=== PATIENT | female | born 1940 | race Caucasian/White ===

== ENCOUNTER 2020-02-26 08:54 | Outpatient (REF) | payer MEDICARE, SELFPAY ==
[2020-02-26 09:33] LABS: MANUAL DIFF FLAG NO
[2020-02-26 09:34] LABS: Basophils Absolute Auto 0.1 X10*3/uL (0.0-0.2); Eosinophils Absolute Auto 0.3 X10*3/uL (0.0-0.4); Eosinophils Percent Auto 4.5 % (0-4); Hematocrit 24.7 % (37-47); Hemoglobin 7.7 g/dl (12.0-16.0); Imm Gran Abs Auto 0.02 X10*3/uL (0.00-0.03); Imm Gran Pct Auto 0.3 % (0.0-0.4); Lymphocytes Absolute Auto 1.2 X10*3/uL (1.2-4.9); Lymphocytes Percent Auto 17.2 % (20-40); Mean Corpuscular HGB Conc 31.2 g/dl (31.0-35.0); Mean Corpuscular Hemoglobin 27.2 pg (27.0-33.0); Mean Corpuscular Volume 87.3 fL (80-98); Monocytes Absolute Auto 0.6 X10*3/uL (0.1-1.2); Monocytes Percent Auto 8.4 % (2-11); Neutrophils Absolute Auto 4.8 X10*3/uL (2.0-8.3); Neutrophils Percent Auto 68.6 % (45-73); Platelet Count 256 X10*3/uL (160-400); Red Blood Count 2.83 X10*6/uL (4.20-5.50); Red Cell Distribution Width 13.3 % (11.0-16.0); White Blood Count 6.9 X10*3/uL (4.8-10.8)
[2020-02-26 10:12] LABS: Alanine Aminotransferase 10 U/L (0-31); Aspartate Amino Transferase 9 U/L (5-31); Cholesterol 96 mg/dL; HDL Cholesterol 25 mg/dL; LDL Cholesterol Calculated 37 mg/dl; Triglycerides 173 mg/dL
[2020-02-26 10:21] LABS: Free T4 (Free Thyroxine) 1.13 ng/dL (0.71-1.85); Thyroid Stimulating Hormone 2.96 mIU/mL (0.32-4.0); Vitamin D 25-OH Total 52.5 ng/mL (>30)
== END 2020-02-26 08:55 | disposition home or self-care (01) ==
LOC: HO.LAB 08:54
PROVIDERS: PCP Internal Medicine; Visit Provider Internal Medicine
DX: E11.21 Type 2 diabetes mellitus with diabetic nephropathy (principal); E11.22 Type 2 diabetes mellitus with diabetic chronic kidney disease; I12.9 Hypertensive chronic kidney disease with stage 1 through stage 4 chronic kidney disease, or unspecified chronic kidney disease; N18.9 Chronic kidney disease, unspecified; D63.1 Anemia in chronic kidney disease; Z78.0 Asymptomatic menopausal state; E03.9 Hypothyroidism, unspecified; I25.10 Atherosclerotic heart disease of native coronary artery without angina pectoris; N25.81 Secondary hyperparathyroidism of renal origin; R42 Dizziness and giddiness
CPT/HCPCS: 36415; 80061; 82306; 84439; 84443; 84450; 84460; 85025

== ENCOUNTER 2020-03-04 09:38 | Outpatient (REF) | payer MEDICARE, SELFPAY ==
[2020-03-04 11:10] LABS: Alanine Aminotransferase 10 U/L (0-31); Albumin Level 3.8 g/dL (3.5-5.0); Alkaline Phosphatase 80 U/L (39-117); Aspartate Amino Transferase 7 U/L (5-31); Bilirubin Direct < 0.2 mg/dL (0.0-0.5); Bilirubin Total 0.2 mg/dL (0.0-1.0); Phosphorus 4.5 mg/dL (2.7-4.5)
== END 2020-03-04 09:39 | disposition home or self-care (01) ==
LOC: HO.LAB 09:38
PROVIDERS: PCP Internal Medicine; Visit Provider Internal Medicine Nephrology
DX: N18.4 Chronic kidney disease, stage 4 (severe) (principal)
CPT/HCPCS: 80076; 84100

== ENCOUNTER 2020-05-01 12:01 | Outpatient (REF) | payer MEDICARE, SELFPAY ==
[2020-05-01 14:04] LABS: Anion Gap 22 (12-20); Blood Urea Nitrogen 89 mg/dL (9-16); Carbon Dioxide 19 mmol/L (22-29); Chloride 102 mmol/L (96-108); Estimated Glomerular Filt Rate 10; Sodium 138 mmol/L (135-145)
== END 2020-05-01 12:02 | disposition home or self-care (01) ==
LOC: HO.LAB 12:01
PROVIDERS: PCP Internal Medicine; Visit Provider Internal Medicine Nephrology
DX: N18.4 Chronic kidney disease, stage 4 (severe) (principal)
CPT/HCPCS: 36415; 80051; 82310; 82565; 84100; 84520

== ENCOUNTER 2020-05-05 14:01 | Outpatient (REF) | payer MEDICARE, SELFPAY ==
[2020-05-05 14:45] LABS: MANUAL DIFF FLAG NO
[2020-05-05 14:52] LABS: Basophils Absolute Auto 0.1 X10*3/uL (0.0-0.2); Basophils Percent Auto 1.1 % (0-2); Eosinophils Absolute Auto 0.4 X10*3/uL (0.0-0.4); Eosinophils Percent Auto 5.6 % (0-4); Hemoglobin 10.9 g/dl (12.0-16.0); Imm Gran Abs Auto 0.01 X10*3/uL (0.00-0.03); Imm Gran Pct Auto 0.2 % (0.0-0.4); Lymphocytes Absolute Auto 1.1 X10*3/uL (1.2-4.9); Lymphocytes Percent Auto 16.8 % (20-40); Mean Corpuscular HGB Conc 30.3 g/dl (31.0-35.0); Mean Corpuscular Hemoglobin 25.8 pg (27.0-33.0); Mean Corpuscular Volume 85.3 fL (80-98); Mean Platelet Volume 10.4 fL (9.4-12.3); Monocytes Absolute Auto 0.5 X10*3/uL (0.1-1.2); Monocytes Percent Auto 8.3 % (2-11); Neutrophils Absolute Auto 4.3 X10*3/uL (2.0-8.3); Platelet Count 200 X10*3/uL (160-400); Red Blood Count 4.22 X10*6/uL (4.20-5.50); Red Cell Distribution Width 16.5 % (11.0-16.0); White Blood Count 6.3 X10*3/uL (4.8-10.8)
[2020-05-05 15:04] LABS: Anion Gap 17 (12-20); Blood Urea Nitrogen 99 mg/dL (9-16); Calcium 9.2 mg/dL (8.4-10.2); Carbon Dioxide 22 mmol/L (22-29); Chloride 100 mmol/L (96-108); Estimated Glomerular Filt Rate 10; Glucose Random 168 mg/dL (60-115); Potassium 5.2 mmol/l (3.3-5.1); Sodium 134 mmol/L (135-145)
[2020-05-05 15:13] LABS: Alanine Aminotransferase 11 U/L (0-31); Albumin Level 4.1 g/dL (3.5-5.0); Alkaline Phosphatase 73 U/L (39-117); Anion Gap 17 (12-20); Aspartate Amino Transferase 8 U/L (5-31); Bilirubin Total 0.3 mg/dL (0.0-1.0); Blood Urea Nitrogen 98 mg/dL (9-16); Calcium 9.1 mg/dL (8.4-10.2); Carbon Dioxide 22 mmol/L (22-29); Chloride 101 mmol/L (96-108); Estimated Glomerular Filt Rate 10; Glucose Random 171 mg/dL (60-115); Potassium 5.2 mmol/l (3.3-5.1); Sodium 135 mmol/L (135-145)
[2020-05-05 15:23] LABS: Vitamin D 25-OH Total 36.9 ng/mL (>30)
[2020-05-08 17:13] LABS: Calcium (PTHI) 9.5 mg/dL (8.6-10.4); PTHI 211 pg/mL (14-64)
== END 2020-05-05 14:02 | disposition home or self-care (01) ==
LOC: HO.LAB 14:01
PROVIDERS: Internal Medicine Medical Oncology; PCP Internal Medicine; Visit Provider Internal Medicine Nephrology
DX: N18.5 Chronic kidney disease, stage 5 (principal)
CPT/HCPCS: 36415; 80048; 80053; 82306; 83970; 85025

== ENCOUNTER 2020-05-12 07:28 | Day surgery (SDC) | payer MEDICARE, SELFPAY ==
[2020-05-08 12:28] VITALS: BMI 29.2
--- NOTE | 2020-05-08 12:56 | P.CONAN_ITS ---
Documented by User: Bita Winslow 05/11/20 10:49 HPI - Anesthesia Eval Consult details Narrative: 79yo F for Spinal Cord Simulation Trial, Lumbar s/p septic prosthetic shoulder explant 11/2019 at [facility] Approaching ESRD Seen by cardiology 05/09/20. Stable for yearly f/u. 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 Diabetic nephropathy Essential hypertension History of myocardial infarction Lumbosacral radiculopathy due to degenerative joint disease of spine Menopause Osteoarthritis involving multiple joints on both sides of body Restless leg syndrome Secondary hyperparathyroidism Septic arthritis of shoulder, right Family History Family History Father Medical history non-contributory Mother Medical history non-contributory Surgical History Surgical History History of carpal tunnel release History of foot surgery History of laminectomy History of total left knee replacement (TKR) Hx of appendectomy Hx of bilateral cataract extraction Hx of cholecystectomy Hx of colonoscopy Hx of dilation and curettage Hx of umbilical hernia repair S/P CABG x 3 S/P trigger finger release Status post right shoulder hemiarthroplasty Social History Social History Are you a primary long term care phlebotomist to a significant other at home: No Do you presently have visiting nurse or other home services: No Alcohol intake: never Smoking Status: Never smoker Use of substances other than those prescribed or required for medical reasons: No Have you been hit, kicked, punched, or otherwise hurt by someone within the past year? If so, by whom?: No Advance Directives: No Advance Directives Information Provided: No Advance Directives on File: No Recently lost weight without trying: No Meds Allergies Allergy/AdvReac Type Severity Reaction Status Date / Time erythromycin base Allergy Mild RASH Verified 05/08/20 11:57 [Erythromycin Base] indomethacin [From Indocin] Allergy Mild RASH Verified 05/08/20 11:57 Sulfa (Sulfonamide Allergy Mild RASH, Verified 05/08/20 11:57 Antibiotics) stomach [Sulfa (Sulfonamides)] upset flaxseed [FLAXSEED] Allergy Unknown SWELLING Verified 05/08/20 11:57 TONGUE AND LIPS Flexeril Allergy Unknown lg swelling Verified 05/08/20 11:57 Niacin Preparations Allergy Unknown RASH Verified 05/08/20 11:57 [NIACIN PREPARATIONS] cocaine Allergy Seizure Verified 05/08/20 11:57 Penicillins Allergy Rash Verified 05/08/20 11:57 atorvastatin [From Lipitor] AdvReac Mild MUSCLE Verified 05/08/20 11:57 SOARNESS oxycodone AdvReac Unknown GI upset- Verified 05/08/20 11:57 sevree CAT GUT SUTURES Allergy Unknown rash Uncoded 05/08/20 11:57 niacin Allergy Unknown rash Uncoded 05/08/20 11:57 PLASTIC TAPE, BANDADES Allergy Unknown rash Uncoded 05/08/20 11:57 Adhesive Bandage AdvReac Mild BLISTERS Uncoded 05/08/20 11:57 Home Medications Medication Instructions Recorded Confirmed Type amlodipine 10 mg tablet 10 mg PO DAILY 02/16/20 05/08/20 History furosemide 40 mg tablet See Rx Instructions PO .COMPLEX 02/16/20 05/08/20 History labetalol 300 mg tablet 300 mg PO BID 02/16/20 05/08/20 History losartan 100 mg tablet 100 mg PO DAILY 02/16/20 05/08/20 History ketorolac 1 drp OPHTHALMIC-RIGHT QID 03/31/20 05/08/20 History sevelamer carbonate 800 mg PO TID 05/05/20 05/08/20 History Exam Exam Date and Time: May 08, 2020 1256 Height,Weight and Vital Signs: Height 5 ft 6 in Weight 82.1 kg Pertinent Lab Results Pertinent Lab Results: Laboratory Tests 05/05/20 05/05/20 14:20 14:20 WBC 6.3 Hgb 10.9 L Hct 36.0 L Plt Count 200 D Sodium 135 Potassium 5.2 H Chloride 101 Carbon Dioxide 22 BUN 98 H* Creatinine 4.38 H* Narrative Narrative: EKG 05/09/19: NSR with SA Echo 02/2019 Nml biV chamber size and systolic function. EF 55-60%, No RWMA, Indeterminate DD. LAE, Mild degenerative valve disease without dopper evidence of hemodynamically significant stenosis or regurg. 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 Diabetic nephropathy Essential hypertension History of myocardial infarction Lumbosacral radiculopathy due to degenerative joint disease of spine Menopause Osteoarthritis involving multiple joints on both sides of body Restless leg syndrome Secondary hyperparathyroidism Septic arthritis of shoulder, right Family History Family History Father Medical history non-contributory Mother Medical history non-contributory Surgical History Surgical History History of carpal tunnel release History of foot surgery History of laminectomy History of total left knee replacement (TKR) Hx of appendectomy Hx of bilateral cataract extraction Hx of cholecystectomy Hx of colonoscopy Hx of dilation and curettage Hx of umbilical hernia repair S/P CABG x 3 S/P trigger finger release Status post right shoulder hemiarthroplasty Social History Social History Are you a primary long term care phlebotomist to a significant other at home: No Do you presently have visiting nurse or other home services: No Alcohol intake: never Smoking Status: Never smoker Use of substances other than those prescribed or required for medical reasons: No Have you been hit, kicked, punched, or otherwise hurt by someone within the past year? If so, by whom?: No Advance Directives: No Advance Directives Information Provided: No Advance Directives on File: No Recently lost weight without trying: No Meds Allergies Allergy/AdvReac Type Severity Reaction Status Date / Time erythromycin base Allergy Mild RASH Verified 05/08/20 11:57 [Erythromycin Base] indomethacin [From Indocin] Allergy Mild RASH Verified 05/08/20 11:57 Sulfa (Sulfonamide Allergy Mild RASH, Verified 05/08/20 11:57 Antibiotics) stomach [Sulfa (Sulfonamides)] upset flaxseed [FLAXSEED] Allergy Unknown SWELLING Verified 05/08/20 11:57 TONGUE AND LIPS Flexeril Allergy Unknown lg swelling Verified 05/08/20 11:57 Niacin Preparations Allergy Unknown RASH Verified 05/08/20 11:57 [NIACIN PREPARATIONS] cocaine Allergy Seizure Verified 05/08/20 11:57 Penicillins Allergy Rash Verified 05/08/20 11:57 atorvastatin [From Lipitor] AdvReac Mild MUSCLE Verified 05/08/20 11:57 SOARNESS oxycodone AdvReac Unknown GI upset- Verified 05/08/20 11:57 sevree CAT GUT SUTURES Allergy Unknown rash Uncoded 05/08/20 11:57 niacin Allergy Unknown rash Uncoded 05/08/20 11:57 PLASTIC TAPE, BANDADES Allergy Unknown rash Uncoded 05/08/20 11:57 Adhesive Bandage AdvReac Mild BLISTERS Uncoded 05/08/20 11:57 Home Medications Medication Instructions Recorded Confirmed Type amlodipine 10 mg tablet 10 mg PO DAILY 02/16/20 05/08/20 History furosemide 40 mg tablet See Rx Instructions PO .COMPLEX 02/16/20 05/08/20 History labetalol 300 mg tablet 300 mg PO BID 02/16/20 05/08/20 History losartan 100 mg tablet 100 mg PO DAILY 02/16/20 05/08/20 History ketorolac 1 drp OPHTHALMIC-RIGHT QID 03/31/20 05/08/20 History sevelamer carbonate 800 mg PO TID 05/05/20 05/08/20 History Exam Airway Mallampati Class: II TM Dist: >3cm Neck ROM: Full
--- NOTE | 2020-05-11 14:38 | MHC.SHP ---
Pre-Procedural Eval Section A The patient is an INPATIENT: No The History & Physical has been completed within 30 days and I have reviewed it.: No Section B Chief Complaint: Post Laminectomy Syndrome Details of Present Illness: As above Relevant Family History (Specify if Yes): No Relevant Social History: None Present Medications: None Medical History: No relevant PMH Allergies: Allergies Allergy/AdvReac Type Severity Reaction Status Date / Time erythromycin base Allergy Mild RASH Verified 05/08/20 11:57 [Erythromycin Base] indomethacin [From Indocin] Allergy Mild RASH Verified 05/08/20 11:57 Sulfa (Sulfonamide Allergy Mild RASH, Verified 05/08/20 11:57 Antibiotics) stomach [Sulfa (Sulfonamides)] upset flaxseed [FLAXSEED] Allergy Unknown SWELLING Verified 05/08/20 11:57 TONGUE AND LIPS Flexeril Allergy Unknown lg swelling Verified 05/08/20 11:57 Niacin Preparations Allergy Unknown RASH Verified 05/08/20 11:57 [NIACIN PREPARATIONS] cocaine Allergy Seizure Verified 05/08/20 11:57 Penicillins Allergy Rash Verified 05/08/20 11:57 atorvastatin [From Lipitor] AdvReac Mild MUSCLE Verified 05/08/20 11:57 SOARNESS oxycodone AdvReac Unknown GI upset- Verified 05/08/20 11:57 sevree CAT GUT SUTURES Allergy Unknown rash Uncoded 05/08/20 11:57 niacin Allergy Unknown rash Uncoded 05/08/20 11:57 PLASTIC TAPE, BANDADES Allergy Unknown rash Uncoded 05/08/20 11:57 Adhesive Bandage AdvReac Mild BLISTERS Uncoded 05/08/20 11:57 Review of Systems Sugical H&P ROS: Negative: Constitution, Cardiovascular, Respiratory, Neurological, Psychiatric, Hem-Onc, Allergic/Immunologic, Gastrointestinal, Genitourinary, Musculoskeletal, Integumentary, Endocrine and Eyes/Ears/Nose/Throat Exam Surgical H&P Exam: Normal: HEENT, Normal: Heart, Normal: Lungs, Normal: Extremities, Normal: Abdomen, Normal: Skin and Normal: Neurological Plan Diagnosis/Plan: Unchanged I have reviewed the history and physical and performed a pertinent physical examination on my patient. No changes have occurred unless specified.
[2020-05-12] VITALS (8 sets, daily range): BP systolic 98–124; BP diastolic 51–69; PULSE 55–93; RESP 16–20; TEMP 36.1–36.4; O2SAT 93–99
--- NOTE | 2020-05-12 07:32 | FL_ITS ---
EXAMINATION: XR FLUOROSCOPY WITH IMAGES CLINICAL INFORMATION: Pain COMPARISON: None. TECHNIQUE: Fluoroscopy performed by Dr. Ranjith Franco. Fluoroscopy time: 2.3 minutes DAP: 12 mGycm2 Images: 5 FINDINGS: There are spinal stimulator leads projecting over the lower thoracic spine. There are degenerative changes of the spine. There are median sternotomy wires. FL/FL guidance in OR IMPRESSION: Fluoroscopic guidance for thoracic spinal stimulator
[2020-05-12 07:48] LABS: Glucose, Whole Blood 104 mg/dL (60-115)
[2020-05-12] MEDS: 0.9 % Sodium Chloride 500 ML 20 ML IVCONT (08:39)
--- NOTE | 2020-05-12 10:05 | PM.OP ---
Brief Operative Note Date of Service: 05/12/20 Pre-op diagnosis: Postlaminectomy syndrome Post-op diagnosis: same Implants: Temporary Nevro leads Surgeon: Ranjith Franco MD Anesthesia: GETA Estimated blood loss (mL): 0 Pathology: none sent Disposition: PACU
--- NOTE | 2020-05-12 11:46 | HO.POSTANES ---
Post Anesthesia Evaluation Post Anesthesia Evaluation Vital Signs: Vital Signs Temp Pulse Resp BP Pulse Ox 05/12/20 11:05 97 F 63 20 117/67 95 05/12/20 10:51 60 20 117/66 95 05/12/20 10:36 57 16 123/69 95 05/12/20 10:21 59 16 110/55 L 93 05/12/20 10:16 59 16 105/60 98 05/12/20 10:11 56 16 105/56 L 99 05/12/20 10:06 97.5 F 55 16 98/51 L 99 05/12/20 07:45 97.5 F 93 18 124/68 98 Anesthesia: Monitored Mental Status: Awake Pain Control: Satisfactory Nausea/Vomiting: None Hydration: Adequate Anesthesia-Related Issues: No Anes. Related Issues
--- NOTE | 2020-05-14 09:52 | P.OP_ITS ---
Operative Note Operative Note Date of Service: 05/12/20 Narrative: Ms. Correa is very pleasant 79 years old lady who came today into the operating room for trial of spinal cord stimulator for the treatment of post laminectomy syndrome. Preoperatively patient received cefasolin 1 g approxi mately 30 minutes before the procedure. After obtaining informed consent patient was brought to the operating room, SHE was positioned prone on operating table, [employer] mon itors were applied and patient was deeply sedated. The patient was taken inside of the operating room where she was positioned prone operating table. Time-out was performed delineating correct site, side, the nature of the procedure, patient's allergy, preoperative antibiotic if needed. All operating room staff was participating in OR time-out procedure. Patient's entire back was prepped with ChloraPrep twice and draped with full body fenestrated drape. Sterilely draped C-arm was brought over operating field and sqare picture of T11-T12 L1 L2 vertebrae as were demonstrated on the screen. Attention FIRST was concentrated on the L1- L2 epidural interspace. The location of the projection of the right pedicle center of the L3 vertebra was found on the skin using C-arm. This location was injected with mixture of lidocaine 2% and Marcaine 0.5% 5 cc. After that 11 blade was used to make a chicho on the skin. 10 cm 14 gauge introducer epidural needle was inserted through the chicho and advanced to L1- L2 epidural interspace. The advancement of the needle was performed on anterior posterior and lateral views. Guitar wire and loss of resistance technique were used to locate epidural space. When guitar wire was spread in the epidural fashion, epidural lead was inserted through the skin and it was advanced to middle of T8 position SLIGHTLY LEFT OF THE MIDLINE. After that location of the projection of the LEFT pedicle center of the L3 vertebra was found on the skin using C-arm. This location was injected with mixture of lidocaine 2% and Marcaine 0.5% 5 cc. After that 11 blade was used to make a chicho on the skin. 10 cm 14 gauge curved introducer epidural needle was inserted through the chicho and advanced to L1-L2 epidural interspace. The advancement of the needle was performed on anterior posterior and lateral views. Guitar wire and loss of resistance technique were used to locate epidural space. When guitar wire was spread in the epidural fashion, epidural lead was inserted through the needle and advanced to the middle of T9 epidural interspace slightly right to the existing electrode. Impedance was checked and was satisfactory .The needles were withdrawn, the stylette wires were removed from the epidural leads. The anchoring devices were dislodged on the leads and advanced to the level of the skin. The anchoring devices were sutured with two 0-0 silk sutures per each anchor to the skin of the patient. The central fixation screw of each anchor was rotated until three clicks were heard. The leads were connected to testing device. Bacitracin oin tment was applied to the entrance point of bilateral needles. Sterile dressing was applied to the patient's back. The testing device was also glued to the patient's back.
== END 2020-05-12 11:51 | disposition home or self-care (01) ==
PROVIDERS: PCP Internal Medicine; Visit Provider Anesthesiology
PROC: (CPT 63650; principal; 2020-05-12 09:00)
DX: M96.1 Postlaminectomy syndrome, not elsewhere classified (principal); M54.16 Radiculopathy, lumbar region; I12.0 Hypertensive chronic kidney disease with stage 5 chronic kidney disease or end stage renal disease; E11.22 Type 2 diabetes mellitus with diabetic chronic kidney disease; N18.5 Chronic kidney disease, stage 5; D63.1 Anemia in chronic kidney disease; E11.21 Type 2 diabetes mellitus with diabetic nephropathy; Z79.84 Long term (current) use of oral hypoglycemic drugs; Z79.899 Other long term (current) drug therapy; Z88.0 Allergy status to penicillin; Z88.2 Allergy status to sulfonamides; Z88.8 Allergy status to other drugs, medicaments and biological substances
CPT/HCPCS: 63650 ×2; 82947; C1897; J0690; J1100; J2405; J3010; J3370

== ENCOUNTER → 2020-05-18 11:22 | Outpatient (BNVA) | payer MEDICARE, SELFPAY | PROVIDERS: PCP Internal Medicine; Referring Provider Internal Medicine; Visit Provider Anesthesiology | DX: M96.1 Postlaminectomy syndrome, not elsewhere classified (principal); M47.27 Other spondylosis with radiculopathy, lumbosacral region; G89.4 Chronic pain syndrome | CPT/HCPCS: 99212 ==

== ENCOUNTER → 2020-06-06 11:59 | Outpatient (BNVA) | payer MEDICARE, SELFPAY | PROVIDERS: PCP Internal Medicine; Visit Provider Orthopaedic Surgery | DX: M75.102 Unspecified rotator cuff tear or rupture of left shoulder, not specified as traumatic (principal); M12.812 Other specific arthropathies, not elsewhere classified, left shoulder | CPT/HCPCS: 99212; J1040 ==

== ENCOUNTER 2020-07-05 14:15 | Outpatient (REF) | payer MEDICARE, SELFPAY ==
[2020-07-05 15:26] LABS: Creatinine Urine 30.17 mg/dL
[2020-07-05 15:38] LABS: Anion Gap 21 (12-20); Blood Urea Nitrogen 94 mg/dL (9-16); Calcium 9.5 mg/dL (8.4-10.2); Carbon Dioxide 26 mmol/L (22-29); Chloride 94 mmol/L (96-108); Estimated Glomerular Filt Rate 8; Potassium 4.9 mmol/L (3.3-5.1); Sodium 136 mmol/L (135-145)
== END 2020-07-05 14:16 | disposition home or self-care (01) ==
LOC: HO.LAB 14:15
PROVIDERS: PCP Internal Medicine; Visit Provider Internal Medicine Nephrology
DX: N18.5 Chronic kidney disease, stage 5 (principal)
CPT/HCPCS: 36415; 80051; 82043; 82310; 82565; 84520

== ENCOUNTER 2020-07-11 14:35 | Outpatient (REF) | payer MEDICARE, SELFPAY ==
--- NOTE | ~2020-07-11 | US_ITS ---
EXAMINATION: US VENOUS ULTRASOUND WITH DOPPLER LOWER EXTREMITY, BILATERAL CLINICAL INFORMATION: Bilateral leg pain COMPARISON: None TECHNIQUE: Ultrasound of the deep veins is performed from the hip to the calf with compression sonography and color and pulse Doppler assessment. Spectral analysis with color-flow imaging is performed. FINDINGS: RIGHT: There is normal venous compression and respiratory variation and augmented flow. The visualized common femoral vein, superficial femoral vein, profunda femoral vein, popliteal vein, and the trifurcation region shows no evidence of deep venous thrombosis. There is a small popliteal fossa cyst. LEFT: There is normal venous compression and respiratory variation and augmented flow. The visualized common femoral vein, superficial femoral vein, profunda femoral vein, popliteal vein, and posterior tibial vein shows no evidence of deep venous thrombosis. The peroneal vein is not visualized. There is no significant popliteal fossa cyst. If the patient's symptoms persist, followup ultrasound in 5 days 7 days might be of value to exclude proximal propagation from a non-visualized calf vein. US/US venous duplex LE BI IMPRESSION: No DVT demonstrated in the bilateral lower extremity. The left peroneal vein is not visualized. There is a small right Chand's cyst.
== END 2020-07-11 14:36 | disposition home or self-care (01) ==
LOC: HO.US 14:35
PROVIDERS: Visit Provider Internal Medicine
DX: M79.89 Other specified soft tissue disorders (principal); M79.662 Pain in left lower leg; M79.661 Pain in right lower leg
CPT/HCPCS: 93970

== ENCOUNTER 2020-07-17 20:40 | Emergency (ER) | payer MEDICARE, SELFPAY ==
--- NOTE | ~2020-07-17 | XR_ITS ---
EXAMINATION: BILATERAL TIBIA AND FIBULA. CLINICAL INFORMATION: Leg pain. COMPARISON: None TECHNIQUE: 2 views each tibia and fibula FINDINGS: LEFT TIBIA AND FIBULA: There is a total left knee prosthesis in place is slow healing proximal fibular fracture with periosteal thickening. No acute fractures involving tibia or the fibula. There is RIGHT TIBIA-FIBULA: There is a right proximal lateral. The ossicle thickening likely old healed stress fracture. No acute fracture or dislocation seen at this time. XR/XR tibia fibula LT 2V IMPRESSION: Total left knee prosthesis with a healing proximal fibular fracture. No acute fracture seen. There is periosteal thickening proximal fibula likely old stress fracture. No acute fracture or dislocation right lower leg.
--- NOTE | ~2020-07-17 | XR_ITS ---
EXAMINATION: BILATERAL TIBIA AND FIBULA. CLINICAL INFORMATION: Leg pain. COMPARISON: None TECHNIQUE: 2 views each tibia and fibula FINDINGS: LEFT TIBIA AND FIBULA: There is a total left knee prosthesis in place is slow healing proximal fibular fracture with periosteal thickening. No acute fractures involving tibia or the fibula. There is RIGHT TIBIA-FIBULA: There is a right proximal lateral. The ossicle thickening likely old healed stress fracture. No acute fracture or dislocation seen at this time. XR/XR tibia fibula RT 2V IMPRESSION: Total left knee prosthesis with a healing proximal fibular fracture. No acute fracture seen. There is periosteal thickening proximal fibula likely old stress fracture. No acute fracture or dislocation right lower leg.
[2020-07-17 20:51] VITALS: BP 101/73; PULSE 87; RESP 15; TEMP 36.9; O2SAT 98; BMI 30.5
[2020-07-17] MEDS: traMADoL HCL 50 MG TABLET PO (21:53)
[2020-07-17 21:54] VITALS: BP 98/67; PULSE 86; RESP 14; O2SAT 94
--- NOTE | 2020-07-17 23:01 | MHC.CM.ED ---
Met with pt and at request of JEREMY Dietz. Pt has hx of chronic back pain and has had leg pain, which is being treated at [facility] pain clinic. Pt had a temporary pain stimulator which worked very well per pt. Pt scheduled to have permanent pain stimulator implanted on July 28. Pain has worsened over weekend and today pt could not get out of chair. Pt takes vicodan, but that has not helped much. Pt called pain clinic and no orders for pain medication obtained. Pt states was told to wait for pain stimulator.Twan Dietz suggested PT evaluation. Plan is to re-assess pt after tramadol and see if she can use her walker. If she can, she would like to go home. If not, she will stay over night for a PT evaluation in the am. J Luis Trent agrees with plan. Pt and agree with this plan. CM to follow for d/c needs.
[2020-07-18] VITALS (9 sets, daily range): BP systolic 96–111; BP diastolic 58–74; PULSE 82–90; RESP 16–18; TEMP 36.6; O2SAT 96–100
--- NOTE | 2020-07-18 00:22 | ED.GENADULT ---
HPI - General Adult General Chief complaint: Extremity Injury, Lower <JEREMY Calderon - Last Filed: 07/18/20 01:23> Stated complaint: chronic leg pain <JEREMY Calderon - Last Filed: 07/18/20 01:23> Time Seen by Provider: 07/17/20 20:59 <JEREMY Calderon - Last Filed: 07/18/20 01:23> Source: patient <JEREMY Calderon - Last Filed: 07/18/20 01:23> Mode of arrival: ambulatory <JEREMY Calderon - Last Filed: 07/18/20 01:23> Limitations: no limitations <JEREMY Calderon Last Filed: 07/18/20 01:23> History of Present Illness HPI narrative: Patient presents to ED for chronic bilateral lower extremity pain. Patient denies any increased swelling of lower extremities, calf pain, redness, chest pain, shortness of breath, fever, or chills. Patient has a temporary stimulator placed in her back for chronic pain in her back going down her legs that will be permanent and appointment July 28 with pain management. Patient denies any recent trauma. Patient came to the ED because the pain became worse and has difficulty ambulating. <JEREMY Calderon - Last Filed: 07/18/20 01:23> Related Data Home medications: Home Medications Medication Instructions Recorded Confirmed labetalol 300 mg tablet 300 mg PO BID 02/16/20 07/18/20 losartan 100 mg tablet 100 mg PO DAILY 02/16/20 07/18/20 ketorolac 1 drp OPHTHALMIC-RIGHT QID 03/31/20 07/18/20 sevelamer carbonate 800 mg PO TID 05/05/20 07/18/20 acetaminophen 500 mg tablet 500 mg PO Q6H PRN 06/21/20 07/18/20 aspirin 81 mg tablet,delayed 81 mg PO DAILY 06/21/20 07/18/20 release coenzyme Q10 100 mg capsule 100 mg PO TID cap 06/21/20 07/18/20 ferrous sulfate 325 mg (65 mg 325 mg PO TID tab 06/21/20 07/18/20 iron) tablet metolazone 5 mg tablet 5 mg PO DAILY 06/21/20 07/18/20 ropinirole 0.5 mg tablet 0.5 mg PO QID tab 06/21/20 07/18/20 sodium bicarbonate-sodium chloride 1 ea MISCELLANEOUS BID 06/21/20 07/18/20 powder torsemide 1 tab PO DAILY 07/14/20 07/18/20 Vicodin 5 - 325 mg PO TID PRN 07/18/20 07/18/20 vit C,E,Zn,Zl-[id number] 1 cap PO BID 07/18/20 07/18/20 [PreserVision AREDS-2 (omega-3)] Previous Rx's Medication Instructions Recorded levothyroxine 137 mcg tablet 137 mcg PO QAM #90 tab 03/15/20 amlodipine 10 mg tablet 10 mg PO DAILY #90 tab 05/24/20 rosuvastatin 10 mg tablet 10 mg PO DAILY #90 tab 05/31/20 hydrocodone 5 mg-acetaminophen 325 1 tab PO Q8H PRN #90 tab 07/07/20 mg tablet <JEREMY Calderon - Last Filed: 07/18/20 01:23> Allergies/adverse reactions: Allergies Allergy/AdvReac Type Severity Reaction Status Date / Time erythromycin base Allergy Mild RASH Verified 07/17/20 20:59 [Erythromycin Base] indomethacin [From Indocin] Allergy Mild RASH Verified 07/17/20 20:59 Sulfa (Sulfonamide Allergy Mild RASH, Verified 07/17/20 20:59 Antibiotics) stomach [Sulfa (Sulfonamides)] upset ezetimibe [From Zetia] Allergy Unknown unknown Verified 07/17/20 20:59 flaxseed [FLAXSEED] Allergy Unknown SWELLING Verified 07/17/20 20:59 TONGUE AND LIPS Flexeril Allergy Unknown lg swelling Verified 07/17/20 20:59 gabapentin [From Neurontin] Allergy Unknown UNknown Verified 07/17/20 20:59 glipizide Allergy Unknown UNknown Verified 07/17/20 20:59 Niacin Preparations Allergy Unknown RASH Verified 07/17/20 20:59 [NIACIN PREPARATIONS] Penicillins Allergy Unknown Rash Verified 07/17/20 20:59 cocaine Allergy Seizure Verified 07/17/20 20:59 atorvastatin [From Lipitor] AdvReac Mild MUSCLE Verified 07/17/20 20:59 SOARNESS oxycodone AdvReac Unknown GI upset- Verified 07/17/20 20:59 sevree CAT GUT SUTURES Allergy Unknown rash Uncoded 07/17/20 20:59 PLASTIC TAPE, BANDADES Allergy Unknown rash Uncoded 07/17/20 20:59 Adhesive Bandage AdvReac Mild BLISTERS Uncoded 07/17/20 20:59 <JEREMY Calderon - Last Filed: 07/18/20 01:23> Review of Systems Review of Systems: Yes all other systems are reviewed and are negative <JEREMY Calderon - Last Filed: 07/18/20 01:23> Constitutional: Constitutional: Reports as per HPI and Reports no additional constitutional complaints <JEREMY Calderon - Last Filed: 07/18/20 01:23> Eyes: Eyes: Reports as per HPI and Reports no additional eye complaints <JEREMY Calderon - Last Filed: 07/18/20 01:23> ENT: Reports system reviewed and no additional complaints, except as documented and Reports as per HPI <JEREMY Calderon Last Filed: 07/18/20 01:23> Cardiovascular: Cardiovascular: Reports as per HPI and Reports no additional cardiovascular complaints <JEREMY Calderon - Last Filed: 07/18/20 01:23> Respiratory: Respiratory: Reports as per HPI and Reports no additional respiratory complaints <JEREMY Calderon - Last Filed: 07/18/20 01:23> Gastrointestinal: Gastrointestinal: Reports as per HPI and Reports no additional gastrointestinal complaints <EJREMY Calderon Last Filed: 07/18/20 01:23> Genitourinary: Genitourinary: Reports no additional female genitourinary complaints and Reports as per HPI <JEREMY Calderon Last Filed: 07/18/20 01:23> Musculoskeletal: Musculoskeletal: Reports no additional musculoskeletal complaints and Reports as per HPI <JEREMY Calderon - Last Filed: 07/18/20 01:23> Comments: Bilateral leg pain <JEREMY Calderon - Last Filed: 07/18/20 01:23> Neurologic: Reports system reviewed and no additional complaints, except as documented and Reports as per HPI <JEREMY Calderon Last Filed: 07/18/20 01:23> Psychiatric: Psychiatric: Reports no additional psychiatric complaints and Reports as per HPI <JEREMY Calderon - Last Filed: 07/18/20 01:23> [facility] Past Medical History Medical History: Medical History (Updated 07/18/20 @ 01:22 by JEREMY Calderon) Acquired hypothyroidism Anemia in CKD (chronic kidney disease) Bilateral calf pain Chronic kidney disease, stage 5 Chronic pain syndrome Coronary artery disease 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 Diabetic nephropathy Essential hypertension History of myocardial infarction Lumbosacral radiculopathy due to degenerative joint disease of spine Menopause Osteoarthritis involving multiple joints on both sides of body Pain and swelling of lower leg Postlaminectomy syndrome Restless leg syndrome Secondary hyperparathyroidism Septic arthritis of shoulder, right <JEREMY Calderon - Last Filed: 07/18/20 01:23> Surgical History: Surgical History History of carpal tunnel release History of foot surgery History of laminectomy History of total left knee replacement (TKR) Hx of appendectomy Hx of bilateral cataract extraction Hx of cholecystectomy Hx of colonoscopy Hx of dilation and curettage Hx of umbilical hernia repair S/P CABG x 3 S/P trigger finger release Status post right shoulder hemiarthroplasty <JEREMY Calderon - Last Filed: 07/18/20 01:23> Family History Family History: Family History Father Medical history non-contributory Mother Medical history non-contributory <JEREMY Calderon - Last Filed: 07/18/20 01:23> Social History Social History: Social History Alcohol intake: never Smoking Status: Never smoker Use of substances other than those prescribed or required for medical reasons: No Advance Directives: No Advance Directives Information Provided: Yes <JEREMY Calderon - Last Filed: 07/18/20 01:23> Physical Exam Vital Signs: Vital Signs: Last Vital Signs Temp 97.9 F 07/18/20 00:00 Pulse 82 07/18/20 00:14 Resp 18 07/18/20 00:00 BP 111/74 07/18/20 00:14 Pulse Ox 96 07/18/20 00:00 Body Mass Index 30.5 <JEREMY Calderon Last Filed: 07/18/20 01:23> Vital Signs: Last Vital Signs Temp 97.9 F 07/18/20 00:00 Pulse 82 07/18/20 00:14 Resp 18 07/18/20 00:00 BP 111/74 07/18/20 00:14 Pulse Ox 96 07/18/20 00:00 Body Mass Index 30.5 <Vi Mora MD - Last Filed: 07/18/20 06:31> Const: General: cooperative, healthy appearing, comfortable, no acute distress, well developed, alert, awake and Physically active <JEREMY Calderon Last Filed: 07/18/20 01:23> Orientation/consciousness: patient oriented x3 <JEREMY Calderon Last Filed: 07/18/20 01:23> HENMT: Head: Yes normal to inspection, Yes No palpable skull fracture present, Yes normocephalic and No atraumatic <JEREMY Calderon Last Filed: 07/18/20 01:23> Eyes: General: appearance normal, both eyes and all related structures <JEREMY Calderon - Last Filed: 07/18/20 01:23> Neck: Neck: Yes normal visual inspection, Yes full ROM, Yes no lymphadenopathy, Yes no meningeal signs, Yes trachea midline, Yes supple and No tender <JEREMY Calderon Last Filed: 07/18/20 01:23> Chest: Chest palpation & inspection: normal inspection of the chest and normal palpation of entire chest wall <JEREMY Calderon Last Filed: 07/18/20 01:23> Resp: Effort & Inspection: normal respiratory effort and able to speak in complete sentences <JEREMY Calderon Last Filed: 07/18/20 01:23> Auscultation: clear to auscultation bilaterally <JEREMY Calderon Last Filed: 07/18/20 01:23> Cardio: Jugular venous distension: no JVD <JEREMY Calderon Last Filed: 07/18/20 01:23> Heart sounds: S1 normal heart sound present and S2 normal heart sound present <JEREMY Calderon Last Filed: 07/18/20 01:23> GI: Inspection: Yes normal to inspection and No abdominal wall ecchymosis <JEREMY Calderon Last Filed: 07/18/20 01:23> Palpation (GI): Soft to palpation, not firm, nontender, no guarding and not rigid <JEREMY Calderon Last Filed: 07/18/20 01:23> : General: No CVA tenderness and Yes no CVA tenderness <JEREMY Calderon Last Filed: 07/18/20 01:23> Back/Spine/Pelvis: Back: no CVA tenderness, No CVA tenderness and No back tenderness <JEREMY Calderon Last Filed: 07/18/20 01:23> Skin: General skin exam: no rashes or lesions noted and elasticity normal <JEREMY Calderon Last Filed: 07/18/20 01:23> Neuro: General: patient oriented x3, no meningeal signs and CN's II-XI intact bilaterally <JEREMY Calderon - Last Filed: 07/18/20 01:23> Cranial nerves: Yes CN's II-XII intact bilaterally <JEREMY Calderon Last Filed: 07/18/20 01:23> Extrem: Other: Lower extremities bilaterall: positive for pitting edema and swelling. Negative for any redness, calf pain, hotness, coolness. Negative for any ecchymosis or deformities. Pedal pulses. Patient states swelling of bilateral lower extremities actually actually improved <JEREMY Calderon Last Filed: 07/18/20 01:23> General: Yes normal to inspection and Yes full ROM <JEREMY Calderon Last Filed: 07/18/20 01:23> Psych: Appearance: grossly normal, well kempt and not disheveled <JEREMY Calderon Last Filed: 07/18/20 01:23> Course Course Course Narrative: Patient given pain medication re-evaluated. No need for bilateral lower extremity ultrasound to rule out DVT. She states she had ultrasound last week of lower extremity which was normal and negative for DVT. Patient also states swelling has improved. Patient's lower extremity swelling and pitting edema is from her chronic kidney disease stage 5 and is already on diuretics. Records show patient had ultrasound last week which was normal and negative for DVT of legs. Not suspecting cellulitis or arterial occlusion <JEREMY Calderon - Last Filed: 07/18/20 01:23> Physician of sedation started at 6 20 a.m by order, However it started at 02:00. Patient placed in physician observation because the patient needed more time for case management and physical therapy evaluation. At the time of observation was started, the patient's vitals were stable, patient is alert and oriented, neuro: Nonfocal, stable heart rate, lungs clear. <Vi Mora MD - Last Filed: 07/18/20 06:31> Reevaluation(s) Reevaluation #1: Lower extremity x-rays negative for any fractures. Patient able to ambulate with walker on her own but states she has pain and would like to stay for physical therapy evaluation the morning. We will do basic labs. <JEREMY Calderon - Last Filed: 07/18/20 01:23> Reevaluation #2: Patient labs are baseline. Patient is not on dialysis. Patient potassium is normal. 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 Case signed to Dr. Solorzano <JEREMY Calderon - Last Filed: 07/18/20 01:23> Medical Decision Making MDM Narrative Medical decision making narrative: Chronic lower extremity pain <JEREMY Calderon - Last Filed: 07/18/20 01:23> Lab Data Result diagrams: : 07/18/20 00:20 07/18/20 00:20 <JEREMY Calderon - Last Filed: 07/18/20 01:23> Labs: Lab Results 07/18/20 07/18/20 Range/Units 00:20 00:20 WBC 6.2 (4.8-10.8) X10*3/uL RBC 3.32 L (4.20-5.50) X10*6/uL Hgb 9.0 L (12.0-16.0) g/dl Hct 28.1 L (37-47) % MCV 84.6 (80-98) fL MCH 27.1 (27.0-33.0) pg MCHC 32.0 (31.0-35.0) g/dl RDW 18.4 H (11.0-16.0) % Plt Count 167 (160-400) X10*3/uL MPV 10.7 (9.4-12.3) fL Immature Gran % (Auto) 0.3 (0.0-0.4) % Neut % (Auto) 66.7 (45-73) % Lymph % (Auto) 16.7 L (20-40) % [place] % (Auto) 12.7 H (2-11) % Eos % (Auto) 2.6 (0-4) % Baso % (Auto) 1.0 (0-2) % Lymph # (Auto) 1.0 L (1.2-4.9) X10*3/uL [place] # (Auto) 0.8 (0.1-1.2) X10*3/uL Eos # (Auto) 0.2 (0.0-0.4) X10*3/uL Baso # (Auto) 0.1 (0.0-0.2) X10*3/uL Abs Immat Gran (auto) 0.02 (0.00-0.03) X10*3/uL Absolute Neuts (auto) 4.2 (2.0-8.3) X10*3/uL Absolute Nucleated RBC 0.000 (0.0-0.012) X10*3/uL Nucleated RBC % (auto) 0.0 (0.0-0.2) /100WBC Sodium 135 (135-145) mmol/L Potassium 4.8 (3.3-5.1) mmol/L Chloride 95 L (96-108) mmol/L Carbon Dioxide 20 L (22-29) mmol/L Anion Gap 25 H (12-20) BUN 117 H* (9-16) mg/dL Creatinine 5.94 H* (0.5-1.4) mg/dL Estim Creat Clear Calc 8.8 Estimated GFR 7 Random Glucose 129 H (60-115) mg/dL Calcium 8.9 (8.4-10.2) mg/dL Total Bilirubin 0.6 (0.0-1.0) mg/dL AST 8 (5-31) U/L ALT 7 (0-31) U/L Alkaline Phosphatase 78 (39-117) U/L Total Protein 6.0 L (6.5-8.0) g/dL Albumin 3.9 (3.5-5.0) g/dL <JEREMY Calderon - Last Filed: 07/18/20 01:23> Lab Results 07/18/20 07/18/20 Range/Units 00:20 00:20 WBC 6.2 (4.8-10.8) X10*3/uL RBC 3.32 L (4.20-5.50) X10*6/uL Hgb 9.0 L (12.0-16.0) g/dl Hct 28.1 L (37-47) % MCV 84.6 (80-98) fL MCH 27.1 (27.0-33.0) pg MCHC 32.0 (31.0-35.0) g/dl RDW 18.4 H (11.0-16.0) % Plt Count 167 (160-400) X10*3/uL MPV 10.7 (9.4-12.3) fL Immature Gran % (Auto) 0.3 (0.0-0.4) % Neut % (Auto) 66.7 (45-73) % Lymph % (Auto) 16.7 L (20-40) % [place] % (Auto) 12.7 H (2-11) % Eos % (Auto) 2.6 (0-4) % Baso % (Auto) 1.0 (0-2) % Lymph # (Auto) 1.0 L (1.2-4.9) X10*3/uL [place] # (Auto) 0.8 (0.1-1.2) X10*3/uL Eos # (Auto) 0.2 (0.0-0.4) X10*3/uL Baso # (Auto) 0.1 (0.0-0.2) X10*3/uL Abs Immat Gran (auto) 0.02 (0.00-0.03) X10*3/uL Absolute Neuts (auto) 4.2 (2.0-8.3) X10*3/uL Absolute Nucleated RBC 0.000 (0.0-0.012) X10*3/uL Nucleated RBC % (auto) 0.0 (0.0-0.2) /100WBC Sodium 135 (135-145) mmol/L Potassium 4.8 (3.3-5.1) mmol/L Chloride 95 L (96-108) mmol/L Carbon Dioxide 20 L (22-29) mmol/L Anion Gap 25 H (12-20) BUN 117 H* (9-16) mg/dL Creatinine 5.94 H* (0.5-1.4) mg/dL Estim Creat Clear Calc 8.8 Estimated GFR 7 Random Glucose 129 H (60-115) mg/dL Calcium 8.9 (8.4-10.2) mg/dL Total Bilirubin 0.6 (0.0-1.0) mg/dL AST 8 (5-31) U/L ALT 7 (0-31) U/L Alkaline Phosphatase 78 (39-117) U/L Total Protein 6.0 L (6.5-8.0) g/dL Albumin 3.9 (3.5-5.0) g/dL <Vi Mora MD - Last Filed: 07/18/20 06:31> Discharge Plan Discharge Clinical Impression: Lower extremity pain <JEREMY Calderon - Last Filed: 07/18/20 01:23> Prescriptions: No [facility] levothyroxine 137 mcg tablet 137 mcg PO QAM Qty: 90 RF: 3 amlodipine 10 mg tablet 10 mg PO DAILY Qty: 90 RF: 3 rosuvastatin 10 mg tablet 10 mg PO DAILY Qty: 90 RF: 3 hydrocodone-acetaminophen 5-325 mg tablet 1 tab PO Q8H PRN (Reason: pain) Qty: 90 RF: 0 PreserVision AREDS-2 (omega-3) 250-2.5-0.5 mg Capsule 1 cap PO BID RF: 0 Vicodin 5 - 325 mg PO TID PRN (Reason: Pain) RF: 0 ketorolac 0.5 % drops 1 drp ophthalmic-Right QID RF: 0 sevelamer carbonate 800 mg Tablet 800 mg PO TID RF: 0 torsemide 100 mg tablet 1 tab PO DAILY RF: 0 labetalol 300 mg tablet 300 mg PO BID RF: 0 losartan 100 mg tablet 100 mg PO DAILY RF: 0 metolazone 5 mg tablet 5 mg PO DAILY RF: 0 aspirin [Enteric Coated Aspirin] 81 mg tablet,delayed release (DR/EC) 81 mg PO DAILY RF: 0 coenzyme Q10 [Co Q-10] 100 mg capsule 100 mg PO TID RF: 0 sodium bicarb-sodium chloride Powder 1 ea miscellaneous BID RF: 0 ferrous sulfate 325 mg (65 mg iron) tablet 325 mg PO TID RF: 0 acetaminophen [Tylenol Extra Strength] 500 mg tablet 500 mg PO Q6H PRN (Reason: Pain) RF: 0 ropinirole 0.5 mg tablet 0.5 mg PO QID RF: 0 <JEREMY Calderon - Last Filed: 07/18/20 01:23>
[2020-07-18 00:27] LABS: MANUAL DIFF FLAG NO
[2020-07-18 00:28] LABS: Basophils Absolute Auto 0.1 X10*3/uL (0.0-0.2); Eosinophils Absolute Auto 0.2 X10*3/uL (0.0-0.4); Eosinophils Percent Auto 2.6 % (0-4); Hematocrit 28.1 % (37-47); Imm Gran Abs Auto 0.02 X10*3/uL (0.00-0.03); Imm Gran Pct Auto 0.3 % (0.0-0.4); Lymphocytes Percent Auto 16.7 % (20-40); Mean Corpuscular Hemoglobin 27.1 pg (27.0-33.0); Mean Corpuscular Volume 84.6 fL (80-98); Mean Platelet Volume 10.7 fL (9.4-12.3); Monocytes Absolute Auto 0.8 X10*3/uL (0.1-1.2); Monocytes Percent Auto 12.7 % (2-11); Neutrophils Absolute Auto 4.2 X10*3/uL (2.0-8.3); Neutrophils Percent Auto 66.7 % (45-73); Platelet Count 167 X10*3/uL (160-400); Red Blood Count 3.32 X10*6/uL (4.20-5.50); Red Cell Distribution Width 18.4 % (11.0-16.0); White Blood Count 6.2 X10*3/uL (4.8-10.8)
--- NOTE | 2020-07-18 00:43 | PC.NURSE ---
PT MEDICATED FOR NAUSEA, NS UP AND RUNNING W/O SITE INTACT. AWAITING FURTHER ORDERS. DAUGHTER AT BEDSIDE WITH PT.
[2020-07-18 00:58] LABS: Alanine Aminotransferase 7 U/L (0-31); Albumin Level 3.9 g/dL (3.5-5.0); Alkaline Phosphatase 78 U/L (39-117); Anion Gap 25 (12-20); Aspartate Amino Transferase 8 U/L (5-31); Bilirubin Total 0.6 mg/dL (0.0-1.0); Blood Urea Nitrogen 117 mg/dL (9-16); Calcium 8.9 mg/dL (8.4-10.2); Carbon Dioxide 20 mmol/L (22-29); Chloride 95 mmol/L (96-108); Creatinine Clr Calc Pharmacy 8.8; Estimated Glomerular Filt Rate 7; Glucose Random 129 mg/dL (60-115); Potassium 4.8 mmol/L (3.3-5.1); Sodium 135 mmol/L (135-145)
--- NOTE | 2020-07-18 05:50 | PC.NURSE ---
Patient slept most of the evening and awoke at 4 am. Patient was slightly disoriented because she thought it was still evening. I explained that it was morning and patient was good. She walked last night a few steps and then had to stop because she had horrible pain in her legs. Patient then agreed to stay and be seen by case management and PT.
[2020-07-18] MEDS: HYDROcodone Bit/Acetam 5/325 TABLET 1 TAB PO (07:55)
--- NOTE | 2020-07-18 10:42 | MHC.CM.ED ---
Physical therapy eval is complete. Short term rehab is recommended. Met with patient in regards to discharge planning. Patient has been to [facility] in the past. Referral sent there via allscripts at patient's request. List of [facility] facilities provided from [facility], just in case [facility] is not able to offer a bed. Continue to monitor for d/c needs.
[2020-07-18] MEDS: Labetalol HCL 100 MG TABLET 300 MG PO (11:38)
[2020-07-18] MEDS: Losartan Potassium 50 MG TABLET 100 MG PO (11:40)
[2020-07-18] MEDS: Aspirin Enteric Coated 81 MG TABLET.DR PO (11:40)
[2020-07-18] MEDS: Acetaminophen 325 MG TABLET 650 MG PO (11:41)
[2020-07-18 11:43] LABS: COVID-19 Test Negative (Negative); IDNOW Serial# 9DD0AD1C
--- NOTE | 2020-07-18 11:50 | PC.NURSE ---
carvedilol and norvasc held for SBP 110S. MD Montes aware. will continue to monitor bp. pt aware of plan to transfer to rehab. resp even and nonlaboured. in NAD at this time.
--- NOTE | 2020-07-18 12:19 | PC.NURSE ---
PT TO BE TRANSPORTED TO [facility] AT 1400H
--- NOTE | 2020-07-18 12:30 | MHC.CM.ED ---
[facility] is able to offer patient a bed today. Patient can leave at 2pm. [facility] booked. Med nec with chart. Patient, Diana Padgett and Yesenia SALAS aware. Continue to monitor for d/c needs.
--- NOTE | 2020-07-18 13:34 | PC.NURSE ---
report givn to RN at [facility]
== END 2020-07-18 14:11 | disposition skilled nursing facility (03) ==
PROVIDERS: Physician Assistant; Emergency Provider Emergency Medicine
DX: S89.90XA Unspecified injury of unspecified lower leg, initial encounter (principal); X58.XXXA Exposure to other specified factors, initial encounter; Y93.9 Activity, unspecified; Y92.9 Unspecified place or not applicable; Y99.9 Unspecified external cause status; R60.0 Localized edema; M79.605 Pain in left leg; M79.604 Pain in right leg; Z20.822 Contact with and (suspected) exposure to COVID-19; Z79.899 Other long term (current) drug therapy; Z79.82 Long term (current) use of aspirin
CPT/HCPCS: 36415; 73590; 80053; 85025; 87635; 97162; 99283; 99284

== ENCOUNTER 2020-07-31 01:33 | Inpatient (IN) | payer MEDICARE, SELFPAY ==
[2020-07-31] VITALS (15 sets, daily range): BP systolic 103–124; BP diastolic 46–78; PULSE 46–110; RESP 12–24; TEMP 36.1–36.2; O2SAT 96–99; BMI 34.7
--- NOTE | ~2020-07-31 | US_ITS ---
EXAMINATION: US VENOUS ULTRASOUND WITH DOPPLER LOWER EXTREMITY, BILATERAL CLINICAL INFORMATION: Bilateral lower extremity pain edema and swelling COMPARISON: None TECHNIQUE: 07/11/2020 Exam is limited as the popliteal veins could not be evaluated as the patient to turn either leg a cause of pain. In addition, compression was not possible of the left femoral vein distally because of pain. FINDINGS: RIGHT: There is normal venous compression and respiratory variation and augmented flow. The visualized common femoral vein, superficial femoral vein, profunda femoral vein and the trifurcation region shows no evidence of deep venous thrombosis. The popliteal vein could not be imaged. There is no significant popliteal fossa cyst. LEFT: There is normal venous compression and respiratory variation and augmented flow. The visualized common femoral vein, superficial femoral vein, profunda femoral vein and the trifurcation region shows no evidence of deep venous thrombosis. The peroneal veins were not visualized. The distal femoral vein could not be compressed secondary to pain but Doppler flow is seen. The popliteal vein could not be imaged. There is no significant popliteal fossa cyst. If the patient's symptoms persist, followup ultrasound in 5 days 7 days might be of value to exclude proximal propagation from a non-visualized calf vein. US/US venous duplex LE BI IMPRESSION: Limited study but there is no DVT demonstrated in either lower extremity. The popliteal veins were not imaged. The left peroneal veins could not be visualized. Findings are similar to the study from 07/11/2020.
--- NOTE | ~2020-07-31 | XR_ITS ---
EXAMINATION: XR CHEST CLINICAL INFORMATION: Confirmation of dialysis port. COMPARISON: 07/31/2020 TECHNIQUE: Frontal view of the chest was obtained. 2 images. FINDINGS: Cardiac leads overlie the chest. Median sternotomy wires appear intact. The patient is rotated to the left. On the initial image there is a wire extending through the right internal jugular access. This extends through the region of the right atrium to overlie the right ventricle. On the second image this has been partially retracted, still likely overlying the right ventricle. Lung volumes are low. Patchy opacities at the left base. Possible small left pleural effusion. No pneumothorax. Antibiotic cement spacer at the right humeral head region. XR/XR chest 1V IMPRESSION: Radiopaque wire coursing over the region of the right atrium and terminating over the region of the right ventricle. There is no port in place at this time. Low lung volumes with patchy left basilar opacity and possible small pleural effusion.
--- NOTE | ~2020-07-31 | IR_ITS ---
EXAMINATION: X-RAY ARE ULTRASOUND GUIDANCE VENOUS ACCESS See permacath report from the same day.
--- NOTE | ~2020-07-31 | XR_ITS ---
EXAMINATION: CHEST 1 VIEW CLINICAL INFORMATION: Shortness of breath. COMPARISON: None. TECHNIQUE: An AP view of the chest is provided. FINDINGS: The cardiac silhouette is prominent. Intact midline sternal wires are present. The mediastinal and hilar contours are unremarkable. There are neither pleural effusions nor pneumothoraces. There are no consolidations. No acute osseous abnormalities are present. Chronic shoulder deformities are present. XR/XR chest 1V IMPRESSION: No evidence for acute disease. Cardiomegaly without vascular congestion.
--- NOTE | ~2020-07-31 | IR_ITS ---
PROCEDURE: IR INSERTION OF TUNNEL CATHETER CLINICAL INFORMATION: Renal failure. COMPARISON: None TECHNIQUE: Procedure, risk and benefits including bleeding, infection and pneumothorax were discussed with the patient and informed consent was obtained. All elements of maximal sterile barrier technique followed including use of cap, mask, sterile gown, sterile gloves, a sterile full body drape and hand hygiene. Also followed skin preparation with 2% chlorhexidine for cutaneous antisepsis, and sterile ultrasound preparation with sterile gel and probe cover when applicable. The right neck and upper chest were prepped and draped in the usual sterile fashion. The skin and soft tissues of the right lower neck were anesthetized with 1% lidocaine plain. A small incision was made. Using ultrasound guidance and a 5-Tanzanian micropuncture system, right internal jugular vein access was obtained. Over an 018 wire, a 5-T[place]anian dilator was positioned in the SVC. The skin and soft tissues of the right upper anterior chest were anesthetized with 1% lidocaine plain. A small incision was made. A subcutaneous tunnel from the chest to the neck incision was anesthetized with 1% lidocaine plain. Using a tunneler, a 14.5-Tanzanian 23 cm in length palindrome permacath was tunneled from the chest to the neck incision. An 035 guidewire was advanced through the 5-Tanzanian dilator into the right atrium. Following serial dilatation and through a peel-away sheath, permacath was advanced centrally in the chest. The neck incision was closed using a 3-0 absorbable subcuticular suture. The chest incision was closed using a 3-0 absorbable mattress suture. Both ports flushed well and had good blood return and were instilled with 1.9 mL heparin 1000 unit per mL solution. The patient received Versed 1 mg and Fentanyl 25 mcg intravenously during the procedure. TOTAL SEDATION TIME: 28 minutes. FLUOROSCOPY TIME: 1.3 minutes. DAP: 284 cGy-cm2. IMAGES: 1 saved ultrasound image. Real-time ultrasound guidance was used for vein patency and for needle access. A formal ultrasound picture was recorded. FINDINGS: There is a right internal jugular permacath with tip projecting over the cavoatrial junction. IR/IR cvc insert central tunnel IMPRESSION: Right internal jugular 14.5-Tanzanian 23 cm in length palindrome permacath placement.
--- NOTE | 2020-07-31 02:14 | ECG_ITS ---
Test Reason : EDEMA Blood Pressure : / mmHG Vent. Rate : 051 BPM Atrial Rate : 051 BPM P-R Int : 182 ms QRS Dur : 158 ms QT Int : 558 ms P-R-T Axes : 000 -54 125 degrees QTc Int : 514 ms Sinus bradycardia Left axis deviation Non-specific intra-ventricular conduction block Abnormal ECG When compared with ECG of 06-SEP-2014 10:34, Non-specific intra-ventricular conduction block is now Present Referred By: Taylor Larry Electronically Signed By:STEW GUERRERO MD
[2020-07-31] MEDS: HYDROmorphone HCl 0.5 MG/0.5 ML SYRINGE IVPUSH ×3 (03:03→06:23)
--- NOTE | 2020-07-31 03:13 | ED_ITS ---
HPI - General Adult General Chief complaint: Extremity Injury, Lower Stated complaint: PERICO LEG EDEMA AND PAIN Time Seen by Provider: 07/31/20 02:08 History of Present Illness HPI narrative: 71-year-old female with a history of chronic renal insufficiency. History of bilateral lower extremity pain. Patient was in the hospital last time for lower back pain. Subsequently went to rehab for 2 weeks. Was scheduled for a pain pump consult/management. Patient kidney function was getting worse, they were unable to get the pain pump done. Patient complaining increasing swelling to the lower extremity it has been ongoing for last 2 weeks. Patient denies any fever chills. No cough no congestion or upper respiratory symptoms. No change in smell or taste. No chest pain or shortness of breath. Patient is from home. Related Data Home Medications Medication Instructions Recorded Confirmed labetalol 300 mg tablet 300 mg PO BID 02/16/20 07/18/20 losartan 100 mg tablet 100 mg PO DAILY 02/16/20 07/18/20 ketorolac 1 drp OPHTHALMIC-RIGHT QID 03/31/20 07/18/20 sevelamer carbonate 800 mg PO TID 05/05/20 07/18/20 acetaminophen 500 mg tablet 500 mg PO Q6H PRN 06/21/20 07/18/20 aspirin 81 mg tablet,delayed 81 mg PO DAILY 06/21/20 07/18/20 release coenzyme Q10 100 mg capsule 100 mg PO TID cap 06/21/20 07/18/20 ferrous sulfate 325 mg (65 mg 325 mg PO TID tab 06/21/20 07/18/20 iron) tablet metolazone 5 mg tablet 5 mg PO DAILY 06/21/20 07/18/20 ropinirole 0.5 mg tablet 0.5 mg PO QID tab 06/21/20 07/18/20 sodium bicarbonate-sodium chloride 1 ea MISCELLANEOUS BID 06/21/20 07/18/20 powder torsemide 1 tab PO DAILY 07/14/20 07/18/20 vit C,E,Zn,Jb-[id number]-zzz-[id number] 1 cap PO BID 07/18/20 07/18/20 [PreserVision AREDS-2 (omega-3)] Previous Rx's Medication Instructions Recorded levothyroxine 137 mcg tablet 137 mcg PO QAM #90 tab 11/18/20 amlodipine 10 mg tablet 10 mg PO DAILY #90 tab 05/24/20 rosuvastatin 10 mg tablet 10 mg PO DAILY #90 tab 05/31/20 hydrocodone 5 mg-acetaminophen 325 1 tab PO Q8H PRN #90 tab 07/07/20 mg tablet Allergies Allergy/AdvReac Type Severity Reaction Status Date / Time erythromycin base Allergy Mild RASH Verified 07/31/20 01:54 [Erythromycin Base] indomethacin [From Indocin] Allergy Mild RASH Verified 07/31/20 01:54 Sulfa (Sulfonamide Allergy Mild RASH, Verified 07/31/20 01:54 Antibiotics) stomach [Sulfa (Sulfonamides)] upset ezetimibe [From Zetia] Allergy Unknown unknown Verified 07/31/20 01:54 flaxseed [FLAXSEED] Allergy Unknown SWELLING Verified 07/31/20 01:54 TONGUE AND LIPS Flexeril Allergy Unknown lg swelling Verified 07/31/20 01:54 gabapentin [From Neurontin] Allergy Unknown UNknown Verified 07/31/20 01:54 glipizide Allergy Unknown UNknown Verified 07/31/20 01:54 Niacin Preparations Allergy Unknown RASH Verified 07/31/20 01:54 [NIACIN PREPARATIONS] Penicillins Allergy Unknown Rash Verified 07/31/20 01:54 cocaine Allergy Seizure Verified 07/31/20 01:54 atorvastatin [From Lipitor] AdvReac Mild MUSCLE Verified 07/31/20 01:54 SOARNESS oxycodone AdvReac Unknown GI upset- Verified 07/31/20 01:54 sevree CAT GUT SUTURES Allergy Unknown rash Uncoded 07/31/20 01:54 PLASTIC TAPE, BANDADES Allergy Unknown rash Uncoded 07/31/20 01:54 Adhesive Bandage AdvReac Mild BLISTERS Uncoded 07/31/20 01:54 Review of Systems Review of Systems: Constitutional: No Weight loss, No Fever, No Chills, No Ni ght Sweats, No Fatigue, No Malaise ENT/Mouth: No Hearing loss, No Ear Pain, No Nasal Congestion, No Sinus Pain, No Hoarseness, No sore throat, No Rhinorrhea, No Swallowing Difficulty Eyes: No Eye Pain, No Swelling, No Redness, No Foreign Body, No Discharge, No Vision Changes Cardiovascular: No Chest Pain, No SOB, No Dyspnea on Exertion, No Orthopnea, No Edema, No Palpitations Respiratory: No Cough, No Sputum, No Wheezing, No Smoke Exposure, No Dyspnea Gastrointestinal: No Nausea, No Vomiting, No Diarrhea, No Constipation, No abdominal Pain, No Hematochezia, No Melena Genitourinary: no irregular bleeding, No Dysuria, No Urinary Frequency, No Hematuria, No Urinary Incontinence, No Urgency, No Flank Pain, No Urinary Flow Changes, No Hesitancy Musculoskeletal: No joint pain, No Myalgias, positive bilateral lower extremity swelling up to the thigh. 3+. Skin: No Skin Lesions, No rash Neuro: No Weakness, No Numbness, No Paresthesias, No Loss of Consciousness, No Dizziness, No Headache Psych: No Anxiety/Panic, No Depression, No SI/HI/AH/VH, No Social Issues, Heme/Lymph: No Bruising, No Bleeding,No Lymphadenopathy Endocrine: No Polyuria, No Polydipsia, No Temperature Intolerance [facility] Past Medical History Attestation statement: The following information was validated with the patient. 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 Diabetic nephropathy Essential hypertension History of myocardial infarction Lumbosacral radiculopathy due to degenerative joint disease of spine Menopause Osteoarthritis involving multiple joints on both sides of body Pain and swelling of lower leg Postlaminectomy syndrome Restless leg syndrome Secondary hyperparathyroidism Septic arthritis of shoulder, right Surgical History History of carpal tunnel release History of foot surgery History of laminectomy History of surgery History of total left knee replacement (TKR) Hx of appendectomy Hx of bilateral cataract extraction Hx of cholecystectomy Hx of colonoscopy Hx of dilation and curettage Hx of umbilical hernia repair S/P CABG x 3 S/P trigger finger release Status post right shoulder hemiarthroplasty Family History Family History Father Medical history non-contributory Mother Medical history non-contributory Social History Social History Alcohol intake: never Smoking Status: Never smoker Advance Directives: No Advance Directives Information Provided: No Physical Exam Vital Signs: Vital Signs: Last Vital Signs Pulse 72 07/31/20 01:43 Resp 24 H 07/31/20 01:43 BP 117/64 07/31/20 01:43 Pulse Ox 96 07/31/20 01:43 Body Mass Index 34.7 Appearance: Alert. Oriented X3. No acute distress. Eyes: Pupils equal, round and reactive to light. ENT: Pharynx normal. Neck: Normal inspection. Neck supple. No lymph nodes noted. No crepitus CVS: Normal heart rate and rhythm. Pulses normal. Normal S1 and S2 Respiratory: No respiratory distress. Breath sounds normal. No Wheezing. No rales Abdomen: Soft and nontender. No rigidity. No distention. good BS x4 Skin: Skin warm and dry. Normal skin color. Normal skin turgor. Extremities: Lower extremity 3+ pitting edema bilaterally Neuro: Oriented X 3. No motor deficit. No sensory deficit. Moving all extermities. No slurred speech Medical Decision Making MDM Narrative Medical decision making narrative: Patient is 79 years old presents today with having bilateral lower extremity edema. Patient's edema is 3+ extending all the way up to the thigh. Patient's BNP is extremely elevated suggestive of fluid retention congestive heart failure. Patient's creatinine came back at over 7. Likely patient will require dialysis. The finding was discussed with Dr. Zeng from Nephrology. Patient's potassium is 5.9. Started patient on 1 dose of calcium gluconate. A sodium bicarb drip was started. Patient to be admitted after dose of Kayexalate was ordered. Lab Data Result diagrams: 07/31/20 03:08 07/31/20 03:08 Labs: Lab Results 07/31/20 07/31/20 07/31/20 Range/Units 03:07 03:08 03:08 WBC 7.2 (4.8-10.8) X10*3/uL RBC 3.59 L (4.20-5.50) X10*6/uL Hgb 9.9 L (12.0-16.0) g/dl Hct 30.9 L (37-47) % MCV 86.1 (80-98) fL MCH 27.6 (27.0-33.0) pg MCHC 32.0 (31.0-35.0) g/dl RDW 19.8 H (11.0-16.0) % Plt Count 205 (160-400) X10*3/uL MPV 10.3 (9.4-12.3) fL Immature Gran % (Auto) 0.4 (0.0-0.4) % Neut % (Auto) 75.2 H (45-73) % Lymph % (Auto) 11.5 L (20-40) % Upton % (Auto) 9.0 (2-11) % Eos % (Auto) 3.2 (0-4) % Baso % (Auto) 0.7 (0-2) % Lymph # (Auto) 0.8 L (1.2-4.9) X10*3/uL Upton # (Auto) 0.7 (0.1-1.2) X10*3/uL Eos # (Auto) 0.2 (0.0-0.4) X10*3/uL Baso # (Auto) 0.1 (0.0-0.2) X10*3/uL Abs Immat Gran (auto) 0.03 (0.00-0.03) X10*3/uL Absolute Neuts (auto) 5.4 (2.0-8.3) X10*3/uL Absolute Nucleated RBC 0.000 (0.0-0.012) X10*3/uL Nucleated RBC % (auto) 0.0 (0.0-0.2) /100WBC PT 14.4 H (10.8-13.0) SEC INR 1.2 H (0.9-1.1) Sodium (135-145) mmol/L Potassium (3.3-5.1) mmol/L Chloride (96-108) mmol/L Carbon Dioxide (22-29) mmol/L Anion Gap (12-20) BUN (9-16) mg/dL Creatinine (0.5-1.4) mg/dL Estim Creat Clear Calc Estimated GFR Random Glucose (60-115) mg/dL Calcium (8.4-10.2) mg/dL Total Bilirubin (0.0-1.0) mg/dL Direct Bilirubin (0.0-0.5) mg/dL AST (5-31) U/L ALT (0-31) U/L Alkaline Phosphatase (39-117) U/L Troponin I High Sens (<3.5-17.0) ng/L B-Natriuretic Peptide (<100) pg/mL Total Protein (6.5-8.0) g/dL Albumin (3.5-5.0) g/dL COVID-19 ([facility]) Negative (Negative) COVID-19 Clin Com See Note 07/31/20 07/31/20 Range/Units 03:08 03:08 WBC (4.8-10.8) X10*3/uL RBC (4.20-5.50) X10*6/uL Hgb (12.0-16.0) g/dl Hct (37-47) % MCV (80-98) fL MCH (27.0-33.0) pg MCHC (31.0-35.0) g/dl RDW (11.0-16.0) % Plt Count (160-400) X10*3/uL MPV (9.4-12.3) fL Immature Gran % (Auto) (0.0-0.4) % Neut % (Auto) (45-73) % Lymph % (Auto) (20-40) % Upton % (Auto) (2-11) % Eos % (Auto) (0-4) % Baso % (Auto) (0-2) % Lymph # (Auto) (1.2-4.9) X10*3/uL Upton # (Auto) (0.1-1.2) X10*3/uL Eos # (Auto) (0.0-0.4) X10*3/uL Baso # (Auto) (0.0-0.2) X10*3/uL Abs Immat Gran (auto) (0.00-0.03) X10*3/uL Absolute Neuts (auto) (2.0-8.3) X10*3/uL Absolute Nucleated RBC (0.0-0.012) X10*3/uL Nucleated RBC % (auto) (0.0-0.2) /100WBC PT (10.8-13.0) SEC INR (0.9-1.1) Sodium 130 L (135-145) mmol/L Potassium 5.9 H (3.3-5.1) mmol/L Chloride 91 L (96-108) mmol/L Carbon Dioxide 19 L (22-29) mmol/L Anion Gap 26 H (12-20) BUN 134 H* (9-16) mg/dL Creatinine 7.74 H* (0.5-1.4) mg/dL Estim Creat Clear Calc 7.0 Estimated GFR 5 Random Glucose 97 (60-115) mg/dL Calcium 8.6 (8.4-10.2) mg/dL Total Bilirubin 0.4 (0.0-1.0) mg/dL Direct Bilirubin 0.2 (0.0-0.5) mg/dL AST 12 (5-31) U/L ALT 34 H (0-31) U/L Alkaline Phosphatase 86 (39-117) U/L Troponin I High Sens 17.3 H (<3.5-17.0) ng/L B-Natriuretic Peptide 3904 H (<100) pg/mL Total Protein 5.7 L (6.5-8.0) g/dL Albumin 3.7 (3.5-5.0) g/dL COVID-19 ([facility]) (Negative) COVID-19 Clin Com ECG Data Interpretation: Sinus heart rate is 50 there is a left bundle-branch pattern. QRS is wide. QTC is prolonged at 514 Critical Care Time Critical Care Time Critical Care Time: Yes Total Critical Care Time: 40 Attestation: I have personally provided 40 minutes of critical care time exclusive of time spent on separately billable procedures. Time includes review of lab data, radiology results, discussion with consultants, and monitoring for potential decompensation. Interventions were performed as documented above Discharge Plan Discharge Clinical Impression: Chronic kidney disease, stage 5, Acute hyperkalemia, Congestive heart failure Prescriptions: No Action levothyroxine 137 mcg tablet 137 mcg PO QAM Qty: 90 RF: 3 amlodipine 10 mg tablet 10 mg PO DAILY Qty: 90 RF: 3 rosuvastatin 10 mg tablet 10 mg PO DAILY Qty: 90 RF: 3 hydrocodone-acetaminophen 5-325 mg tablet 1 tab PO Q8H PRN (Reason: pain) Qty: 90 RF: 0 PreserVision AREDS-2 (omega-3) 250-2.5-0.5 mg Capsule 1 cap PO BID RF: 0 ketorolac 0.5 % drops 1 drp ophthalmic-Right QID RF: 0 sevelamer carbonate 800 mg Tablet 800 mg PO TID RF: 0 torsemide 100 mg tablet 1 tab PO DAILY RF: 0 labetalol 300 mg tablet 300 mg PO BID RF: 0 losartan 100 mg tablet 100 mg PO DAILY RF: 0 metolazone 5 mg tablet 5 mg PO DAILY RF: 0 aspirin [Enteric Coated Aspirin] 81 mg tablet,delayed release (DR/EC) 81 mg PO DAILY RF: 0 coenzyme Q10 [Co Q-10] 100 mg capsule 100 mg PO TID RF: 0 sodium bicarb-sodium chloride Powder 1 ea miscellaneous BID RF: 0 ferrous sulfate 325 mg (65 mg iron) tablet 325 mg PO TID RF: 0 acetaminophen [Tylenol Extra Strength] 500 mg tablet 500 mg PO Q6H PRN (Reason: Pain) RF: 0 ropinirole 0.5 mg tablet 0.5 mg PO QID RF: 0
--- NOTE | 2020-07-31 03:13 | PC.NURSE ---
IV established, labs and Covid obtained. Pt medicated per JUN with Dilaudid. CXR at bedside.
[2020-07-31 03:22] LABS: Basophils Absolute Auto 0.1 X10*3/uL (0.0-0.2); Basophils Percent Auto 0.7 % (0-2); Eosinophils Absolute Auto 0.2 X10*3/uL (0.0-0.4); Eosinophils Percent Auto 3.2 % (0-4); Hematocrit 30.9 % (37-47); Hemoglobin 9.9 g/dl (12.0-16.0); Imm Gran Abs Auto 0.03 X10*3/uL (0.00-0.03); Imm Gran Pct Auto 0.4 % (0.0-0.4); Lymphocytes Absolute Auto 0.8 X10*3/uL (1.2-4.9); Lymphocytes Percent Auto 11.5 % (20-40); Mean Corpuscular Hemoglobin 27.6 pg (27.0-33.0); Mean Corpuscular Volume 86.1 fL (80-98); Mean Platelet Volume 10.3 fL (9.4-12.3); Monocytes Absolute Auto 0.7 X10*3/uL (0.1-1.2); Neutrophils Absolute Auto 5.4 X10*3/uL (2.0-8.3); Neutrophils Percent Auto 75.2 % (45-73); Platelet Count 205 X10*3/uL (160-400); Red Blood Count 3.59 X10*6/uL (4.20-5.50); Red Cell Distribution Width 19.8 % (11.0-16.0); White Blood Count 7.2 X10*3/uL (4.8-10.8)
[2020-07-31 03:23] LABS: MANUAL DIFF FLAG NO
[2020-07-31 03:31] LABS: INTERNATIONAL NORM RATIO 1.2 (0.9-1.1); Prothrombin Time 14.4 SEC (10.8-13.0)
[2020-07-31 03:37] LABS: COVID-19 Test Negative (Negative); IDNOW Serial# 9DD0AD1C
[2020-07-31 03:52] LABS: Alanine Aminotransferase 34 U/L (0-31); Albumin Level 3.7 g/dL (3.5-5.0); Alkaline Phosphatase 86 U/L (39-117); Anion Gap 26 (12-20); Aspartate Amino Transferase 12 U/L (5-31); Bilirubin Direct 0.2 mg/dL (0.0-0.5); Bilirubin Total 0.4 mg/dL (0.0-1.0); Calcium 8.6 mg/dL (8.4-10.2); Carbon Dioxide 19 mmol/L (22-29); Chloride 91 mmol/L (96-108); Glucose Random 97 mg/dL (60-115); Potassium 5.9 mmol/L (3.3-5.1); Sodium 130 mmol/L (135-145); Total Protein 5.7 g/dL (6.5-8.0)
[2020-07-31 03:55] LABS: B Type Natriuretic Peptide 3904 pg/mL (<100)
[2020-07-31 04:06] LABS: Troponin-I High Sensitivity 17.3 ng/L (<3.5-17.0)
[2020-07-31 04:07] LABS: Blood Urea Nitrogen 134 mg/dL (9-16); Estimated Glomerular Filt Rate 5
--- NOTE | 2020-07-31 04:51 | PM.IMHP ---
History of Present Illness Date of Service: 07/31/20 Chief Complaint: Leg swelling 79-year-old female with a past medical history of hypertension, hyperlipidemia, CAD status post CABG x3, chronic pain syndrome, sciatica, restless leg syndrome, anemia, CKD stage 5, diabetes, diabetic neuropathy, osteoarthritis status post right shoulder hemiarthroplasty, chronic back pain/sciatica-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 Patient denies any chest pain palpitations lightheadedness or dizziness. Complains of dyspnea on exertion. Denies any urinary symptoms. Mentioned that she has been on diuretics at home. Denies any numbness tingling in the lower extremities. Denies any focal weakness. The patient mentions he has been having chronic back pain unchanged in character. Denies any falls. Review of all other systems is negative except mentioned above ER course: Per ER team patient noted to have bilateral lower extremity swelling; on the labs noted to have acute on chronic kidney injury with worsening creatinine and hyperkalemia. ER team spoke to Dr. baldwin from Nephrology and patient was started on sodium bicarbonate drip, also given Kayexalate and calcium gluconate. ProBNP elevated to 3900 concern for CHF. Admitted for further management. 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 Diabetic nephropathy Essential hypertension Heart failure with reduced ejection fraction History of myocardial infarction Lumbosacral radiculopathy due to degenerative joint disease of spine Menopause Osteoarthritis involving multiple joints on both sides of body Pain and swelling of lower leg Postlaminectomy syndrome Restless leg syndrome Secondary hyperparathyroidism Septic arthritis of shoulder, right Family History Father Medical history non-contributory Mother Medical history non-contributory Surgical History History of carpal tunnel release History of foot surgery History of laminectomy History of surgery History of total left knee replacement (TKR) Hx of appendectomy Hx of bilateral cataract extraction Hx of cholecystectomy Hx of colonoscopy Hx of dilation and curettage Hx of umbilical hernia repair S/P CABG x 3 S/P trigger finger release Status post right shoulder hemiarthroplasty Social History Household Members: Spouse Housing: House Alcohol intake: never Smoking Status: Never smoker service: No Current occupational status: retired Meds Allergies Allergy/AdvReac Type Severity Reaction Status Date / Time erythromycin base Allergy Mild RASH Verified 07/31/20 01:54 [Erythromycin Base] indomethacin [From Indocin] Allergy Mild RASH Verified 07/31/20 01:54 Sulfa (Sulfonamide Allergy Mild RASH, Verified 07/31/20 01:54 Antibiotics) stomach [Sulfa (Sulfonamides)] upset ezetimibe [From Zetia] Allergy Unknown unknown Verified 07/31/20 01:54 flaxseed [FLAXSEED] Allergy Unknown SWELLING Verified 07/31/20 01:54 TONGUE AND LIPS Flexeril Allergy Unknown lg swelling Verified 07/31/20 01:54 gabapentin [From Neurontin] Allergy Unknown UNknown Verified 07/31/20 01:54 glipizide Allergy Unknown UNknown Verified 07/31/20 01:54 Niacin Preparations Allergy Unknown RASH Verified 07/31/20 01:54 [NIACIN PREPARATIONS] Penicillins Allergy Unknown Rash Verified 07/31/20 01:54 cocaine Allergy Seizure Verified 07/31/20 01:54 atorvastatin [From Lipitor] AdvReac Mild MUSCLE Verified 07/31/20 01:54 SOARNESS oxycodone AdvReac Unknown GI upset- Verified 07/31/20 01:54 sevree CAT GUT SUTURES Allergy Unknown rash Uncoded 07/31/20 01:54 PLASTIC TAPE, BANDADES Allergy Unknown rash Uncoded 07/31/20 01:54 Adhesive Bandage AdvReac Mild BLISTERS Uncoded 07/31/20 01:54 Active Medications: Current Medications Generic Name Dose Route Start Last Admin Trade Name Freq PRN Reason Stop Dose Admin Acetaminophen 650 mg 07/31/20 04:45 Acetaminophen 325 Mg Tablet PO Q6H PRN Pain, Mild (Pain Scale 1-3) Heparin Sodium (Porcine) 5,000 unit 07/31/20 04:45 Heparin Sodium,Porcine 5,000 Unit/Ml Vial SUBCUT Q12H OMI Calcium Gluconate 1 gm in 50 mls @ 50 mls/hr 07/31/20 04:08 Calcium Gluconate IV 07/31/20 05:07 ONCE ONE Sodium Bicarbonate 150 meq/ 1,000 mls @ 50 mls/hr 07/31/20 04:15 Dextrose IV .Q20H [facility] Insulin Human Lispro 0 unit 07/31/20 07:30 Insulin Lispro 100 Unit/Ml 3 Ml Vial SUBCUT QIDACHS [facility] Protocol Sodium Chloride 3 ml 07/31/20 08:00 0.9 % Sodium Chloride Flush 3 Ml Syringe IVFLUSH QSHIFT [facility] Home Medications Medication Instructions Recorded Confirmed Last Taken Type ketorolac 1 drp OPHTHALMIC-RIGHT QID 03/31/20 07/31/20 07/30/20 12:00 History sevelamer carbonate 800 mg PO TID 05/05/20 07/31/20 07/30/20 History coenzyme Q10 100 mg capsule 100 mg PO TID cap 06/21/20 07/31/20 07/30/20 08:00 History ferrous sulfate 325 mg (65 mg 325 mg PO TID tab 06/21/20 07/31/20 07/30/20 08:00 History iron) tablet ropinirole 0.5 mg tablet 0.5 mg PO QID tab 06/21/20 07/31/20 07/30/20 02:00 History sodium bicarbonate-sodium chloride 1 ea MISCELLANEOUS BID 06/21/20 07/31/20 07/30/20 History powder vit C,E,Zn,Dc-pozbq3-dko-zeax 1 cap PO BID 07/18/20 07/31/20 Unknown History hydrocodone-acetaminophen 1 tab PO Q8H PRN 07/31/20 07/31/20 07/30/20 23:00 History rosuvastatin 10 mg PO DAILY 07/31/20 07/31/20 Unknown History Physical Exam Vital Signs and Narrative: Vital Signs: Last Vital Signs Pulse 72 07/31/20 01:43 Resp 24 H 07/31/20 01:43 BP 117/64 07/31/20 01:43 Pulse Ox 96 07/31/20 01:43 Body Mass Index 34.7 Gen: Appears be in no acute distress HEENT: NCAT, Moist mucosa. Pulmonary: Vesicular breath sounds, fair air entry CVS: Normal S1-S2 Abdomen: BS+, Soft, Nontender Extremities: Warm well perfused; low back end architect-unchanged. Bilateral 2+ pitting edema noted. Neuro: Alert and awake. Grossly nonfocal Results Labs CBC and Chem 7: 08/04/20 05:44 08/04/20 05:44 Labs: Laboratory Results - last 24 hr 07/31/20 07/31/20 07/31/20 03:07 03:08 03:08 MCV 86.1 MCH 27.6 MCHC 32.0 RDW 19.8 H Plt Count 205 MPV 10.3 Immature Gran % (Auto) 0.4 Neut % (Auto) 75.2 H Lymph % (Auto) 11.5 L Wallace % (Auto) 9.0 Eos % (Auto) 3.2 Baso % (Auto) 0.7 Lymph # (Auto) 0.8 L Wallace # (Auto) 0.7 Eos # (Auto) 0.2 Baso # (Auto) 0.1 Abs Immat Gran (auto) 0.03 Absolute Neuts (auto) 5.4 Absolute Nucleated RBC 0.000 Nucleated RBC % (auto) 0.0 PT 14.4 H INR 1.2 H Anion Gap Estim Creat Clear Calc Estimated GFR Random Glucose Calcium Total Bilirubin Direct Bilirubin AST ALT Alkaline Phosphatase Troponin I High Sens B-Natriuretic Peptide Total Protein Albumin COVID-19 ([facility]) Negative COVID-19 Clin Com See Note 07/31/20 07/31/20 03:08 03:08 MCV MCH MCHC RDW Plt Count MPV Immature Gran % (Auto) Neut % (Auto) Lymph % (Auto) Wallace % (Auto) Eos % (Auto) Baso % (Auto) Lymph # (Auto) Wallace # (Auto) Eos # (Auto) Baso # (Auto) Abs Immat Gran (auto) Absolute Neuts (auto) Absolute Nucleated RBC Nucleated RBC % (auto) PT INR Anion Gap 26 H Estim Creat Clear Calc 7.0 Estimated GFR 5 Random Glucose 97 Calcium 8.6 Total Bilirubin 0.4 Direct Bilirubin 0.2 AST 12 ALT 34 H Alkaline Phosphatase 86 Troponin I High Sens 17.3 H B-Natriuretic Peptide 3904 H Total Protein 5.7 L Albumin 3.7 COVID-19 ([facility]) COVID-19 Clin Com Imaging Radiologist's Impressions: Impressions Chest X-Ray 07/31/20 02:13 IMPRESSION: No evidence for acute disease. Cardiomegaly without vascular congestion. Assessment and Plan (1) Acute hyperkalemia: Status: Acute 79-year-old female with a past medical history of hypertension, hyperlipidemia, diabetes, CAD status post CABG x3, CKD stage 5 , anemia, chronic low back pain/sciatica; history of osteoarthritis/shoulder arthroscopy, hypothyroidism presented to the hospital with a chief complaint of bilateral lower extremity swelling. Also complains of pain-attributes to sciatica. In the ER noted to have acute on chronic kidney injury and hyperkalemia. Admitted to the hospital for further management. Acute on chronic kidney injury: Patient creatinine has been worsening. Will hold home losartan, diuretics. Patient was started on sodium bicarbonate drip in the ER. Patient's serum bicarb is 19. Bicarb drip to be adjusted based on the labs in the morning. Nephrology was made aware. Will defer to the a.m. team for follow-up on question dialysis. Hyperkalemia: Patient received calcium gluconate, Kayexalate. Repeat potassium levels in the morning. No EKG changes. Telemetry. Bilateral lower extremity swelling: Concern for fluid overload in the setting of worsening renal insufficiency versus CHF. Will obtain echocardiogram. Troponins indeterminate. Chronic b/l Thigh pain/sciatica: Pain control. Lidoderm patch. Dilaudid p.r.n.. Patient to follow-up with pain clinic. Diabetes: Insulin sliding scale For all other chronic conditions, home medications will be continued once med rec is done. DVT prophylaxis: Subcu heparin Code status: Full code
[2020-07-31] MEDS: Sodium Polystyrene Sulfon/Sorb 15 GM/60 ML ORAL.SUSP 30 GM PO (04:54)
[2020-07-31] MEDS: Sodium Bicarbonate 8.4% 150 MEQ in Dextrose 5 % 850 ML 50 MEQ IV (04:55)
[2020-07-31] MEDS: Furosemide 100 MG/10 ML VIAL 60 MG IVPUSH (04:56)
[2020-07-31] MEDS: Nitroglycerin 2 % Oint 1 GM Packet 0.5 INCH TRANSDERMA (04:56)
[2020-07-31] MEDS: Calcium Gluconate/NaCl,Iso-Osm 1 GM/50 ML PLAST..BAG IV (04:57)
--- NOTE | 2020-07-31 05:41 | PC.NURSE ---
Pt medicated per MAR with multiple medications. Pt continues reporting no relief of pain to legs after second dose of Dilaudid. Pt crying and moaning in pain, aware. Walters placed to measure I&O by airframe technical officer SG. VSS at this time. IVF infusing per MAR. Continue to monitor.
--- NOTE | 2020-07-31 06:31 | PC.NURSE ---
Pt again medicated with Dilaudid for 10/10 pain to legs. VSS. Continue to monitor.
[2020-07-31 06:41] LABS: Troponin-I High Sensitivity 15.5 ng/L (<3.5-17.0)
[2020-07-31 07:16] LABS: MANUAL DIFF FLAG NO
[2020-07-31 07:19] LABS: Basophils Percent Auto 0.6 % (0-2); Eosinophils Absolute Auto 0.1 X10*3/uL (0.0-0.4); Hematocrit 30.3 % (37-47); Hemoglobin 9.6 g/dl (12.0-16.0); Imm Gran Abs Auto 0.02 X10*3/uL (0.00-0.03); Imm Gran Pct Auto 0.3 % (0.0-0.4); Lymphocytes Absolute Auto 0.7 X10*3/uL (1.2-4.9); Lymphocytes Percent Auto 10.7 % (20-40); Mean Corpuscular HGB Conc 31.7 g/dl (31.0-35.0); Mean Corpuscular Hemoglobin 27.6 pg (27.0-33.0); Mean Corpuscular Volume 87.1 fL (80-98); Mean Platelet Volume 10.5 fL (9.4-12.3); Monocytes Absolute Auto 0.5 X10*3/uL (0.1-1.2); Monocytes Percent Auto 7.9 % (2-11); Neutrophils Absolute Auto 5.4 X10*3/uL (2.0-8.3); Neutrophils Percent Auto 78.5 % (45-73); Platelet Count 212 X10*3/uL (160-400); Red Blood Count 3.48 X10*6/uL (4.20-5.50); Red Cell Distribution Width 19.9 % (11.0-16.0); White Blood Count 6.8 X10*3/uL (4.8-10.8)
[2020-07-31 07:28] LABS: Glucose, Whole Blood 93 mg/dL (60-115)
[2020-07-31] MEDS: 0.9 % Sodium Chloride Flush 3 ML SYRINGE IVFLUSH (07:41)
--- NOTE | 2020-07-31 07:46 | PC.NURSE ---
Pt on stretcher, reports b/l thigh pain / with some effectiveness from Dilaudid given on prior shift. NSR on tele with PACS noted at times, gonzalez hr 50s. Sat 96% on room air, denies SOB. Pt noted with audible expiratory wheezing but reports I always have that since the summer, doctors have checked me out On auscultation, LS clear anteriorly. Left chest ntro in place, NaBI continues at 50ml/hr. 100ml in jones drainage bag of clear yellow urine. POC 93. Pt declines breakfast at this time. Generalized body swelling noted, +2 pitting to b/l feet.
[2020-07-31 07:55] LABS: Anion Gap 24 (12-20); Calcium 8.8 mg/dL (8.4-10.2); Carbon Dioxide 20 mmol/L (22-29); Chloride 92 mmol/L (96-108); Creatinine Clr Calc Pharmacy 7.1; Estimated Glomerular Filt Rate 5; Glucose Random 94 mg/dL (60-115); Potassium 5.7 mmol/L (3.3-5.1); Sodium 130 mmol/L (135-145)
[2020-07-31 08:07] LABS: Blood Urea Nitrogen 132 mg/dL (9-16)
[2020-07-31] MEDS: Levothyroxine Sodium 112 MCG TABLET PO (08:20)
[2020-07-31] MEDS: rOPINIRole HCL 0.5 MG TABLET PO ×3 (08:21→22:08)
[2020-07-31] MEDS: Levothyroxine Sodium 25 MCG TABLET PO (08:21)
[2020-07-31] MEDS: Aspirin Enteric Coated 81 MG TABLET.DR PO (08:21)
[2020-07-31] MEDS: Heparin Sodium,Porcine 5,000 UNIT/ML VIAL 5000 UNIT SUBCUT ×2 (08:22→22:08)
--- NOTE | 2020-07-31 08:28 | PC.NURSE ---
Pt given AM Meds, Labetalol held d/t p 49 bp 107/56, and Nitro paste removed from left chest as next BP was 97/58. Dr Trinidad notified.
--- NOTE | 2020-07-31 08:30 | CA_ITS ---
Transthoracic Echocardiogram Patient (Last, First, Middle): Delmar Correa M Gender: Female Date of : 1940 Age: 79 Procedure Date: 07/31/2020 Procedure Type: Transthoracic Echocardiogram Location: ER Height: 167.64 cm Weight: 97.52 kg BSA: 2.06 m2 Heart Rate: bpm BP: 116 / 56 mmHg Group Rooms Coordinator: JESSICA Jones MD: Garcia Macedo MD Intellectual Property Manager: Solomon Hess MD Symptoms: chf Study Quality: Good ECG Rhythm: Sinus Conclusions: - 1. Moderately dilated left ventricle with severe LV systolic dysfunction with regionality in the inferior inferoseptal wall with pseudonormal filling pattern and elevated left ventricular end-diastolic pressure 2. Mild aortic stenosis and mild mitral regurgitation 3. Mildly elevated right ventricular systolic pressure with significantly elevated right atrial pressures 4. Moderately dilated left atrium 5. No gross pericardial effusion Findings Left Ventricle Moderately increased left ventricular cavity size. There is mildly increased left ventricular wall thickness. The left ventricular systolic function is severely decreased. The visually estimated ejection fraction is between 15 20%. Spectral Doppler is indicative of a pseudonormal filling pattern. Elevated left ventricular end diastolic pressure. Wall Motion Rest Echo Findings The anterior wall, anteroseptal wall, anterolateral wall, the apex, apical lateral, and mid inferolateral segments are hypokinetic. The inferoseptal wall, inferior wall, and basal inferolateral segment are akinetic. Right Ventricle Normal right ventricular cavity size. There is low normal right ventricular systolic function. Atria The left atrium is moderately dilated. Interatrial shunt cannot be excluded. The right atrium is mildly dilated. Aortic Valve There is mild calcification of the aortic valve. There is mild aortic valve stenosis. The peak aortic gradient is 22 mmHg.The mean gradient is 11 mmHg. There is no aortic valve regurgitation. Mitral Valve There is mild anterior and moderate posterior mitral leaflet thickening. There is moderate mitral annular calcification. There is mild mitral valve regurgitation. There is no mitral valve stenosis. Pulmonic Valve The pulmonic valve is likely normal. There is trace to mild pulmonic valve regurgitation. Tricuspid Valve Normal tricuspid valve structure. There is mild tricuspid valve regurgitation. Significantly elevated right atrial pressure. Mild pulmonary hypertension is present. Great Vessels All visible segments of the aorta are normal in size. The pulmonary artery was not well visualized. Venous The inferior vena cava is moderately dilated and does not collapse with inspiration. Pericardium/Pleural There is no evidence of pericardial effusion. Prior Study Comparison No previous study in the last 5 years for comparison Measurements 2D Linear Measurements IVSd: 1.19 0.6-0.9/0.6-1.0 cm LVIDd: 6.21 3.9-5.3/4.2-5.9 cm LVIDs: 5.62 2.0-3.6 cm LVPWd: 1.18 0.7-1.1 cm Ao Root: 2.99 2.1-3.5 cm LV Mass: 407.58 67-162/88-224 g LVOT Diam: 2.08 3.0+(-)1.3 cm Mitral Valve MV Pk E: 0.89 MV PK A: 0.55 MV Decel Time: 152.28 E/A: 1.60 E'Lateral: 0.03 E'Medial: 0.03 Decel Runnels: 5.83 Aortic Valve AoV Pk Alberto: 2.32 AoV Mn Alberto: 1.53 AoV VTI: 0.62 AoV Pk Grad: 21.62 Aov Mn Grad: 10.65 DANIEL Cont.VTI: 1.50 LVOT LVOT Pk Alberto: 1.00 LVOT Mn Alberto: 0.66 LVOT VTI: 0.28 LVOT Pk Grad: 3.99 LVOT Mn Grad: 2.01 LVOT Diam: 2.08 LVOT Area: 3.39 Diastolic Function MV Pk E: 0.89 MV Pk A: 0.55 E/A: 1.60 E'Medial: 0.03 E' Laterial: 0.03 Tricuspid Valve TR Pk Alberto: 2.70 TR Pk Grad: 29.19 RA Press: 15.00 RVSP: 44.00 Great Vessels Aorta Ao Root-2D: 2.99 2.0-3.7 cm Ao Asc: 3.29 2.1-3.4 cm Updated in Other Vendor System with Status of Final Solomon Hess MD electronically signed on 07/31/2020 12:40:30 PM with status of Final
--- NOTE | 2020-07-31 09:20 | PC.NURSE ---
Plan for permacath placement and dialysis today
--- NOTE | 2020-07-31 09:40 | MHC.CM.PN ---
CM MET WITH PT WHO REPORTS SHE LIVES AT HOME WITH HER AND HAS NO SERVICES IN THE HOME. PT REPORTS SHE HAS A CANE AND WALKER WHICH. PT HAS A HCP ON FILE AND CONFIRMS HER PCP LISTED, [facility], IS ACCURATE. IMM REVIEWED AND PT INDICATED UNDERSTANDING. COPY PROVIDED. CURRENT DC PLAN IS HOME WITH NO SERVICES VS HOME WITH [facility]. PTS WILL TRANSPORT
[2020-07-31] MEDS: Sodium Polystyrene Sulfon/Sorb 15 GM/60 ML ORAL.SUSP 45 GM PO (09:58)
--- NOTE | 2020-07-31 10:05 | PC.NURSE ---
Kayexelate given as charted. Dr Hess at bedside at this time for evaluation
--- NOTE | 2020-07-31 10:36 | P.CONCA_ITS ---
History of Present Illness History of Present Illness Date of Service: 07/31/20 Requesting physician: Wander Trinidad Consult reason: congestive heart failure Chief complaint: ALEXI on CKD Narrative: We are asked to see Delmar in cardiology consultation today for elevated BNP, minimally elevated troponin, congestive heart failure and progressive renal failure. Patient came to the hospital basically for she says bilateral significant hip discomfort. She also noticed herself to be short of breath and wheezing and had significant bilateral lower extremity swelling and and and upper extremity swelling over the last few days. She said this was pretty sudden in onset. She has had decreasing urine output as outpatient. She denies any cardiac symptoms of chest discomfort. She denies any clear history of orthopnea PND however this is difficult to obtain as patient is significantly in pain and focused on current pain management. She did receive Dilaudid this morning. She continues to have significant pain. She has received Lasix 60 mg IV push with poor urine output. She has been seen by Nephrology and plan to undergo hemodialysis. Her blood pressure is borderline low. Also heart rate of in the 40s. Noting a prior history seems like she has had progressive renal failure the last 8-9 months. She has a business unit director at [facility], who she has seen in April. No recent ischemic evaluation or structural evaluation the recent past. She says she had coronary artery bypass grafting done in 2002, 3 vessel. Anatomy not available at this point in time. She does not have documented history of congestive heart failure but was started recently by her electronic typesetting machine operator on diuretic therapy, unclear reason. Review of Systems Constitutional: Constitutional: Denies body ache(s), Denies chills, Denies fatigue and Denies fever(s) Cardiovascular: Cardiovascular: Denies chest pain, Reports edema, Reports leg edema, Denies lightheadedness, Denies Loss of Consciousness, Denies palpitations and Reports dyspnea on exertion Respiratory: Respiratory: Reports dyspnea on exertion and Reports wheezing Gastrointestinal: Gastrointestinal: Reports no additional gastrointestinal complaints Genitourinary: Genitourinary: Reports no additional female genitourinary complaints Musculoskeletal: Musculoskeletal: Reports other (Significant bilateral hip pain at rest including with even slight movement) Neurologic: Reports system reviewed and no additional complaints, except as documented Psychiatric: Psychiatric: Reports no additional psychiatric complaints Endocrine: Endocrine: Reports no additional endocrine complaints, Denies fatigue and Denies palpitations Hematologic/Lymphatic: Hematologic/Lymphatic: Reports no additional hematologic/lymphatic complaints Allergic/Immunologic: Allergic/Immunologic: Reports wheezing PMFSH Past Medical History 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 Diabetic nephropathy Essential hypertension History of myocardial infarction Lumbosacral radiculopathy due to degenerative joint disease of spine Menopause Osteoarthritis involving multiple joints on both sides of body Pain and swelling of lower leg Postlaminectomy syndrome Restless leg syndrome Secondary hyperparathyroidism Septic arthritis of shoulder, right Family History Family History Father Medical history non-contributory Mother Medical history non-contributory Surgical History Surgical History History of carpal tunnel release History of foot surgery History of laminectomy History of surgery History of total left knee replacement (TKR) Hx of appendectomy Hx of bilateral cataract extraction Hx of cholecystectomy Hx of colonoscopy Hx of dilation and curettage Hx of umbilical hernia repair S/P CABG x 3 S/P trigger finger release Status post right shoulder hemiarthroplasty Social History Social History Alcohol intake: never Smoking Status: Never smoker Use of substances other than those prescribed or required for medical reasons: No Advance Directives: No Advance Directives Information Provided: No service: No Current occupational status: retired Meds Allergies Allergy/AdvReac Type Severity Reaction Status Date / Time erythromycin base Allergy Mild RASH Verified 07/31/20 01:54 [Erythromycin Base] indomethacin [From Indocin] Allergy Mild RASH Verified 07/31/20 01:54 Sulfa (Sulfonamide Allergy Mild RASH, Verified 07/31/20 01:54 Antibiotics) stomach [Sulfa (Sulfonamides)] upset ezetimibe [From Zetia] Allergy Unknown unknown Verified 07/31/20 01:54 flaxseed [FLAXSEED] Allergy Unknown SWELLING Verified 07/31/20 01:54 TONGUE AND LIPS Flexeril Allergy Unknown lg swelling Verified 07/31/20 01:54 gabapentin [From Neurontin] Allergy Unknown UNknown Verified 07/31/20 01:54 glipizide Allergy Unknown UNknown Verified 07/31/20 01:54 Niacin Preparations Allergy Unknown RASH Verified 07/31/20 01:54 [NIACIN PREPARATIONS] Penicillins Allergy Unknown Rash Verified 07/31/20 01:54 cocaine Allergy Seizure Verified 07/31/20 01:54 atorvastatin [From Lipitor] AdvReac Mild MUSCLE Verified 07/31/20 01:54 SOARNESS oxycodone AdvReac Unknown GI upset- Verified 07/31/20 01:54 sevree CAT GUT SUTURES Allergy Unknown rash Uncoded 07/31/20 01:54 PLASTIC TAPE, BANDADES Allergy Unknown rash Uncoded 07/31/20 01:54 Adhesive Bandage AdvReac Mild BLISTERS Uncoded 07/31/20 01:54 Active Medications: Current Medications Generic Name Dose Route Start Last Admin Trade Name Freq PRN Reason Stop Dose Admin Acetaminophen 650 mg 07/31/20 04:45 Acetaminophen 325 Mg Tablet PO Q6H PRN Pain, Mild (Pain Scale 1-3) Aspirin 81 mg 07/31/20 09:00 07/31/20 08:21 Aspirin Enteric Coated 81 Mg Tablet. PO 81 mg DAILY OMI Administration Heparin Sodium (Porcine) 5,000 unit 07/31/20 09:00 07/31/20 08:22 Heparin Sodium,Porcine 5,000 Unit/Ml Vial SUBCUT 5,000 unit Q12H OMI Administration Hydromorphone HCl 1 mg 07/31/20 06:17 Hydromorphone Hcl 1 Mg/Ml Syringe IVPUSH Q4H PRN Breakthrough Pain Sodium Bicarbonate 150 meq/ 1,000 mls @ 50 mls/hr 07/31/20 04:15 07/31/20 04:55 Dextrose IV 50 mls/hr .Q20H OMI Administration Insulin Human Lispro 0 unit 07/31/20 07:30 07/31/20 07:41 Insulin Lispro 100 Unit/Ml 3 Ml Vial SUBCUT Not Given QIDACHS [facility] Protocol Ketorolac Tromethamine 1 drop 07/31/20 09:00 07/31/20 08:20 Ketorolac Tromethamine 0.5% Op 3 Ml Drops EYE-RIGHT 1 drop QID OMI Administration Labetalol HCl 300 mg 07/31/20 09:00 07/31/20 08:22 Labetalol Hcl 100 Mg Tablet PO Not Given BID [facility] Levothyroxine Sodium 112 mcg 07/31/20 07:15 07/31/20 08:20 Levothyroxine Sodium 112 Mcg Tablet PO 112 mcg DAILY@0600 [facility] Administration Levothyroxine Sodium 25 mcg 07/31/20 08:00 07/31/20 08:21 Levothyroxine Sodium 25 Mcg Tablet PO 25 mcg DAILY@0600 [facility] Administration Ropinirole HCl 0.5 mg 07/31/20 09:00 07/31/20 08:21 Ropinirole Hcl 0.5 Mg Tablet PO 0.5 mg QID [facility] Administration Sevelamer HCl 800 mg 07/31/20 08:00 07/31/20 08:21 Sevelamer Hcl 800 Mg Tablet PO 800 mg TIDWM [facility] Administration Sodium Chloride 3 ml 07/31/20 08:00 07/31/20 07:41 0.9 % Sodium Chloride Flush 3 Ml Syringe IVFLUSH 3 ml QSHIFT [facility] Administration Home Medications Medication Instructions Recorded Confirmed Last Taken Type labetalol 300 mg tablet 300 mg PO BID 02/16/20 07/31/20 07/30/20 21:00 History losartan 100 mg tablet 100 mg PO DAILY 02/16/20 07/31/20 07/30/20 08:00 History ketorolac 1 drp OPHTHALMIC-RIGHT QID 03/31/20 07/31/20 07/30/20 12:00 History sevelamer carbonate 800 mg PO TID 05/05/20 07/31/20 07/30/20 History acetaminophen 500 mg tablet 500 mg PO Q6H PRN 06/21/20 07/31/20 07/30/20 12:00 History aspirin 81 mg tablet,delayed 81 mg PO DAILY 06/21/20 07/31/20 07/30/20 08:00 History release coenzyme Q10 100 mg capsule 100 mg PO TID cap 06/21/20 07/31/20 07/30/20 08:00 History ferrous sulfate 325 mg (65 mg 325 mg PO TID tab 06/21/20 07/31/20 07/30/20 08:00 History iron) tablet metolazone 5 mg tablet 5 mg PO DAILY 06/21/20 07/31/20 07/30/20 08:00 History ropinirole 0.5 mg tablet 0.5 mg PO QID tab 06/21/20 07/31/20 07/30/20 02:00 History sodium bicarbonate-sodium chloride 1 ea MISCELLANEOUS BID 06/21/20 07/31/20 07/30/20 History powder torsemide 100 mg PO DAILY 07/14/20 07/31/20 07/30/20 History vit C,E,Zn,Tx--skt-zeax 1 cap PO BID 07/18/20 07/31/20 Unknown History [PreserVision AREDS-2 (omega-3)] hydrocodone-acetaminophen 1 tab PO Q8H PRN 07/31/20 07/31/20 07/30/20 23:00 History rosuvastatin 10 mg PO DAILY 07/31/20 07/31/20 Unknown History Physical Exam Vital Signs: Vital Signs: Last Vital Signs Pulse 48 L 07/31/20 10:01 Resp 16 07/31/20 10:01 BP 104/56 L 07/31/20 10:01 Pulse Ox 96 07/31/20 10:01 Body Mass Index 34.7 Const: General: cooperative, alert, awake, in distress severe and other (Due to pain) and anxious Nutritional Appearance: obese Orientation/consciousness: patient oriented x3 HENMT: Head: Yes normocephalic and Yes atraumatic Neck: Neck: Yes trachea midline, Yes supple and Yes JVD (Markedly elevated up to the angle of the jaw) Resp: Effort & Inspection: audible wheezes, decreased respiratory effort and respiratory distress ([id number]) Auscultation: no rales and wheezes Cardio: Jugular venous distension: JVD Rate: regular rate Rhythm: regular rhythm Heart sounds: S1 normal heart sound present, S2 normal heart sound present and Other heart sounds present (S4 present) GI: Auscultation: normal bowel sounds Skin: General skin exam: no rashes or lesions noted Neuro: General: patient oriented x3 and no focal motor deficits Extrem: General: No clubbing, No cyanosis and Yes edema (Generalized edema) Results Labs and Meds Result diagrams: 07/31/20 06:53 07/31/20 06:53 Lab results: Laboratory Results - last 24 hr 07/31/20 07/31/20 07/31/20 03:07 03:08 03:08 WBC 7.2 RBC 3.59 L Hgb 9.9 L Hct 30.9 L MCV 86.1 MCH 27.6 MCHC 32.0 RDW 19.8 H Plt Count 205 MPV 10.3 Immature Gran % (Auto) 0.4 Neut % (Auto) 75.2 H Lymph % (Auto) 11.5 L [place] % (Auto) 9.0 Eos % (Auto) 3.2 Baso % (Auto) 0.7 Lymph # (Auto) 0.8 L [place] # (Auto) 0.7 Eos # (Auto) 0.2 Baso # (Auto) 0.1 Abs Immat Gran (auto) 0.03 Absolute Neuts (auto) 5.4 Absolute Nucleated RBC 0.000 Nucleated RBC % (auto) 0.0 PT 14.4 H INR 1.2 H Sodium Potassium Chloride Carbon Dioxide Anion Gap BUN Creatinine Estim Creat Clear Calc Estimated GFR POC Glucose Random Glucose Calcium Total Bilirubin Direct Bilirubin AST ALT Alkaline Phosphatase Troponin I High Sens B-Natriuretic Peptide Total Protein Albumin COVID-19 (BENJAMIN) Negative COVID-19 Clin Com See Note 07/31/20 07/31/20 07/31/20 03:08 03:08 06:05 WBC RBC Hgb Hct MCV MCH MCHC RDW Plt Count MPV Immature Gran % (Auto) Neut % (Auto) Lymph % (Auto) [place] % (Auto) Eos % (Auto) Baso % (Auto) Lymph # (Auto) [place] # (Auto) Eos # (Auto) Baso # (Auto) Abs Immat Gran (auto) Absolute Neuts (auto) Absolute Nucleated RBC Nucleated RBC % (auto) PT INR Sodium 130 L Potassium 5.9 H Chloride 91 L Carbon Dioxide 19 L Anion Gap 26 H BUN 134 H* Creatinine 7.74 H* Estim Creat Clear Calc 7.0 Estimated GFR 5 POC Glucose Random Glucose 97 Calcium 8.6 Total Bilirubin 0.4 Direct Bilirubin 0.2 AST 12 ALT 34 H Alkaline Phosphatase 86 Troponin I High Sens 17.3 H 15.5 B-Natriuretic Peptide 3904 H Total Protein 5.7 L Albumin 3.7 COVID-19 (BNEJAMIN) COVID-19 [employer] Com 07/31/20 07/31/20 07/31/20 06:53 06:53 07:24 WBC 6.8 RBC 3.48 L Hgb 9.6 L Hct 30.3 L MCV 87.1 MCH 27.6 MCHC 31.7 RDW 19.9 H Plt Count 212 MPV 10.5 Immature Gran % (Auto) 0.3 Neut % (Auto) 78.5 H Lymph % (Auto) 10.7 L [place] % (Auto) 7.9 Eos % (Auto) 2.0 Baso % (Auto) 0.6 Lymph # (Auto) 0.7 L [place] # (Auto) 0.5 Eos # (Auto) 0.1 Baso # (Auto) 0.0 Abs Immat Gran (auto) 0.02 Absolute Neuts (auto) 5.4 Absolute Nucleated RBC 0.000 Nucleated RBC % (auto) 0.0 PT INR Sodium 130 L Potassium 5.7 H Chloride 92 L Carbon Dioxide 20 L Anion Gap 24 H BUN 132 H* Creatinine 7.62 H* Estim Creat Clear Calc 7.1 Estimated GFR 5 POC Glucose 93 Random Glucose 94 Calcium 8.8 Total Bilirubin Direct Bilirubin AST ALT Alkaline Phosphatase Troponin I High Sens B-Natriuretic Peptide Total Protein Albumin COVID-19 ([facility]ENJAMIN) COVID-19 Clin Com Normal sinus rhythm with nonspecific interventricular conduction delay with left bundle pattern at 51 beats per minute Imaging Radiologist's impression: Impressions Chest X-Ray 07/31/20 02:13 IMPRESSION: No evidence for acute disease. Cardiomegaly without vascular congestion. Assessment and Plan (1) Congestive heart failure: Status: Acute Acute congestive heart failure with fluid overload in elderly woman with progressive renal failure could be just related to poor urine output. Underlying heart failure secondary to diastolic/systolic dysfunction and/or right ventricular systolic dysfunction and failure cannot be completely ruled out. Will obtain an echocardiogram to assess for cardiac structure and function. Given her progressive renal failure, age, positive light chains, possibility of cardiac amyloidosis cannot be entirely ruled out. Further treatment based on the finding of echocardiogram. She appears to be both in respiratory distress as well as significantly fluid overloaded with poor response to IV diuresis. Plan by Nephrology is to perform acute hemodialysis today. This should be done as soon as possible. Given her borderline blood pressure and overall status have requested Dr. Benitez to evaluate her for ICU placement for closer monitoring. He will evaluate the patient later today. Hold off on all her antihypertensive medications. Diabetes management as per the primary team. Once a fluid status is improved, can initiate heart failure therapy as tolerated. Will follow with the patient. Thank you for allowing us to partake in her care. Spent greater than 45 minutes in managing and coordinating her care including discussing with hospitalist and ICU team.
--- NOTE | 2020-07-31 11:10 | PC.NURSE ---
Dr Elizondo at bedside, bedside echo completed by Dr Elizondo. Plan for permacath placement at bedside.
[2020-07-31 11:20] LABS: Partial Thromboplastin Time 42.3 SEC (24.1-38.0)
--- NOTE | 2020-07-31 11:53 | PC.NURSE ---
ECHO being completed at this time.
[2020-07-31 11:54] LABS: Glucose, Whole Blood 93 mg/dL (60-115)
[2020-07-31 12:10] LABS: Erythrocyte Sedimentation Rate 5 MM/HR (0-20)
[2020-07-31] MEDS: HYDROmorphone HCl 1 MG/ML SYRINGE IVPUSH ×3 (12:19→20:20)
--- NOTE | 2020-07-31 12:48 | PC.NURSE ---
at bedside breifly and updated by Dr Elizondo on plan of care. Plan for permacath to be placed. Dilaudid 0.5mg given for leg pain with some effectiveness. Pt vomiting small amount of brown liquid, Dr Elizondo aware
--- NOTE | 2020-07-31 13:14 | PC.NURSE ---
Dr Elizondo to bedside placement Dialysis catheter at this time
--- NOTE | 2020-07-31 15:26 | PC.NURSE ---
Plan for Diaylsis at 1600
--- NOTE | 2020-07-31 15:31 | P.EN_ITS ---
Event Note Date of Service: 07/31/20 Event Note: Patient admitted early this morning, Patient seen history and phys ical reviewed, case discussed with hydrogenation operator Dr. Wen and record systems analyst Dr. Griffin Lyons 71-year-old female patient with history of chronic renal insufficiency is stage 5, history of bilateral lower extremity pain recently discharged from rehab facility, diet-controlled diabetes, hypertension Presented to [facility] due to worsening bilateral lower extremity edema, shortness of breath and wheeze and decreased urine output Workup in ER showed a potassium 5.9 Creatinine 7.74 BUN 134 bicarb of 19 Patient admitted to [facility] with a diagnosis of acute on chronic kidney disease, acute hyperkalemia as well as congestive heart failure with elevated BNP 3900, patient was placed on IV sodium bicarbonate drip, received Kayexalate and calcium gluconate This morning patient complaining of bilateral leg pain On examination patient appears to be in significant distress due to pain anxiety and shortness of breath Neck elevated JVD Lungs bilateral expiratory wheeze with mild to moderate respiratory distress Extremities bilateral pitting edema Neuro awake alert answering questions appropriately Assessment and plan Acute on chronic kidney disease stage 5 case discussed with Nephrology stat bedside hemodialysis catheter placed by timber mill worker plan is for patient to undergo hemodialysis spoke with hemodialysis nurse patient will undergo hemodialysis at 4pm, spoke with nursing paint line supervisor patient postprocedure will be admitted to intermediate care unit patient also being followed by timber mill worker . Heart failure with fluid overload echocardiogram showed a low EF of 15-20% discussed with nephrology patient will undergo hemodialysis on an urgent basis. Due to low blood pressure holding antihypertensive medication. Patient evaluated by Cardiology once patient fluid status is improved further heart failure therapy will be initiated. Diabetes mellitus diet controlled Chronic bilateral lower extremity pain patient had a temporary spinal stimulator that was recently removed in anticipation that she will undergo bilateral spinal stimulator on 07/28 however the procedure was canceled due to worsening renal function. Will continue hydromorphone 1 mg q.4 hours as needed Levothyroxine continue Synthroid Spoke with patient's at bedside and informed him plan of care Code status full code
--- NOTE | 2020-07-31 18:01 | P.CONCC_ITS ---
History of Present Illness Data of Consult Service Date: 07/31/20 Requesting physician: Lance Moya Primary Care Provider: MD ARPITA Springer Reason for consult: Renal failure/pulmonary edema Saw patient in the ER and she was wheezing but was awake with a good oxygen saturation and denied dyspnea except for effort related Looking through her numbers she has had a several month progression of renal failure and she is a lady with ischemic heart disease 17 years status post coronary bypass grafting and my bedside echo showed a congestive cardiomyopathy with 20% ejection fraction and diffuse hypokinesis but no primary valve or pericardial disease And clearly was in need of a dialysis between the current uremia but also current fluid overload with incipient pulmonary edema Review of Systems Review of Systems: Outside of weakness the rest of the systems were negative in that there was no fever chills just weakness and fatigue Yes all other systems are reviewed and are negative PMFSH Past Medical History 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 Diabetic nephropathy Essential hypertension Heart failure with reduced ejection fraction History of myocardial infarction Lumbosacral radiculopathy due to degenerative joint disease of spine Menopause Osteoarthritis involving multiple joints on both sides of body Pain and swelling of lower leg Postlaminectomy syndrome Restless leg syndrome Secondary hyperparathyroidism Septic arthritis of shoulder, right Family History Family History Father Medical history non-contributory Mother Medical history non-contributory Surgical History Surgical History History of carpal tunnel release History of foot surgery History of laminectomy History of surgery History of total left knee replacement (TKR) Hx of appendectomy Hx of bilateral cataract extraction Hx of cholecystectomy Hx of colonoscopy Hx of dilation and curettage Hx of umbilical hernia repair S/P CABG x 3 S/P trigger finger release Status post right shoulder hemiarthroplasty Social History Social History Household Members: Spouse Housing: House Alcohol intake: never Smoking Status: Never smoker service: No Current occupational status: retired Meds Allergies Allergy/AdvReac Type Severity Reaction Status Date / Time erythromycin base Allergy Mild RASH Verified 07/31/20 01:54 [Erythromycin Base] indomethacin [From Indocin] Allergy Mild RASH Verified 07/31/20 01:54 Sulfa (Sulfonamide Allergy Mild RASH, Verified 07/31/20 01:54 Antibiotics) stomach [Sulfa (Sulfonamides)] upset ezetimibe [From Zetia] Allergy Unknown unknown Verified 07/31/20 01:54 flaxseed [FLAXSEED] Allergy Unknown SWELLING Verified 07/31/20 01:54 TONGUE AND LIPS Flexeril Allergy Unknown lg swelling Verified 07/31/20 01:54 gabapentin [From Neurontin] Allergy Unknown UNknown Verified 07/31/20 01:54 glipizide Allergy Unknown UNknown Verified 07/31/20 01:54 Niacin Preparations Allergy Unknown RASH Verified 07/31/20 01:54 [NIACIN PREPARATIONS] Penicillins Allergy Unknown Rash Verified 07/31/20 01:54 cocaine Allergy Seizure Verified 07/31/20 01:54 atorvastatin [From Lipitor] AdvReac Mild MUSCLE Verified 07/31/20 01:54 SOARNESS oxycodone AdvReac Unknown GI upset- Verified 07/31/20 01:54 sevree CAT GUT SUTURES Allergy Unknown rash Uncoded 07/31/20 01:54 PLASTIC TAPE, BANDADES Allergy Unknown rash Uncoded 07/31/20 01:54 Adhesive Bandage AdvReac Mild BLISTERS Uncoded 07/31/20 01:54 Active Medications: Current Medications Generic Name Dose Route Start Last Admin Trade Name Freq PRN Reason Stop Dose Admin Acetaminophen 650 mg 07/31/20 04:45 Acetaminophen 325 Mg Tablet PO Q6H PRN Pain, Mild (Pain Scale 1-3) Aspirin 81 mg 07/31/20 09:00 07/31/20 08:21 Aspirin Enteric Coated 81 Mg Tablet. PO 81 mg DAILY OMI Administration Heparin Sodium (Porcine) 5,000 unit 07/31/20 09:00 07/31/20 08:22 Heparin Sodium,Porcine 5,000 Unit/Ml Vial SUBCUT 5,000 unit Q12H OMI Administration Hydromorphone HCl 1 mg 07/31/20 06:17 07/31/20 13:13 Hydromorphone Hcl 1 Mg/Ml Syringe IVPUSH 0.5 mg Q4H PRN Administration Breakthrough Pain Sodium Bicarbonate 150 meq/ 1,000 mls @ 50 mls/hr 07/31/20 04:15 07/31/20 04:55 Dextrose IV 50 mls/hr .Q20H OMI Administration Insulin Human Lispro 0 unit 07/31/20 07:30 07/31/20 17:25 Insulin Lispro 100 Unit/Ml 3 Ml Vial SUBCUT Not Given QIDACHS [facility] Protocol Ketorolac Tromethamine 1 drop 07/31/20 09:00 07/31/20 17:25 Ketorolac Tromethamine 0.5% Op 3 Ml Drops EYE-RIGHT Not Given QID [facility] Labetalol HCl 300 mg 07/31/20 09:00 07/31/20 08:22 Labetalol Hcl 100 Mg Tablet PO Not Given BID [facility] Levothyroxine Sodium 112 mcg 07/31/20 07:15 07/31/20 08:20 Levothyroxine Sodium 112 Mcg Tablet PO 112 mcg DAILY@0600 [facility] Administration Levothyroxine Sodium 25 mcg 07/31/20 08:00 07/31/20 08:21 Levothyroxine Sodium 25 Mcg Tablet PO 25 mcg DAILY@0600 [facility] Administration Ropinirole HCl 0.5 mg 07/31/20 09:00 07/31/20 17:25 Ropinirole Hcl 0.5 Mg Tablet PO Not Given QID [facility] Sevelamer HCl 800 mg 07/31/20 08:00 07/31/20 17:26 Sevelamer Hcl 800 Mg Tablet PO Not Given TIDWM [facility] Sodium Chloride 3 ml 07/31/20 08:00 07/31/20 17:25 0.9 % Sodium Chloride Flush 3 Ml Syringe IVFLUSH Not Given QSHIFT [facility] Home Medications Medication Instructions Recorded Confirmed Last Taken Type ketorolac 1 drp OPHTHALMIC-RIGHT QID 03/31/20 08/20/20 07/30/20 12:00 History sevelamer carbonate 800 mg PO TID 05/05/20 08/20/20 07/30/20 History coenzyme Q10 100 mg capsule 100 mg PO TID cap 06/21/20 08/20/20 07/30/20 08:00 History ferrous sulfate 325 mg (65 mg 325 mg PO TID tab 06/21/20 08/20/20 07/30/20 08:00 History iron) tablet ropinirole 0.5 mg tablet 0.5 mg PO QID tab 06/21/20 08/20/20 07/30/20 02:00 History sodium bicarbonate-sodium chloride 1 ea MISCELLANEOUS BID 06/21/20 08/20/20 07/30/20 History powder vit C,E,Zn,[id number] 1 cap PO BID 07/18/20 07/31/20 Unknown History hydrocodone-acetaminophen 1 tab PO Q8H PRN 07/31/20 08/20/20 07/30/20 23:00 History rosuvastatin 10 mg PO DAILY 07/31/20 08/20/20 Unknown History Physical Exam Vital Signs: Vital Signs: Last Vital Signs Pulse 55 07/31/20 15:50 Resp 18 07/31/20 15:50 BP 120/78 07/31/20 15:50 Pulse Ox 99 07/31/20 15:50 Body Mass Index 34.7 She was awake and conversational but clearly though not expressed in respiratory distress with bilateral wheezing increase tachypnea increased use of accessory muscles including diaphragm Severe bilateral wheezing Markedly diminished bilateral carotid upstrokes with neck vein distension and resting summation gallop Significant peripheral edema but no livedo and no acrocyanosis Results Labs CBC & Chem 7: 08/04/20 05:44 08/04/20 05:44 Labs: Short CBC 07/31/20 07/31/20 Range/Units 03:08 06:53 WBC 7.2 6.8 (4.8-10.8) X10*3/uL Hgb 9.9 L 9.6 L (12.0-16.0) g/dl Hct 30.9 L 30.3 L (37-47) % Plt Count 205 212 (160-400) X10*3/uL BMP 07/31/20 07/31/20 03:08 06:53 Sodium 130 L 130 L Potassium 5.9 H 5.7 H Chloride 91 L 92 L Carbon Dioxide 19 L 20 L BUN 134 H* 132 H* Creatinine 7.74 H* 7.62 H* Calcium 8.6 8.8 Cardiac Enzymes 07/31/20 Range/Units 06:53 Total Creatine Kinase 103 (26-140) U/L Liver Function 07/31/20 Range/Units 03:08 Total Bilirubin 0.4 (0.0-1.0) mg/dL Direct Bilirubin 0.2 (0.0-0.5) mg/dL AST 12 (5-31) U/L ALT 34 H (0-31) U/L Alkaline Phosphatase 86 (39-117) U/L Albumin 3.7 (3.5-5.0) g/dL Assessment and Plan (1) End stage renal disease: Status: Acute (2) CHF exacerbation: Status: Acute (3) Tachypnea: Status: Acute (4) UTI (urinary tract infection): Status: Acute (5) PAF (paroxysmal atrial fibrillation): Status: Acute (6) Ischemic cardiomyopathy: Status: Acute (7) Atrial fibrillation and flutter: Status: Acute (8) Cardiomyopathy: Status: Acute (9) Heart failure with reduced ejection fraction: Status: Acute (10) Vertigo: Status: Acute (11) Rotator cuff tear arthropathy of left shoulder: Status: Acute (12) Acute hyperkalemia: Status: Acute (13) Congestive heart failure: Status: Acute (14) Pain and swelling of lower leg: Status: Acute (15) Bilateral calf pain: Status: Acute (16) Septic arthritis of shoulder, right: Status: Acute (17) 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 3 vessel CABG 2002 Status: Acute (20) Essential hypertension: Status: Acute (21) Anemia in CKD (chronic kidney disease): Status: Acute (22) Chronic kidney disease, stage 5: Problem details: r/t diabetic nephropathy Sees Dr Ferro in [place] Status: Acute (23) Secondary hyperparathyroidism: Status: Acute The most immediate indication for dialysis is the pulmonary edema in the face of significant fluid overload and developing acute pulmonary edema because of superimposed congestive cardiomyopathy Plan is to place a right internal jugular vein dialysis catheter and immediate dialysis following
--- NOTE | 2020-07-31 18:04 | P.PCNCC_ITS ---
Procedures Procedure Note Procedure Note: After sterile preparation and draping utilizing the right internal jugular vein and ultrasound guidance I gained entry into the internal jugular vein and passed a J tipped guidewire retrograde with Seldinger technique to the right atrium and with progressive dilators ultimately a 12 [place] double- lumen dialysis catheter with its tip in the superior vena cava without any complications and confirmed by chest x-ray
[2020-07-31 21:01] LABS: Glucose, Whole Blood 78 mg/dL (60-115)
[2020-07-31] MEDS: Labetalol HCL 100 MG TABLET 300 MG PO (22:12)
[2020-08-01] MEDS: HYDROmorphone HCl 1 MG/ML SYRINGE IVPUSH ×3 (02:30→17:30)
[2020-08-01] MEDS: Sodium Bicarbonate 8.4% 150 MEQ in Dextrose 5 % 850 ML 50 MEQ IV (02:30)
--- NOTE | 2020-08-01 03:30 | CONS_ITS ---
DATE OF SERVICE: 07/31/2020 REASON FOR CONSULTATION: I was called to see this patient to assist in the management of the patient's advanced renal failure. HISTORY OF PRESENT ILLNESS: To summarize, Delmar is a 79-year-old woman with history of stage 5 chronic kidney disease. She usually follows with Dr. Ferro. She was supposed to see my associate Dr. Zamudio in the office today at 8 a.m. however, she comes to the ER because she was having increasing edema and some shortness of breath as well. Upon admission to the ED, she was found to have hyperkalemia with potassium of 5.9 initially, which later decreased to 5.7, and she also had a significantly elevated BUN of 134 with creatinine of 7.77, which is clearly higher than baseline. she was evaluated by the ICU Team, and there was no bed available in the ICU, however, the ICU attending inserted a temporary dialysis catheter in preparation for hemodialysis. PAST MEDICAL HISTORY: Ongoing medical problems includes history of stage 5 chronic kidney disease, hypertension, hyperlipidemia, coronary artery disease, anemia, diabetes mellitus. FAMILY HISTORY: Noncontributory. PAST SURGICAL HISTORY: Includes right shoulder hemiarthroplasty. She has a pain pump for chronic back pain/sciatica. Carpal tunnel release surgery, foot surgery, laminectomy, left total knee replacement, appendicectomy, cholecystectomy, SOCIAL HISTORY: No history of smoking or alcohol abuse. MEDICATIONS: At the time of admission included Tylenol, labetalol 200mgb.i.d., losartan 100 mg daily, sevelamer 800mg t.i.d., iron sulfate, REVIEW OF SYSTEMS: Some nausea. No headache. No fever. She has slight decrease in urine output. No diarrhea. No constipation. No chest pain. No shortness of breath. No fever. All other systems were reviewed. PHYSICAL EXAMINATION: GENERAL: Delmar is a 79-year-old woman. She is awake, sleepy, but arousable, not in any distress. NECK: Supple. LUNGS: Bilateral scattered rhonchi. HEART: S1, S2 heard. No gallop. ABDOMEN: Obese, soft, nontender. EXTREMITIES: With edema. No rash. No clubbing. NEURO: She is arousable. There is faint asterixis. No myoclonus. VITAL SIGNS: Blood pressure Noteed. IMPRESSION: A 79-year-old woman with stage 5 history of chronic kidney disease, longstanding hypertension, diabetes mellitus, has gradually progressed to ESRD and currently has hyperkalemia and mild fluid overload with uremia. Delmar needs to get started with hemodialysis in view of uremia and other electrolyte imbalance. Delmar tells me that she wants to be on peritoneal dialysis, however, given the fact that we do not do acute peritoneal dialysis in this facility, we will proceed with hemodialysis with temporary catheter and we will stabilize her. Once she is stabilized, we will transition her to peritoneal dialysis. In the meantime, we will keep her on low-potassium diet. We will use low-potassium bath to correct the hyperkalemia. I will continue the phosphate binders as well. If she does have anemia, we will start her back on Epogen We will follow her closely with the team. Lance Moya MD BPA/MODL / [id number] MTDD
[2020-08-01 03:53] VITALS: BP 103/60; PULSE 61; RESP 19; TEMP 36.2; O2SAT 96
[2020-08-01 06:23] LABS: Basophils Percent Auto 0.3 % (0-2); Eosinophils Absolute Auto 0.1 X10*3/uL (0.0-0.4); Eosinophils Percent Auto 1.4 % (0-4); Hematocrit 31.7 % (37-47); Hemoglobin 9.9 g/dl (12.0-16.0); Imm Gran Abs Auto 0.04 X10*3/uL (0.00-0.03); Imm Gran Pct Auto 0.4 % (0.0-0.4); Lymphocytes Absolute Auto 0.7 X10*3/uL (1.2-4.9); MANUAL DIFF FLAG SCAN; Mean Corpuscular HGB Conc 31.2 g/dl (31.0-35.0); Mean Corpuscular Hemoglobin 27.3 pg (27.0-33.0); Mean Corpuscular Volume 87.3 fL (80-98); Mean Platelet Volume 9.9 fL (9.4-12.3); Monocytes Absolute Auto 0.9 X10*3/uL (0.1-1.2); Monocytes Percent Auto 9.3 % (2-11); Neutrophils Absolute Auto 7.6 X10*3/uL (2.0-8.3); Neutrophils Percent Auto 81.6 % (45-73); Platelet Count 218 X10*3/uL (160-400); Red Blood Count 3.63 X10*6/uL (4.20-5.50); Red Cell Distribution Width 20.2 % (11.0-16.0); SCAN SMEAR FLAG 1; White Blood Count 9.3 X10*3/uL (4.8-10.8)
[2020-08-01 06:32] LABS: B Type Natriuretic Peptide 3593 pg/mL (<100)
[2020-08-01 06:37] LABS: Anion Gap 22 (12-20); Calcium 8.3 mg/dL (8.4-10.2); Carbon Dioxide 19 mmol/L (22-29); Chloride 97 mmol/L (96-108); Glucose Random 78 mg/dL (60-115); Potassium 4.3 mmol/L (3.3-5.1); Sodium 134 mmol/L (135-145)
[2020-08-01 06:38] LABS: Blood Urea Nitrogen 105 mg/dL (9-16)
[2020-08-01 07:04] LABS: Creatinine Clr Calc Pharmacy 8.5; Estimated Glomerular Filt Rate 6
[2020-08-01 07:59] LABS: SLIDE REVIEW VERIFIED
--- NOTE | 2020-08-01 09:05 | PM.PNNEP ---
Subjective Subjective Date of Service: 08/01/20 Principal diagnosis: Congestive heart failure. Physical Exam Vital Signs: Vital Signs: Last Vital Signs Temp 97.5 F 08/01/20 11:25 Pulse 64 08/01/20 11:25 Resp 20 08/01/20 11:25 BP 110/67 08/01/20 11:25 Pulse Ox 98 08/01/20 11:25 Body Mass Index 34.7 Const: General: No no acute distress Orientation/consciousness: oriented to time Neck: Neck: No supple Cardio: Heart sounds: no gallops Neuro: General: oriented to time Motor exam (neuro): no asterixis Objective Data Labs CBC & Chem 7: 08/01/20 05:34 08/01/20 05:34 Labs: Laboratory Results - last 24 hr 07/31/20 08/01/20 08/01/20 20:58 05:34 05:34 WBC 9.3 RBC 3.63 L Hgb 9.9 L Hct 31.7 L MCV 87.3 MCH 27.3 MCHC 31.2 RDW 20.2 H Plt Count 218 MPV 9.9 Immature Gran % (Auto) 0.4 Neut % (Auto) 81.6 H Lymph % (Auto) 7.0 L Morrill % (Auto) 9.3 Eos % (Auto) 1.4 Baso % (Auto) 0.3 Lymph # (Auto) 0.7 L Morrill # (Auto) 0.9 Eos # (Auto) 0.1 Baso # (Auto) 0.0 Abs Immat Gran (auto) 0.04 H Absolute Neuts (auto) 7.6 Absolute Nucleated RBC 0.000 Nucleated RBC % (auto) 0.0 Smear Tech's Comments VERIFIED Sodium 134 L Potassium 4.3 D Chloride 97 Carbon Dioxide 19 L Anion Gap 22 H BUN 105 H* D Creatinine 6.39 H* Estim Creat Clear Calc 8.5 Estimated GFR 6 POC Glucose 78 Random Glucose 78 Calcium 8.3 L B-Natriuretic Peptide 08/01/20 08/01/20 05:34 11:15 WBC RBC Hgb Hct MCV MCH MCHC RDW Plt Count MPV Immature Gran % (Auto) Neut % (Auto) Lymph % (Auto) Morrill % (Auto) Eos % (Auto) Baso % (Auto) Lymph # (Auto) Morrill # (Auto) Eos # (Auto) Baso # (Auto) Abs Immat Gran (auto) Absolute Neuts (auto) Absolute Nucleated RBC Nucleated RBC % (auto) Smear Tech's Comments Sodium Potassium Chloride Carbon Dioxide Anion Gap BUN Creatinine Estim Creat Clear Calc Estimated GFR POC Glucose 82 Random Glucose Calcium B-Natriuretic Peptide 3593 H Assessment & Plan Assessment and plan (1) Chronic kidney disease, stage 5: Problem details: r/t diabetic nephropathy [facility] [place] [facility] Status: Acute Assessment and Plan: Started HD via Temp catheter yesterday due to uremia and fludi overload Second HD today Tolerating well. Need to convert to permcath Will arange for PD as out patient Time Spent With Patient Time: Total time spent is greater than 50% in coordination of care (as documented) at patient's floor/unit and/or counseling patient: seen during HD
[2020-08-01] MEDS: Aspirin Enteric Coated 81 MG TABLET.DR PO (10:54)
[2020-08-01] MEDS: Heparin Sodium,Porcine 5,000 UNIT/ML VIAL 5000 UNIT SUBCUT ×2 (10:54→22:40)
[2020-08-01] MEDS: Labetalol HCL 100 MG TABLET 300 MG PO (10:54)
[2020-08-01] MEDS: rOPINIRole HCL 0.5 MG TABLET PO ×4 (10:55→22:40)
[2020-08-01] MEDS: 0.9 % Sodium Chloride Flush 3 ML SYRINGE IVFLUSH (10:55)
--- NOTE | 2020-08-01 11:03 | P.CDIC_ITS ---
CDI Concurrent Query Service Date: 08/01/20 Documentation Clarification: Please clarify if you are treating a proba ble/suspected/likely or confirmed: Specifics: Acute on chronic diastolic and/or systolic CHF Chf with reduced EF-yes. Chronic diastolic and/or systolic CHF Please specify if known or other Provider Response: Other Other Diagnosis: chf with reduced EF. PLEASE DO NOT DELETE/MODIFY EXISTING CONTENT Additional information is needed in order to code to the highest accuracy and appropriate Severity of Illness (SOI). Please clarify the information noted below in your progress notes and discharge summary. Risk Factors/Clinical Indicators/Treatments CHF with BNP 3900. IV Sodium bicarbonate drip. SOB, moderate respiratory distress, fluid overload, lower extremity swelling. PN: concern for fluid overload with worsening renal insufficiency vs. CHF. H&P: Heart failure w fluid overload echo showed a low EF of 15-50%. Echo ordered. CDS: Cele Dunlap CCS, CDIS Contact Number: [phone] Please Review the information above and exercise your independent professional judgment in responding to the query. If you concur, pleas document in the PROGRESS NOTES and DISCHARGE SUMMARY. If you do not agree with the query, please document in the query above. THIS QUERY IS PART OF THE PERMANENT MEDICAL RECORD
[2020-08-01 11:21] LABS: Glucose, Whole Blood 82 mg/dL (60-115)
[2020-08-01 11:25] VITALS: BP 110/67; PULSE 64; RESP 20; TEMP 36.4; O2SAT 98
--- NOTE | 2020-08-01 11:39 | PM.PNCARD ---
Subjective Subjective Date of Service: 08/01/20 Principal diagnosis: Congestive heart failure. Interval history: Patient being dialyzed today. Has had improvement in her breathing status and wheezing. Hemodynamically stable. Denies any other cardiac symptoms. Echocardiogram shows severe LV systolic dysfunction with regional wall motion abnormality consistent with ischemic cardiomyopathy. Patient was not aware of this. Review of Systems Constitutional: Reports no additional constitutional complaints Cardiovascular: Denies chest pain, Reports leg edema, Denies palpitations and Reports dyspnea Respiratory: Reports dyspnea and Reports wheezing Gastrointestinal: Reports no additional gastrointestinal complaints Genitourinary: Reports no additional female genitourinary complaints Musculoskeletal: Reports other (Bilateral thigh pain) Reports system reviewed and no additional complaints, except as documented Psychiatric: Reports no additional psychiatric complaints Endocrine: Reports no additional endocrine complaints and Denies palpitations Allergic/Immunologic: Reports wheezing Physical Exam Vital Signs: Last Vital Signs Temp 97.5 F 08/01/20 11:25 Pulse 64 08/01/20 11:25 Resp 20 08/01/20 11:25 BP 110/67 08/01/20 11:25 Pulse Ox 98 08/01/20 11:25 Body Mass Index 34.7 Const General: cooperative, comfortable, alert and awake Nutritional Appearance: obese Orientation/consciousness: patient oriented x3 Neck Neck: Yes JVD Resp Effort & Inspection: normal respiratory effort Auscultation: no rales and wheezes (Improved wheezing) Cardio Palpation: normal PMI Rate: regular rate Rhythm: regular rhythm Heart sounds: S1 normal heart sound present, S2 normal heart sound present and Murmur heart sound present systolic early Skin General skin exam: no rashes or lesions noted and ecchymosis Neuro General: patient oriented x3 Extrem General: Yes normal to inspection and Yes edema Psych Appearance: grossly normal Results Labs and Meds Result diagrams: 08/01/20 05:34 08/01/20 05:34 Lab results: Laboratory Results - last 24 hr 07/31/20 07/31/20 07/31/20 06:53 11:51 20:58 WBC RBC Hgb Hct MCV MCH MCHC RDW Plt Count MPV Immature Gran % (Auto) Neut % (Auto) Lymph % (Auto) Harvey % (Auto) Eos % (Auto) Baso % (Auto) Lymph # (Auto) Harvey # (Auto) Eos # (Auto) Baso # (Auto) Abs Immat Gran (auto) Absolute Neuts (auto) Absolute Nucleated RBC Nucleated RBC % (auto) Smear Tech's Comments ESR 5 Sodium Potassium Chloride Carbon Dioxide Anion Gap BUN Creatinine Estim Creat Clear Calc Estimated GFR POC Glucose 93 78 Random Glucose Calcium B-Natriuretic Peptide 08/01/20 08/01/20 08/01/20 05:34 05:34 05:34 WBC 9.3 RBC 3.63 L Hgb 9.9 L Hct 31.7 L MCV 87.3 MCH 27.3 MCHC 31.2 RDW 20.2 H Plt Count 218 MPV 9.9 Immature Gran % (Auto) 0.4 Neut % (Auto) 81.6 H Lymph % (Auto) 7.0 L Harvey % (Auto) 9.3 Eos % (Auto) 1.4 Baso % (Auto) 0.3 Lymph # (Auto) 0.7 L Harvey # (Auto) 0.9 Eos # (Auto) 0.1 Baso # (Auto) 0.0 Abs Immat Gran (auto) 0.04 H Absolute Neuts (auto) 7.6 Absolute Nucleated RBC 0.000 Nucleated RBC % (auto) 0.0 Smear Tech's Comments VERIFIED ESR Sodium 134 L Potassium 4.3 D Chloride 97 Carbon Dioxide 19 L Anion Gap 22 H BUN 105 H* D Creatinine 6.39 H* Estim Creat Clear Calc 8.5 Estimated GFR 6 POC Glucose Random Glucose 78 Calcium 8.3 L B-Natriuretic Peptide 3593 H 08/01/20 11:15 WBC RBC Hgb Hct MCV MCH MCHC RDW Plt Count MPV Immature Gran % (Auto) Neut % (Auto) Lymph % (Auto) Harvey % (Auto) Eos % (Auto) Baso % (Auto) Lymph # (Auto) Harvey # (Auto) Eos # (Auto) Baso # (Auto) Abs Immat Gran (auto) Absolute Neuts (auto) Absolute Nucleated RBC Nucleated RBC % (auto) Smear Tech's Comments ESR Sodium Potassium Chloride Carbon Dioxide Anion Gap BUN Creatinine Estim Creat Clear Calc Estimated GFR POC Glucose 82 Random Glucose Calcium B-Natriuretic Peptide Imaging Radiologist's impression: Impressions Chest X-Ray 07/31/20 13:54 IMPRESSION: Radiopaque wire coursing over the region of the right atrium and terminating over the region of the right ventricle. There is no port in place at this time. Low lung volumes with patchy left basilar opacity and possible small pleural effusion. Progress Note: A&P Assessment and plan (1) Heart failure with reduced ejection fraction: Status: Acute Assessment and Plan: Heart failure with reduced ejection fraction with significant LV systolic dysfunction severe renal failure, currently undergoing hemodialysis to remove volume as patient does not have any urine output. Continue hemodialysis to improve volume status. Blood pressure is stable. Will add low-dose afterload reduction with hydralazine. Eventually add Isordil and metoprolol as long as she tolerates initiation of therapy. Findings were discussed with her. She will eventually require ischemic workup if shows so desires. 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 Will continue to follow with the patient. Heart failure education should be provided. Fall Risk Details Current Medications: Current Medications Generic Name Dose Route Start Last Admin Trade Name Freq PRN Reason Stop Dose Admin Acetaminophen 650 mg 07/31/20 04:45 Acetaminophen 325 Mg Tablet PO Q6H PRN Pain, Mild (Pain Scale 1-3) Aspirin 81 mg 07/31/20 09:00 08/01/20 10:54 Aspirin Enteric Coated 81 Mg Tablet. PO 81 mg DAILY OMI Administration Heparin Sodium (Porcine) 5,000 unit 07/31/20 09:00 08/01/20 10:54 Heparin Sodium,Porcine 5,000 Unit/Ml Vial SUBCUT 5,000 unit Q12H OMI Administration Hydromorphone HCl 1 mg 07/31/20 06:17 08/01/20 10:52 Hydromorphone Hcl 1 Mg/Ml Syringe IVPUSH 1 mg Q4H PRN Administration Breakthrough Pain Sodium Bicarbonate 150 meq/ 1,000 mls @ 50 mls/hr 07/31/20 04:15 08/01/20 02:30 Dextrose IV 50 mls/hr .Q20H OMI Administration Insulin Human Lispro 0 unit 07/31/20 07:30 08/01/20 10:54 Insulin Lispro 100 Unit/Ml 3 Ml Vial SUBCUT Not Given QIDACHS [facility] Protocol Ketorolac Tromethamine 1 drop 07/31/20 09:00 07/31/20 22:12 Ketorolac Tromethamine 0.5% Op 3 Ml Drops EYE-RIGHT Not Given QID [facility] Labetalol HCl 300 mg 07/31/20 09:00 08/01/20 10:54 Labetalol Hcl 100 Mg Tablet PO 300 mg BID OMI Administration Levothyroxine Sodium 112 mcg 07/31/20 07:15 08/01/20 06:16 Levothyroxine Sodium 112 Mcg Tablet PO Not Given DAILY@0600 OMI Levothyroxine Sodium 25 mcg 07/31/20 08:00 08/01/20 06:17 Levothyroxine Sodium 25 Mcg Tablet PO Not Given DAILY@0600 OMI Ropinirole HCl 0.5 mg 07/31/20 09:00 08/01/20 10:55 Ropinirole Hcl 0.5 Mg Tablet PO 0.5 mg QID OMI Administration Sevelamer HCl 800 mg 07/31/20 08:00 08/01/20 10:55 Sevelamer Hcl 800 Mg Tablet PO Not Given TIDWM OMI Sodium Chloride 3 ml 07/31/20 08:00 08/01/20 10:55 0.9 % Sodium Chloride Flush 3 Ml Syringe IVFLUSH 3 ml QSHIFT OMI Administration Time Spent With Patient Time: Total time spent is greater than 50% in coordination of care (as documented) at patient's floor/unit and/or counseling patient: Time with patient: 25 - 35 minutes
--- NOTE | 2020-08-01 12:42 | MHC.CM.PN ---
DP Female 79 DX ALEXI CKD Anticipate DC 2-3 days per MD rounds. DP resume homecare services with [facility]. Transportation will be provided by the Patients . Information has been sent to [facility]. CINDY was notified that the Pt is active with another agency. CM will follow to assess for changes in dc needs.
[2020-08-01] MEDS: hydrALAZINE HCl 10 MG TABLET PO (13:19)
[2020-08-01 15:08] VITALS: BP 107/69; PULSE 61; RESP 20; TEMP 36.4; O2SAT 99
--- NOTE | 2020-08-01 18:32 | HO.PM.IMPN ---
Subjective Subjective Date of Service: 08/02/20 Interval History: ? chf c or adavanced renal related fluid overload Review of Systems Denies any chest pain. Shortness of breath seems slowly improving also leg swelling seems slightly better than yesterday as per patient. Denies any a abdominal pain or nausea or vomiting or diarrhea or fever or chills. Physical Exam Vital Signs: Vital Signs: Last Vital Signs Temp 97.5 F 08/01/20 15:08 Pulse 61 08/01/20 15:08 Resp 20 08/01/20 15:08 BP 107/69 08/01/20 15:08 Pulse Ox 99 08/01/20 15:08 Body Mass Index 34.7 Physical exam: Constitutional: Not in acute distress. Pleasant female. Cvs: rrr, [id number] , no murmur res: Closely fair entry, slightly diminished at bases, no rales or wheezing. abd: no rebound or guarding ,nt, bs present. ext pulses present , no cyanosis neuro: axo3 , nonfocal. Objective Data Current Medications Generic Name Dose Route Start Last Admin Trade Name Gabrielq PRN Reason Stop Dose Admin Acetaminophen 650 mg 07/31/20 04:45 Acetaminophen 325 Mg Tablet PO Q6H PRN Pain, Mild (Pain Scale 1-3) Aspirin 81 mg 07/31/20 09:00 08/01/20 10:54 Aspirin Enteric Coated 81 Mg Tablet. PO 81 mg DAILY OMI Administration Heparin Sodium (Porcine) 5,000 unit 07/31/20 09:00 08/01/20 10:54 Heparin Sodium,Porcine 5,000 Unit/Ml Vial SUBCUT 5,000 unit Q12H OMI Administration Hydralazine HCl 10 mg 08/01/20 11:45 08/01/20 13:19 Hydralazine Hcl 10 Mg Tablet PO 10 mg BID OMI Administration Protocol Hydromorphone HCl 1 mg 07/31/20 06:17 08/01/20 17:30 Hydromorphone Hcl 1 Mg/Ml Syringe IVPUSH 1 mg Q4H PRN Administration Breakthrough Pain Sodium Bicarbonate 150 meq/ 1,000 mls @ 50 mls/hr 07/31/20 04:15 08/01/20 02:30 Dextrose IV 50 mls/hr .Q20H OMI Administration Insulin Human Lispro 0 unit 07/31/20 07:30 08/01/20 16:37 Insulin Lispro 100 Unit/Ml 3 Ml Vial SUBCUT Not Given QIDACHS [facility] Protocol Ketorolac Tromethamine 1 drop 07/31/20 09:00 08/01/20 17:25 Ketorolac Tromethamine 0.5% Op 3 Ml Drops EYE-RIGHT Not Given QID [facility] Labetalol HCl 300 mg 07/31/20 09:00 08/01/20 10:54 Labetalol Hcl 100 Mg Tablet PO 300 mg BID OMI Administration Levothyroxine Sodium 112 mcg 07/31/20 07:15 08/01/20 06:16 Levothyroxine Sodium 112 Mcg Tablet PO Not Given DAILY@0600 [facility] Levothyroxine Sodium 25 mcg 07/31/20 08:00 08/01/20 06:17 Levothyroxine Sodium 25 Mcg Tablet PO Not Given DAILY@0600 [facility] Ropinirole HCl 0.5 mg 07/31/20 09:00 08/01/20 17:24 Ropinirole Hcl 0.5 Mg Tablet PO 0.5 mg QID [facility] Administration Sevelamer HCl 800 mg 07/31/20 08:00 08/01/20 17:24 Sevelamer Hcl 800 Mg Tablet PO 800 mg TIDWM [facility] Administration Sodium Chloride 3 ml 07/31/20 08:00 08/01/20 17:24 0.9 % Sodium Chloride Flush 3 Ml Syringe IVFLUSH Not Given QSHIFT [facility] Labs CBC & Chem 7: 08/01/20 05:34 08/02/20 05:48 Assessment and Plan (1) Heart failure with reduced ejection fraction: Status: Acute Assessment and Plan: 1.Acute on chronic kidney disease stage 5 case : Status post hemodialysis catheter and hemodialysis yesterday. Shortness of breath seems improving 2.Heart failure withReduced EF and systolic dysfunction: fluid overload echocardiogram showed a low EF of 15-20% discussed: Good hemodialysis as above. May need further hemodialysis to address volume status. Started on hydralazine we may need to add a side rail and metoprolol as long as patient tolerate further. She might need further workup as per Cardiology. She follows up in [facility]. 3.Diabetes mellitus diet controlled 4.Chronic bilateral lower extremity pain patient had a temporary spinal stimulator that was recently removed in anticipation that she will undergo bilateral spinal stimulator on 07/28 however the procedure was canceled due to worsening renal function. continue hydromorphone 1 mg q.4 hours prn and tylenol as needed 5.Levothyroxine continue Synthroid pt/ot
[2020-08-01 19:09] VITALS: BP 90/38; PULSE 100; RESP 20; TEMP 36; O2SAT 99
[2020-08-01 19:30] VITALS: BP 92/54; PULSE 59
[2020-08-01] MEDS: Midodrine HCl 5 MG TABLET PO (19:57)
[2020-08-01 20:08] LABS: Glucose, Whole Blood 79 mg/dL (60-115)
[2020-08-02] VITALS (11 sets, daily range): BP systolic 94–140; BP diastolic 59–86; PULSE 61–125; RESP 16–20; TEMP 36.1–36.7; O2SAT 93–98
[2020-08-02] MEDS: 0.9 % Sodium Chloride Flush 3 ML SYRINGE IVFLUSH ×3 (00:40→16:51)
[2020-08-02] MEDS: HYDROmorphone HCl 1 MG/ML SYRINGE IVPUSH ×4 (00:48→19:54)
[2020-08-02] MEDS: Levothyroxine Sodium 112 MCG TABLET PO (06:29)
[2020-08-02] MEDS: Levothyroxine Sodium 25 MCG TABLET PO (06:29)
[2020-08-02 07:20] LABS: Glucose, Whole Blood 81 mg/dL (60-115)
[2020-08-02 07:36] LABS: Anion Gap 17 (12-20); Blood Urea Nitrogen 60 mg/dL (9-16); Calcium 8.2 mg/dL (8.4-10.2); Carbon Dioxide 23 mmol/L (22-29); Chloride 99 mmol/L (96-108); Creatinine Clr Calc Pharmacy 11.6; Estimated Glomerular Filt Rate 9; Glucose Random 72 mg/dL (60-115); Potassium 3.7 mmol/L (3.3-5.1); Sodium 135 mmol/L (135-145)
[2020-08-02] MEDS: rOPINIRole HCL 0.5 MG TABLET PO ×4 (08:18→20:54)
[2020-08-02] MEDS: Labetalol HCL 100 MG TABLET 300 MG PO (08:18)
--- NOTE | 2020-08-02 10:43 | HO.RADPN ---
RADIOLOGY Narrative Narrative: Right IJ 14.5 Fr 23 cm length Palindrome permacath placed. Tip at cavoatrial junction. Temporary catheter removed.
[2020-08-02 11:11] LABS: Glucose, Whole Blood 79 mg/dL (60-115)
--- NOTE | 2020-08-02 13:41 | MHC.CM.PN ---
per pt to have perma cath plced today and will start dialysis ..pt will also have a pt eval for disposition recommendations
--- NOTE | 2020-08-02 14:36 | PM.PNCARD ---
Subjective Subjective Date of Service: 08/02/20 <STEPHANIE Ba - Last Filed: 08/02/20 15:33> 08/02/20 <Solomon Hess MD - Last Filed: 08/02/20 16:05> Principal diagnosis: Congestive heart failure. <STEPHANIE Ba - Last Filed: 08/02/20 15:33> Interval history: Cardiology follow up for CHF. Seen at 1415. Today she reports that breathing is comfortable. She went for dialysis catheter placement today and has soreness at that site. No other chest pains, palpitations. Legs still swollen but improving. Falls asleep easily during exam. Son present. Reports pt given pain med recently. <STEPHANIE Ba - Last Filed: 08/02/20 15:33> Review of Systems Review of Systems as above <STEPHANIE Ba - Last Filed: 08/02/20 15:33> Yes all other systems are reviewed and are negative <STEPHANIE Ba - Last Filed: 08/02/20 15:33> Physical Exam Vital Signs: Last Vital Signs Temp 98.0 F 08/02/20 11:16 Pulse 78 08/02/20 11:16 Resp 18 08/02/20 11:16 BP 140/72 H 08/02/20 11:16 Pulse Ox 97 08/02/20 11:16 Body Mass Index 34.7 <STEPHANIE Ba - Last Filed: 08/02/20 15:33> Const General: no acute distress and alert <STEPHANIE Ba - Last Filed: 08/02/20 15:33> Orientation/consciousness: patient oriented x3 <STEPHANIE Ba - Last Filed: 08/02/20 15:33> Neck Neck: Yes normal visual inspection and Yes no JVD <STEPHANIE Ba - Last Filed: 08/02/20 15:33> Chest Other: new dialysis catheter right upper chest, tegaderm dressing in place, some bloody staining under dressing. <STEPHANIE Ba - Last Filed: 08/02/20 15:33> Resp Other: Unlabored. Lungs clear anteriorly, limited posterior exam as she reports back spasms with movement, posteriorlaterally sounds are coarse clear. <STEPHANIE Ba - Last Filed: 08/02/20 15:33> Effort & Inspection: normal respiratory effort, able to speak in complete sentences and not labored <STEPHANIE Ba - Last Filed: 08/02/20 15:33> Auscultation: clear to auscultation bilaterally <STEPHANIE Ba - Last Filed: 08/02/20 15:33> Cardio Palpation: normal PMI <STEPHANIE Ba - Last Filed: 08/02/20 15:33> Rate: regular rate <STEPHANIE Ba Last Filed: 08/02/20 15:33> Rhythm: regular rhythm <STEPHANIE Ba Last Filed: 08/02/20 15:33> Heart sounds: S1 normal heart sound present and S2 normal heart sound present <STEPHANIE Ba - Last Filed: 08/02/20 15:33> Peripheral pulses: Peripheral pulses 2+ throughout <STEPHANIE Ba - Last Filed: 08/02/20 15:33> GI Inspection: Yes normal to inspection <STEPHANIE Ba - Last Filed: 08/02/20 15:33> Neuro General: patient oriented x3 <STEPHANIE Ba - Last Filed: 08/02/20 15:33> Extrem Other: +2 lower leg edema, +1 posterior thigh edema bilaterally <LEONOR Ba - Last Filed: 08/02/20 15:33> Results Labs and Meds Result diagrams: : 08/01/20 05:34 08/02/20 05:48 <STEPHANIE Ba - Last Filed: 08/02/20 15:33> Lab results: Laboratory Results - last 24 hr 08/01/20 08/02/20 08/02/20 20:01 05:48 07:05 Sodium 135 Potassium 3.7 Chloride 99 Carbon Dioxide 23 Anion Gap 17 BUN 60 H Creatinine 4.71 H* Estim Creat Clear Calc 11.6 Estimated GFR 9 POC Glucose 79 81 Random Glucose 72 Calcium 8.2 L 08/02/20 11:07 Sodium Potassium Chloride Carbon Dioxide Anion Gap BUN Creatinine Estim Creat Clear Calc Estimated GFR POC Glucose 79 Random Glucose Calcium <STEPHANIE Ba - Last Filed: 08/02/20 15:33> Imaging Radiologist's impression: Impressions Venous Duplex 08/01/20 17:31 IMPRESSION: Limited study but there is no DVT demonstrated in either lower extremity. The popliteal veins were not imaged. The left peroneal veins could not be visualized. Findings are similar to the study from 07/11/2020. <STEPHANIE Ba - Last Filed: 08/02/20 15:33> Progress Note: A&P Assessment and plan (1) Heart failure with reduced ejection fraction: Status: Acute <STEPHANIE Ba - Last Filed: 08/02/20 15:33> Assessment and Plan: CHF present on admit. Echo shows EF 15-20%, mildly dilated LV, mild , MR, mild increased RVSP with significantly elevated RA pressure, mild pulm HTN, mod dilated LA. unknown prior EF. Acute systolic HF with underlying CKD stage 5. Nephrology is following and she has undergone hemodialysis x2 this admit. Dialysis perma catheter placed in IR today. Cr 4.71.today, BNP 3593 yesterday. On exam still has signs of fluid overload. Continue to dialysis as directed by nephrology. Hydralazine was added yesterday for afterload reduction. BP was low last evening and Hydralazine has been held. She has been getting usual home Labetolol which is not the BB of choice for CMP. Will stop hydralazine and Labetolol. Will start on Carvedilol 6.25mg bid. Will reeval BP tomorrow and eval for restart of Hydralazine if able. Plan for BMP, BNP in am. Electrolyte replacement as warranted. Ongoing I+O monitoring. <STEPHANIE Ba - Last Filed: 08/02/20 15:33> Case discussed with Viola Mejia. Patient underwent catheter placement today. Plan for going on hemodialysis. No overt heart failure symptoms. Patient got 1 dose of hydralazine with lower blood pressure and systolic 90 range. Will hold of hydralazine. Switch labetalol to carvedilol therapy for better scientific data. Eventually will add afterload and preload reducers as blood pressure improves. Continue dialysis session to maintain dry weight and fluid management with dialysis. Will eventually require workup for her newly diagnosed severe LV systolic dysfunction. Pre showed like to follow-up with her own employment security officer at [facility]. Will sign of the case. Feel free to call us. <Solomon Hess MD - Last Filed: 08/02/20 16:05> (2) Chronic kidney disease, stage 5: Problem details: r/t diabetic nephropathy Sees Dr Ferro in [place] Nearing ESRD <STEPHANIE Ba - Last Filed: 08/02/20 15:33> Status: Acute <STEPHANIE Ba - Last Filed: 08/02/20 15:33> (3) Coronary artery disease: Problem details: Clinical Trial Coordinator in [place] Appoint 05/09/20. 3 vessel CABG 2002 <STEPHANIE Ba - Last Filed: 08/02/20 15:33> Status: Acute <STEPHANIE Ba - Last Filed: 08/02/20 15:33> Assessment and Plan: No reports of CP. Tele showing SR, rates 60s. Troponins Flat/ normal. EF significantly reduced. New finding for her. Will need ischemic eval eventually. <STEPHANIE Ba - Last Filed: 08/02/20 15:33> Fall Risk Details Current Medications: Current Medications Generic Name Dose Route Start Last Admin Trade Name Gabrielq PRN Reason Stop Dose Admin Acetaminophen 650 mg 07/31/20 04:45 Acetaminophen 325 Mg Tablet PO Q6H PRN Pain, Mild (Pain Scale 1-3) Aspirin 81 mg 07/31/20 09:00 08/02/20 08:18 Aspirin Enteric Coated 81 Mg Tablet.Dr MEEHAN Not Given DAILY [facility] Heparin Sodium (Porcine) 5,000 unit 07/31/20 09:00 08/02/20 08:19 Heparin Sodium,Porcine 5,000 Unit/Ml Vial SUBCUT Not Given Q12H [facility] Hydralazine HCl 10 mg 08/01/20 11:45 08/01/20 13:19 Hydralazine Hcl 10 Mg Tablet PO 10 mg BID OMI Administration Protocol Hydromorphone HCl 1 mg 07/31/20 06:17 08/02/20 13:51 Hydromorphone Hcl 1 Mg/Ml Syringe IVPUSH 1 mg Q4H PRN Administration Breakthrough Pain Insulin Human Lispro 0 unit 07/31/20 07:30 08/02/20 12:52 Insulin Lispro 100 Unit/Ml 3 Ml Vial SUBCUT Not Given QIDACHS [facility] Protocol Ketorolac Tromethamine 1 drop 07/31/20 09:00 08/02/20 12:52 Ketorolac Tromethamine 0.5% Op 3 Ml Drops EYE-RIGHT Not Given QID [facility] Labetalol HCl 300 mg 07/31/20 09:00 08/02/20 08:18 Labetalol Hcl 100 Mg Tablet PO 300 mg BID OMI Administration Levothyroxine Sodium 112 mcg 07/31/20 07:15 08/02/20 06:29 Levothyroxine Sodium 112 Mcg Tablet PO 112 mcg DAILY@0600 OMI Administration Levothyroxine Sodium 25 mcg 07/31/20 08:00 08/02/20 06:29 Levothyroxine Sodium 25 Mcg Tablet PO 25 mcg DAILY@0600 OMI Administration Ropinirole HCl 0.5 mg 07/31/20 09:00 08/02/20 13:51 Ropinirole Hcl 0.5 Mg Tablet PO 0.5 mg QID OMI Administration Sevelamer HCl 800 mg 07/31/20 08:00 08/02/20 12:52 Sevelamer Hcl 800 Mg Tablet PO Not Given TIDWM OMI Sodium Chloride 3 ml 07/31/20 08:00 08/02/20 08:18 0.9 % Sodium Chloride Flush 3 Ml Syringe IVFLUSH 3 ml QSHIFT OMI Administration <STEPHANIE Ba - Last Filed: 08/02/20 15:33> Time Spent With Patient Time: Total time spent is greater than 50% in coordination of care (as documented) at patient's floor/unit and/or counseling patient: <STEPHANIE Ba - Last Filed: 08/02/20 15:33> Time with patient: 15 - 24 minutes <STEPHANIE Ba - Last Filed: 08/02/20 15:33>
--- NOTE | 2020-08-02 15:35 | PM.PNNEP ---
Subjective Subjective Date of Service: 08/02/20 Principal diagnosis: Congestive heart failure. Interval history: Events noted Doing better today Physical Exam Vital Signs: Vital Signs: Last Vital Signs Temp 96.9 F 08/02/20 15:09 Pulse 61 08/02/20 15:09 Resp 20 08/02/20 15:09 BP 107/64 08/02/20 15:09 Pulse Ox 93 08/02/20 15:09 Body Mass Index 34.7 Const: General: No no acute distress Orientation/consciousness: oriented to time Neck: Neck: No supple Cardio: Heart sounds: no gallops Neuro: General: oriented to time Motor exam (neuro): no asterixis Objective Data Labs CBC & Chem 7: 08/01/20 05:34 08/02/20 05:48 Labs: Laboratory Results - last 24 hr 08/01/20 08/02/20 08/02/20 20:01 05:48 07:05 Sodium 135 Potassium 3.7 Chloride 99 Carbon Dioxide 23 Anion Gap 17 BUN 60 H Creatinine 4.71 H* Estim Creat Clear Calc 11.6 Estimated GFR 9 POC Glucose 79 81 Random Glucose 72 Calcium 8.2 L 08/02/20 11:07 Sodium Potassium Chloride Carbon Dioxide Anion Gap BUN Creatinine Estim Creat Clear Calc Estimated GFR POC Glucose 79 Random Glucose Calcium Assessment & Plan Assessment and plan (1) Chronic kidney disease, stage 5: Problem details: r/t diabetic nephropathy Sees Dr Ferro in [place] Nearing ESRD Status: Acute Assessment and Plan: Started HD via Temp catheter yesterday due to uremia and fluid overload Second HD 08/01/20 Tolerating well. Await permcath Will arrange for PD as out patient Out patient HD arranged at [facility] ( [place]) Spoke to patients Time Spent With Patient Time: Total time spent is greater than 50% in coordination of care (as documented) at patient's floor/unit and/or counseling patient:
[2020-08-02 16:09] LABS: Glucose, Whole Blood 88 mg/dL (60-115)
--- NOTE | 2020-08-02 17:24 | P.PNIM_ITS ---
Subjective Subjective Date of Service: 08/02/20 Interval History: chf , advanced renal dis due to probable dm nephropathy Review of Systems breath seems slowly improved Still has leg swelling. Denies any a abdominal pain or nausea or vomiting or diarrhea or fever or chills. Physical Exam 2 Vital Signs: Vital Signs: Last Vital Signs Temp 96.9 F 08/02/20 15:09 Pulse 61 08/02/20 15:09 Resp 20 08/02/20 15:09 BP 107/64 08/02/20 15:09 Pulse Ox 93 08/02/20 15:09 Body Mass Index 34.7 Constitutional: Not in acute distress. Pleasant female. Cvs: [id number], [id number] , no murmur res: Closely fair entry, slightly diminished at bases, no rales or wheezing. abd: no rebound or guarding ,nt, bs present. ext pulses present , no cyanosis neuro: axo3 , nonfocal. Objective Data Current Medications Generic Name Dose Route Start Last Admin Trade Name Freq PRN Reason Stop Dose Admin Acetaminophen 650 mg 07/31/20 04:45 Acetaminophen 325 Mg Tablet PO Q6H PRN Pain, Mild (Pain Scale 1-3) Aspirin 81 mg 07/31/20 09:00 08/02/20 08:18 Aspirin Enteric Coated 81 Mg Tablet.Dr PO Not Given DAILY [facility] Carvedilol 6.25 mg 08/02/20 21:00 Carvedilol 6.25 Mg Tablet PO BID [facility] Protocol Heparin Sodium (Porcine) 5,000 unit 07/31/20 09:00 08/02/20 08:19 Heparin Sodium,Porcine 5,000 Unit/Ml Vial SUBCUT Not Given Q12H [facility] Hydromorphone HCl 1 mg 07/31/20 06:17 08/02/20 13:51 Hydromorphone Hcl 1 Mg/Ml Syringe IVPUSH 1 mg Q4H PRN Administration Breakthrough Pain Insulin Human Lispro 0 unit 07/31/20 07:30 08/02/20 16:54 Insulin Lispro 100 Unit/Ml 3 Ml Vial SUBCUT Not Given QIDACHS [facility] Protocol Ketorolac Tromethamine 1 drop 07/31/20 09:00 08/02/20 12:52 Ketorolac Tromethamine 0.5% Op 3 Ml Drops EYE-RIGHT Not Given QID [facility] Levothyroxine Sodium 112 mcg 07/31/20 07:15 08/02/20 06:29 Levothyroxine Sodium 112 Mcg Tablet PO 112 mcg DAILY@0600 OMI Administration Levothyroxine Sodium 25 mcg 07/31/20 08:00 08/02/20 06:29 Levothyroxine Sodium 25 Mcg Tablet PO 25 mcg DAILY@0600 OMI Administration Ropinirole HCl 0.5 mg 07/31/20 09:00 08/02/20 13:51 Ropinirole Hcl 0.5 Mg Tablet PO 0.5 mg QID OMI Administration Sevelamer HCl 800 mg 07/31/20 08:00 08/02/20 12:52 Sevelamer Hcl 800 Mg Tablet PO Not Given TIDWM [facility] Sodium Chloride 3 ml 07/31/20 08:00 08/02/20 16:51 0.9 % Sodium Chloride Flush 3 Ml Syringe IVFLUSH 3 ml QSHIFT OMI Administration Labs CBC & Chem 7: 08/01/20 05:34 08/02/20 05:48 Assessment and Plan (1) Heart failure with reduced ejection fraction: Status: Acute Assessment and Plan: 1.Acute on chronic kidney disease stage 5 case : Status post hemodialysis catheter and hemodialysis 2 days back Patient got his dialysis catheter today by IR, plan is to dialysis her tomorrow. Shortness of breath seems improving 2.Heart failure withReduced EF and systolic dysfunction: fluid overload echocardiogram showed a low EF of 15-20% discussed: Good hemodialysis as above. May need further hemodialysis to address volume status. Patient could not able to tolerate hydralazine -got borderline blood pressure yesterday, also labetalol is not recommended for CMP. Started patient on Coreg. Stopped hydralazine and labetalol. She might need further workup as per Cardiology. She follows up in [facility]. 3.Diabetes mellitus diet controlled: fs in 80-90's range. Hba1c levels 4.Chronic bilateral lower extremity pain patient had a temporary spinal stimulator that was recently removed in anticipation that she will undergo bilateral spinal stimulator on 07/28 however the procedure was canceled due to worsening renal function. continue hydromorphone 1 mg q.4 hours prn and tylenol as needed 5.Levothyroxine continue Synthroid pt/ot
[2020-08-02 18:06] LABS: Estimated Average Glucose 114 mg/dL; Hemoglobin A1c % 5.6 %
[2020-08-02 19:07] LABS: Alanine Aminotransferase 28 U/L (0-31); Albumin Level 3.4 g/dL (3.5-5.0); Alkaline Phosphatase 66 U/L (39-117); Aspartate Amino Transferase 16 U/L (5-31); Bilirubin Direct 0.3 mg/dL (0.0-0.5); Bilirubin Total 0.4 mg/dL (0.0-1.0); Total Protein 5.3 g/dL (6.5-8.0)
[2020-08-02] MEDS: Desmopressin Acetate 30 MCG in 0.9 % Sodium Chloride 50 ML 100 MCG IV (19:12)
[2020-08-02 19:27] LABS: Hematocrit 30.3 % (37-47); Hemoglobin 9.6 g/dl (12.0-16.0)
[2020-08-02 20:07] LABS: Glucose, Whole Blood 85 mg/dL (60-115)
[2020-08-02] MEDS: carvediloL 6.25 MG TABLET PO (20:54)
[2020-08-03] VITALS (8 sets, daily range): BP systolic 119–134; BP diastolic 58–77; PULSE 62–115; RESP 18–20; TEMP 36.2–36.8; O2SAT 94–97
--- NOTE | 2020-08-03 | ECG_ITS ---
Test Reason : afib Blood Pressure : / mmHG Vent. Rate : 085 BPM Atrial Rate : 085 BPM P-R Int : 174 ms QRS Dur : 172 ms QT Int : 440 ms P-R-T Axes : 059 -58 099 degrees QTc Int : 523 ms Normal sinus rhythm Left axis deviation Non-specific intra-ventricular conduction block Abnormal ECG When compared to the previous EKG of Rhythm change Referred By: Yoni Olivares Electronically Signed By:KAYLEN HAMMER
[2020-08-03] MEDS: HYDROmorphone HCl 1 MG/ML SYRINGE IVPUSH ×3 (00:13→11:31)
[2020-08-03] MEDS: 0.9 % Sodium Chloride Flush 3 ML SYRINGE IVFLUSH ×3 (00:14→15:57)
[2020-08-03] MEDS: Levothyroxine Sodium 25 MCG TABLET PO (06:10)
[2020-08-03] MEDS: Levothyroxine Sodium 112 MCG TABLET PO (06:10)
[2020-08-03 07:12] LABS: B Type Natriuretic Peptide 7652 pg/mL (<100)
[2020-08-03 07:13] LABS: Anion Gap 20 (12-20); Blood Urea Nitrogen 66 mg/dL (9-16); Calcium 8.5 mg/dL (8.4-10.2); Carbon Dioxide 21 mmol/L (22-29); Chloride 99 mmol/L (96-108); Creatinine Clr Calc Pharmacy 10.3; Estimated Glomerular Filt Rate 8; Glucose Random 80 mg/dL (60-115); Potassium 3.7 mmol/L (3.3-5.1); Sodium 136 mmol/L (135-145)
[2020-08-03 07:49] LABS: Glucose, Whole Blood 82 mg/dL (60-115)
[2020-08-03] MEDS: carvediloL 6.25 MG TABLET PO ×2 (08:19→21:44)
[2020-08-03] MEDS: rOPINIRole HCL 0.5 MG TABLET PO ×4 (08:19→21:43)
--- NOTE | 2020-08-03 10:08 | P.PNCA_ITS ---
Subjective Subjective Date of Service: 08/03/20 <STEPHANIE Ba - Last Filed: 08/03/20 10:20> 08/03/20 <Solomon Hess MD - Last Filed: 08/03/20 12:06> Principal diagnosis: Congestive heart failure. <STEPHANIE Ba - Last Filed: 08/03/20 10:20> Interval history: Cardiology follow up for CHF. Seen at 0900. Today she reports that her breathing is comfortable. No chest pains, palpitations. Dialysis catheter site no longer uncomfortable. Has hip pains. Still has leg edema. Slept well. About to have dialysis. <STEPHANIE Ba - Last Filed: 08/03/20 10:20> Review of Systems Review of Systems as above <STEPHANIE Ba - Last Filed: 08/03/20 10:20> Yes all other systems are reviewed and are negative <STEPHANIE Ba - Last Filed: 08/03/20 10:20> Physical Exam Vital Signs: Last Vital Signs Temp 98.2 F 08/03/20 08:00 Pulse 62 08/03/20 08:19 Resp 20 08/03/20 08:00 BP 125/68 08/03/20 08:19 Pulse Ox 97 08/03/20 08:00 Body Mass Index 34.7 <STEPHANIE Ba - Last Filed: 08/03/20 10:20> Const General: cooperative, no acute distress, alert and awake <STEPHANIE Ba - Last Filed: 08/03/20 10:20> Orientation/consciousness: patient oriented x3 <STEPHANIE Ba - Last Filed: 08/03/20 10:20> Neck Other: prominent JVD present <STEPHANIE Ba Last Filed: 08/03/20 10:20> Resp Other: Coarse clear lungs anteriorly and laterally, not able to roll over to assess posteriorly at present due to running dialysis <STEPHANIE Ba L ast Filed: 08/03/20 10:20> Effort & Inspection: normal respiratory effort, able to speak in complete sentences and not labored <LEONOR BaC - Last Filed: 08/03/20 10:20> Auscultation: no rhonchi and no wheezes <LEONOR BaC - Last Filed: 08/03/20 10:20> Cardio Jugular venous distension: JVD present <LEONOR BaC - Last Filed: 08/03/20 10:20> Palpation: normal PMI <LEONOR BaC - Last Filed: 08/03/20 10:20> Rate: regular rate <LEONOR BaC - Last Filed: 08/03/20 10:20> Rhythm: regular rhythm <LEONOR BaC - Last Filed: 08/03/20 10:20> Heart sounds: S1 normal heart sound present and S2 normal heart sound present <Viola Mejia LEONORC - Last Filed: 08/03/20 10:20> Peripheral pulses: Peripheral pulses 2+ throughout <Viola Mejia [employer] SERVICE WORKER-C - Last Filed: 08/03/20 10:20> GI Inspection: Yes normal to inspection <Viola Mejia NP-C - Last Filed: 08/03/20 10:20> Neuro General: patient oriented x3 <Viola Mejia LEONORC - Last Filed: 08/03/20 10:20> Extrem Other: 2+ pitting edema to lower extremeties, +1 posterior thighs <Viola Mejia [employer]ICULTURAL SERVICE WORKER-C - Last Filed: 08/03/20 10:20> Results Labs and Meds Result diagrams: : 08/02/20 19:13 08/03/20 05:48 <Viola Mejia [employer] SERVICE WORKER-C - Last Filed: 08/03/20 10:20> Lab results: Laboratory Results - last 24 hr 08/01/20 08/02/20 08/02/20 05:34 05:48 11:07 Hgb Hct Sodium Potassium Chloride Carbon Dioxide Anion Gap BUN Creatinine Estim Creat Clear Calc Estimated GFR POC Glucose 79 Random Glucose Estimat Average Glucose 114 Hemoglobin A1c % 5.6 Calcium Total Bilirubin 0.4 Direct Bilirubin 0.3 AST 16 ALT 28 Alkaline Phosphatase 66 D B-Natriuretic Peptide Total Protein 5.3 L Albumin 3.4 L Blood Type Antibody Screen 08/02/20 08/02/20 08/02/20 16:04 19:13 19:13 Hgb 9.6 L Hct 30.3 L Sodium Potassium Chloride Carbon Dioxide Anion Gap BUN Creatinine Estim Creat Clear Calc Estimated GFR POC Glucose 88 Random Glucose Estimat Average Glucose Hemoglobin A1c % Calcium Total Bilirubin Direct Bilirubin AST ALT Alkaline Phosphatase B-Natriuretic Peptide Total Protein Albumin Blood Type O Positive Antibody Screen NEGATIVE 08/02/20 08/03/20 08/03/20 20:02 05:48 05:48 Hgb Hct Sodium 136 Potassium 3.7 Chloride 99 Carbon Dioxide 21 L Anion Gap 20 BUN 66 H Creatinine 5.30 H* Estim Creat Clear Calc 10.3 Estimated GFR 8 POC Glucose 85 Random Glucose 80 Estimat Average Glucose Hemoglobin A1c % Calcium 8.5 Total Bilirubin Direct Bilirubin AST ALT Alkaline Phosphatase B-Natriuretic Peptide 7652 H Total Protein Albumin Blood Type Antibody Screen 08/03/20 07:26 Hgb Hct Sodium Potassium Chloride Carbon Dioxide Anion Gap BUN Creatinine Estim Creat Clear Calc Estimated GFR POC Glucose 82 Random Glucose Estimat Average Glucose Hemoglobin A1c % Calcium Total Bilirubin Direct Bilirubin AST ALT Alkaline Phosphatase B-Natriuretic Peptide Total Protein Albumin Blood Type Antibody Screen <STEPHANIE Ba - Last Filed: 08/03/20 10:20> Progress Note: A&P Assessment and plan (1) Heart failure with reduced ejection fraction: Status: Acute <STEPHANIE Ba - Last Filed: 08/03/20 10:20> Assessment and Plan: CHF present on admit. Echo shows EF 15-20%, mildly dilated LV, mild , MR, mild increased RVSP with significantly elevated RA pressure, mild pulm HTN, mod dilated LA. No prior known hx of CMP. Acute systolic HF with underlying CKD stage 5. Nephrology is following and she has undergone hemodialysis x2 this admit and will be having today. Dialysis perma catheter placed yesterday. Cr 5.3.today, BNP 3593 on 08/01 and 7652 today. Yesterday Labetolol stopped and changed to Carvedilol which she is tolerating. BP this am 123/58. On exam today has prominent JVD and ongoing leg edema. Continue dialysis as directed by nephrology. Will restart low dose Hydralazine at 10mg bid, hold for SBP < 90. Close monitoring of elctrolytes and kidney function, Electrolyte replacement as warranted. Ongoing I+O monitoring. We will sign off and follow as needed. On discharge she will follow with her own neurology specialist at [facility]. She will outpt ischemic work up. <STEPHANIE Ba - Last Filed: 08/03/20 10:20> Patient seen and case discussed with Viola Mejia. Patient was increased shortness of breath this morning before dialysis and appear to be fluid overloaded. Currently on dialysis with plan to remove 4 L with number low dialysis he is feeling better which shortness of breath. She is complaining of hip pain. However she went into rapid atrial fibrillation/flutter while on dialysis. Patient denies any palpitations. No chest pain, lightheadedness. Continue dialysis. Patient seems to be on long-term dialysis plan at this point in time. Continue to manage fluid status with hemodialysis. Continue to target dry weight as we have to determine her ideal dry weight at some point time. Switch to carvedilol yesterday. Tolerating this well. Will also add hydralazine 10 mg b.i.d. as afterload reduction if her blood pressure remains is adequately controlled. Currently tolerating dialysis well. <Solomon Hess MD - Last Filed: 08/03/20 12:06> (2) Chronic kidney disease, stage 5: Problem details: r/t diabetic nephropathy Sees Dr Ferro in [place] Nearing ESRD <STEPHANIE Ba - Last Filed: 08/03/20 10:20> Status: Acute <STEPHANIE Ba - Last Filed: 08/03/20 10:20> (3) Coronary artery disease: Problem details: [employer] in [place] Appoint 05/09/20. 3 vessel CABG 2002 <STEPHANIE Ba - Last Filed: 08/03/20 10:20> Status: Acute <STEPHANIE Ba - Last Filed: 08/03/20 10:20> Assessment and Plan: No Reports of anginal sounding symptoms. Outpt ischemic work up. <STEPHANIE Ba - Last Filed: 08/03/20 10:20> (4) Cardiomyopathy: Status: Acute <Viola Mejia NP-C - Last Filed: 08/03/20 10:20> Assessment and Plan: New as above <Viola MejiaSTEPHANIE - Last Filed: 08/03/20 10:20> (5) Atrial fibrillation and flutter: Status: Acute <Viola MejiaSTEPHANIE - Last Filed: 08/03/20 10:20> Assessment and Plan: Atrial fibrillation, new onset. No history of prior atrial fibrillation. Rapid ventricular response. Given new onset atrial fibrillation, will try to cardiovert her back into normal rhythm to help with her stroke volume and cardiac output. Start on IV amiodarone drip. Discussed with Dr. Olivares. Also anticoagulation, ideally with hemodialysis as a long-term goal can be Eliquis 2.5 mg b.i.d.. Will check with Nephrology about the same. Will follow with the patient. <Solomon Hess MD - Last Filed: 08/03/20 12:06> Fall Risk Details Current Medications: Current Medications Generic Name Dose Route Start Last Admin Trade Name Freq PRN Reason Stop Dose Admin Acetaminophen 650 mg 07/31/20 04:45 Acetaminophen 325 Mg Tablet PO Q6H PRN Pain, Mild (Pain Scale 1-3) Aspirin 81 mg 07/31/20 09:00 08/03/20 08:26 Aspirin Enteric Coated 81 Mg Tablet. PO Not Given DAILY [facility] Carvedilol 6.25 mg 08/02/20 21:00 08/03/20 08:19 Carvedilol 6.25 Mg Tablet PO 6.25 mg BID OMI Administration Protocol Heparin Sodium (Porcine) 5,000 unit 07/31/20 09:00 08/02/20 08:19 Heparin Sodium,Porcine 5,000 Unit/Ml Vial SUBCUT Not Given Q12H [facility] Hydromorphone HCl 1 mg 07/31/20 06:17 08/03/20 04:23 Hydromorphone Hcl 1 Mg/Ml Syringe IVPUSH 1 mg Q4H PRN Administration Breakthrough Pain Insulin Human Lispro 0 unit 07/31/20 07:30 08/03/20 08:26 Insulin Lispro 100 Unit/Ml 3 Ml Vial SUBCUT Not Given QIDACHS [facility] Protocol Ketorolac Tromethamine 1 drop 07/31/20 09:00 08/02/20 20:54 Ketorolac Tromethamine 0.5% Op 3 Ml Drops EYE-RIGHT 1 drop QID OMI Administration Levothyroxine Sodium 112 mcg 07/31/20 07:15 08/03/20 06:10 Levothyroxine Sodium 112 Mcg Tablet PO 112 mcg DAILY@0600 OMI Administration Levothyroxine Sodium 25 mcg 07/31/20 08:00 08/03/20 06:10 Levothyroxine Sodium 25 Mcg Tablet PO 25 mcg DAILY@0600 OMI Administration Ropinirole HCl 0.5 mg 07/31/20 09:00 08/03/20 08:19 Ropinirole Hcl 0.5 Mg Tablet PO 0.5 mg QID OMI Administration Sevelamer HCl 800 mg 07/31/20 08:00 08/03/20 08:25 Sevelamer Hcl 800 Mg Tablet PO 800 mg TIDWM OMI Administration Sodium Chloride 3 ml 07/31/20 08:00 08/03/20 08:20 0.9 % Sodium Chloride Flush 3 Ml Syringe IVFLUSH 3 ml QSHIFT OMI Administration <STEPHANIE Ba - Last Filed: 08/03/20 10:20> Time Spent With Patient Time: Total time spent is greater than 50% in coordination of care (as documented) at patient's floor/unit and/or counseling patient: 20 <STEPHANIE Ba - Last Filed: 08/03/20 10:20> Time with patient: 15 - 24 minutes <STEPHANIE Ba - Last Filed: 08/03/20 10:20>
--- NOTE | 2020-08-03 11:05 | ECG_ITS ---
Test Reason : AFIB Blood Pressure : / mmHG Vent. Rate : 109 BPM Atrial Rate : 110 BPM P-R Int : 000 ms QRS Dur : 168 ms QT Int : 434 ms P-R-T Axes : 000 -44 077 degrees QTc Int : 584 ms Atrial fibrillation with rapid ventricular response (vs flutter) Left axis deviation Left bundle branch block Abnormal ECG When compared with ECG of 31-JUL-2020 03:26, Atrial fibrillation has replaced Sinus rhythm Vent. rate has increased BY 58 BPM Referred By: Solomon Hess Electronically Signed By:KAYLEN HAMMER
[2020-08-03 12:42] LABS: Glucose, Whole Blood 89 mg/dL (60-115)
[2020-08-03] MEDS: Apixaban 2.5 MG TABLET PO ×2 (15:56→21:44)
[2020-08-03 16:27] LABS: Glucose, Whole Blood 95 mg/dL (60-115)
--- NOTE | 2020-08-03 16:32 | P.PNIM_ITS ---
Subjective Subjective Date of Service: 08/04/20 Interval History: chf , advanced renal dis. Review of Systems Patient denies any shortness of breath or cough, Still feels weak. She says urinating very little Denies any abdominal pain or nausea or vomiting or palpitation or chest pain. Physical Exam Vital Signs: Vital Signs: Last Vital Signs Temp 97.8 F 08/03/20 15:00 Pulse 100 08/03/20 15:00 Resp 18 08/03/20 15:00 BP 125/77 08/03/20 15:00 Pulse Ox 95 08/03/20 15:00 Body Mass Index 34.7 Constitutional: Not in acute distress. Pleasant female. Cvs: [id number], [id number] , no murmur res: Closely fair entry, slightly diminished at bases, no rales or wheezing. abd: no rebound or guarding ,nt, bs present. ext pulses present , no cyanosis neuro: axo3 , nonfocal. Objective Data Current Medications Generic Name Dose Route Start Last Admin Trade Name Freq PRN Reason Stop Dose Admin Acetaminophen 650 mg 07/31/20 04:45 Acetaminophen 325 Mg Tablet PO Q6H PRN Pain, Mild (Pain Scale 1-3) Apixaban 2.5 mg 08/03/20 15:00 08/03/20 15:56 Apixaban 2.5 Mg Tablet PO 2.5 mg BID OMI Administration Carvedilol 6.25 mg 08/02/20 21:00 08/03/20 08:19 Carvedilol 6.25 Mg Tablet PO 6.25 mg BID OMI Administration Protocol Hydralazine HCl 10 mg 08/03/20 21:00 Hydralazine Hcl 10 Mg Tablet PO BID [facility] Protocol Hydromorphone HCl 1 mg 07/31/20 06:17 08/03/20 11:31 Hydromorphone Hcl 1 Mg/Ml Syringe IVPUSH 1 mg Q4H PRN Administration Breakthrough Pain Insulin Human Lispro 0 unit 07/31/20 07:30 08/03/20 12:41 Insulin Lispro 100 Unit/Ml 3 Ml Vial SUBCUT Not Given QIDACHS [facility] Protocol Ketorolac Tromethamine 1 drop 07/31/20 09:00 08/03/20 13:32 Ketorolac Tromethamine 0.5% Op 3 Ml Drops EYE-RIGHT 1 drop QID OMI Administration Levothyroxine Sodium 112 mcg 07/31/20 07:15 08/03/20 06:10 Levothyroxine Sodium 112 Mcg Tablet PO 112 mcg DAILY@0600 OMI Administration Levothyroxine Sodium 25 mcg 07/31/20 08:00 08/03/20 06:10 Levothyroxine Sodium 25 Mcg Tablet PO 25 mcg DAILY@0600 OMI Administration Ropinirole HCl 0.5 mg 07/31/20 09:00 08/03/20 15:55 Ropinirole Hcl 0.5 Mg Tablet PO 0.5 mg QID OMI Administration Sevelamer HCl 800 mg 07/31/20 08:00 08/03/20 15:55 Sevelamer Hcl 800 Mg Tablet PO 800 mg TIDWM OMI Administration Sodium Chloride 3 ml 07/31/20 08:00 08/03/20 15:57 0.9 % Sodium Chloride Flush 3 Ml Syringe IVFLUSH 3 ml QSHIFT OMI Administration Labs CBC & Chem 7: 08/04/20 05:44 08/04/20 05:44 Assessment and Plan (1) Congestive heart failure: Status: Acute Assessment and Plan: 1.Acute on chronic kidney disease stage 5 case Status post hemodialysis catheter and going for dialysis today IR catheter placed,getting HD no ozzing bleed today 2.Heart failure withReduced EF and systolic dysfunction: fluid overload echocardiogram showed a low EF of 15-20% discussed: Good hemodialysis as above. May need further hemodialysis to address volume status. Patient could not able to tolerate hydralazine -got borderline blood pressure yesterday, also labetalol is not recommended for CMP. Started patient on Coreg. Stopped hydralazine and labetalol. She might need further workup as per Cardiology. She follows up in [facility]. 3.Diabetes mellitus diet controlled: fs in 80-90's range. Hba1c levels 4.Chronic bilateral lower extremity pain patient had a temporary spinal stimulator that was recently removed in anticipation that she will undergo bilateral spinal stimulator on 07/28 however the procedure was canceled due to worsening renal function. continue hydromorphone 1 mg q.4 hours prn and tylenol as needed 5.Levothyroxine continue Synthroid. 6. new onset afib : started on po eliquez , will add iv amiodarone drip
[2020-08-03 20:32] LABS: Glucose, Whole Blood 117 mg/dL (60-115)
--- NOTE | 2020-08-03 21:25 | P.PNNP_ITS ---
Subjective Subjective Date of Service: 08/03/20 Principal diagnosis: Congestive heart failure. Interval history: chf , advanced renal dis. s/p Permcath Physical Exam Vital Signs: Vital Signs: Last Vital Signs Temp 97.2 F 08/03/20 19:54 Pulse 87 08/03/20 19:54 Resp 18 08/03/20 19:54 BP 119/71 08/03/20 19:54 Pulse Ox 95 08/03/20 19:54 Body Mass Index 34.7 Const: General: No no acute distress Orientation/consciousness: oriented to time Neck: Neck: No supple Cardio: Heart sounds: no gallops Neuro: General: oriented to time Motor exam (neuro): no asterixis Objective Data Labs CBC & Chem 7: 08/02/20 19:13 08/03/20 05:48 Labs: Laboratory Results - last 24 hr 08/03/20 08/03/20 08/03/20 05:48 05:48 07:26 Sodium 136 Potassium 3.7 Chloride 99 Carbon Dioxide 21 L Anion Gap 20 BUN 66 H Creatinine 5.30 H* Estim Creat Clear Calc 10.3 Estimated GFR 8 POC Glucose 82 Random Glucose 80 Calcium 8.5 B-Natriuretic Peptide 7652 H 08/03/20 08/03/20 08/03/20 12:38 16:12 20:17 Sodium Potassium Chloride Carbon Dioxide Anion Gap BUN Creatinine Estim Creat Clear Calc Estimated GFR POC Glucose 89 95 117 H Random Glucose Calcium B-Natriuretic Peptide Assessment & Plan Assessment and plan (1) Chronic kidney disease, stage 5: Problem details: r/t diabetic nephropathy Sees Dr Ferro in [place] Status: Acute Assessment and Plan: Started HD via Temp catheter yesterday due to uremia and fluid overload Second HD 08/01/20 Tolerating well. s/p permcath HD today Will arrange for PD as out patient Out patient HD arranged at [facility] ( [facility]) Spoke to patients on 08/02/20 Time Spent With Patient Time: Total time spent is greater than 50% in coordination of care (as documented) at patient's floor/unit and/or counseling patient:
[2020-08-03] MEDS: hydrALAZINE HCl 10 MG TABLET PO (21:44)
[2020-08-04] VITALS (11 sets, daily range): BP systolic 116–149; BP diastolic 64–82; PULSE 60–76; RESP 16–18; TEMP 36.4–36.8; O2SAT 93–97
[2020-08-04] MEDS: HYDROmorphone HCl 1 MG/ML SYRINGE IVPUSH ×2 (00:20→05:52)
[2020-08-04] MEDS: 0.9 % Sodium Chloride Flush 3 ML SYRINGE IVFLUSH ×2 (00:26→09:50)
[2020-08-04] MEDS: Levothyroxine Sodium 25 MCG TABLET PO (05:44)
[2020-08-04] MEDS: Levothyroxine Sodium 112 MCG TABLET PO (05:44)
[2020-08-04 06:34] LABS: Hematocrit 30.5 % (37-47); Hemoglobin 9.5 g/dl (12.0-16.0)
[2020-08-04 07:09] LABS: Anion Gap 18 (12-20); Blood Urea Nitrogen 37 mg/dL (9-16); Calcium 8.4 mg/dL (8.4-10.2); Carbon Dioxide 18 mmol/L (22-29); Chloride 101 mmol/L (96-108); Creatinine Clr Calc Pharmacy 14.4; Estimated Glomerular Filt Rate 12; Glucose Random 88 mg/dL (60-115); Potassium 3.4 mmol/L (3.3-5.1); Sodium 134 mmol/L (135-145)
[2020-08-04 07:43] LABS: Glucose, Whole Blood 94 mg/dL (60-115)
[2020-08-04] MEDS: Acetaminophen 325 MG TABLET 650 MG PO (09:47)
[2020-08-04] MEDS: Apixaban 2.5 MG TABLET PO (09:49)
[2020-08-04] MEDS: hydrALAZINE HCl 10 MG TABLET PO (09:49)
[2020-08-04] MEDS: rOPINIRole HCL 0.5 MG TABLET PO ×2 (09:50→12:49)
[2020-08-04] MEDS: carvediloL 6.25 MG TABLET PO (09:50)
--- NOTE | 2020-08-04 10:46 | PM.PNCARD ---
Subjective Subjective Date of Service: 08/04/20 Principal diagnosis: Congestive heart failure. Interval history: Asked to see her in follow-up due to atrial fibrillation yesterday. Some nausea but otherwise feels okay. Review of Systems Review of Systems Yes all other systems are reviewed and are negative Cardiovascular: Reports as per HPI, Reports no additional cardiovascular complaints, Denies acrocyanosis, Denies cool extremities, Denies painful fingertips, Denies chest pain, Denies chest pain at rest, Denies diaphoresis, Denies syncope, Denies irregular heart rhythm, Denies claudication, Denies leg edema, Denies lightheadedness, Denies palpitations and Denies dyspnea Respiratory: Denies dyspnea Denies syncope Endocrine: Denies palpitations Physical Exam Vital Signs: Last Vital Signs Temp 98.2 F 08/04/20 07:40 Pulse 60 08/04/20 10:23 Resp 18 08/04/20 07:40 BP 118/64 08/04/20 10:23 Pulse Ox 97 08/04/20 07:40 Body Mass Index 34.7 Const General: cooperative, comfortable and no acute distress Orientation/consciousness: patient oriented x3 HENMT Other: Unremarkable Neck Neck: Yes normal visual inspection Chest Chest palpation & inspection: normal inspection of the chest Resp Auscultation: clear to auscultation bilaterally, no crackles and no wheezes Cardio Jugular venous distension: no JVD Palpation: normal PMI Heart sounds: S1 normal heart sound present, S2 normal heart sound present, no gallops, Murmur heart sound present systolic and no rubs GI Palpation (GI): Soft to palpation Back/Spine/Pelvis Other: unremarkable Skin General skin exam: no rashes or lesions noted Neuro General: patient oriented x3 Extrem General: Yes edema (1+) Psych Mental Status: mental status grossly normal Results Labs and Meds Result diagrams: 08/04/20 05:44 08/04/20 05:44 Lab results: Laboratory Results - last 24 hr 08/03/20 08/03/20 08/03/20 12:38 16:12 20:17 Hgb Hct Sodium Potassium Chloride Carbon Dioxide Anion Gap BUN Creatinine Estim Creat Clear Calc Estimated GFR POC Glucose 89 95 117 H Random Glucose Calcium 08/04/20 08/04/20 08/04/20 05:44 05:44 07:34 Hgb 9.5 L Hct 30.5 L Sodium 134 L Potassium 3.4 Chloride 101 Carbon Dioxide 18 L Anion Gap 18 BUN 37 H Creatinine 3.78 H Estim Creat Clear Calc 14.4 Estimated GFR 12 POC Glucose 94 Random Glucose 88 Calcium 8.4 Progress Note: A&P Assessment and plan (1) Heart failure with reduced ejection fraction: Status: Acute (2) Ischemic cardiomyopathy: Status: Acute (3) PAF (paroxysmal atrial fibrillation): Status: Acute Assessment and Plan: She had a brief period of atrial fibrillation yesterday but back in sinus rhythm after that. She has been commenced on Eliquis. There was a plan to give IV amiodarone, but does not appear that actually happened as she converted to sinus prior to that. She may remain on beta-blockers. Possibly go up on the dose as tolerated by blood pressure. Otherwise, upon discharge, she may see her own carbonizer from [place]. Fall Risk Details Current Medications: Current Medications Generic Name Dose Route Start Last Admin Trade Name Freq PRN Reason Stop Dose Admin Acetaminophen 650 mg 07/31/20 04:45 08/04/20 09:47 Acetaminophen 325 Mg Tablet PO 650 mg Q6H PRN Administration Pain, Mild (Pain Scale 1-3) Apixaban 2.5 mg 08/03/20 15:00 08/04/20 09:49 Apixaban 2.5 Mg Tablet PO 2.5 mg BID OMI Administration Carvedilol 6.25 mg 08/02/20 21:00 08/04/20 09:50 Carvedilol 6.25 Mg Tablet PO 6.25 mg BID OMI Administration Protocol Hydralazine HCl 10 mg 08/03/20 21:00 08/04/20 09:49 Hydralazine Hcl 10 Mg Tablet PO 10 mg BID OMI Administration Protocol Hydromorphone HCl 1 mg 07/31/20 06:17 08/04/20 05:52 Hydromorphone Hcl 1 Mg/Ml Syringe IVPUSH 1 mg Q4H PRN Administration Breakthrough Pain Amiodarone HCl 900 mg/ Sodium 518 mls @ 34.533 mls/hr 08/03/20 16:45 08/04/20 09:25 Chloride IVCONT Not Given .Q15H1M OMI Protocol 1 MG/MIN Insulin Human Lispro 0 unit 07/31/20 07:30 08/04/20 07:44 Insulin Lispro 100 Unit/Ml 3 Ml Vial SUBCUT Not Given QIDACHS [facility] Protocol Ketorolac Tromethamine 1 drop 07/31/20 09:00 08/04/20 09:51 Ketorolac Tromethamine 0.5% Op 3 Ml Drops EYE-RIGHT 1 drop QID [facility] Administration Levothyroxine Sodium 112 mcg 07/31/20 07:15 08/04/20 05:44 Levothyroxine Sodium 112 Mcg Tablet PO 112 mcg DAILY@0600 [facility] Administration Levothyroxine Sodium 25 mcg 07/31/20 08:00 08/04/20 05:44 Levothyroxine Sodium 25 Mcg Tablet PO 25 mcg DAILY@0600 [facility] Administration Ropinirole HCl 0.5 mg 07/31/20 09:00 08/04/20 09:50 Ropinirole Hcl 0.5 Mg Tablet PO 0.5 mg QID [facility] Administration Sevelamer HCl 800 mg 07/31/20 08:00 08/04/20 09:48 Sevelamer Hcl 800 Mg Tablet PO 800 mg TIDWM [facility] Administration Sodium Chloride 3 ml 07/31/20 08:00 08/04/20 09:50 0.9 % Sodium Chloride Flush 3 Ml Syringe IVFLUSH 3 ml QSHIFT [facility] Administration Time Spent With Patient Time: Total time spent is greater than 50% in coordination of care (as documented) at patient's floor/unit and/or counseling patient: Time with patient: less than 15 minutes
[2020-08-04 11:07] LABS: Glucose, Whole Blood 107 mg/dL (60-115)
--- NOTE | 2020-08-04 12:20 | PM.PNNEP ---
Subjective Subjective Date of Service: 08/04/20 Principal diagnosis: Congestive heart failure. Interval history: chf , advanced renal dis. s/p Permcath Had HD yesterday Followed by [facility] Physical Exam Vital Signs: Vital Signs: Last Vital Signs Temp 97.5 F 08/04/20 11:14 Pulse 69 08/04/20 11:14 Resp 18 08/04/20 11:14 BP 116/75 08/04/20 11:14 Pulse Ox 93 08/04/20 11:14 Body Mass Index 34.7 Const: General: No no acute distress Orientation/consciousness: oriented to time Neck: Neck: No supple Cardio: Heart sounds: no gallops Neuro: General: oriented to time Motor exam (neuro): no asterixis Objective Data Labs CBC & Chem 7: 08/04/20 05:44 08/04/20 05:44 Labs: Laboratory Results - last 24 hr 08/03/20 08/03/20 08/03/20 12:38 16:12 20:17 Hgb Hct Sodium Potassium Chloride Carbon Dioxide Anion Gap BUN Creatinine Estim Creat Clear Calc Estimated GFR POC Glucose 89 95 117 H Random Glucose Calcium 08/04/20 08/04/20 08/04/20 05:44 05:44 07:34 Hgb 9.5 L Hct 30.5 L Sodium 134 L Potassium 3.4 Chloride 101 Carbon Dioxide 18 L Anion Gap 18 BUN 37 H Creatinine 3.78 H Estim Creat Clear Calc 14.4 Estimated GFR 12 POC Glucose 94 Random Glucose 88 Calcium 8.4 08/04/20 11:03 Hgb Hct Sodium Potassium Chloride Carbon Dioxide Anion Gap BUN Creatinine Estim Creat Clear Calc Estimated GFR POC Glucose 107 Random Glucose Calcium Assessment & Plan Assessment and plan (1) Chronic kidney disease, stage 5: Problem details: r/t diabetic nephropathy Sees Dr Ferro in [place] Status: Acute Assessment and Plan: Started HD via Temp catheter yesterday due to uremia and fluid overload Tolerating well. s/p permcath HD 08/03/20 Out patient HD arranged at [facility] ( [place]) Spoke to patients on 08/02/20 Anemia due to CKD Procrit 85397 U x1 dose Time Spent With Patient Time: Total time spent is greater than 50% in coordination of care (as documented) at patient's floor/unit and/or counseling patient:
--- NOTE | 2020-08-04 13:33 | MHC.CM.PN ---
Per MD, Patient will be medically cleared for dc to SNF/STR today. Patient will dc to her 1st choice facility- [facility] today at 3 pm, via [facility]. Patient and her are aware of and in agreement with the dc plan. Second IMM addressed with Patient and original was given to her and a copy has been placed on the chart.
--- NOTE | 2020-08-04 14:13 | P.DS_ITS ---
DS: Providers Provider Date of Service: 08/04/20 Date of admission: 07/31/20 04:45 Primary care physician: Brigid Hu MD Consults: 07/31/20 04:45 Consult to Cardiology Routine Consulting Provider: Ranjeet Molina Reason for consultation: CHF Consult to Nephrology Routine Consulting Provider: Tom Zeng Reason for consultation: ALEXI on CKD; hyperkalemia DS: Diagnosis Discharge Diagnosis (1) Congestive heart failure: Status: Acute DS: Medications Discharge Medications Home Medications: Home Medications Medication Instructions Recorded Confirmed labetalol 300 mg tablet 300 mg PO BID 02/16/20 07/31/20 losartan 100 mg tablet 100 mg PO DAILY 02/16/20 07/31/20 ketorolac 1 drp OPHTHALMIC-RIGHT QID 03/31/20 07/31/20 sevelamer carbonate 800 mg PO TID 05/05/20 07/31/20 acetaminophen 500 mg tablet 500 mg PO Q6H PRN 06/21/20 07/31/20 aspirin 81 mg tablet,delayed 81 mg PO DAILY 06/21/20 07/31/20 release coenzyme Q10 100 mg capsule 100 mg PO TID cap 06/21/20 07/31/20 ferrous sulfate 325 mg (65 mg 325 mg PO TID tab 06/21/20 07/31/20 iron) tablet metolazone 5 mg tablet 5 mg PO DAILY 06/21/20 07/31/20 ropinirole 0.5 mg tablet 0.5 mg PO QID tab 06/21/20 07/31/20 sodium bicarbonate-sodium chloride 1 ea MISCELLANEOUS BID 06/21/20 07/31/20 powder torsemide 100 mg PO DAILY 07/14/20 07/31/20 vit C,E,Zn,Fc-[id number]-zeax 1 cap PO BID 07/18/20 07/31/20 [PreserVision AREDS-2 (omega-3)] hydrocodone-acetaminophen 1 tab PO Q8H PRN 07/31/20 07/31/20 rosuvastatin 10 mg PO DAILY 07/31/20 07/31/20 Previous Rx's Medication Instructions Recorded levothyroxine 137 mcg tablet 137 mcg PO QAM #90 tab 03/15/20 amlodipine 10 mg tablet 10 mg PO DAILY #90 tab 05/24/20 DS: Summary Hospital Course Hospital Course: 79-year-old female with a past medical history of hypertension, hyperlipidemia, CAD status post CABG x3, chronic pain syndrome, sciatica, restless leg syndrome, anemia, CKD stage 5, diabetes, diabetic neuropathy, osteoarthritis status post right shoulder hemiarthroplasty, chronic back pain/sciatica-patient due for pain pump installation presented to the hospital today with a chief complaint of worsening bilateral lower extremity swelling; patient was noted to have wors ening renal function. Patient denies any chest pain palpitations lightheadedness or dizziness. Complains of dyspnea on exertion. Denies any urinary symptoms. Mentioned that she has been on diuretics at home. Denies any numbness tingling in the lower extremities. Denies any focal weakness. The patient mentions he has been having chronic back pain unchanged in character. Denies any falls. Review of all other systems is negative except mentioned above ER course: Per ER team patient noted to have bilateral lower extremity swelling; on the labs noted to have acute on chronic kidney injury with worsening creatinine and hyperkalemia. ER team spoke to Dr. baldwin from Nephrology and patient was started on sodium bicarbonate drip, also given Kayexalate and calcium gluconate. ProBNP elevated to 3900 concern for CHF. Admitted for further management. Hospital Course problem dumas section: Patient came with acute CHF with fluid overload as well as advanced renal disease may also be contributing: Got a emergent hemodialysis initially and subsequently slowly shortness of breath was improving and due to advanced renal disease patient had got hemodialysis catheter: Subsequent dialysis help her better breathing dumas. Further dialysis will be arranged by the Nephrology. Out patiently 2. Heart failure with reduced EF: Seen by Cardiology and patient was started on Coreg and small does hydralazine. Seems to be tolerating further management out patiently with her on cardiology in [place]. In addition patient has few hour duration of AFib which is new: Patient was started on Eliquis, plan was to cardiovert with IV amiodarone but patient spontaneously converted to sinus rhythm without any amiodarone. Continue Eliquis will hold off aspirin since the patient is already on Eliquis. 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 3. Diabetes dumas: Her fingersticks are in 100s range maximum. Hemoglobin A1c is 5.8 Avoid diabetic medications for now. Monitor hemoglobin A1c and fingersticks outpatient. 4.Chronic bilateral lower extremity pain patient had a temporary spinal stimulator that was recently removed in anticipation that she will undergo bilateral spinal stimulator on 07/28 however the procedure was canceled due to worsening renal function. continue hydrocodone and tylenol as needed Patient will most likely benefit from outpatient pain management evaluation for spinal stimulator, discussed with the her daughter at bedside. moniter cbc and bmp for above mentioned issues. Above management discussed with the patient and her daughter in detail length both understand and in agreement with the above plan, time spent 50 minutes and 50% time spent on counseling. Significant findings: As above. Procedures performed: None. Treatment and response: As above. Complications: None. Time Spent with Patient Time attestation: Total time spent providing and/or coordinating discharge services: Discharge coordination time: Greater than 30 minutes Physical Exam Vital Signs: Vital Signs: Last Vital Signs Temp 97.5 F 08/04/20 11:14 Pulse 69 08/04/20 11:14 Resp 18 08/04/20 11:14 BP 116/75 08/04/20 11:14 Pulse Ox 93 08/04/20 11:14 Body Mass Index 34.7 Constitutional: Not in acute distress. Pleasant female. Cvs: rrr, [id number] , no murmur res: Closely fair entry, slightly diminished at bases, no rales or wheezing. abd: no rebound or guarding ,nt, bs present. ext pulses present , no cyanosis neuro: axo3 , nonfocal. skin: PermCath placed right side of the chest is clean ,no erythema, no discharge, no pain or any bleeding. DS: Data Data Completed and Pending Labs on day of discharge: Laboratory Results - last 24 hr 08/03/20 08/03/20 08/04/20 16:12 20:17 05:44 Hgb 9.5 L Hct 30.5 L Sodium Potassium Chloride Carbon Dioxide Anion Gap BUN Creatinine Estim Creat Clear Calc Estimated GFR POC Glucose 95 117 H Random Glucose Calcium 08/04/20 08/04/20 08/04/20 05:44 07:34 11:03 Hgb Hct Sodium 134 L Potassium 3.4 Chloride 101 Carbon Dioxide 18 L Anion Gap 18 BUN 37 H Creatinine 3.78 H Estim Creat Clear Calc 14.4 Estimated GFR 12 POC Glucose 94 107 Random Glucose 88 Calcium 8.4 Discharge Plan Discharge Patient Disposition: Xfer SNF Referrals: [facility] [Outside] Brigid Hu MD [Primary Care Provider] - Lance Moya MD [Physician] - (follow up in 2week.) Discharge Medications: New carvedilol 6.25 mg Tablet 6.25 mg PO BID Qty: 60 RF: 0 hydralazine 10 mg Tablet 10 mg PO BID Qty: 60 RF: 0 Eliquis 2.5 mg Tablet 2.5 mg PO BID Qty: 60 RF: 0 Continued levothyroxine 137 mcg tablet 137 mcg PO QAM Qty: 90 RF: 3 vit C,E,Zn,Bj-qjvor0-lcm-zeax 250-2.5-0.5 mg Capsule 1 cap PO BID RF: 0 ketorolac 0.5 % drops 1 drp ophthalmic-Right QID RF: 0 sevelamer carbonate 800 mg Tablet 800 mg PO TID RF: 0 hydrocodone-acetaminophen 5-325 mg tablet 1 tab PO Q8H PRN (Reason: Pain (Scale Score 4-6)) RF: 0 rosuvastatin 10 mg Tablet 10 mg PO DAILY RF: 0 coenzyme Q10 [Co Q-10] 100 mg capsule 100 mg PO TID RF: 0 sodium bicarb-sodium chloride Powder 1 ea miscellaneous BID RF: 0 ferrous sulfate 325 mg (65 mg iron) tablet 325 mg PO TID RF: 0 ropinirole 0.5 mg tablet 0.5 mg PO QID RF: 0 Discontinued amlodipine 10 mg tablet 10 mg PO DAILY Qty: 90 RF: 3 torsemide 100 mg tablet 100 mg PO DAILY RF: 0 labetalol 300 mg tablet 300 mg PO BID RF: 0 losartan 100 mg tablet 100 mg PO DAILY RF: 0 metolazone 5 mg tablet 5 mg PO DAILY RF: 0 aspirin [Enteric Coated Aspirin] 81 mg tablet,delayed release (DR/EC) 81 mg PO DAILY RF: 0 acetaminophen [Tylenol Extra Strength] 500 mg tablet 500 mg PO Q6H PRN (Reason: Pain) RF: 0 Discharge Orders: Discharge Order (Routine); Ordered 08/04/20 Ordered By: Yoni Olivares Diet: advance to usual diet and diabetic diet Activity on Discharge: As tolerated Stand Alone Forms: Patient Portal Discharge page Care Plan Goals: Patient came with acute CHF with fluid overload as well as advanced renal disease may also be contributing: Got a emergent hemodialysis initially and subsequently slowly shortness of breath was improving and due to advanced renal disease patient had got hemodialysis catheter: Subsequent dialysis help her better breathing dumas. Further dialysis will be arranged by the Nephrology. Out patiently 2. Heart failure with reduced EF: Seen by Cardiology and patient was started on Coreg and small does hydralazine. Seems to be tolerating further management out patiently with her on cardiology in [place]. In addition patient has few hour duration of AFib which is new: Patient was started on Eliquis, plan was to cardiovert with IV amiodarone but patient spontaneously converted to sinus rhythm without any amiodarone. Continue Eliquis will hold off aspirin since the patient is already on Eliquis. 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 3. Diabetes dumas: Her fingersticks are in 100s range maximum. Hemoglobin A1c is 5.8 Avoid diabetic medications for now. Monitor hemoglobin A1c and fingersticks outpatient. 4.Chronic bilateral lower extremity pain patient had a temporary spinal stimulator that was recently removed in anticipation that she will undergo bilateral spinal stimulator on 07/28 however the procedure was canceled due to worsening renal function. continue hydrocodone and tylenol as needed Patient will most likely benefit from outpatient above for seizure to avoid pain, discussed with the her daughter at bedside. Health Concerns: As above. Plan of Treatment: As above. Assessment: as above. Discharge Date/Time: 08/04/20 15:15
== END 2020-08-04 15:15 | disposition skilled nursing facility (03) | DRG 291 ==
LOC: HO.ED 03:05 → HO.EDOVER 04:53 → HO.IMC 16:01
PROVIDERS: Hospitalist; Internal Medicine; Internal Medicine Cardiovascular Disease; Nurse Practitioner Family; Radiology Diagnostic Radiology; Admitting Provider Hospitalist; Emergency Provider Emergency Medicine Emergency Medical Services; PCP Internal Medicine; Visit Provider Internal Medicine
PROC: 0JH63XZ Insertion of Tunneled Vascular Access Device into Chest Subcutaneous Tissue and Fascia, Percutaneous Approach (ICD-10-PCS; principal; 2020-08-02 10:00)
DX: I13.2 Hypertensive heart and chronic kidney disease with heart failure and with stage 5 chronic kidney disease, or end stage renal disease (principal); I50.21 Acute systolic (congestive) heart failure; N18.5 Chronic kidney disease, stage 5; N17.9 Acute kidney failure, unspecified; E87.5 Hyperkalemia; I25.10 Atherosclerotic heart disease of native coronary artery without angina pectoris; I48.0 Paroxysmal atrial fibrillation; D63.1 Anemia in chronic kidney disease; Z95.1 Presence of aortocoronary bypass graft; E11.22 Type 2 diabetes mellitus with diabetic chronic kidney disease; Z96.652 Presence of left artificial knee joint; Z20.822 Contact with and (suspected) exposure to COVID-19; Z88.0 Allergy status to penicillin; Z88.2 Allergy status to sulfonamides; Z79.890 Hormone replacement therapy; Z79.899 Other long term (current) drug therapy
CPT/HCPCS: 36415; 36558; 71045; 76937; 80048; 80076; 82550; 82947; 83036; 83880; 84484; 85014; 85018; 85025; 85610; 85652; 85730; 86850; 86900; 87635; 90999; 93005; 93306; 93970; 96365; 96375; 97163; 97167; 97530; 99152; 99153; 99284; 99291; C1750; C1769; J0610; J0885; J1170; J1940; J2597

== ENCOUNTER 2020-08-05 07:33 | Outpatient (REF) | payer MEDICARE, SELFPAY ==
[2020-08-05 08:17] LABS: MANUAL DIFF FLAG NO
[2020-08-05 08:23] LABS: Basophils Percent Auto 0.5 % (0-2); Eosinophils Absolute Auto 0.1 X10*3/uL (0.0-0.4); Eosinophils Percent Auto 0.6 % (0-4); Hematocrit 33.3 % (37-47); Hemoglobin 10.5 g/dl (12.0-16.0); Imm Gran Abs Auto 0.05 X10*3/uL (0.00-0.03); Imm Gran Pct Auto 0.6 % (0.0-0.4); Lymphocytes Absolute Auto 1.1 X10*3/uL (1.2-4.9); Lymphocytes Percent Auto 14.3 % (20-40); Mean Corpuscular HGB Conc 31.5 g/dl (31.0-35.0); Mean Corpuscular Hemoglobin 27.4 pg (27.0-33.0); Mean Corpuscular Volume 86.9 fL (80-98); Mean Platelet Volume 9.5 fL (9.4-12.3); Monocytes Absolute Auto 0.8 X10*3/uL (0.1-1.2); Monocytes Percent Auto 10.3 % (2-11); NRBC Pct Auto 0.4 /100WBC (0.0-0.2); Neutrophils Absolute Auto 5.8 X10*3/uL (2.0-8.3); Neutrophils Percent Auto 73.7 % (45-73); Platelet Count 260 X10*3/uL (160-400); Red Blood Count 3.83 X10*6/uL (4.20-5.50); Red Cell Distribution Width 20.3 % (11.0-16.0); White Blood Count 7.9 X10*3/uL (4.8-10.8)
[2020-08-05 08:49] LABS: Alanine Aminotransferase 112 U/L (0-31); Albumin Level 3.5 g/dL (3.5-5.0); Alkaline Phosphatase 63 U/L (39-117); Anion Gap 23 (12-20); Aspartate Amino Transferase 151 U/L (5-31); Bilirubin Total 0.9 mg/dL (0.0-1.0); Blood Urea Nitrogen 46 mg/dL (9-16); Calcium 9.2 mg/dL (8.4-10.2); Carbon Dioxide 16 mmol/L (22-29); Chloride 99 mmol/L (96-108); Estimated Glomerular Filt Rate 9; Glucose Random 81 mg/dL (60-115); Potassium 3.7 mmol/L (3.3-5.1); Sodium 134 mmol/L (135-145); Total Protein 5.5 g/dL (6.5-8.0)
== END 2020-08-05 07:34 | disposition home or self-care (01) ==
LOC: HO.MMNH1L 07:33
PROVIDERS: PCP Family Medicine; Visit Provider Family Medicine
DX: I50.9 Heart failure, unspecified (principal); E11.9 Type 2 diabetes mellitus without complications
CPT/HCPCS: 36415; 80053; 85025

== ENCOUNTER 2020-08-06 16:06 | Emergency (ER) | payer MEDICARE, SELFPAY ==
--- NOTE | ~2020-08-06 | XR_ITS ---
EXAMINATION: XR CHEST CLINICAL INFORMATION: Mental status change. COMPARISON: Chest x-ray 07/31/2020 TECHNIQUE: Frontal view of the chest was obtained. FINDINGS: Central venous catheter remains in SVC. Wires noted. Cardiac silhouette upper limits of normal but unchanged. Calcification of the dorsal aorta. Pulmonary vascularity normal. Lungs and pleural spaces: Clear. Marked degenerative changes in the left shoulder. Cement spacer noted in the right shoulder. Spondylosis of the dorsal spine. XR/XR chest 1V IMPRESSION: No acute disease
[2020-08-06 16:17] VITALS: BP 138/81; PULSE 67; RESP 14; TEMP 36.6; O2SAT 96; BMI 36.6
--- NOTE | 2020-08-06 16:23 | ED_ITS ---
HPI - Altered Mental Status General Chief Complaint: Altered Mental Status Stated Complaint: AMS,MISSED DIALYSIS,?PORT INFECTION Time Seen by Provider: 08/06/20 16:22 Source: patient and EMS Mode of arrival: ambulatory Limitations: no limitations History of Present Illness HPI narrative: 79-year-old female came in from assisted for evaluation of change in mental status, possible infection in renal dialysis port. 79-year-old female with past medical history significant for hypertension, hyperlipidemia, coronary artery disease status post CABG x3, chronic pain syndrome, chronic kidney disease stage 5, diabetes, patient was discharged from the hospital to a assisted to start on dialysis, patient has a temporary central line access in the right chest wall for dialysis. Patient was noted by her staff at the rehab place to be confused, patient emergency department is able to give appropriate history patient has no complaint. at the bedside in the emergency department state that the patient at her baseline he has not noticed any confusion. Related Data Home Medications Medication Instructions Recorded Confirmed ketorolac 1 drp OPHTHALMIC-RIGHT QID 03/31/20 07/31/20 sevelamer carbonate 800 mg PO TID 05/05/20 07/31/20 coenzyme Q10 100 mg capsule 100 mg PO TID cap 06/21/20 07/31/20 ferrous sulfate 325 mg (65 mg 325 mg PO TID tab 06/21/20 07/31/20 iron) tablet ropinirole 0.5 mg tablet 0.5 mg PO QID tab 06/21/20 07/31/20 sodium bicarbonate-sodium chloride 1 ea MISCELLANEOUS BID 06/21/20 07/31/20 powder vit C,E,Zn,Qs-hpoyg4-qyf-zeax 1 cap PO BID 07/18/20 07/31/20 hydrocodone-acetaminophen 1 tab PO Q8H PRN 07/31/20 07/31/20 rosuvastatin 10 mg PO DAILY 07/31/20 07/31/20 Previous Rx's Medication Instructions Recorded levothyroxine 137 mcg tablet 137 mcg PO QAM #90 tab 03/15/20 apixaban [Eliquis] 2.5 mg PO BID #60 tab 08/04/20 carvedilol 6.25 mg PO BID #60 tab 08/04/20 hydralazine 10 mg PO BID #60 tab 08/04/20 Allergies Allergy/AdvReac Type Severity Reaction Status Date / Time erythromycin base Allergy Mild RASH Verified 07/31/20 01:54 [Erythromycin Base] indomethacin [From Indocin] Allergy Mild RASH Verified 07/31/20 01:54 Sulfa (Sulfonamide Allergy Mild RASH, Verified 07/31/20 01:54 Antibiotics) stomach [Sulfa (Sulfonamides)] upset ezetimibe [From Zetia] Allergy Unknown unknown Verified 07/31/20 01:54 flaxseed [FLAXSEED] Allergy Unknown SWELLING Verified 07/31/20 01:54 TONGUE AND LIPS Flexeril Allergy Unknown lg swelling Verified 07/31/20 01:54 gabapentin [From Neurontin] Allergy Unknown UNknown Verified 07/31/20 01:54 glipizide Allergy Unknown UNknown Verified 07/31/20 01:54 Niacin Preparations Allergy Unknown RASH Verified 07/31/20 01:54 [NIACIN PREPARATIONS] Penicillins Allergy Unknown Rash Verified 07/31/20 01:54 cocaine Allergy Seizure Verified 07/31/20 01:54 atorvastatin [From Lipitor] AdvReac Mild MUSCLE Verified 07/31/20 01:54 SOARNESS oxycodone AdvReac Unknown GI upset- Verified 07/31/20 01:54 sevree CAT GUT SUTURES Allergy Unknown rash Uncoded 07/31/20 01:54 PLASTIC TAPE, BANDADES Allergy Unknown rash Uncoded 07/31/20 01:54 Adhesive Bandage AdvReac Mild BLISTERS Uncoded 07/31/20 01:54 Review of Systems Review of Systems: All other systems are reviewed and are negative Constitutional: Reports as per HPI and Reports no additional constitutional complaints Eyes: Reports as per HPI and Reports no additional eye complaints Reports system reviewed and no additional complaints, except as documented Cardiovascular: Reports as per HPI and Reports no additional cardiovascular complaints Respiratory: Reports as per HPI and Reports no additional respiratory complaints Gastrointestinal: Reports as per HPI and Reports no additional gastrointestinal complaints Genitourinary: Reports no additional female genitourinary complaints Musculoskeletal: Reports no additional musculoskeletal complaints Skin/Breast: Reports system reviewed and no additional complaints, except as docu Psychiatric: Reports no additional psychiatric complaints Endocrine: Reports no additional endocrine complaints Hematologic/Lymphatic: Reports no additional hematologic/lymphatic complaints Allergic/Immunologic: Reports no additional allergic/immunologic complaints Reports system reviewed and no additional complaints, except as documented and Reports Abnormal speech present [facility] Past Medical History 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 Diabetic nephropathy Essential hypertension Heart failure with reduced ejection fraction History of myocardial infarction Lumbosacral radiculopathy due to degenerative joint disease of spine Menopause Osteoarthritis involving multiple joints on both sides of body Pain and swelling of lower leg Postlaminectomy syndrome Restless leg syndrome Secondary hyperparathyroidism Septic arthritis of shoulder, right Surgical History History of carpal tunnel release History of foot surgery History of laminectomy History of surgery History of total left knee replacement (TKR) Hx of appendectomy Hx of bilateral cataract extraction Hx of cholecystectomy Hx of colonoscopy Hx of dilation and curettage Hx of umbilical hernia repair S/P CABG x 3 S/P trigger finger release Status post right shoulder hemiarthroplasty Family History Family History Father Medical history non-contributory Mother Medical history non-contributory Social History Social History Household Members: Spouse Housing: House Alcohol intake: never Smoking Status: Never smoker service: No Current occupational status: retired Physical Exam Vital Signs: Vital Signs: Last Vital Signs Temp 97.8 F 08/06/20 16:17 Pulse 70 08/06/20 18:27 Resp 20 08/06/20 18:27 BP 118/71 08/06/20 18:27 Pulse Ox 95 08/06/20 18:27 Body Mass Index 36.6 Vital signs have been reviewed as appeared to be correct. Blood pressure normal. Heart rate normal. Respiration rate normal. Temperature normal. Oxygen saturation normal. Appearance: Alert. Oriented X3. No acute distress. Head: Normal external exam. Normocephalic. Atraumatic. No Carlton signs noted. No raccoon eyes noted Eyes: PERRLA. EOMI. Conjunctiva and sclera normal. Eyelids normal. ENT: TM's Normal. Pharynx normal. Uvula midline. Moist mucous membranes. No trismus noted. No drooling noted. No muffled voice noted. Neck: Normal inspection. Neck supple. FROM. No adenopathy. Thyroid Normal. No meningeal signs. No neck mass noted. CVS: Normal heart rate and rhythm. Heart sound normal. No murmurs noted. Pulses normal throughout. Respiratory: No respiratory distress. Painless inspiration. Breath sounds normal. No wheezes/rales/rhonchi noted. Right Chest central venous catheter is intact, no erythema around, no hotness, no redness,no discharge. No accessory muscle usage noted or decreased air movement noted. Abdomen: Soft and nontender. Bowel sounds normal in all 4 quadrants. No di stention noted. No organomegaly noted. No visible injury noted. Back: No CVA tenderness. Full range of motion noted. Skin: Skin warm and dry. Normal skin color. Normal skin turgor. No rashes/le sions/lacerations noted. Extremities: No lower extremity edema. Extremities exhibit normal range of motion. Extremities nontender. Neuro: Oriented X 3. No motor deficit. No sensory deficit. Reflexes normal. Course Course Course Narrative: A 79-year-old female with chronic renal failure now she is receiving dialysis via right chest wall catheter. Patient was hospitalized and was discharged to a rehab place patient came in today concern of dialysis catheter infected versus confusion. Patient emergency department is showing no signs of confusion, at the bedside who confirmed that the patient is at her baseline and is not concerned, patient and thinks is nothing acutely wrong today and she would like to go back to the rehab place. Patient does not need emergent dialysis today, electrolytes are stable patient does not appear to be hypervolemic. Normal wbc's, no sign of dialysis catheter infection. MDM - Altered Mental Status Lab Data Attestation: I reviewed the patient's lab results. Result diagrams: 08/06/20 16:54 08/06/20 16:55 Labs: Lab Results 08/06/20 08/06/20 08/06/20 Range/Units 16:40 16:54 16:54 WBC 7.6 (4.8-10.8) X10*3/uL RBC 3.94 L (4.20-5.50) X10*6/uL Hgb 11.2 L (12.0-16.0) g/dl Hct 35.1 L (37-47) % MCV 89.1 (80-98) fL MCH 28.4 (27.0-33.0) pg MCHC 31.9 (31.0-35.0) g/dl RDW 20.4 H (11.0-16.0) % Plt Count 234 (160-400) X10*3/uL MPV 9.4 (9.4-12.3) fL Immature Gran % (Auto) 0.7 H (0.0-0.4) % Neut % (Auto) 73.3 H (45-73) % Lymph % (Auto) 14.4 L (20-40) % [place] % (Auto) 9.7 (2-11) % Eos % (Auto) 1.1 (0-4) % Baso % (Auto) 0.8 (0-2) % Lymph # (Auto) 1.1 L (1.2-4.9) X10*3/uL [place] # (Auto) 0.7 (0.1-1.2) X10*3/uL Eos # (Auto) 0.1 (0.0-0.4) X10*3/uL Baso # (Auto) 0.1 (0.0-0.2) X10*3/uL Abs Immat Gran (auto) 0.05 H (0.00-0.03) X10*3/uL Absolute Neuts (auto) 5.6 (2.0-8.3) X10*3/uL Absolute Nucleated RBC 0.030 H (0.0-0.012) X10*3/uL Nucleated RBC % (auto) 0.4 H (0.0-0.2) /100WBC Sodium (135-145) mmol/L Potassium (3.3-5.1) mmol/L Chloride (96-108) mmol/L Carbon Dioxide (22-29) mmol/L Anion Gap (12-20) BUN (9-16) mg/dL Creatinine (0.5-1.4) mg/dL Estim Creat Clear Calc Estimated GFR POC Glucose 120 H (60-115) mg/dL Random Glucose (60-115) mg/dL Lactic Acid (0.5-2.0) mmol/L Calcium (8.4-10.2) mg/dL Magnesium (1.6-2.6) mg/dL Total Bilirubin (0.0-1.0) mg/dL Direct Bilirubin (0.0-0.5) mg/dL AST (5-31) U/L ALT (0-31) U/L Alkaline Phosphatase (39-117) U/L B-Natriuretic Peptide 32738 H (<100) pg/mL Total Protein (6.5-8.0) g/dL Albumin (3.5-5.0) g/dL Lipase (8-78) U/L Urine Color Urine Appearance Urine pH (5.0-8.0) Ur Specific [place] (1.005-1.025) Urine Protein (NEG-TRACE) MG/DL Urine Glucose (UA) (NEG) MG/DL Urine Ketones (NEG) MG/DL Urine Blood (NEG) Urine Nitrite (NEG) Ur Leukocyte Esterase (NEG) Urine RBC (0) /HPF Urine WBC (0-4) /HPF Ur Squamous Epith Cells /LPF Amorphous Sediment /LPF Urine Bacteria /LPF COVID-19 ([facility]) (Negative) COVID-19 Clin Com 08/06/20 08/06/20 08/06/20 Range/Units 16:54 16:54 16:55 WBC (4.8-10.8) X10*3/uL RBC (4.20-5.50) X10*6/uL Hgb (12.0-16.0) g/dl Hct (37-47) % MCV (80-98) fL MCH (27.0-33.0) pg MCHC (31.0-35.0) g/dl RDW (11.0-16.0) % Plt Count (160-400) X10*3/uL MPV (9.4-12.3) fL Immature Gran % (Auto) (0.0-0.4) % Neut % (Auto) (45-73) % Lymph % (Auto) (20-40) % [place] % (Auto) (2-11) % Eos % (Auto) (0-4) % Baso % (Auto) (0-2) % Lymph # (Auto) (1.2-4.9) X10*3/uL [place] # (Auto) (0.1-1.2) X10*3/uL Eos # (Auto) (0.0-0.4) X10*3/uL Baso # (Auto) (0.0-0.2) X10*3/uL Abs Immat Gran (auto) (0.00-0.03) X10*3/uL Absolute Neuts (auto) (2.0-8.3) X10*3/uL Absolute Nucleated RBC (0.0-0.012) X10*3/uL Nucleated RBC % (auto) (0.0-0.2) /100WBC Sodium 134 L (135-145) mmol/L Potassium 4.2 (3.3-5.1) mmol/L Chloride 100 (96-108) mmol/L Carbon Dioxide 15 L (22-29) mmol/L Anion Gap 23 H (12-20) BUN 58 H (9-16) mg/dL Creatinine 5.67 H* (0.5-1.4) mg/dL Estim Creat Clear Calc 9.9 Estimated GFR 7 POC Glucose (60-115) mg/dL Random Glucose 118 H D (60-115) mg/dL Lactic Acid 2.0 (0.5-2.0) mmol/L Calcium 9.0 (8.4-10.2) mg/dL Magnesium 2.5 (1.6-2.6) mg/dL Total Bilirubin 0.8 (0.0-1.0) mg/dL Direct Bilirubin 0.4 (0.0-0.5) mg/dL AST 264 H (5-31) U/L ALT 247 H (0-31) U/L Alkaline Phosphatase 84 D (39-117) U/L B-Natriuretic Peptide (<100) pg/mL Total Protein 5.6 L (6.5-8.0) g/dL Albumin 3.5 (3.5-5.0) g/dL Lipase 40 (8-78) U/L Urine Color Urine Appearance Urine pH (5.0-8.0) Ur Specific [place] (1.005-1.025) Urine Protein (NEG-TRACE) MG/DL Urine Glucose (UA) (NEG) MG/DL Urine Ketones (NEG) MG/DL Urine Blood (NEG) Urine Nitrite (NEG) Ur Leukocyte Esterase (NEG) Urine RBC (0) /HPF Urine WBC (0-4) /HPF Ur Squamous Epith Cells /LPF Amorphous Sediment /LPF Urine Bacteria /LPF COVID-19 ([facility]) Negative (Negative) COVID-19 Clin Com See Note 08/06/20 Range/Units 17:06 WBC (4.8-10.8) X10*3/uL RBC (4.20-5.50) X10*6/uL Hgb (12.0-16.0) g/dl Hct (37-47) % MCV (80-98) fL MCH (27.0-33.0) pg MCHC (31.0-35.0) g/dl RDW (11.0-16.0) % Plt Count (160-400) X10*3/uL MPV (9.4-12.3) fL Immature Gran % (Auto) (0.0-0.4) % Neut % (Auto) (45-73) % Lymph % (Auto) (20-40) % [place] % (Auto) (2-11) % Eos % (Auto) (0-4) % Baso % (Auto) (0-2) % Lymph # (Auto) (1.2-4.9) X10*3/uL [place] # (Auto) (0.1-1.2) X10*3/uL Eos # (Auto) (0.0-0.4) X10*3/uL Baso # (Auto) (0.0-0.2) X10*3/uL Abs Immat Gran (auto) (0.00-0.03) X10*3/uL Absolute Neuts (auto) (2.0-8.3) X10*3/uL Absolute Nucleated RBC (0.0-0.012) X10*3/uL Nucleated RBC % (auto) (0.0-0.2) /100WBC Sodium (135-145) mmol/L Potassium (3.3-5.1) mmol/L Chloride (96-108) mmol/L Carbon Dioxide (22-29) mmol/L Anion Gap (12-20) BUN (9-16) mg/dL Creatinine (0.5-1.4) mg/dL Estim Creat Clear Calc Estimated GFR POC Glucose (60-115) mg/dL Random Glucose (60-115) mg/dL Lactic Acid (0.5-2.0) mmol/L Calcium (8.4-10.2) mg/dL Magnesium (1.6-2.6) mg/dL Total Bilirubin (0.0-1.0) mg/dL Direct Bilirubin (0.0-0.5) mg/dL AST (5-31) U/L ALT (0-31) U/L Alkaline Phosphatase (39-117) U/L B-Natriuretic Peptide (<100) pg/mL Total Protein (6.5-8.0) g/dL Albumin (3.5-5.0) g/dL Lipase (8-78) U/L Urine Color DARK YELLOW Urine Appearance HAZY Urine pH 5.0 (5.0-8.0) Ur Specific [place] >= 1.030 H (1.005-1.025) Urine Protein 2+ H (NEG-TRACE) MG/DL Urine Glucose (UA) NEG (NEG) MG/DL Urine Ketones 5 (NEG) MG/DL Urine Blood 3+ H (NEG) Urine Nitrite NEG (NEG) Ur Leukocyte Esterase TRACE H (NEG) Urine RBC 10-14 H (0) /HPF Urine WBC 5-9 H (0-4) /HPF Ur Squamous Epith Cells TRACE /LPF Amorphous Sediment 2+ /LPF Urine Bacteria TRACE /LPF COVID-19 ([facility]) (Negative) COVID-19 Clin Com Imaging Data Chest x-ray: Radiologist's impression: No acute disease. ECG Data ECG #1: Interpretation: Normal sinus rhythm at 84 beats per minutes, occasional P VCs, left axis deviation. Discharge Plan Discharge Clinical Impression: Chronic kidney disease, stage 5 Prescriptions: No Action levothyroxine 137 mcg tablet 137 mcg PO QAM Qty: 90 RF: 3 vit C,E,Zn,Tt-edfve1-gzv-zeax 250-2.5-0.5 mg Capsule 1 cap PO BID RF: 0 ketorolac 0.5 % drops 1 drp ophthalmic-Right QID RF: 0 sevelamer carbonate 800 mg Tablet 800 mg PO TID RF: 0 hydrocodone-acetaminophen 5-325 mg tablet 1 tab PO Q8H PRN (Reason: Pain (Scale Score 4-6)) RF: 0 rosuvastatin 10 mg Tablet 10 mg PO DAILY RF: 0 carvedilol 6.25 mg Tablet 6.25 mg PO BID Qty: 60 RF: 0 hydralazine 10 mg Tablet 10 mg PO BID Qty: 60 RF: 0 Eliquis 2.5 mg Tablet 2.5 mg PO BID Qty: 60 RF: 0 coenzyme Q10 [Co Q-10] 100 mg capsule 100 mg PO TID RF: 0 sodium bicarb-sodium chloride Powder 1 ea miscellaneous BID RF: 0 ferrous sulfate 325 mg (65 mg iron) tablet 325 mg PO TID RF: 0 ropinirole 0.5 mg tablet 0.5 mg PO QID RF: 0
--- NOTE | 2020-08-06 16:29 | ECG_ITS ---
Test Reason : AMS Blood Pressure : / mmHG Vent. Rate : 084 BPM Atrial Rate : 084 BPM P-R Int : 184 ms QRS Dur : 160 ms QT Int : 432 ms P-R-T Axes : 052 -55 101 degrees QTc Int : 510 ms Sinus rhythm with occasional Premature ventricular complexes Left axis deviation Non-specific intra-ventricular conduction block Abnormal ECG When compared with ECG of 03-AUG-2020 17:48, Premature ventricular complexes are now Present Referred By: Renate Leon Electronically Signed By:KAYLEN HAMMER
[2020-08-06 16:44] LABS: Glucose, Whole Blood 120 mg/dL (60-115)
[2020-08-06 17:00] LABS: MANUAL DIFF FLAG NO
[2020-08-06 17:02] LABS: Basophils Absolute Auto 0.1 X10*3/uL (0.0-0.2); Basophils Percent Auto 0.8 % (0-2); Eosinophils Absolute Auto 0.1 X10*3/uL (0.0-0.4); Eosinophils Percent Auto 1.1 % (0-4); Hematocrit 35.1 % (37-47); Hemoglobin 11.2 g/dl (12.0-16.0); Imm Gran Abs Auto 0.05 X10*3/uL (0.00-0.03); Imm Gran Pct Auto 0.7 % (0.0-0.4); Lymphocytes Absolute Auto 1.1 X10*3/uL (1.2-4.9); Lymphocytes Percent Auto 14.4 % (20-40); Mean Corpuscular HGB Conc 31.9 g/dl (31.0-35.0); Mean Corpuscular Hemoglobin 28.4 pg (27.0-33.0); Mean Corpuscular Volume 89.1 fL (80-98); Mean Platelet Volume 9.4 fL (9.4-12.3); Monocytes Absolute Auto 0.7 X10*3/uL (0.1-1.2); Monocytes Percent Auto 9.7 % (2-11); NRBC Pct Auto 0.4 /100WBC (0.0-0.2); Neutrophils Absolute Auto 5.6 X10*3/uL (2.0-8.3); Neutrophils Percent Auto 73.3 % (45-73); Platelet Count 234 X10*3/uL (160-400); Red Blood Count 3.94 X10*6/uL (4.20-5.50); Red Cell Distribution Width 20.4 % (11.0-16.0); White Blood Count 7.6 X10*3/uL (4.8-10.8)
--- NOTE | 2020-08-06 17:12 | PC.NURSE ---
PATIENT CALLED TO GIVE INFORMATION. CONCERNED OVER PATIENTS CONFUSION. PATIENT IS ALERT TO PERSON, PLACE, VAGUE TO TIME. CAN CARRY CONVERSATION WITH RN BUT THEN TALKS ABOUT HER CHILDREN WHO SHE BELIEVES ARE 11 AND 12 YEARS OLD. CONFIRMS THEY DO NOT HAVE CHILDREN THAT YOUNG. ALL BLOOD WORK DRAWN WELL STRAIGHT CATH COMPLETE. PATIENT REPORTS PATIENT HAD [facility] CATH LAST WEEK WHILE IN HOSPITAL.
[2020-08-06 17:15] LABS: Glucose Urine UA NEG (NEG); Leukocyte Esterase Urine TRACE (NEG); Nitrite Urine NEG (NEG); Specific Gravity - Urine >= 1.030 (1.005-1.025); UACC Culture Trigger YES; Urine Blood 3+ (NEG); Urine Ketones 5 MG/DL (NEG); Urine Protein 2+ MG/DL (NEG-TRACE)
[2020-08-06 17:19] LABS: Appearance Urine HAZY; Color Urine DARK YELLOW
[2020-08-06 17:27] LABS: Amorphous Sediment Urine 2+ /LPF; Bacteria Urine TRACE /LPF; Squamous Epithelial Cell Urine TRACE /LPF
[2020-08-06 17:34] LABS: COVID-19 Test Negative (Negative)
[2020-08-06 17:56] LABS: Alanine Aminotransferase 247 U/L (0-31); Albumin Level 3.5 g/dL (3.5-5.0); Alkaline Phosphatase 84 U/L (39-117); Anion Gap 23 (12-20); Aspartate Amino Transferase 264 U/L (5-31); Bilirubin Direct 0.4 mg/dL (0.0-0.5); Bilirubin Total 0.8 mg/dL (0.0-1.0); Blood Urea Nitrogen 58 mg/dL (9-16); Carbon Dioxide 15 mmol/L (22-29); Chloride 100 mmol/L (96-108); Creatinine Clr Calc Pharmacy 9.9; Estimated Glomerular Filt Rate 7; Glucose Random 118 mg/dL (60-115); Lipase 40 U/L (8-78); Magnesium 2.5 mg/dL (1.6-2.6); Potassium 4.2 mmol/L (3.3-5.1); Sodium 134 mmol/L (135-145); Total Protein 5.6 g/dL (6.5-8.0)
[2020-08-06 18:10] LABS: B Type Natriuretic Peptide 16366 pg/mL (<100)
[2020-08-06 18:27] VITALS: BP 118/71; PULSE 70; RESP 20; O2SAT 95
[2020-08-06 19:50] LABS: Ammonia 48 umol/L (13-55)
--- NOTE | 2020-08-06 20:36 | PC.NURSE ---
PLAN FOR DISCHARGE BACK TO [facility].
--- NOTE | 2020-08-06 21:01 | PC.NURSE ---
REPORT GIVEN TO RN AT [facility]. PT TRANSPORTED TO [facility] BY EMS. IV REMOVED. PT AWAKE AND ALERT, DOESN'T FEEL LIKE PATIENT IS CONFUSED.
== END 2020-08-06 21:10 | disposition skilled nursing facility (03) ==
PROVIDERS: Emergency Provider Emergency Medicine; PCP Family Medicine
DX: E11.22 Type 2 diabetes mellitus with diabetic chronic kidney disease (principal); I12.0 Hypertensive chronic kidney disease with stage 5 chronic kidney disease or end stage renal disease; N18.5 Chronic kidney disease, stage 5; Z99.2 Dependence on renal dialysis; E78.5 Hyperlipidemia, unspecified; Z20.822 Contact with and (suspected) exposure to COVID-19
CPT/HCPCS: 36415; 51701; 71045; 80048; 80076; 81001; 81003; 82140; 82947; 83605; 83690; 83735; 83880; 85025; 87040; 87086; 87635; 93005; 99284

== ENCOUNTER 2020-08-20 12:49 | Inpatient (IN) | payer MEDICARE, SELFPAY ==
[2020-08-20] VITALS (10 sets, daily range): BP systolic 120–138; BP diastolic 70–86; PULSE 57–128; RESP 12–29; TEMP 35.9–36.6; O2SAT 97–100; BMI 30.8
--- NOTE | ~2020-08-20 | XR_ITS ---
EXAMINATION: XR CHEST CLINICAL INFORMATION: Difficulty breathing COMPARISON: Multiple prior studies most recently 08/06/2020 TECHNIQUE: Portable AP upright view of the chest was obtained. FINDINGS: Median sternotomy wires and surgical clips are demonstrated. The cardiac silhouette is similar in size. Right jugular dialysis line extends to the lower SVC. Since prior study vascular congestion and mild increased interstitial markings are identified. Mild subsegmental atelectasis is present at both lung bases. Possible trace left pleural effusion. Advanced degenerative change left shoulder. Cement spacer partially visualized at the right shoulder. XR/XR chest 1V IMPRESSION: Low lung volumes. Evidence of mild interstitial pulmonary edema with basilar subsegmental atelectasis.
--- NOTE | 2020-08-20 13:12 | ECG_ITS ---
Test Reason : WEAKNESS Blood Pressure : / mmHG Vent. Rate : 063 BPM Atrial Rate : 063 BPM P-R Int : 174 ms QRS Dur : 148 ms QT Int : 510 ms P-R-T Axes : 065 -57 119 degrees QTc Int : 521 ms Normal sinus rhythm Possible Left atrial enlargement Right bundle branch block Left anterior fascicular block Bifascicular block T wave abnormality, consider lateral ischemia Abnormal ECG When compared with ECG of 06-AUG-2020 17:18, Premature ventricular complexes are no longer Present Right bundle branch block has replaced Non-specific intra-ventricular conduction block T wave inversion more evident in Lateral leads Referred By: Catarina Vazquez Electronically Signed By:STEW GUERRERO MD
--- NOTE | 2020-08-20 13:28 | ED_ITS ---
HPI - SOB/Dyspnea General Chief Complaint: Dyspnea Stated Complaint: difficulty breathing Time Seen by Provider: 08/20/20 12:53 Source: patient, family and EMS Mode of arrival: EMS Limitations: no limitations History of Present Illness HPI Narrative: 80-year-old female with a past medical history of congestive heart failure, anemia, coronary artery disease, chronic kidney disease currently on dialysis (T, TH, Sat), hyperlipidemia, hypertension, chronic back pain and lower extremity pain, RLS, diabetes, AFib on Eliquis coming from [facility] with complaints of difficulty breathing and lethargy for 2 days. Per the patient has had some shortness of breath which she noticed at rest with a intermittent dry cough and wheezing. He tells me that the patient seems lethargic and falls asleep often. The patient reports mild shortness of breath and dry cough but denies chest pain. She does have leg swelling with bilateral which family tells me is baseline. No abdominal pain, vomiting, diarrhea, headache, dizziness, vision changes. Patient's last dialysis was yesterday. Patient family also notes the patient had intermittent confusion since being admitted to the hospital about 1 month ago. She was seen in this emergency department on August 06 for similar complaint and had a negative workup and was discharged back to the facility Of note, the patient was admitted to [facility] from 07/31-08/04 for congestive heart failure exacerbation, acute on chronic kidney disease requiring dialysis. She has been at a short-term rehab since then. elicited complaint: shortness of breath and cough Related Data Home Medications Medication Instructions Recorded Confirmed ketorolac 1 drp OPHTHALMIC-RIGHT QID 03/31/20 08/20/20 sevelamer carbonate 800 mg PO TID 05/05/20 08/20/20 coenzyme Q10 100 mg capsule 100 mg PO TID cap 06/21/20 08/20/20 ferrous sulfate 325 mg (65 mg 325 mg PO TID tab 06/21/20 08/20/20 iron) tablet ropinirole 0.5 mg tablet 0.5 mg PO QID tab 06/21/20 08/20/20 sodium bicarbonate-sodium chloride 1 ea MISCELLANEOUS BID 06/21/20 08/20/20 powder vit C,E,Zn,[id number] 1 cap PO BID 07/18/20 07/31/20 hydrocodone-acetaminophen 1 tab PO Q8H PRN 07/31/20 08/20/20 rosuvastatin 10 mg PO DAILY 07/31/20 08/20/20 Previous Rx's Medication Instructions Recorded levothyroxine 137 mcg tablet 137 mcg PO QAM #90 tab 03/15/20 apixaban [Eliquis] 2.5 mg PO BID #60 tab 08/04/20 carvedilol 6.25 mg PO BID #60 tab 08/04/20 hydralazine 10 mg PO BID #60 tab 08/04/20 Allergies Allergy/AdvReac Type Severity Reaction Status Date / Time erythromycin base Allergy Mild RASH Verified 07/31/20 01:54 [Erythromycin Base] indomethacin [From Indocin] Allergy Mild RASH Verified 07/31/20 01:54 Sulfa (Sulfonamide Allergy Mild RASH, Verified 07/31/20 01:54 Antibiotics) stomach [Sulfa (Sulfonamides)] upset ezetimibe [From Zetia] Allergy Unknown unknown Verified 07/31/20 01:54 flaxseed [FLAXSEED] Allergy Unknown SWELLING Verified 07/31/20 01:54 TONGUE AND LIPS Flexeril Allergy Unknown lg swelling Verified 07/31/20 01:54 gabapentin [From Neurontin] Allergy Unknown UNknown Verified 07/31/20 01:54 glipizide Allergy Unknown UNknown Verified 07/31/20 01:54 Niacin Preparations Allergy Unknown RASH Verified 07/31/20 01:54 [NIACIN PREPARATIONS] Penicillins Allergy Unknown Rash Verified 07/31/20 01:54 cocaine Allergy Seizure Verified 07/31/20 01:54 atorvastatin [From Lipitor] AdvReac Mild MUSCLE Verified 07/31/20 01:54 SOARNESS oxycodone AdvReac Unknown GI upset- Verified 07/31/20 01:54 sevree CAT GUT SUTURES Allergy Unknown rash Uncoded 07/31/20 01:54 PLASTIC TAPE, BANDADES Allergy Unknown rash Uncoded 07/31/20 01:54 Adhesive Bandage AdvReac Mild BLISTERS Uncoded 07/31/20 01:54 Review of Systems Review of Systems: Yes all other systems are reviewed and are negative Constitutional: Constitutional: Reports no additional constitutional complaints, Denies body ache(s), Denies chills, Denies fever(s), Denies headache(s) and Denies weakness Eyes: Eyes: Reports no additional eye complaints and Denies change in vision ENT: Reports system reviewed and no additional complaints, except as documented, Denies dizziness, Denies headache(s), Denies nasal congestion, Denies nasal discharge and Denies neck pain Cardiovascular: Cardiovascular: Reports no additional cardiovascular complaints, Denies chest pain, Reports leg edema and Reports dyspnea Respiratory: Respiratory: Reports no additional respiratory complaints, Reports cough and Reports dyspnea Gastrointestinal: Gastrointestinal: Reports no additional gastrointestinal complaints, Denies abdominal pain, Denies diarrhea, Denies nausea and Denies vomiting Genitourinary: Genitourinary: Reports no additional female genitourinary complaints and Denies urinary incontinence Musculoskeletal: Musculoskeletal: Reports no additional musculoskeletal complaints, Denies back pain, Denies arthralgias, Denies joint swelling, Denies neck pain, Denies numbness and Denies tingling Integumentary/Breasts: Skin/Breast: Reports system reviewed and no additional complaints, except as docu and Denies rash Neurologic: Reports system reviewed and no additional complaints, except as documented, Denies Abnormal speech present, Denies dizziness, Denies headache(s), Denies numbness, Denies tingling and Denies weakness Comments: Lethargy PMFSH Past Medical History Attestation statement: The following information was validated with the patient. 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 Diabetic nephropathy Essential hypertension Heart failure with reduced ejection fraction History of myocardial infarction Lumbosacral radiculopathy due to degenerative joint disease of spine Menopause Osteoarthritis involving multiple joints on both sides of body Pain and swelling of lower leg Postlaminectomy syndrome Restless leg syndrome Secondary hyperparathyroidism Septic arthritis of shoulder, right Surgical History History of carpal tunnel release History of foot surgery History of laminectomy History of surgery History of total left knee replacement (TKR) Hx of appendectomy Hx of bilateral cataract extraction Hx of cholecystectomy Hx of colonoscopy Hx of dilation and curettage Hx of umbilical hernia repair S/P CABG x 3 S/P trigger finger release Status post right shoulder hemiarthroplasty Family History Family History Father Medical history non-contributory Mother Medical history non-contributory Social History Social History Household Members: Spouse Housing: House Alcohol intake: never Smoking Status: Never smoker Advance Directives: No Advance Directives Information Provided: Yes service: No Current occupational status: retired Physical Exam Vital Signs: Vital Signs: Last Vital Signs Temp 97.7 F 08/20/20 16:32 Pulse 63 08/20/20 16:32 Resp 29 H 08/20/20 16:32 BP 129/76 08/20/20 16:32 Pulse Ox 100 08/20/20 16:32 Oxygen Flow Rate 2 08/20/20 13:05 Body Mass Index 30.8 Const: Other: Patient resting with eyes closed, response to verbal General: cooperative Orientation/consciousness: patient oriented x3 Limitations: no limitations HENMT: Head: Yes normal to inspection Ears: hearing grossly normal bilaterally General nose exam: Normal external nose present Face and sinus: Yes normal facial exam Mouth: Normal oral and palatal mucosa present Throat: Yes posterior oropharynx normal Eyes: General: appearance normal, both eyes and all related structures Pupils: Equal, round and reactive pupils present Neck: Neck: Yes normal visual inspection, Yes full ROM and Yes no lymphadenopathy Chest: Chest palpation & inspection: normal inspection of the chest Resp: Other: Mild tachypnea with a respiratory rate of 24. Speaking in short phrases. Audibly has some mild wheezing. On exam lungs sounds have crackles and diminished in the bases no wheezing noted Accessory muscle use noted Cardio: Rate: regular rate Rhythm: regular rhythm Peripheral pulses: Peripheral pulses 2+ throughout GI: Inspection: Yes normal to inspection Palpation (GI): Soft to palpation and nontender Auscultation: normal bowel sounds Back/Spine/Pelvis: Thoracic/Lumbar Spine: thoracic and lumbar spine normal to inspection Skin: General skin exam: no rashes or lesions noted Neuro: General: patient oriented x3, moves all extremities, normal sensation to monofilament and Unable to assess gait Cranial nerves: Yes CN's II-XII intact bilaterally, Yes Equal, round and reactive pupils present, Yes Bilaterally intact EOM present, Yes Nystagmus not present, Yes Normal facial s trength present and Yes Midline tongue present Speech: No Abnormal speech present Gait exam (Neuro): Unable to assess gait Motor exam (neuro): 5/5 motor strength present throughout Sensory Exam: Normal double simultaneous stimulation for sensation Extrem: Other: Bilateral 1+ pitting edema noted to the lower extremities. No warmth or redness. Distal pulses palpated. No tenderness to the calf General: Yes normal to inspection Course Course Course Narrative: 80-year-old female here with complaints of shortness of breath, dry cough times several days. Family also remarks on some lethargy over the last few days and some intermittent confusion over the last 3-4 weeks since hospitalization and transfer to short-term rehab. On exam the patient has some mild tachypnea. She is on 2 L of oxygen at all times and her oxygen saturation is 98%. Lung sounds are diminished in the bases with crackles upper airway sounds. Chronic lower extremity edema which family tells me is baseline. No chest pain. Alert and oriented on arrival. Patient does have her eyes closed and is slightly lethargic but does respond to verbal. No overt neurological deficits. Will check chest x-ray, EKG, COVID screen, labs including blood cultures and lactic acid, ABG. Will trial albuterol. 1410-labs show chronic kidney disease, mildly elevated troponin with no EKG changes. Plan for repeat 3 hour troponin. BNP 75127. CXR c/w with vascular congestion with tachypnea, crackles on lungs sounds. No diuretics noted on medication list. Discharged on metolazone 5mg daily. Will d/w with cardiology. 1440-Discussed with cardiology Dr Hess who recommended lasix gtt at 5mg/hr. This was started, nursing to place jones catheter for fluid management. Will discuss with medicine. 1520-UA c/w with UTI. At this time infection suspected. Multiple antibiotic allergies. Spoke to pharmacy. Although patient has a penicillin allergy she has received ceftriaxone before with no issues. Ceftriaxone ordered Family does have some concerns over some intermittent confusion over the last 4 weeks. No new confusion over the last few days. No focal deficits on exam. Patient does have some lethargy but she responds to verbal and follows all c ommands with no neurological deficits. ?delirium from hospitalization. Also may be metabolic encephalopathy secondary to UTI. 1615-spoke to hospitalist. After seeing the patient they feel like she has increased work of breathing with tachypnea and accessory muscle use with <20cc of urine output noted in jones catheter. Requesting and discussion with renal to evaluate if patient needs emergent dialysis. 1640-Spoke to renal Dr Ike Garcia. Will plan for emergent dialysis today. Medicine aware. MDM - SOB/Dyspnea MDM Narrative Medical decision making narrative: Pneumonia, CHF exacerbation, CO2 retention, PE, ACS Less likely pneumonia with chest x-ray which is consistent with CHF Less likely CO2 retention with a negative DVT This likely PE with compliance with anticoagulation Less likely ACS with troponin x2 which are delta an EKG which shows no new ischemic changes Medical Records Attestation: I reviewed the patient's medical records. Lab Data Attestation: I reviewed the patient's lab results. Result diagrams: 08/20/20 13:25 08/20/20 13:25 Labs: Lab Results 08/20/20 08/20/20 08/20/20 Range/Units 13:25 13:25 13:25 WBC 6.4 (4.8-10.8) X10*3/uL RBC 4.18 L (4.20-5.50) X10*6/uL Hgb 11.5 L (12.0-16.0) g/dl Hct 39.0 (37-47) % MCV 93.3 (80-98) fL MCH 27.5 (27.0-33.0) pg MCHC 29.5 L (31.0-35.0) g/dl RDW 18.9 H (11.0-16.0) % Plt Count 216 (160-400) X10*3/uL MPV 11.0 (9.4-12.3) fL Immature Gran % (Auto) 0.3 (0.0-0.4) % Neut % (Auto) 77.0 H (45-73) % Lymph % (Auto) 14.6 L (20-40) % [place] % (Auto) 7.6 (2-11) % Eos % (Auto) 0.3 (0-4) % Baso % (Auto) 0.2 (0-2) % Lymph # (Auto) 0.9 L (1.2-4.9) X10*3/uL [place] # (Auto) 0.5 (0.1-1.2) X10*3/uL Eos # (Auto) 0.0 (0.0-0.4) X10*3/uL Baso # (Auto) 0.0 (0.0-0.2) X10*3/uL Abs Immat Gran (auto) 0.02 (0.00-0.03) X10*3/uL Absolute Neuts (auto) 4.9 (2.0-8.3) X10*3/uL Absolute Nucleated RBC 0.040 H (0.0-0.012) X10*3/uL Nucleated RBC % (auto) 0.6 H (0.0-0.2) /100WBC PT 31.6 H D (10.8-13.0) SEC INR 2.6 H (0.9-1.1) APTT 42.5 H (24.1-38.0) SEC O2 Saturation % ABG pH at Pt Temp (7.35-7.45) ABG pH (Temp Correct) (7.35-7.45) ABG pCO2 at Pt Temp (32-45) mmHg ABG pCO2 (Temp Corrct (32-45) mmHg ABG pO2 at Pt Temp (83-108) mmHg ABG pO2 (Temp Correct (83-108) ABG HCO3 (22-26) mmol/L ABG Base Excess (Actual) mmol/L Sodium 135 (135-145) mmol/L Potassium 4.7 D (3.3-5.1) mmol/L Chloride 97 (96-108) mmol/L Carbon Dioxide 22 (22-29) mmol/L Anion Gap 21 H (12-20) BUN 26 H (9-16) mg/dL Creatinine 3.06 H (0.5-1.4) mg/dL Estim Creat Clear Calc 16.5 Estimated GFR 15 Random Glucose 147 H (60-115) mg/dL Lactic Acid (0.5-2.0) mmol/L Calcium 9.4 D (8.4-10.2) mg/dL Magnesium 2.2 (1.6-2.6) mg/dL Total Bilirubin 1.0 (0.0-1.0) mg/dL Direct Bilirubin 0.5 (0.0-0.5) mg/dL AST 40 H D (5-31) U/L ALT 89 H (0-31) U/L Alkaline Phosphatase 173 H D (39-117) U/L Troponin I High Sens (<3.5-17.0) ng/L B-Natriuretic Peptide (<100) pg/mL Total Protein 5.8 L (6.5-8.0) g/dL Albumin 3.8 (3.5-5.0) g/dL Urine Color Urine Appearance Urine pH (5.0-8.0) Ur Specific [place] (1.005-1.025) Urine Protein (NEG-TRACE) MG/DL Urine Glucose (UA) (NEG) MG/DL Urine Ketones (NEG) MG/DL Urine Blood (NEG) Urine Nitrite (NEG) Ur Leukocyte Esterase (NEG) Urine RBC (0) /HPF Urine WBC (0-4) /HPF Ur Squamous Epith Cells /LPF Urine Bacteria /LPF COVID-19 ([facility]JAMIN) (Negative) COVID-19 Clin Com 08/20/20 08/20/20 08/20/20 Range/Units 13:25 13:25 13:25 WBC (4.8-10.8) X10*3/uL RBC (4.20-5.50) X10*6/uL Hgb (12.0-16.0) g/dl Hct (37-47) % MCV (80-98) fL MCH (27.0-33.0) pg MCHC (31.0-35.0) g/dl RDW (11.0-16.0) % Plt Count (160-400) X10*3/uL MPV (9.4-12.3) fL Immature Gran % (Auto) (0.0-0.4) % Neut % (Auto) (45-73) % Lymph % (Auto) (20-40) % [place] % (Auto) (2-11) % Eos % (Auto) (0-4) % Baso % (Auto) (0-2) % Lymph # (Auto) (1.2-4.9) X10*3/uL [place] # (Auto) (0.1-1.2) X10*3/uL Eos # (Auto) (0.0-0.4) X10*3/uL Baso # (Auto) (0.0-0.2) X10*3/uL Abs Immat Gran (auto) (0.00-0.03) X10*3/uL Absolute Neuts (auto) (2.0-8.3) X10*3/uL Absolute Nucleated RBC (0.0-0.012) X10*3/uL Nucleated RBC % (auto) (0.0-0.2) /100WBC PT (10.8-13.0) SEC INR (0.9-1.1) APTT (24.1-38.0) SEC O2 Saturation % ABG pH at Pt Temp (7.35-7.45) ABG pH (Temp Correct) (7.35-7.45) ABG pCO2 at Pt Temp (32-45) mmHg ABG pCO2 (Temp Corrct (32-45) mmHg ABG pO2 at Pt Temp (83-108) mmHg ABG pO2 (Temp Correct (83-108) ABG HCO3 (22-26) mmol/L ABG Base Excess (Actual) mmol/L Sodium (135-145) mmol/L Potassium (3.3-5.1) mmol/L Chloride (96-108) mmol/L Carbon Dioxide (22-29) mmol/L Anion Gap (12-20) BUN (9-16) mg/dL Creatinine (0.5-1.4) mg/dL Estim Creat Clear Calc Estimated GFR Random Glucose (60-115) mg/dL Lactic Acid 2.0 (0.5-2.0) mmol/L Calcium (8.4-10.2) mg/dL Magnesium (1.6-2.6) mg/dL Total Bilirubin (0.0-1.0) mg/dL Direct Bilirubin (0.0-0.5) mg/dL AST (5-31) U/L ALT (0-31) U/L Alkaline Phosphatase (39-117) U/L Troponin I High Sens 23.6 H D (<3.5-17.0) ng/L B-Natriuretic Peptide 97485 H (<100) pg/mL Total Protein (6.5-8.0) g/dL Albumin (3.5-5.0) g/dL Urine Color Urine Appearance Urine pH (5.0-8.0) Ur Specific [place] (1.005-1.025) Urine Protein (NEG-TRACE) MG/DL Urine Glucose (UA) (NEG) MG/DL Urine Ketones (NEG) MG/DL Urine Blood (NEG) Urine Nitrite (NEG) Ur Leukocyte Esterase (NEG) Urine RBC (0) /HPF Urine WBC (0-4) /HPF Ur Squamous Epith Cells /LPF Urine Bacteria /LPF COVID-19 ([facility]) Negative (Negative) COVID-19 Clin Com See Note 08/20/20 08/20/20 Range/Units 14:01 15:01 WBC (4.8-10.8) X10*3/uL RBC (4.20-5.50) X10*6/uL Hgb (12.0-16.0) g/dl Hct (37-47) % MCV (80-98) fL MCH (27.0-33.0) pg MCHC (31.0-35.0) g/dl RDW (11.0-16.0) % Plt Count (160-400) X10*3/uL MPV (9.4-12.3) fL Immature Gran % (Auto) (0.0-0.4) % Neut % (Auto) (45-73) % Lymph % (Auto) (20-40) % [place] % (Auto) (2-11) % Eos % (Auto) (0-4) % Baso % (Auto) (0-2) % Lymph # (Auto) (1.2-4.9) X10*3/uL [place] # (Auto) (0.1-1.2) X10*3/uL Eos # (Auto) (0.0-0.4) X10*3/uL Baso # (Auto) (0.0-0.2) X10*3/uL Abs Immat Gran (auto) (0.00-0.03) X10*3/uL Absolute Neuts (auto) (2.0-8.3) X10*3/uL Absolute Nucleated RBC (0.0-0.012) X10*3/uL Nucleated RBC % (auto) (0.0-0.2) /100WBC PT (10.8-13.0) SEC INR (0.9-1.1) APTT (24.1-38.0) SEC O2 Saturation 100.0 % ABG pH at Pt Temp 7.41 (7.35-7.45) ABG pH (Temp Correct) 7.43 (7.35-7.45) ABG pCO2 at Pt Temp 42 (32-45) mmHg ABG pCO2 (Temp Corrct 40 (32-45) mmHg ABG pO2 at Pt Temp 179 H (83-108) mmHg ABG pO2 (Temp Correct 175 H (83-108) ABG HCO3 27 H (22-26) mmol/L ABG Base Excess (Actual) 2.8 mmol/L Sodium (135-145) mmol/L Potassium (3.3-5.1) mmol/L Chloride (96-108) mmol/L Carbon Dioxide (22-29) mmol/L Anion Gap (12-20) BUN (9-16) mg/dL Creatinine (0.5-1.4) mg/dL Estim Creat Clear Calc Estimated GFR Random Glucose (60-115) mg/dL Lactic Acid (0.5-2.0) mmol/L Calcium (8.4-10.2) mg/dL Magnesium (1.6-2.6) mg/dL Total Bilirubin (0.0-1.0) mg/dL Direct Bilirubin (0.0-0.5) mg/dL AST (5-31) U/L ALT (0-31) U/L Alkaline Phosphatase (39-117) U/L Troponin I High Sens (<3.5-17.0) ng/L B-Natriuretic Peptide (<100) pg/mL Total Protein (6.5-8.0) g/dL Albumin (3.5-5.0) g/dL Urine Color YELLOW Urine Appearance TURBID Urine pH 5.5 (5.0-8.0) Ur Specific [place] 1.025 (1.005-1.025) Urine Protein 3+ H (NEG-TRACE) MG/DL Urine Glucose (UA) 100 H (NEG) MG/DL Urine Ketones 5 (NEG) MG/DL Urine Blood 3+ H (NEG) Urine Nitrite POS H (NEG) Ur Leukocyte Esterase 3+ H (NEG) Urine RBC 1-4 (0) /HPF Urine WBC TNTC H (0-4) /HPF Ur Squamous Epith Cells 1+ /LPF Urine Bacteria 1+ /LPF COVID-19 ([facility]) (Negative) COVID-19 Clin Com Imaging Data Chest x-ray: Attestation: I personally reviewed and interpreted this imaging study as follows: Radiologist's impression: EXAMINATION: XR CHEST CLINICAL INFORMATION: Difficulty breathing COMPARISON: Multiple prior studies most recently 08/06/2020 TECHNIQUE: Portable AP upright view of the chest was obtained. FINDINGS: Median sternotomy wires and surgical clips are demonstrated. The cardiac silhouette is similar in size. Right jugular dialysis line extends to the lower SVC. Since prior study vascular congestion and mild increased interstitial markings are identified. Mild subsegmental atelectasis is present at both lung bases. Possible trace left pleural effusion. Advanced degenerative change left shoulder. Cement spacer partially visualized at the right shoulder. XR/XR chest 1V IMPRESSION: Low lung volumes. Evidence of mild interstitial pulmonary edema with basilar subsegmental atelectasis. ECG Data Attestation: I personally reviewed and interpreted this ECG as follows: ECG interpretation date: 08/20/20 ECG interpretation time: 13:42 Interpretation: NSR, RBBB, ST depressions leads v5, v6 which appear unchanged from previous EKG 08/06 Critical Care Time Critical Care Time Critical Care Time: Yes Total Critical Care Time: 90 Attestation: Discussion with specialist (Cardiology, Nephrology, medicine). Multiple re-evaluations for respiratory status. Discharge Plan Discharge Clinical Impression: CHF exacerbation, Tachypnea, UTI (urinary tract infection), CKD (chronic kidney disease) Patient Disposition: Admitted As Inpatient
[2020-08-20 13:35] LABS: MANUAL DIFF FLAG NO
[2020-08-20 13:36] LABS: Basophils Percent Auto 0.2 % (0-2); Eosinophils Percent Auto 0.3 % (0-4); Hemoglobin 11.5 g/dl (12.0-16.0); Imm Gran Abs Auto 0.02 X10*3/uL (0.00-0.03); Imm Gran Pct Auto 0.3 % (0.0-0.4); Lymphocytes Absolute Auto 0.9 X10*3/uL (1.2-4.9); Lymphocytes Percent Auto 14.6 % (20-40); Mean Corpuscular HGB Conc 29.5 g/dl (31.0-35.0); Mean Corpuscular Hemoglobin 27.5 pg (27.0-33.0); Mean Corpuscular Volume 93.3 fL (80-98); Monocytes Absolute Auto 0.5 X10*3/uL (0.1-1.2); Monocytes Percent Auto 7.6 % (2-11); NRBC Pct Auto 0.6 /100WBC (0.0-0.2); Neutrophils Absolute Auto 4.9 X10*3/uL (2.0-8.3); Platelet Count 216 X10*3/uL (160-400); Red Blood Count 4.18 X10*6/uL (4.20-5.50); Red Cell Distribution Width 18.9 % (11.0-16.0); White Blood Count 6.4 X10*3/uL (4.8-10.8)
[2020-08-20 13:42] LABS: INTERNATIONAL NORM RATIO 2.6 (0.9-1.1); Prothrombin Time 31.6 SEC (10.8-13.0)
[2020-08-20 13:45] LABS: Partial Thromboplastin Time 42.5 SEC (24.1-38.0)
[2020-08-20 13:56] LABS: COVID-19 Test Negative (Negative)
[2020-08-20] MEDS: Albuterol Sulfate (0.083%) 2.5 MG/3 ML VIAL.NEB INHALE (14:00)
[2020-08-20 14:06] LABS: Alanine Aminotransferase 89 U/L (0-31); Albumin Level 3.8 g/dL (3.5-5.0); Alkaline Phosphatase 173 U/L (39-117); Anion Gap 21 (12-20); Aspartate Amino Transferase 40 U/L (5-31); Bilirubin Direct 0.5 mg/dL (0.0-0.5); Blood Urea Nitrogen 26 mg/dL (9-16); Calcium 9.4 mg/dL (8.4-10.2); Carbon Dioxide 22 mmol/L (22-29); Chloride 97 mmol/L (96-108); Creatinine Clr Calc Pharmacy 16.5; Estimated Glomerular Filt Rate 15; Glucose Random 147 mg/dL (60-115); Magnesium 2.2 mg/dL (1.6-2.6); Potassium 4.7 mmol/L (3.3-5.1); Sodium 135 mmol/L (135-145); Total Protein 5.8 g/dL (6.5-8.0)
[2020-08-20 14:10] LABS: Troponin-I High Sensitivity 23.6 ng/L (<3.5-17.0)
[2020-08-20 14:14] LABS: ABG Base Excess 2.8 mmol/L; ABG HCO3 27 mmol/L (22-26); ABG pCO2 42 mmHg (32-45); ABG pCO2 TC 40 mmHg (32-45); ABG pH 7.41 (7.35-7.45); ABG pH TC 7.43 (7.35-7.45); ABG pO2 179 mmHg (83-108); ABG pO2 TC 175 (83-108)
[2020-08-20 14:17] LABS: ABG Refer to POC result
[2020-08-20 14:24] LABS: B Type Natriuretic Peptide 24212 pg/mL (<100)
--- NOTE | 2020-08-20 15:08 | PC.NURSE ---
pharmacy called for lasix- awaiting drip.
[2020-08-20 15:11] LABS: Appearance Urine TURBID; Color Urine YELLOW; Glucose Urine UA 100 MG/DL (NEG); Leukocyte Esterase Urine 3+ (NEG); Nitrite Urine POS (NEG); PH 5.5 (5.0-8.0); Specific Gravity - Urine 1.025 (1.005-1.025); UACC Culture Trigger YES; Urine Blood 3+ (NEG); Urine Ketones 5 MG/DL (NEG); Urine Protein 3+ MG/DL (NEG-TRACE)
[2020-08-20 15:19] LABS: Bacteria Urine 1+ /LPF; Squamous Epithelial Cell Urine 1+ /LPF; WBC Urine TNTC /HPF (0-4)
[2020-08-20] MEDS: Furosemide 500 MG in Container,Empty 0 ML IVCONT (15:20)
--- NOTE | 2020-08-20 15:27 | PC.NURSE ---
pt with UTI. abx ordered. PIGMENT GRINDER at bedside. Pt confused, uncomfortable with catheter and oxygen. Reassured and redirected. Lasix drip running at 5mg/hr via angio to RAC
[2020-08-20] MEDS: cefTRIAXone sodium 1 GM in 0.9 % Sodium Chloride 50 ML IV (15:41)
--- NOTE | 2020-08-20 16:44 | PM.IMHP ---
History of Present Illness Date of Service: 08/20/20 <JEREMY Webb - Last Filed: 08/20/20 17:19> Chief Complaint: shortness of breath <JEREMY Webb Last Filed: 08/20/20 17:19> This is a 80-year-old female with a history of end-stage renal disease on hemodialysis who presents to the emergency department from [facility] with shortness of breath. She was admitted to the hospital from July 31 to August 04 with fluid overload. At that time due to her advanced kidney disease she was started on hemodialysis. She was discharged to [facility] where she has continued to receive dialysis. For the past few days the patient has been feeling short of breath for the past 2 days. She did receive dialysis yesterday. She denies any cough although emergency room documentation indicates dry cough. She denies fever or chills. at the bedside reports intermittent confusion for the past 1 month as well as increasing fatigue. Today chest x-ray showed fluid overload. The emergency room provider discussed the case with Cardiology who recommended starting Lasix drip. Although the patient reports that she does make urine, a Jones catheter was placed and after a few hours on the Lasix drip there was no significant urine output. Patient's respiratory rate began to increase along with work breathing. For this reason the science job titles was called and the decision was made to admit her with the plan of urgent dialysis tonight. She was also noted to have UA consistent with UTI, although it is difficult to discern if the patient is symptomatic or not. <JEREMY Webb - Last Filed: 08/20/20 17:19> Review of Systems Review of Systems: Yes all other systems are reviewed and are negative <JEREMY Webb Last Filed: 08/20/20 17:19> Constitutional: Constitutional: Denies chills and Denies fever(s) <JEREMY Webb Last Filed: 08/20/20 17:19> Cardiovascular: Cardiovascular: Denies chest pain <JEREMY Webb Last Filed: 08/20/20 17:19> Gastrointestinal: Gastrointestinal: Denies abdominal pain <JEREMY Webb Last Filed: 08/20/20 17:19> FOR[facility]LY [facility] Medical History: 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 Diabetic nephropathy Essential hypertension Heart failure with reduced ejection fraction History of myocardial infarction Lumbosacral radiculopathy due to degenerative joint disease of spine Menopause Osteoarthritis involving multiple joints on both sides of body Pain and swelling of lower leg Postlaminectomy syndrome Restless leg syndrome Secondary hyperparathyroidism Septic arthritis of shoulder, right <JEREMY Webb - Last Filed: 08/20/20 17:19> Family History: Family History Father Medical history non-contributory Mother Medical history non-contributory <JEREMY Webb - Last Filed: 08/20/20 17:19> Surgical History: Surgical History History of carpal tunnel release History of foot surgery History of laminectomy History of surgery History of total left knee replacement (TKR) Hx of appendectomy Hx of bilateral cataract extraction Hx of cholecystectomy Hx of colonoscopy Hx of dilation and curettage Hx of umbilical hernia repair S/P CABG x 3 S/P trigger finger release Status post right shoulder hemiarthroplasty <JEREMY Webb - Last Filed: 08/20/20 17:19> Social History: Social History Household Members: Spouse Housing: House Alcohol intake: never Smoking Status: Never smoker Advance Directives: No Advance Directives Information Provided: Yes service: No Current occupational status: retired <JEREMY Webb - Last Filed: 08/20/20 17:19> Meds Allergies/Adverse reactions: Allergies Allergy/AdvReac Type Severity Reaction Status Date / Time erythromycin base Allergy Mild RASH Verified 07/31/20 01:54 [Erythromycin Base] indomethacin [From Indocin] Allergy Mild RASH Verified 07/31/20 01:54 Sulfa (Sulfonamide Allergy Mild RASH, Verified 07/31/20 01:54 Antibiotics) stomach [Sulfa (Sulfonamides)] upset ezetimibe [From Zetia] Allergy Unknown unknown Verified 07/31/20 01:54 flaxseed [FLAXSEED] Allergy Unknown SWELLING Verified 07/31/20 01:54 TONGUE AND LIPS Flexeril Allergy Unknown lg swelling Verified 07/31/20 01:54 gabapentin [From Neurontin] Allergy Unknown UNknown Verified 07/31/20 01:54 glipizide Allergy Unknown UNknown Verified 07/31/20 01:54 Niacin Preparations Allergy Unknown RASH Verified 07/31/20 01:54 [NIACIN PREPARATIONS] Penicillins Allergy Unknown Rash Verified 07/31/20 01:54 cocaine Allergy Seizure Verified 07/31/20 01:54 atorvastatin [From Lipitor] AdvReac Mild MUSCLE Verified 07/31/20 01:54 SOARNESS oxycodone AdvReac Unknown GI upset- Verified 07/31/20 01:54 sevree CAT GUT SUTURES Allergy Unknown rash Uncoded 07/31/20 01:54 PLASTIC TAPE, BANDADES Allergy Unknown rash Uncoded 07/31/20 01:54 Adhesive Bandage AdvReac Mild BLISTERS Uncoded 07/31/20 01:54 <JEREMY Webb - Last Filed: 08/20/20 17:19> Active Medications: Current Medications Generic Name Dose Route Start Last Admin Trade Name Freq PRN Reason Stop Dose Admin Furosemide 500 mg/ IV 50 mls @ 0.5 mls/hr 08/20/20 14:45 08/20/20 15:20 Miscellaneous Supplies IVCONT 5 mg/hr .Q24H OMI 0.5 mls/hr Administration 5 MG/HR Pharmacy Consult 1 each 08/20/20 14:38 Consult Rx Perform Med Rec MISCELLANE ONCE PRN Consult order <JEREMY Webb - Last Filed: 08/20/20 17:19> Home medications: Home Medications Medication Instructions Recorded Confirmed Last Taken Type ketorolac 1 drp OPHTHALMIC-RIGHT QID 03/31/20 08/20/20 07/30/20 12:00 History sevelamer carbonate 800 mg PO TID 05/05/20 08/20/20 07/30/20 History coenzyme Q10 100 mg capsule 100 mg PO TID cap 02/08/20/20 07/30/20 08:00 History ferrous sulfate 325 mg (65 mg 325 mg PO TID tab 06/21/20 08/20/20 07/30/20 08:00 History iron) tablet ropinirole 0.5 mg tablet 0.5 mg PO QID tab 06/21/20 08/20/20 07/30/20 02:00 History sodium bicarbonate-sodium chloride 1 ea MISCELLANEOUS BID 06/21/20 08/20/20 07/30/20 History powder vit C,E,Zn,Aa--nsd-zeax 1 cap PO BID 07/18/20 07/31/20 Unknown History hydrocodone-acetaminophen 1 tab PO Q8H PRN 07/31/20 08/20/20 07/30/20 23:00 History rosuvastatin 10 mg PO DAILY 07/31/20 08/20/20 Unknown History <JEREMY Webb - Last Filed: 08/20/20 17:19> Physical Exam Vital Signs and Narrative: Vital Signs: Last Vital Signs Temp 97.7 F 08/20/20 16:32 Pulse 63 08/20/20 16:32 Resp 29 H 08/20/20 16:32 BP 129/76 08/20/20 16:32 Pulse Ox 100 08/20/20 16:32 Oxygen Flow Rate 2 08/20/20 13:05 Body Mass Index 30.8 <JEREMY Webb - Last Filed: 08/20/20 17:19> Const: General: ill appearing and lethargic <JEREMY Webb Last Filed: 08/20/20 17:19> Nutritional Appearance: overweight <JEREMY Webb Last Filed: 08/20/20 17:19> Orientation/consciousness: oriented to person, oriented to place and lethargic <JEREMY Webb Last Filed: 08/20/20 17:19> HENMT: Other: dry mucous membranes <JEREMY Webb Last Filed: 08/20/20 17:19> Eyes: Sclerae: sclerae normal <JEREMY Webb Last Filed: 08/20/20 17:19> Resp: Effort & Inspection: tachypneic and uses accessory muscles <JEREMY Webb - Last Filed: 08/20/20 17:19> Auscultation: crackles and wheezes <JEREMY Webb - Last Filed: 08/20/20 17:19> GI: Inspection: No distended <JEREMY Webb - Last Filed: 08/20/20 17:19> Palpation (GI): Soft to palpation, nontender and no guarding <JEREMY Webb - Last Filed: 08/20/20 17:19> : Other: jones with few drops of urine <JEREMY Webb - Last Filed: 08/20/20 17:19> Skin: Other: multiple areas of bruising right neck, arms; dialysis catheter present right side <JEREMY Webb - Last Filed: 08/20/20 17:19> Neuro: General: oriented to person and oriented to place <JEREMY Webb - Last Filed: 08/20/20 17:19> Extrem: Other: b/l pitting edema <JEREMY Webb - Last Filed: 08/20/20 17:19> Results Labs CBC and Chem 7: : 08/20/20 13:25 08/20/20 13:25 <JEREMY Webb - Last Filed: 08/20/20 17:19> Labs: Laboratory Results - last 24 hr 08/20/20 08/20/20 08/20/20 13:25 13:25 13:25 MCV 93.3 MCH 27.5 MCHC 29.5 L RDW 18.9 H Plt Count 216 MPV 11.0 Immature Gran % (Auto) 0.3 Neut % (Auto) 77.0 H Lymph % (Auto) 14.6 L [place] % (Auto) 7.6 Eos % (Auto) 0.3 Baso % (Auto) 0.2 Lymph # (Auto) 0.9 L [place] # (Auto) 0.5 Eos # (Auto) 0.0 Baso # (Auto) 0.0 Abs Immat Gran (auto) 0.02 Absolute Neuts (auto) 4.9 Absolute Nucleated RBC 0.040 H Nucleated RBC % (auto) 0.6 H PT 31.6 H D INR 2.6 H APTT 42.5 H O2 Saturation ABG pH at Pt Temp ABG pH (Temp Correct) ABG pCO2 at Pt Temp ABG pCO2 (Temp Corrct ABG pO2 at Pt Temp ABG pO2 (Temp Correct ABG HCO3 ABG Base Excess (Actual) Anion Gap 21 H Estim Creat Clear Calc 16.5 Estimated GFR 15 Random Glucose 147 H Lactic Acid Calcium 9.4 D Magnesium 2.2 Total Bilirubin 1.0 Direct Bilirubin 0.5 AST 40 H D ALT 89 H Alkaline Phosphatase 173 H D Troponin I High Sens B-Natriuretic Peptide Total Protein 5.8 L Albumin 3.8 Urine Color Urine Appearance Urine pH Ur Specific [place] Urine Protein Urine Glucose (UA) Urine Ketones Urine Blood Urine Nitrite Ur Leukocyte Esterase Urine RBC Urine WBC Ur Squamous Epith Cells Urine Bacteria COVID-19 (BENJAMIN) COVID-19 [employer] 08/20/20 08/20/20 08/20/20 13:25 13:25 13:25 MCV MCH MCHC RDW Plt Count MPV Immature Gran % (Auto) Neut % (Auto) Lymph % (Auto) [place] % (Auto) Eos % (Auto) Baso % (Auto) Lymph # (Auto) [place] # (Auto) Eos # (Auto) Baso # (Auto) Abs Immat Gran (auto) Absolute Neuts (auto) Absolute Nucleated RBC Nucleated RBC % (auto) PT INR APTT O2 Saturation ABG pH at Pt Temp ABG pH (Temp Correct) ABG pCO2 at Pt Temp ABG pCO2 (Temp Corrct ABG pO2 at Pt Temp ABG pO2 (Temp Correct ABG HCO3 ABG Base Excess (Actual) Anion Gap Estim Creat Clear Calc Estimated GFR Random Glucose Lactic Acid 2.0 Calcium Magnesium Total Bilirubin Direct Bilirubin AST ALT Alkaline Phosphatase Troponin I High Sens 23.6 H D B-Natriuretic Peptide 40632 H Total Protein Albumin Urine Color Urine Appearance Urine pH Ur Specific [place] Urine Protein Urine Glucose (UA) Urine Ketones Urine Blood Urine Nitrite Ur Leukocyte Esterase Urine RBC Urine WBC Ur Squamous Epith Cells Urine Bacteria COVID-19 (BENJAMIN) Negative COVID-19 [employer] See Note 08/20/20 08/20/20 14:01 15:01 MCV MCH MCHC RDW Plt Count MPV Immature Gran % (Auto) Neut % (Auto) Lymph % (Auto) [place] % (Auto) Eos % (Auto) Baso % (Auto) Lymph # (Auto) [place] # (Auto) Eos # (Auto) Baso # (Auto) Abs Immat Gran (auto) Absolute Neuts (auto) Absolute Nucleated RBC Nucleated RBC % (auto) PT INR APTT O2 Saturation 100.0 ABG pH at Pt Temp 7.41 ABG pH (Temp Correct) 7.43 ABG pCO2 at Pt Temp 42 ABG pCO2 (Temp Corrct 40 ABG pO2 at Pt Temp 179 H ABG pO2 (Temp Correct 175 H ABG HCO3 27 H ABG Base Excess (Actual) 2.8 Anion Gap Estim Creat Clear Calc Estimated GFR Random Glucose Lactic Acid Calcium Magnesium Total Bilirubin Direct Bilirubin AST ALT Alkaline Phosphatase Troponin I High Sens B-Natriuretic Peptide Total Protein Albumin Urine Color YELLOW Urine Appearance TURBID Urine pH 5.5 Ur Specific [place] 1.025 Urine Protein 3+ H Urine Glucose (UA) 100 H Urine Ketones 5 Urine Blood 3+ H Urine Nitrite POS H Ur Leukocyte Esterase 3+ H Urine RBC 1-4 Urine WBC TNTC H Ur Squamous Epith Cells 1+ Urine Bacteria 1+ COVID-19 ([facility]ENJAMIN) COVID-19 Clin Com <JEREMY Webb - Last Filed: 08/20/20 17:19> Imaging Radiologist's Impressions: Impressions Chest X-Ray 08/20/20 13:12 IMPRESSION: Low lung volumes. Evidence of mild interstitial pulmonary edema with basilar subsegmental atelectasis. <JEREMY Webb - Last Filed: 08/20/20 17:19> Assessment and Plan (1) Tachypnea: Status: Acute <JEREMY Webb - Last Filed: 08/20/20 17:19> (2) UTI (urinary tract infection): Status: Acute <JEREMY Webb - Last Filed: 08/20/20 17:19> (3) End stage renal disease: Status: Acute <JEREMY Webb - Last Filed: 08/20/20 17:19> This is a 80-year-old female with end-stage renal disease recently started on hemodialysis, diabetes, cardiomyopathy with EF of of 15-20%, CAD status post CABG, hypertension, among others who was recently hospitalized for CHF exacerbation had permacath placed and was started on dialysis who is presenting from [facility] with dyspnea and fluid overload require urgent dialysis Fluid overload h/o ESRD on HD, HFrEF, imaging showing pulmonary edema Trialed on lasix drip in ED with minimal urine output and worsening respiratory status. nephrology contacted, plan for urgent dialysis -nephrology consult continue sodium bicarb, phosphate binder UTI -IV ceftriaxone UCx, BCx pending Elevated trop pt denies chest pain, likely result of renal dz -will trend DM diet controlled -SSI, POCs, ADA diet Afib -continue eliquis, coreg Intermittent confusion family reports ongoing issue for past month or so. Seen in ED 08/06 for same no focal neuro deficits. general lethargy. alert and able to answer some basic questions likely multifactorial r/t multiple visits to ED, hospitalizations, and now with UTI/fluid overload Hypothyroidism -synthroid Chronic bilateral lower extremity pain/RLS patient had a temporary spinal stimulator that was recently removed in anticipation that she will undergo bilateral spinal stimulator on 07/28 however the procedure was canceled due to worsening renal function -continue home dose pain medication, requip HLD continue statin HTN continue hydralazine, coreg DVT ppx - eliquis code status - MOLST full code, confirmed with . may need to be re-addressed. Attending. Dr. Walter <JEREMY Webb - Last Filed: 08/20/20 17:19>
--- NOTE | 2020-08-20 17:23 | PM.EVENT ---
Event Note Date of Service: 08/20/20 Event Note: the patient was seen and evaluated with JEREMY Lynch. I agree with her note, assessment and plan with the following. In summary, a 80 years old female with PMH of systolic heart failure, ESRD on dialysis, diabetes among others who presented to the hospital from longterm for worsening shortness of breath. She was recently admitted to the hospital for same reason started dialysis during that. Discharged to SNF which continue dialysis but for the last 2 days she is reporting increased dyspnea and shortness of breath. In the emergency CXR showing fluid overload with significantly elevated BNP. Discussed with cardiology who suggested starting Lasix drip. Upon further evaluation discussion with Nephrology decided to do another dialysis session. Systolic CHF exacerbation To do dialysis Nephrology to evaluate in morning Rest of evaluations by PA note.
[2020-08-20] MEDS: Acetaminophen 325 MG TABLET 650 MG PO (19:51)
[2020-08-20 20:57] LABS: Glucose, Whole Blood 120 mg/dL (60-115)
[2020-08-20] MEDS: hydrALAZINE HCl 10 MG TABLET PO (22:44)
[2020-08-20] MEDS: rOPINIRole HCL 0.5 MG TABLET PO (22:44)
[2020-08-20] MEDS: Apixaban 2.5 MG TABLET PO (22:44)
[2020-08-20] MEDS: Ferrous Sulfate 324 MG TABLET.DR PO (22:45)
[2020-08-20] MEDS: 0.9 % Sodium Chloride Flush 3 ML SYRINGE IVFLUSH (22:46)
[2020-08-20] MEDS: HYDROcodone Bit/Acetam 5/325 TABLET 1 TAB PO (22:52)
[2020-08-21] VITALS (9 sets, daily range): BP systolic 116–141; BP diastolic 72–87; PULSE 55–71; RESP 14–20; TEMP 36.3–36.8; O2SAT 92–99; BMI 27.2
[2020-08-21] MEDS: Levothyroxine Sodium 25 MCG TABLET PO (05:37)
[2020-08-21] MEDS: Levothyroxine Sodium 112 MCG TABLET PO (05:37)
[2020-08-21 06:23] LABS: MANUAL DIFF FLAG NO
[2020-08-21 06:39] LABS: Basophils Percent Auto 0.3 % (0-2); Eosinophils Absolute Auto 0.1 X10*3/uL (0.0-0.4); Eosinophils Percent Auto 1.5 % (0-4); Hematocrit 38.2 % (37-47); Hemoglobin 11.6 g/dl (12.0-16.0); Imm Gran Abs Auto 0.05 X10*3/uL (0.00-0.03); Imm Gran Pct Auto 0.7 % (0.0-0.4); Lymphocytes Absolute Auto 1.4 X10*3/uL (1.2-4.9); Lymphocytes Percent Auto 20.1 % (20-40); Mean Corpuscular HGB Conc 30.4 g/dl (31.0-35.0); Mean Corpuscular Hemoglobin 27.6 pg (27.0-33.0); Mean Platelet Volume 10.6 fL (9.4-12.3); Monocytes Absolute Auto 0.5 X10*3/uL (0.1-1.2); Monocytes Percent Auto 7.1 % (2-11); NRBC Pct Auto 0.3 /100WBC (0.0-0.2); Neutrophils Absolute Auto 4.8 X10*3/uL (2.0-8.3); Neutrophils Percent Auto 70.3 % (45-73); Platelet Count 220 X10*3/uL (160-400); Red Cell Distribution Width 18.8 % (11.0-16.0); White Blood Count 6.9 X10*3/uL (4.8-10.8)
[2020-08-21 07:04] LABS: Anion Gap 21 (12-20); Blood Urea Nitrogen 32 mg/dL (9-16); Calcium 9.7 mg/dL (8.4-10.2); Carbon Dioxide 25 mmol/L (22-29); Chloride 95 mmol/L (96-108); Creatinine Clr Calc Pharmacy 13.7; Estimated Glomerular Filt Rate 13; Glucose Random 115 mg/dL (60-115); Potassium 4.6 mmol/L (3.3-5.1); Sodium 136 mmol/L (135-145)
[2020-08-21] MEDS: HYDROcodone Bit/Acetam 5/325 TABLET 1 TAB PO ×2 (07:25→16:10)
[2020-08-21] MEDS: 0.9 % Sodium Chloride Flush 3 ML SYRINGE IVFLUSH ×3 (07:26→21:27)
[2020-08-21 07:27] LABS: Glucose, Whole Blood 109 mg/dL (60-115)
[2020-08-21] MEDS: carvediloL 6.25 MG TABLET PO ×2 (08:04→21:29)
[2020-08-21] MEDS: hydrALAZINE HCl 10 MG TABLET PO ×2 (08:04→21:29)
[2020-08-21] MEDS: rOPINIRole HCL 0.5 MG TABLET PO ×4 (08:04→21:27)
[2020-08-21] MEDS: Ferrous Sulfate 324 MG TABLET.DR PO ×3 (08:05→21:27)
[2020-08-21] MEDS: Apixaban 2.5 MG TABLET PO ×2 (08:05→21:27)
--- NOTE | 2020-08-21 09:15 | P.CDIC_ITS ---
CDI Concurrent Query Service Date: 08/21/20 Documentation Clarification: Please clarify if you are treating a proba ble/suspected/likely or confirmed: Clarification: Metabolic encephalopathy, POA, Resolved Please specify if known or undetermined Metabolic Encephalopathy, POA -- now resolved Provider Response: Other Other Diagnosis: Metabolic Encephalopathy, POA -- now resolved PLEASE DO NOT DELETE/MODIFY EXISTING CONTENT Additional information is needed in order to code to the highest accuracy and appropriate Severity of Illness (SOI). Please clarify the information noted below in your progress notes and discharge summary. Risk Factors/Clinical Indicators/Treatments ED: Evaluation - Family does have some concerns over intermittent confusion. ? delirium from hospitalization, also may be metabolic encephalopathy secondary to UTI. CDS: Cele Dunlap CCS, CDIS Contact Number: [phone] Please Review the information above and exercise your independent professional judgment in responding to the query. If you concur, pleas document in the PROGRESS NOTES and DISCHARGE SUMMARY. If you do not agree with the query, please document in the query above. THIS QUERY IS PART OF THE PERMANENT MEDICAL RECORD
--- NOTE | 2020-08-21 09:57 | MHC.CM.PN ---
met with pt who lives with her pt dc plan is tbd at this time pt would be agreeable to hvns if dc plan is home ,if mpt eval indicated str rehab she would like dialysis to be in house referral to [facility]
--- NOTE | 2020-08-21 10:07 | P.CDIC_ITS ---
CDI Concurrent Query Service Date: 08/21/20 Documentation Clarification: Please clarify if you are treating a proba ble/suspected/likely or confirmed: Acute respiratory failure POA, Resolved Please specify if known Respiratory Distress, no evidence of Respiratory Failure on admission Provider Response: Other Other Diagnosis: Respiratory Distress, no evidence of Respiratory Failure on admission PLEASE DO NOT DELETE/MODIFY EXISTING CONTENT Additional information is needed in order to code to the highest accuracy and appropriate Severity of Illness (SOI). Please clarify the information noted below in your progress notes and discharge summary. Risk Factors/Clinical Indicators/Treatments Fluid overload, tachypneic, using accessory muscles, crackles and wheezing RR 29 H on 2 liters oxygen Dyspnea, worsening respiratory status, SOB, speaks in short phrases. CDS: Cele Dunlap CCS, CDIS Contact Number: [phone] Please Review the information above and exercise your independent professional judgment in responding to the query. If you concur, pleas document in the PROGRESS NOTES and DISCHARGE SUMMARY. If you do not agree with the query, please document in the query above. THIS QUERY IS PART OF THE PERMANENT MEDICAL RECORD
--- NOTE | 2020-08-21 10:23 | MHC.CM.PN ---
pt from [facility] where she will returnwhendcd
[2020-08-21] MEDS: Docusate Sodium 100 MG CAPSULE PO (10:29)
[2020-08-21 11:24] LABS: Glucose, Whole Blood 177 mg/dL (60-115)
[2020-08-21] MEDS: Insulin Lispro 100 UNIT/ML 3 ML VIAL SUBCUT ×2 (11:36→21:27)
--- NOTE | 2020-08-21 11:47 | HO.PM.IMPN ---
Subjective Subjective Date of Service: 08/21/20 <Janey Vernon NP - Last Filed: 08/21/20 15:02> 08/21/20 <Villa Horton MD - Last Filed: 08/21/20 16:38> Interval History: Follow up renal failure. Feels sob, no cough or chest pain <Janey Vernon NP - Last Filed: 08/21/20 15:02> Physical Exam Vital Signs: Vital Signs: Last Vital Signs Temp 98.2 F 08/21/20 07:20 Pulse 55 08/21/20 11:45 Resp 18 08/21/20 11:45 BP 140/78 H 08/21/20 11:45 Pulse Ox 96 08/21/20 11:45 Oxygen Flow Rate 2 08/20/20 13:05 Body Mass Index 27.2 <Janey Vernon NP - Last Filed: 08/21/20 15:02> Appearing in no acute distress, tired appearing lung sounds are clear heart regular rate rhythm, clear S1, S2 positive bowel sounds, abdomen is soft, nontender neuro patient is alert x3, no focal deficits <Janey Vernon NP - Last Filed: 08/21/20 15:02> Objective Data Current Medications Generic Name Dose Route Start Last Admin Trade Name Freq PRN Reason Stop Dose Admin Acetaminophen 650 mg 08/20/20 18:24 08/20/20 19:51 Acetaminophen 325 Mg Tablet PO 650 mg Q6H PRN Administration Pain, Mild (Pain Scale 1-3) Hydrocodone Bitart/Acetaminophen 1 tab 08/20/20 17:15 08/21/20 07:25 Hydrocodone Bit/Acetam 5/325 Tablet PO 1 tab Q8H PRN Administration Pain (Scale Score 4-6) Apixaban 2.5 mg 08/20/20 21:00 08/21/20 08:05 Apixaban 2.5 Mg Tablet PO 2.5 mg BID OMI Administration Carvedilol 6.25 mg 08/20/20 21:00 08/21/20 08:04 Carvedilol 6.25 Mg Tablet PO 6.25 mg BID OMI Administration Protocol Docusate Sodium 100 mg 08/20/20 18:24 08/21/20 10:29 Docusate Sodium 100 Mg Capsule PO 100 mg DAILY PRN Administration Constipation Ferrous Sulfate 324 mg 08/20/20 21:00 08/21/20 08:05 Ferrous Sulfate 324 Mg Tablet.Dr PO 324 mg TID OMI Administration Hydralazine HCl 10 mg 08/20/20 21:00 08/21/20 08:04 Hydralazine Hcl 10 Mg Tablet PO 10 mg BID [facility] Administration Protocol Ceftriaxone Sodium 1 gm/ 50 mls @ 100 mls/hr 08/21/20 15:00 Sodium Chloride IV Q24H [facility] Insulin Human Lispro 0 unit 08/20/20 21:00 08/21/20 11:36 Insulin Lispro 100 Unit/Ml 3 Ml Vial SUBCUT 2 unit QIDACHS [facility] Administration Protocol Ketorolac Tromethamine 1 drop 08/20/20 21:00 08/21/20 11:37 Ketorolac Tromethamine 0.5% Op 3 Ml Drops EYE-RIGHT 1 drop QID [facility] Administration Levothyroxine Sodium 112 mcg 08/21/20 06:00 08/21/20 05:37 Levothyroxine Sodium 112 Mcg Tablet PO 112 mcg DAILY@0600 [facility] Administration Levothyroxine Sodium 25 mcg 08/21/20 06:00 08/21/20 05:37 Levothyroxine Sodium 25 Mcg Tablet PO 25 mcg DAILY@0600 [facility] Administration Non-Formulary Medication 10 mg 08/21/20 09:00 Rosuvastatin PO DAILY [facility] Non-Formulary Medication 1 each 08/20/20 21:00 Sodium Bicarb-Sodium Chloride PO BID [facility] Ondansetron HCl 4 mg 08/20/20 18:24 Ondansetron Hcl 4 Mg/2 Ml Vial IVPUSH Q8H PRN Nausea and Vomiting Pharmacy Consult 1 each 08/20/20 14:38 Consult Rx Perform Med Rec MISCELLANE ONCE PRN Consult order Ropinirole HCl 0.5 mg 08/20/20 21:00 08/21/20 11:36 Ropinirole Hcl 0.5 Mg Tablet PO 0.5 mg QID [facility] Administration Sevelamer HCl 800 mg 08/20/20 21:00 08/21/20 08:05 Sevelamer Hcl 800 Mg Tablet PO 800 mg TID [facility] Administration Sodium Chloride 3 ml 08/21/20 00:00 08/21/20 07:26 0.9 % Sodium Chloride Flush 3 Ml Syringe IVFLUSH 3 ml QSHIFT [facility] Administration <Janey Vernon NP - Last Filed: 08/21/20 15:02> Labs CBC & Chem 7: : 08/21/20 06:13 08/21/20 06:13 <Janey Vernon NP - Last Filed: 08/21/20 15:02> Microbiology Microbiology Results: Microbiology 08/20/20 15:10 Urine Catheterized - Walters Catheter Urine Culture - Preliminary Gram negative za <Janey Vernon NP - Last Filed: 08/21/20 15:02> Assessment and Plan (1) End stage renal disease: Status: Acute <Janey Vernon NP - Last Filed: 08/21/20 15:02> Assessment and Plan: This is a 80-year-old female with end-stage renal disease recently started on hemodialysis, diabetes, cardiomyopathy with EF of of 15-20%, CAD status post CABG, hypertension, among others who was recently hospitalized for CHF exacerbation had permacath placed and was started on dialysis who is presenting from [facility] with dyspnea and fluid overload require urgent dialysis HFrEF. Continues with complaints of sob o2 sats 96-99%. No wheezing or rales. h/o ESRD on HD that started this month, HFrEF, imaging showing pulmonary edema. -Trialed on lasix drip in ED with minimal urine output and worsening respiratory status. Stopped -emergent dialysis yesterday -scheduled dialysis for tomorrow -continue sodium bicarb, phosphate binder UTI -IV ceftriaxone -UCx, BCx pending Elevated trop pt denies chest pain, likely result of renal dz -will trend Diabetes. Diet controlled -SSI, POCs, ADA diet Afib -continue eliquis, coreg Metabolic encephalopathy. Chronic issue, likely some component of dementia. No neuro deficits. -likely multifactorial r/t multiple visits to ED, hospitalizations, and now with UTI/fluid overload Hypothyroidism -synthroid Chronic bilateral lower extremity pain/RLS patient had a temporary spinal stimulator that was recently removed in anticipation that she will undergo bilateral spinal stimulator on 07/28 however the procedure was canceled due to worsening renal function -continue home dose pain medication, requip HLD continue statin HTN continue hydralazine, coreg DVT ppx - eliquis code status - MOLST full code, confirmed with . may need to be re-addressed. DISPO. PT evaluation. Likely return back to [facility] for rehab. Attending. Dr. Horton <Janey Vernon NP - Last Filed: 08/21/20 15:02> Attending Attestation: Patient seen and examined independently and I was present during neff portion of E/M service. Agree with Hipolito Vernon NP's history, physical, assessment, and plan. Fluid-overload secondary to ESRD + Acute HFrEF (patient presented with these symptoms despite not missing her scheduled dialysis). Overall fluid status improved. Plan on repeat dialysis tomorrow. To discuss with cardiology + nephrology re: diuretic therapy on non-dialysis days. <Villa Horton MD - Last Filed: 08/21/20 16:38>
--- NOTE | 2020-08-21 12:38 | PM.PNNEP ---
Subjective Subjective Date of Service: 08/21/20 Interval history: Patient seen and examined Physical Exam Vital Signs: Vital Signs: Last Vital Signs Temp 98.2 F 08/21/20 07:20 Pulse 55 08/21/20 11:45 Resp 18 08/21/20 11:45 BP 140/78 H 08/21/20 11:45 Pulse Ox 96 08/21/20 11:45 Oxygen Flow Rate 2 08/20/20 13:05 Body Mass Index 27.2 Objective Data Labs CBC & Chem 7: 08/21/20 06:13 08/21/20 06:13 Labs: Laboratory Results - last 24 hr 08/20/20 08/20/20 08/20/20 13:25 13:25 13:25 WBC 6.4 RBC 4.18 L Hgb 11.5 L Hct 39.0 MCV 93.3 MCH 27.5 MCHC 29.5 L RDW 18.9 H Plt Count 216 MPV 11.0 Immature Gran % (Auto) 0.3 Neut % (Auto) 77.0 H Lymph % (Auto) 14.6 L [place] % (Auto) 7.6 Eos % (Auto) 0.3 Baso % (Auto) 0.2 Lymph # (Auto) 0.9 L [place] # (Auto) 0.5 Eos # (Auto) 0.0 Baso # (Auto) 0.0 Abs Immat Gran (auto) 0.02 Absolute Neuts (auto) 4.9 Absolute Nucleated RBC 0.040 H Nucleated RBC % (auto) 0.6 H PT 31.6 H D INR 2.6 H APTT 42.5 H O2 Saturation ABG pH at Pt Temp ABG pH (Temp Correct) ABG pCO2 at Pt Temp ABG pCO2 (Temp Corrct ABG pO2 at Pt Temp ABG pO2 (Temp Correct ABG HCO3 ABG Base Excess (Actual) Sodium 135 Potassium 4.7 D Chloride 97 Carbon Dioxide 22 Anion Gap 21 H BUN 26 H Creatinine 3.06 H Estim Creat Clear Calc 16.5 Estimated GFR 15 POC Glucose Random Glucose 147 H Lactic Acid Calcium 9.4 D Magnesium 2.2 Total Bilirubin 1.0 Direct Bilirubin 0.5 AST 40 H D ALT 89 H Alkaline Phosphatase 173 H D Troponin I High Sens B-Natriuretic Peptide Total Protein 5.8 L Albumin 3.8 Urine Color Urine Appearance Urine pH Ur Specific [place] Urine Protein Urine Glucose (UA) Urine Ketones Urine Blood Urine Nitrite Ur Leukocyte Esterase Urine RBC Urine WBC Ur Squamous Epith Cells Urine Bacteria COVID-19 ([facility]) COVID-19 Clin Com 08/20/20 08/20/20 08/20/20 13:25 13:25 13:25 WBC RBC Hgb Hct MCV MCH MCHC RDW Plt Count MPV Immature Gran % (Auto) Neut % (Auto) Lymph % (Auto) [place] % (Auto) Eos % (Auto) Baso % (Auto) Lymph # (Auto) [place] # (Auto) Eos # (Auto) Baso # (Auto) Abs Immat Gran (auto) Absolute Neuts (auto) Absolute Nucleated RBC Nucleated RBC % (auto) PT INR APTT O2 Saturation ABG pH at Pt Temp ABG pH (Temp Correct) ABG pCO2 at Pt Temp ABG pCO2 (Temp Corrct ABG pO2 at Pt Temp ABG pO2 (Temp Correct ABG HCO3 ABG Base Excess (Actual) Sodium Potassium Chloride Carbon Dioxide Anion Gap BUN Creatinine Estim Creat Clear Calc Estimated GFR POC Glucose Random Glucose Lactic Acid 2.0 Calcium Magnesium Total Bilirubin Direct Bilirubin AST ALT Alkaline Phosphatase Troponin I High Sens 23.6 H D B-Natriuretic Peptide 60986 H Total Protein Albumin Urine Color Urine Appearance Urine pH Ur Specific [place] Urine Protein Urine Glucose (UA) Urine Ketones Urine Blood Urine Nitrite Ur Leukocyte Esterase Urine RBC Urine WBC Ur Squamous Epith Cells Urine Bacteria COVID-19 ([facility]) Negative COVID-19 Clin Com See Note 08/20/20 08/20/20 08/20/20 14:01 15:01 17:48 WBC RBC Hgb Hct MCV MCH MCHC RDW Plt Count MPV Immature Gran % (Auto) Neut % (Auto) Lymph % (Auto) [place] % (Auto) Eos % (Auto) Baso % (Auto) Lymph # (Auto) [place] # (Auto) Eos # (Auto) Baso # (Auto) Abs Immat Gran (auto) Absolute Neuts (auto) Absolute Nucleated RBC Nucleated RBC % (auto) PT INR APTT O2 Saturation 100.0 ABG pH at Pt Temp 7.41 ABG pH (Temp Correct) 7.43 ABG pCO2 at Pt Temp 42 ABG pCO2 (Temp Corrct 40 ABG pO2 at Pt Temp 179 H ABG pO2 (Temp Correct 175 H ABG HCO3 27 H ABG Base Excess (Actual) 2.8 Sodium Potassium Chloride Carbon Dioxide Anion Gap BUN Creatinine Estim Creat Clear Calc Estimated GFR POC Glucose Random Glucose Lactic Acid Calcium Magnesium Total Bilirubin Direct Bilirubin AST ALT Alkaline Phosphatase Troponin I High Sens 27.0 H B-Natriuretic Peptide Total Protein Albumin Urine Color YELLOW Urine Appearance TURBID Urine pH 5.5 Ur Specific [place] 1.025 Urine Protein 3+ H Urine Glucose (UA) 100 H Urine Ketones 5 Urine Blood 3+ H Urine Nitrite POS H Ur Leukocyte Esterase 3+ H Urine RBC 1-4 Urine WBC TNTC H Ur Squamous Epith Cells 1+ Urine Bacteria 1+ COVID-19 ([facility]) COVID-19 Clin Com 08/20/20 08/21/20 08/21/20 20:54 06:13 06:13 WBC 6.9 RBC 4.20 Hgb 11.6 L Hct 38.2 MCV 91.0 MCH 27.6 MCHC 30.4 L RDW 18.8 H Plt Count 220 MPV 10.6 Immature Gran % (Auto) 0.7 H Neut % (Auto) 70.3 Lymph % (Auto) 20.1 [place] % (Auto) 7.1 Eos % (Auto) 1.5 Baso % (Auto) 0.3 Lymph # (Auto) 1.4 [place] # (Auto) 0.5 Eos # (Auto) 0.1 Baso # (Auto) 0.0 Abs Immat Gran (auto) 0.05 H Absolute Neuts (auto) 4.8 Absolute Nucleated RBC 0.020 H Nucleated RBC % (auto) 0.3 H PT INR APTT O2 Saturation ABG pH at Pt Temp ABG pH (Temp Correct) ABG pCO2 at Pt Temp ABG pCO2 (Temp Corrct ABG pO2 at Pt Temp ABG pO2 (Temp Correct ABG HCO3 ABG Base Excess (Actual) Sodium 136 Potassium 4.6 Chloride 95 L Carbon Dioxide 25 Anion Gap 21 H BUN 32 H Creatinine 3.48 H Estim Creat Clear Calc 13.7 Estimated GFR 13 POC Glucose 120 H Random Glucose 115 Lactic Acid Calcium 9.7 Magnesium Total Bilirubin Direct Bilirubin AST ALT Alkaline Phosphatase Troponin I High Sens B-Natriuretic Peptide Total Protein Albumin Urine Color Urine Appearance Urine pH Ur Specific [place] Urine Protein Urine Glucose (UA) Urine Ketones Urine Blood Urine Nitrite Ur Leukocyte Esterase Urine RBC Urine WBC Ur Squamous Epith Cells Urine Bacteria COVID-19 ([facility]) COVID-19 Clin Com 08/21/20 08/21/20 07:20 11:19 WBC RBC Hgb Hct MCV MCH MCHC RDW Plt Count MPV Immature Gran % (Auto) Neut % (Auto) Lymph % (Auto) [place] % (Auto) Eos % (Auto) Baso % (Auto) Lymph # (Auto) [place] # (Auto) Eos # (Auto) Baso # (Auto) Abs Immat Gran (auto) Absolute Neuts (auto) Absolute Nucleated RBC Nucleated RBC % (auto) PT INR APTT O2 Saturation ABG pH at Pt Temp ABG pH (Temp Correct) ABG pCO2 at Pt Temp ABG pCO2 (Temp Corrct ABG pO2 at Pt Temp ABG pO2 (Temp Correct ABG HCO3 ABG Base Excess (Actual) Sodium Potassium Chloride Carbon Dioxide Anion Gap BUN Creatinine Estim Creat Clear Calc Estimated GFR POC Glucose 109 177 H Random Glucose Lactic Acid Calcium Magnesium Total Bilirubin Direct Bilirubin AST ALT Alkaline Phosphatase Troponin I High Sens B-Natriuretic Peptide Total Protein Albumin Urine Color Urine Appearance Urine pH Ur Specific [place] Urine Protein Urine Glucose (UA) Urine Ketones Urine Blood Urine Nitrite Ur Leukocyte Esterase Urine RBC Urine WBC Ur Squamous Epith Cells Urine Bacteria COVID-19 ([facility]) COVID-19 Clin Com Microbiology Microbiology Results: Microbiology 08/20/20 15:10 Urine Catheterized - Walters Catheter Urine Culture - Preliminary Gram negative za Assessment & Plan Assessment and plan (1) End stage renal disease: Status: Acute (2) Congestive heart failure: Status: Acute Assessment and Plan: s/p ultrafiltration yesterday normally dialyzes t-t-s at [facility] dialysis unit PLAN HD tomorrow per schedule renal diet phosphate binders no need for NASRA Time Spent With Patient Time: Total time spent is greater than 50% in coordination of care (as documented) at patient's floor/unit and/or counseling patient:
[2020-08-21] MEDS: cefTRIAXone sodium 1 GM in 0.9 % Sodium Chloride 50 ML IV (14:15)
--- NOTE | 2020-08-21 16:04 | MHC.CM.PN ---
met with pt, and son they all agree that they do not want pt to return to [facility] rehab they would be okay with pt going to dialysis at [facility] however additional referrals placed per out conversation family is aware that md is anticapating dc for [facility]
[2020-08-21 16:16] LABS: Glucose, Whole Blood 129 mg/dL (60-115)
[2020-08-21 16:49] LABS: B Type Natriuretic Peptide 23799 pg/mL (<100)
[2020-08-21 20:59] LABS: Glucose, Whole Blood 190 mg/dL (60-115)
--- NOTE | 2020-08-22 00:24 | CONS_ITS ---
DATE OF SERVICE: 08/21/2020 HISTORY OF PRESENT ILLNESS: I was asked to assist in management of this 80-year-old patient who has history of end-stage renal disease; on chronic hemodialysis, presented to the hospital from [place] because of shortness of breath and underwent emergent ultrafiltration. The patient was recently started on hemodialysis after recent admission back in July with fluid overload and was discharged to [place] for further rehabilitation and dialysis. She denies any chest pain or shortness of breath. At the time of the consultation, there was no nausea, vomiting, or diarrhea. Chest x-ray was consistent with fluid overload. PAST MEDICAL HISTORY: Remarkable for end-stage renal disease, diabetes mellitus, hypertension, systolic congestive heart failure, hypothyroidism, anemia, coronary artery disease, history of NE, osteoarthritis, restless legs syndrome, secondary hyperparathyroidism. PAST SURGICAL HISTORY: Notable for carpal tunnel release, foot surgery, laminectomy, knee replacement, appendectomy, cataract extraction, cholecystectomy, shoulder surgery. MEDICATIONS: As inpatient and outpatient were reviewed. ALLERGIES: SHE IS ALLERGIC TO ERYTHROMYCIN, INDOMETHACIN, SULFA DRUGS, FLEXERIL, GABAPENTIN, GLIPIZIDE, PENICILLIN, COCAINE, ATORVASTATIN, OXYCODONE. SOCIAL HISTORY: Does not smoke. FAMILY HISTORY: Negative for kidney disease. REVIEW OF SYSTEMS: Ten-point review of systems was negative except pertinent in the history of present illness. PHYSICAL EXAMINATION: VITAL SIGNS: The blood pressure is 140/78, heart rate 55, respiratory rate 18, temperature afebrile. CONSTITUTIONAL: Looks her age. No acute distress. NEUROLOGIC: Alert, awake. HEAD: Atraumatic, normocephalic. NECK: Supple. LUNGS: Decreased breath sounds. CARDIOVASCULAR: S1, S2. No rub. ABDOMEN: Soft, nontender. EXTREMITIES: With peripheral edema. LABORATORY DATA: Sodium 136, potassium 4.6, chloride 95, CO2 of 25, BUN 32, creatinine 3.48. White count 6.9, hemoglobin 11.6, platelet count 220. IMPRESSION: 1. End-stage renal disease. 2. Systolic heart failure. 3. Anemia. PLAN: This is a patient, who presented with volume overload, underwent dialysis yesterday. There is no indication for dialysis today. We will resume her hemodialysis as per schedule tomorrow. We will have her on renal diet. Restrict her fluid intake. She does not need Epogen, and we will have her on phosphate binders. Thank you for allowing me to participate in the care of this patient. MD LISSETTE Aleman/RAFIA / [phone]
[2020-08-22 03:13] VITALS: BP 140/85; PULSE 73; RESP 18; TEMP 36.2; O2SAT 93
[2020-08-22] MEDS: Levothyroxine Sodium 112 MCG TABLET PO (05:13)
[2020-08-22] MEDS: Levothyroxine Sodium 25 MCG TABLET PO (05:13)
[2020-08-22 05:54] LABS: MANUAL DIFF FLAG NO
[2020-08-22 05:58] LABS: Basophils Percent Auto 0.2 % (0-2); Eosinophils Absolute Auto 0.1 X10*3/uL (0.0-0.4); Eosinophils Percent Auto 1.3 % (0-4); Hematocrit 38.2 % (37-47); Imm Gran Abs Auto 0.02 X10*3/uL (0.00-0.03); Imm Gran Pct Auto 0.2 % (0.0-0.4); Lymphocytes Absolute Auto 1.4 X10*3/uL (1.2-4.9); Lymphocytes Percent Auto 17.1 % (20-40); Mean Corpuscular HGB Conc 31.4 g/dl (31.0-35.0); Mean Corpuscular Hemoglobin 28.1 pg (27.0-33.0); Mean Corpuscular Volume 89.5 fL (80-98); Mean Platelet Volume 11.5 fL (9.4-12.3); Monocytes Absolute Auto 0.6 X10*3/uL (0.1-1.2); NRBC Pct Auto 0.2 /100WBC (0.0-0.2); Neutrophils Absolute Auto 6.3 X10*3/uL (2.0-8.3); Neutrophils Percent Auto 74.2 % (45-73); Platelet Count 257 X10*3/uL (160-400); Red Blood Count 4.27 X10*6/uL (4.20-5.50); White Blood Count 8.4 X10*3/uL (4.8-10.8)
[2020-08-22 07:44] VITALS: BP 132/98; PULSE 55; RESP 20; TEMP 36.6; O2SAT 96
[2020-08-22 07:55] LABS: Anion Gap 20 (12-20); Blood Urea Nitrogen 38 mg/dL (9-16); Calcium 9.2 mg/dL (8.4-10.2); Carbon Dioxide 23 mmol/L (22-29); Chloride 99 mmol/L (96-108); Creatinine Clr Calc Pharmacy 14.8; Estimated Glomerular Filt Rate 14; Glucose Random 111 mg/dL (60-115); Potassium 4.2 mmol/L (3.3-5.1); Sodium 138 mmol/L (135-145)
--- NOTE | 2020-08-22 09:23 | P.CONCA_ITS ---
History of Present Illness History of Present Illness Date of Service: 08/22/20 Requesting physician: [place] [facility] Consult reason: congestive heart failure Chief complaint: dyspnea Narrative: We were asked to see Delmar in cardiology consultation today for management of her congestive heart failure syndrome. As you may recall she was admitted last month with decompensated heart failure with fluid overload and progressive renal failure started on hemodialysis. That time she was also noted to have severe cardiomyopathy with severe LV systolic dysfunction with regional wall motion abnormality consistent with ischemic cardiomyopathy. After initiation of dialysis she did better and [facility] She said despite of significant pain issues she has started walking few distance with a walker. Her she continues to have significant pain issues in her lower extremities and lower part of the body. She came to the hospital with significant respiratory distress and was noted to be in pulmonary edema. She had poor response to IV Lasix drip. Was given urgent hemodialysis much improvement in the clinical status. She is getting repeat hemodialysis session today. She says she is short of breath. Blood pressure is stable and somewhat elevated for her overall congestive heart f ailure syndrome. She denies any chest pain or palpitations. Denies lightheadedness, syncope. Review of Systems Constitutional: Constitutional: Denies chills and Denies fever(s) Cardiovascular: Cardiovascular: Denies chest pain, Denies leg edema, Denies Loss of Consciousness, Denies palpitations, Reports dyspnea and Reports orthopnea Respiratory: Respiratory: Reports no additional respiratory complaints and Reports dyspnea Gastrointestinal: Gastrointestinal: Reports no additional gastrointestinal complaints Musculoskeletal: Musculoskeletal: Reports back pain and Reports arthralgias Neurologic: Reports system reviewed and no additional complaints, except as documented Psychiatric: Psychiatric: Reports no additional psychiatric complaints Endocrine: Endocrine: Denies palpitations Hematologic/Lymphatic: Hematologic/Lymphatic: Reports no additional hematologic/lymphatic complaints [facility] Past Medical History 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 Diabetic nephropathy Essential hypertension Heart failure with reduced ejection fraction History of myocardial infarction Lumbosacral radiculopathy due to degenerative joint disease of spine Menopause Osteoarthritis involving multiple joints on both sides of body Pain and swelling of lower leg Postlaminectomy syndrome Restless leg syndrome Secondary hyperparathyroidism Septic arthritis of shoulder, right Family History Family History Father Medical history non-contributory Mother Medical history non-contributory Surgical History Surgical History History of carpal tunnel release History of foot surgery History of laminectomy History of surgery History of total left knee replacement (TKR) Hx of appendectomy Hx of bilateral cataract extraction Hx of cholecystectomy Hx of colonoscopy Hx of dilation and curettage Hx of umbilical hernia repair S/P CABG x 3 S/P trigger finger release Status post right shoulder hemiarthroplasty Social History Social History Household Members: Spouse Housing: House Housing Other:: Came from [facility], for rehab Do you presently have visiting nurse or other home services: No Alcohol intake: never Smoking Status: Never smoker Use of substances other than those prescribed or required for medical reasons: No Currently Displaying Signs/Symptoms of Drug Intoxication Withdrawal: No Have you been hit, kicked, punched, or otherwise hurt by someone within the past year? If so, by whom?: No Do you feel safe in your current relationship?: Yes Is there a partner from a previous relationship who is making you feel unsafe now?: No Are you made to feel afraid or neglected: No Advance Directives: No Advance Directives Information Provided: Yes Do you have thoughts of harming others: None Do you have a plan to hurt others: No Plan Recently lost weight without trying: No service: No Current occupational status: retired Meds Allergies Allergy/AdvReac Type Severity Reaction Status Date / Time erythromycin base Allergy Mild RASH Verified 07/31/20 01:54 [Erythromycin Base] indomethacin [From Indocin] Allergy Mild RASH Verified 07/31/20 01:54 Sulfa (Sulfonamide Allergy Mild RASH, Verified 07/31/20 01:54 Antibiotics) stomach [Sulfa (Sulfonamides)] upset ezetimibe [From Zetia] Allergy Unknown unknown Verified 07/31/20 01:54 flaxseed [FLAXSEED] Allergy Unknown SWELLING Verified 07/31/20 01:54 TONGUE AND LIPS Flexeril Allergy Unknown lg swelling Verified 07/31/20 01:54 gabapentin [From Neurontin] Allergy Unknown UNknown Verified 07/31/20 01:54 glipizide Allergy Unknown UNknown Verified 07/31/20 01:54 Niacin Preparations Allergy Unknown RASH Verified 07/31/20 01:54 [NIACIN PREPARATIONS] Penicillins Allergy Unknown Rash Verified 07/31/20 01:54 cocaine Allergy Seizure Verified 07/31/20 01:54 atorvastatin [From Lipitor] AdvReac Mild MUSCLE Verified 07/31/20 01:54 SOARNESS oxycodone AdvReac Unknown GI upset- Verified 07/31/20 01:54 sevree CAT GUT SUTURES Allergy Unknown rash Uncoded 07/31/20 01:54 PLASTIC TAPE, BANDADES Allergy Unknown rash Uncoded 07/31/20 01:54 Adhesive Bandage AdvReac Mild BLISTERS Uncoded 07/31/20 01:54 Active Medications: Current Medications Generic Name Dose Route Start Last Admin Trade Name Freq PRN Reason Stop Dose Admin Acetaminophen 650 mg 08/20/20 18:24 08/20/20 19:51 Acetaminophen 325 Mg Tablet PO 650 mg Q6H PRN Administration Pain, Mild (Pain Scale 1-3) Hydrocodone Bitart/Acetaminophen 1 tab 08/20/20 17:15 08/21/20 16:10 Hydrocodone Bit/Acetam 5/325 Tablet PO 1 tab Q8H PRN Administration Pain (Scale Score 4-6) Apixaban 2.5 mg 08/20/20 21:00 08/21/20 21:27 Apixaban 2.5 Mg Tablet PO 2.5 mg BID OMI Administration Carvedilol 6.25 mg 08/20/20 21:00 08/21/20 21:29 Carvedilol 6.25 Mg Tablet PO 6.25 mg BID OMI Administration Protocol Docusate Sodium 100 mg 08/20/20 18:24 08/21/20 10:29 Docusate Sodium 100 Mg Capsule PO 100 mg DAILY PRN Administration Constipation Ferrous Sulfate 324 mg 08/20/20 21:00 08/21/20 21:27 Ferrous Sulfate 324 Mg Tablet.Dr PO 324 mg TID OMI Administration Hydralazine HCl 10 mg 08/20/20 21:00 08/21/20 21:29 Hydralazine Hcl 10 Mg Tablet PO 10 mg BID OMI Administration Protocol Ceftriaxone Sodium 1 gm/ 50 mls @ 100 mls/hr 08/21/20 15:00 08/21/20 15:00 Sodium Chloride IV Infused Q24H [facility] Infusion Insulin Human Lispro 0 unit 08/20/20 21:00 08/22/20 08:22 Insulin Lispro 100 Unit/Ml 3 Ml Vial SUBCUT [facility] Protocol Ketorolac Tromethamine 1 drop 08/20/20 21:00 08/21/20 21:30 Ketorolac Tromethamine 0.5% Op 3 Ml Drops EYE-RIGHT 1 drop QID [facility] Administration Levothyroxine Sodium 112 mcg 08/21/20 06:00 08/22/20 05:13 Levothyroxine Sodium 112 Mcg Tablet PO 112 mcg DAILY@0600 [facility] Administration Levothyroxine Sodium 25 mcg 08/21/20 06:00 08/22/20 05:13 Levothyroxine Sodium 25 Mcg Tablet PO 25 mcg DAILY@0600 [facility] Administration Non-Formulary Medication 10 mg 08/21/20 09:00 Rosuvastatin PO DAILY [facility] Non-Formulary Medication 1 each 08/20/20 21:00 Sodium Bicarb-Sodium Chloride PO BID [facility] Ondansetron HCl 4 mg 08/20/20 18:24 Ondansetron Hcl 4 Mg/2 Ml Vial IVPUSH Q8H PRN Nausea and Vomiting Pharmacy Consult 1 each 08/20/20 14:38 Consult Rx Perform Med Rec MISCELLANE ONCE PRN Consult order Ropinirole HCl 0.5 mg 08/20/20 21:00 08/21/20 21:27 Ropinirole Hcl 0.5 Mg Tablet PO 0.5 mg QID [facility] Administration Sevelamer HCl 800 mg 08/20/20 21:00 08/21/20 21:26 Sevelamer Hcl 800 Mg Tablet PO 800 mg TID [facility] Administration Sodium Chloride 3 ml 08/21/20 00:00 08/22/20 08:23 0.9 % Sodium Chloride Flush 3 Ml Syringe IVFLUSH Not Given QSHIFT [facility] Home Medications Medication Instructions Recorded Confirmed Last Taken Type ketorolac 1 drp OPHTHALMIC-RIGHT QID 03/31/20 08/20/20 07/30/20 12:00 History sevelamer carbonate 800 mg PO TID 05/05/20 08/20/20 07/30/20 History coenzyme Q10 100 mg capsule 100 mg PO TID cap 06/21/20 08/20/20 07/30/20 08:00 History ferrous sulfate 325 mg (65 mg 325 mg PO TID tab 06/21/20 08/20/20 07/30/20 08:00 History iron) tablet ropinirole 0.5 mg tablet 0.5 mg PO QID tab 06/21/20 08/20/20 07/30/20 02:00 History sodium bicarbonate-sodium chloride 1 ea MISCELLANEOUS BID 06/21/20 08/20/20 07/30/20 History powder vit C,E,Zn,Yp--izo-zeax 1 cap PO BID 07/18/20 07/31/20 Unknown History hydrocodone-acetaminophen 1 tab PO Q8H PRN 07/31/20 08/20/20 07/30/20 23:00 Hist ory rosuvastatin 10 mg PO DAILY 07/31/20 08/20/20 Unknown History Physical Exam Vital Signs: Vital Signs: Last Vital Signs Temp 97.8 F 08/22/20 07:44 Pulse 55 08/22/20 07:44 Resp 20 08/22/20 07:44 BP 132/98 H 08/22/20 07:44 Pulse Ox 96 08/22/20 07:44 Oxygen Flow Rate 2 08/20/20 13:05 Body Mass Index 27.2 Const: General: cooperative, comfortable, acute distress mild and respiratory and ill appearing Nutritional Appearance: overweight Orientation/consciousness: patient oriented x3 HENMT: Head: Yes normocephalic Neck: Neck: Yes trachea midline, Yes supple and Yes no JVD Chest: Chest palpation & inspection: other (Large bruise over the upper right side of the chest) Resp: Effort & Inspection: decreased respiratory effort and other (Difficult evaluation as patient could not see the up) Auscultation: rales (Anteriorly and laterally) Cardio: Palpation: abnormal PMI displaced PMI Rate: regular rate Rhythm: regular rhythm Heart sounds: S1 normal heart sound present and S2 normal heart sound present GI: Auscultation: normal bowel sounds Skin: General skin exam: no rashes or lesions noted and ecchymosis Neuro: General: patient oriented x3 Extrem: General: Yes no clubbing, cyanosis or edema Results Labs and Meds Result diagrams: 08/22/20 05:23 08/22/20 07:20 Lab results: Laboratory Results - last 24 hr 08/21/20 08/21/20 08/21/20 11:19 15:26 16:10 WBC RBC Hgb Hct MCV MCH MCHC RDW Plt Count MPV Immature Gran % (Auto) Neut % (Auto) Lymph % (Auto) Josephine % (Auto) Eos % (Auto) Baso % (Auto) Lymph # (Auto) Josephine # (Auto) Eos # (Auto) Baso # (Auto) Abs Immat Gran (auto) Absolute Neuts (auto) Absolute Nucleated RBC Nucleated RBC % (auto) Sodium Potassium Chloride Carbon Dioxide Anion Gap BUN Creatinine Estim Creat Clear Calc Estimated GFR POC Glucose 177 H 129 H Random Glucose Calcium B-Natriuretic Peptide 09029 H 08/21/20 08/22/20 08/22/20 20:53 05:23 05:23 WBC 8.4 RBC 4.27 Hgb 12.0 Hct 38.2 MCV 89.5 MCH 28.1 MCHC 31.4 RDW 19.0 H Plt Count 257 MPV 11.5 Immature Gran % (Auto) 0.2 Neut % (Auto) 74.2 H Lymph % (Auto) 17.1 L Josephine % (Auto) 7.0 Eos % (Auto) 1.3 Baso % (Auto) 0.2 Lymph # (Auto) 1.4 Josephine # (Auto) 0.6 Eos # (Auto) 0.1 Baso # (Auto) 0.0 Abs Immat Gran (auto) 0.02 Absolute Neuts (auto) 6.3 Absolute Nucleated RBC 0.020 H Nucleated RBC % (auto) 0.2 Sodium Cancelled Potassium Cancelled Chloride Cancelled Carbon Dioxide Cancelled Anion Gap Cancelled BUN Cancelled Creatinine Cancelled Estim Creat Clear Calc Cancelled Estimated GFR Cancelled POC Glucose 190 H Random Glucose Cancelled Calcium Cancelled B-Natriuretic Peptide 08/22/20 07:20 WBC RBC Hgb Hct MCV MCH MCHC RDW Plt Count MPV Immature Gran % (Auto) Neut % (Auto) Lymph % (Auto) Josephine % (Auto) Eos % (Auto) Baso % (Auto) Lymph # (Auto) Josephine # (Auto) Eos # (Auto) Baso # (Auto) Abs Immat Gran (auto) Absolute Neuts (auto) Absolute Nucleated RBC Nucleated RBC % (auto) Sodium 138 Potassium 4.2 Chloride 99 Carbon Dioxide 23 Anion Gap 20 BUN 38 H Creatinine 3.22 H Estim Creat Clear Calc 14.8 Estimated GFR 14 POC Glucose Random Glucose 111 Calcium 9.2 B-Natriuretic Peptide Assessment and Plan (1) CHF exacerbation: Status: Acute Patient presents with acute pulmonary edema and congestive heart failure in setting of chronic end-stage renal disease, not responsive to diuretic therapy. She is doing better with hemodialysis. Her dry weight has not been still establish given recent onset dialysis. However this will need to be managed with hemodialysis only. Will have to determine her dry weight. I think she will need another session of dialysis tomorrow as she appears to be in somewhat shortness of breath. Other ways is to measure BNP to see if dialysis a s improves as BNP which is expected. Continue to maximize her vasodilators see below. (2) Ischemic cardiomyopathy: Status: Acute Severe ischemic cardiomyopathy, new newly detected last admission. Continue carvedilol therapy , cannot maximize as her heart rate is on the lower side. Maximize vaso dilator. Increase hydralazine to 25 mg b.i.d. and add Isordil 5 mg b.i.d.. Closely monitor blood pressure. Maximize as tolerated. Given that she has prior history of coronary artery bypass grafting, and new onset ischemic cardiomyopathy require ischemic evaluation. However overall not a good candidate for any invasive procedure. Will need to discuss as she progresses. She has had contact and service clerks supervisor in [place] and during last admission had shown interest that she would like to follow with him. Probably consider ischemic workup as outpatient in [place] she wants to pursue her care there. If she wants to pursue care locally will arrange for ischemic workup (3) PAF (paroxysmal atrial fibrillation): Status: Acute Paroxysmal atrial fibrillation has maintain normal rhythm. Will continue rhythm control approach which will overall help her heart failure syndrome. Continue carvedilol therapy. Currently on Eliquis for anticoagulation given that she is on hemodialysis, this is appropriate. Will follow with you. Thank you for allowing us to partake in her care
[2020-08-22 11:30] VITALS: BP 129/86; PULSE 66; RESP 20; TEMP 37.1; O2SAT 99
[2020-08-22 11:49] LABS: Glucose, Whole Blood 87 mg/dL (60-115)
[2020-08-22 12:00] VITALS: BP 129/86; PULSE 66
[2020-08-22] MEDS: Isosorbide Dinitrate 5 MG TABLET PO (12:00)
[2020-08-22] MEDS: HYDROcodone Bit/Acetam 5/325 TABLET 1 TAB PO (12:00)
[2020-08-22] MEDS: Apixaban 2.5 MG TABLET PO (12:00)
[2020-08-22] MEDS: rOPINIRole HCL 0.5 MG TABLET PO (12:00)
[2020-08-22 12:37] LABS: B Type Natriuretic Peptide 22972 pg/mL (<100)
--- NOTE | 2020-08-22 13:41 | PM.DS ---
DS: Providers Provider Date of Service: 08/23/20 Date of admission: 08/20/20 16:42 Date of discharge: 08/22/20 Primary care physician: Unknown Physician Admitting clinician: Akua Sommers Attending physician on admission: Linnette Chapa Consults: 08/20/20 16:42 Consult to Nephrology Routine Consulting Provider: Lance Moya Reason for consultation: ESRD, fluid overload Has provider been notified: No 08/21/20 11:47 Consult to Cardiology Routine Consulting Provider: Solomon Hess Reason for consultation: CHF, still sob after dialysis Has provider been notified: No Attending physician on discharge: Villa Horton Discharging clinician: Janey Vernon DS: Diagnosis Discharge Diagnosis (1) CHF exacerbation: Status: Acute (2) Ischemic cardiomyopathy: Status: Acute (3) End stage renal disease: Status: Acute (4) PAF (paroxysmal atrial fibrillation): Status: Acute DS: Medications Discharge Medications Home Medications: Home Medications Medication Instructions Recorded Confirmed ketorolac 1 drp OPHTHALMIC-RIGHT QID 03/31/20 08/20/20 sevelamer carbonate 800 mg PO TID 05/05/20 08/20/20 coenzyme Q10 100 mg capsule 100 mg PO TID cap 06/21/20 08/20/20 ferrous sulfate 325 mg (65 mg 325 mg PO TID tab 06/21/20 08/20/20 iron) tablet ropinirole 0.5 mg tablet 0.5 mg PO QID tab 06/21/20 08/20/20 sodium bicarbonate-sodium chloride 1 ea MISCELLANEOUS BID 06/21/20 08/20/20 powder vit C,E,Zn,Bu-[id number]-edc-zeax 1 cap PO BID 07/18/20 07/31/20 hydrocodone-acetaminophen 1 tab PO Q8H PRN 07/31/20 08/20/20 rosuvastatin 10 mg PO DAILY 07/31/20 08/20/20 Previous Rx's Medication Instructions Recorded levothyroxine 137 mcg tablet 137 mcg PO QAM #90 tab 03/15/20 Eliquis 2.5 mg PO BID #60 tab 08/04/20 carvedilol 6.25 mg PO BID #60 tab 08/04/20 hydralazine 10 mg PO BID #60 tab 08/04/20 hydralazine 25 mg PO BID #60 tab 08/22/20 isosorbide dinitrate 5 mg PO 0800,1300 #60 tab 08/22/20 DS: Summary Hospital Course Hospital Course: 79-year-old female with a past medical history of hypertension, hyperlipidemia, CAD status post CABG x3, chronic pain syndrome, sciatica, restless leg syndrome, anemia, CKD stage 5, diabetes, diabetic neuropathy, osteoarthritis status post right shoulder hemiarthroplasty, chronic back pain/sciatica-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 Patient denies any chest pain palpitations lightheadedness or dizziness. Complains of dyspnea on exertion. Denies any urinary symptoms. Mentioned that she has been on diuretics at home. Denies any numbness tingling in the lower extremities. Denies any focal weakness. The patient mentions he has been having chronic back pain unchanged in character. Denies any falls. Review of all other systems is negative except mentioned above. ER course: Per ER team patient noted to have bilateral lower extremity swelling; on the labs noted to have acute on chronic kidney injury with worsening creatinine and hyperkalemia. ER team spoke to Dr. baldwin from Nephrology and patient was started on sodium bicarbonate drip, also given Kayexalate and calcium gluconate. ProBNP elevated to 3900 concern for CHF. Admitted for further management. End-stage renal disease on dialysis. New to dialysis around August 01 due to hyperkalemia and worsening renal failure. She was admitted this time with shortness of breath and dyspnea. She was initially treated with IV lasix drip. She received urgent dialysis on 08/20. She continue with sodium bicarbonate and phosphate binders. She had repeat dialysis today and will be discharged to short-term rehab to continue dialysis Friday, and Friday. She will need more aggressive dialysis as an outpatient to reach her ideal dry weight. She should follow renal diet. Ischemic cardiomyopathy with heart failure with reduced ejection fraction. Severe. Last echocardiogram showed EF of 15-20%, patient is currently on carvedilol, however unable to maximize to to her heart rate being on lower size. She was seen and examined by Cardiology with recommendation to increase Hydralazine to 25 mg twice daily and isosorbide mg twice daily was added. After patient is following with a weapons electrical engineering officer and was sister and she prefers to follow there. She may arrange for further ischemic workup through that office. Paroxysmal atrial fibrillation. Has been in normal rhythm. Continue carvedilol and Eliquis for anticoagulation. Urinary tract infection. gram-negative rods on urine culture. She was started on IV Rocephin. Will send home with ceftin BID for 5 days. Attending: Dr. Horton Time Spent with Patient Time attestation: Total time spent providing and/or coordinating discharge services: Discharge coordination time: Greater than 30 minutes Physical Exam Vital Signs: Vital Signs: Last Vital Signs Temp 98.7 F 08/22/20 11:30 Pulse 66 08/22/20 12:00 Resp 20 08/22/20 11:30 BP 129/86 08/22/20 12:00 Pulse Ox 99 08/22/20 11:30 Oxygen Flow Rate 2 08/20/20 13:05 Body Mass Index 27.2 Appearing in no acute distress lung sounds are clear to auscultation heart regular rate rhythm, clear S1, S2 positive bowel sounds, abdomen is soft, nontender neuro patient is alert x3, no focal deficits DS: Data Data Completed and Pending Completed studies during hospitalization [Text1]: Procedures Insertion of Infusion Device into Right Atrium, Percutaneous Approach (07/31/20) Insertion of Infusion Device into Superior Vena Cava, Percutaneous Approach (07/31/20) Insertion of Tunneled Vascular Access Device into Chest Subcutaneous Tissue and Fascia, Percutaneous Approach (07/31/20) Performance of Urinary Filtration, Intermittent, Less than 6 Hours Per Day (07/31/20) Ultrasonography of Superior Vena Cava, Guidance (07/31/20) Labs on day of discharge: Laboratory Results - last 24 hr 08/21/20 08/21/20 08/21/20 15:26 16:10 20:53 WBC RBC Hgb Hct MCV MCH MCHC RDW Plt Count MPV Immature Gran % (Auto) Neut % (Auto) Lymph % (Auto) [place] % (Auto) Eos % (Auto) Baso % (Auto) Lymph # (Auto) [place] # (Auto) Eos # (Auto) Baso # (Auto) Abs Immat Gran (auto) Absolute Neuts (auto) Absolute Nucleated RBC Nucleated RBC % (auto) Sodium Potassium Chloride Carbon Dioxide Anion Gap BUN Creatinine Estim Creat Clear Calc Estimated GFR POC Glucose 129 H 190 H Random Glucose Calcium B-Natriuretic Peptide 39505 H 08/22/20 08/22/20 08/22/20 05:23 05:23 07:20 WBC 8.4 RBC 4.27 Hgb 12.0 Hct 38.2 MCV 89.5 MCH 28.1 MCHC 31.4 RDW 19.0 H Plt Count 257 MPV 11.5 Immature Gran % (Auto) 0.2 Neut % (Auto) 74.2 H Lymph % (Auto) 17.1 L [place] % (Auto) 7.0 Eos % (Auto) 1.3 Baso % (Auto) 0.2 Lymph # (Auto) 1.4 [place] # (Auto) 0.6 Eos # (Auto) 0.1 Baso # (Auto) 0.0 Abs Immat Gran (auto) 0.02 Absolute Neuts (auto) 6.3 Absolute Nucleated RBC 0.020 H Nucleated RBC % (auto) 0.2 Sodium Cancelled 138 Potassium Cancelled 4.2 Chloride Cancelled 99 Carbon Dioxide Cancelled 23 Anion Gap Cancelled 20 BUN Cancelled 38 H Creatinine Cancelled 3.22 H Estim Creat Clear Calc Cancelled 14.8 Estimated GFR Cancelled 14 POC Glucose Random Glucose Cancelled 111 Calcium Cancelled 9.2 B-Natriuretic Peptide 08/22/20 08/22/20 11:19 11:46 WBC RBC Hgb Hct MCV MCH MCHC RDW Plt Count MPV Immature Gran % (Auto) Neut % (Auto) Lymph % (Auto) [place] % (Auto) Eos % (Auto) Baso % (Auto) Lymph # (Auto) [place] # (Auto) Eos # (Auto) Baso # (Auto) Abs Immat Gran (auto) Absolute Neuts (auto) Absolute Nucleated RBC Nucleated RBC % (auto) Sodium Potassium Chloride Carbon Dioxide Anion Gap BUN Creatinine Estim Creat Clear Calc Estimated GFR POC Glucose 87 Random Glucose Calcium B-Natriuretic Peptide 63769 H Preliminary micro results at discharge 08/20/20 15:10 Urine Culture - Preliminary Urine Catheterized - Walters Catheter Gram negative za 08/20/20 14:10 Blood Culture - Preliminary Blood - Venous No growth after 24 hours. 08/20/20 13:29 Blood Culture - Preliminary Blood - Venous No growth after 24 hours. Discharge Plan Discharge Anticipated Discharge Date/Time: 08/22/20 13:23 Patient Disposition: Xfer Inpatient Rehab Fac Discharge Diagnosis: ESRD Congestive heart failure Reduced ejection fraction UTI Metabolic encephalopathy Referrals: [facility] [Outside] - 1 Week Physician,Unknown [Primary Care Provider] - 1 Week Discharge Medications: New hydralazine 25 mg Tablet 25 mg PO BID Qty: 60 RF: 0 isosorbide dinitrate 5 mg Tablet 5 mg PO 0800,1300 Qty: 60 RF: 0 Continued levothyroxine 137 mcg tablet 137 mcg PO QAM Qty: 90 RF: 3 vit C,E,Zn,Df-puodk0-rmm-zeax 250-2.5-0.5 mg Capsule 1 cap PO BID RF: 0 ketorolac 0.5 % drops 1 drp ophthalmic-Right QID RF: 0 sevelamer carbonate 800 mg Tablet 800 mg PO TID RF: 0 hydrocodone-acetaminophen 5-325 mg tablet 1 tab PO Q8H PRN (Reason: Pain (Scale Score 4-6)) RF: 0 rosuvastatin 10 mg Tablet 10 mg PO DAILY RF: 0 carvedilol 6.25 mg Tablet 6.25 mg PO BID Qty: 60 RF: 0 hydralazine 10 mg Tablet 10 mg PO BID Qty: 60 RF: 0 Eliquis 2.5 mg Tablet 2.5 mg PO BID Qty: 60 RF: 0 coenzyme Q10 [Co Q-10] 100 mg capsule 100 mg PO TID RF: 0 sodium bicarb-sodium chloride Powder 1 ea miscellaneous BID RF: 0 ferrous sulfate 325 mg (65 mg iron) tablet 325 mg PO TID RF: 0 ropinirole 0.5 mg tablet 0.5 mg PO QID RF: 0 Discharge Orders: Discharge Order (Routine); Ordered 08/22/20 Ordered By: Janey Vernon Diet: other Activity on Discharge: As tolerated Stand Alone Forms: Patient Portal Discharge page Activity Restrictions/Additional Instructions: Renal Diet Care Plan Goals: Resolution of fluid overload Health Concerns: End-stage renal disease on dialysis Heart failure with reduced ejection fraction Paroxysmal atrial fibrillation Ischemic cardiomyopathy Urinary tract infection Metabolic encephalopathy Plan of Treatment: Continue dialysis at rehabilitation center Friday, and Friday. Last dialysis session today 08/22 Follow-up with weapons electrical engineering officer in [place] for further ischemic workup. If Cardiology follow up is preferred at [facility] may contact [phone]. Assessment: See Discharge summary Discharge Date/Time: 08/22/20 18:05
--- NOTE | 2020-08-22 14:49 | MHC.CM.PN ---
IMM 08/21/20 Discharge today Female 80 DX Dyspnia. She will transfer to [facility] @ 4:30 via BLS. She will receive HD @ [facility]
--- NOTE | 2020-08-22 15:27 | PM.PNNEP ---
Subjective Subjective Date of Service: 08/22/20 Interval history: seen and examined had HD this morning denies SOB, CP, N/V/D Physical Exam Vital Signs: Vital Signs: Last Vital Signs Temp 98.7 F 08/22/20 11:30 Pulse 66 08/22/20 12:00 Resp 20 08/22/20 11:30 BP 129/86 08/22/20 12:00 Pulse Ox 99 08/22/20 11:30 Oxygen Flow Rate 2 08/20/20 13:05 Body Mass Index 27.2 Const: General: alert and awake HENMT: Head: Yes normocephalic and Yes atraumatic Neck: Neck: Yes supple Resp: Auscultation: diminished lung sounds Cardio: Heart sounds: S1 normal heart sound present and S2 normal heart sound present GI: Palpation (GI): Soft to palpation and nontender Extrem: General: Yes pedal edema Objective Data Labs CBC & Chem 7: 08/22/20 05:23 08/22/20 07:20 Labs: Laboratory Results - last 24 hr 08/21/20 08/21/20 08/21/20 15:26 16:10 20:53 WBC RBC Hgb Hct MCV MCH MCHC RDW Plt Count MPV Immature Gran % (Auto) Neut % (Auto) Lymph % (Auto) [place] % (Auto) Eos % (Auto) Baso % (Auto) Lymph # (Auto) [place] # (Auto) Eos # (Auto) Baso # (Auto) Abs Immat Gran (auto) Absolute Neuts (auto) Absolute Nucleated RBC Nucleated RBC % (auto) Sodium Potassium Chloride Carbon Dioxide Anion Gap BUN Creatinine Estim Creat Clear Calc Estimated GFR POC Glucose 129 H 190 H Random Glucose Calcium B-Natriuretic Peptide 24877 H 08/22/20 08/22/20 08/22/20 05:23 05:23 07:20 WBC 8.4 RBC 4.27 Hgb 12.0 Hct 38.2 MCV 89.5 MCH 28.1 MCHC 31.4 RDW 19.0 H Plt Count 257 MPV 11.5 Immature Gran % (Auto) 0.2 Neut % (Auto) 74.2 H Lymph % (Auto) 17.1 L [place] % (Auto) 7.0 Eos % (Auto) 1.3 Baso % (Auto) 0.2 Lymph # (Auto) 1.4 [place] # (Auto) 0.6 Eos # (Auto) 0.1 Baso # (Auto) 0.0 Abs Immat Gran (auto) 0.02 Absolute Neuts (auto) 6.3 Absolute Nucleated RBC 0.020 H Nucleated RBC % (auto) 0.2 Sodium Cancelled 138 Potassium Cancelled 4.2 Chloride Cancelled 99 Carbon Dioxide Cancelled 23 Anion Gap Cancelled 20 BUN Cancelled 38 H Creatinine Cancelled 3.22 H Estim Creat Clear Calc Cancelled 14.8 Estimated GFR Cancelled 14 POC Glucose Random Glucose Cancelled 111 Calcium Cancelled 9.2 B-Natriuretic Peptide 08/22/20 08/22/20 11:19 11:46 WBC RBC Hgb Hct MCV MCH MCHC RDW Plt Count MPV Immature Gran % (Auto) Neut % (Auto) Lymph % (Auto) [place] % (Auto) Eos % (Auto) Baso % (Auto) Lymph # (Auto) [place] # (Auto) Eos # (Auto) Baso # (Auto) Abs Immat Gran (auto) Absolute Neuts (auto) Absolute Nucleated RBC Nucleated RBC % (auto) Sodium Potassium Chloride Carbon Dioxide Anion Gap BUN Creatinine Estim Creat Clear Calc Estimated GFR POC Glucose 87 Random Glucose Calcium B-Natriuretic Peptide 67771 H Microbiology Microbiology Results: Microbiology 08/20/20 15:10 Urine Catheterized - Walters Catheter Urine Culture - Preliminary Gram negative za 08/20/20 14:10 Blood - Venous Blood Culture - Preliminary No growth after 24 hours. 08/20/20 13:29 Blood - Venous Blood Culture - Preliminary No growth after 24 hours. Assessment & Plan Assessment and plan (1) End stage renal disease: Status: Acute (2) Congestive heart failure: Status: Acute Assessment and Plan: s/p ultrafiltration on Friday and HD today normally dialyzes t-t-s at [facility] dialysis unit PLAN HD per schedule renal diet phosphate binders no need for NASRA can be discharged from renal standpoint will challenge dry weight at outpatient dialysis unit Time Spent With Patient Time: Total time spent is greater than 50% in coordination of care (as documented) at patient's floor/unit and/or counseling patient:
[2020-08-22 16:00] VITALS: BP 140/86; PULSE 58; RESP 19; TEMP 36.6; O2SAT 99
== END 2020-08-22 18:05 | DRG 291 ==
LOC: HO.ED 15:26 → HO.IMC 17:08
PROVIDERS: Nurse Practitioner Acute Care; Nurse Practitioner Family; Physician Assistant Medical; Admitting Provider Student in an Organized Health Care Education/Training Program; Emergency Provider Emergency Medicine; Visit Provider Family Medicine
DX: I13.2 Hypertensive heart and chronic kidney disease with heart failure and with stage 5 chronic kidney disease, or end stage renal disease (principal); I50.23 Acute on chronic systolic (congestive) heart failure; N18.6 End stage renal disease; G93.41 Metabolic encephalopathy; N39.0 Urinary tract infection, site not specified; E11.22 Type 2 diabetes mellitus with diabetic chronic kidney disease; I25.10 Atherosclerotic heart disease of native coronary artery without angina pectoris; G25.81 Restless legs syndrome; D63.1 Anemia in chronic kidney disease; E03.9 Hypothyroidism, unspecified; I25.5 Ischemic cardiomyopathy; I48.0 Paroxysmal atrial fibrillation; Z20.822 Contact with and (suspected) exposure to COVID-19; Z95.1 Presence of aortocoronary bypass graft; Z99.2 Dependence on renal dialysis; F03.90 Unspecified dementia, unspecified severity, without behavioral disturbance, psychotic disturbance, mood disturbance, and anxiety; Z88.2 Allergy status to sulfonamides; Z88.5 Allergy status to narcotic agent; Z79.01 Long term (current) use of anticoagulants; Z79.890 Hormone replacement therapy; Z79.899 Other long term (current) drug therapy
CPT/HCPCS: 36415; 71045; 80048; 80076; 81001; 81003; 82947; 83605; 83735; 83880; 84484; 85025; 85610; 85730; 87040; 87086; 87088; 87635; 90999; 93005; 94640; 96365; 97162; 99285; 99291; 99292; J0696; J1940

== ENCOUNTER 2020-09-11 00:33 | Outpatient (REF) | payer SELFPAY | END 2020-09-11 00:34 | disposition home or self-care (01) | LOC: HO.MMNH1L 00:33 | PROVIDERS: Visit Provider Family Medicine | DX: Z13.89 Encounter for screening for other disorder (principal) ==

== ENCOUNTER → 2020-09-13 11:31 | Outpatient (BNVA) | payer MEDICARE, SELFPAY | PROVIDERS: Referring Provider Internal Medicine; Visit Provider Nurse Practitioner Family | DX: I42.9 Cardiomyopathy, unspecified (principal); I48.91 Unspecified atrial fibrillation; I48.92 Unspecified atrial flutter; I25.10 Atherosclerotic heart disease of native coronary artery without angina pectoris; I13.2 Hypertensive heart and chronic kidney disease with heart failure and with stage 5 chronic kidney disease, or end stage renal disease; N18.5 Chronic kidney disease, stage 5; I50.20 Unspecified systolic (congestive) heart failure | CPT/HCPCS: 93005; 99212 ==

== ENCOUNTER → 2020-10-02 08:32 | Outpatient (REF) | payer MEDICARE, SELFPAY ==
--- NOTE | ~2020-10-02 | NM_ITS ---
Myocardial perfusion study Indication: CHF with severe LV systolic dysfunction with prior coronary artery disease to evaluate for myocardial ischemia Technique: The patient was brought in for a Lexiscan perfusion study on 10/02/2020. Patient performed low-level exercise and was injected 0.4 mg of Lexiscan intravenously. Within a minute of injection, 25 mCi of sestamibi was given intravenously. Images were obtained using the SPECT gamma camera interlaced with the gating device. Images were obtained in supine position. Resting perfusion study was performed on 10/04/2020. Patient was administered 25 mCi of sestamibi intravenously at rest. Images were then obtained in supine position. Images obtained with and without CT attenuation. Total DLP 126 mGy-cm. Images were processed with the software and compared side to side in short axis, horizontal long axis and vertical long axis views. Findings: The stress perfusion study showed nonattenuated images show large area of severely reduced to absent uptake in the entire anterior wall as well as the apex, anterolateral wall, anteroseptal and inferolateral wall of the LV myocardium. There is moderately reduced uptake in the basal inferior, normal uptake in the mid inferior and inferoapical as well as inferoseptal wall of the LV myocardium. Attenuation corrected images show severely reduced uptake in the anteroseptal, anterior, anterolateral and inferolateral wall of the LV myocardium with absent uptake in the distal anterior and mid anterior wall of the LV myocardium as well as the apex. There is normal uptake in the inferior wall and inferoseptal wall of the LV myocardium.. The gated study shows severely reduced LV systolic function with calculated LVEF of 9%. LV cavity is severely dilated size. The gated study shows severe diffuse hypokinesis with symptoms of the distal anterior wall Resting study shows attenuated corrected images show severely reduced uptake in the anterior wall, moderately reduced uptake in the anterolateral wall and inferolateral wall of the LV myocardium.. Gating at rest reveals diffuse wall motion with ejection fraction at 23%. The findings are consistent with large area of partially reversible anterior anteroseptal, anterolateral and inferolateral defect which could represent mixed infarction with ischemia versus severe ischemia in LAD as well as circumflex territory.. NM/NM mick perf SPECT rest & str Impression: 1. Myocardial perfusion imaging study shows large area of partially reversible ischemia mixed infarction versus severe ischemia in LAD as well as circumflex territory. 2. Gated LVEF is 9% with stress and 23% with rest 3. Transient ischemic dilatation present with Betadine severely dilated left ventricle EKG is nondiagnostic for ischemia
--- NOTE | 2020-10-02 08:38 | CA_ITS ---
Acquisition Time: 2020-10-02 09:18:18 Total Exercise Time: 00:02:00 Test Indications: Dyspnea Medications: SEE H Protocol: LEXISCAN Max HR: 122 BPM 86% of Pred: 141 BPM Max BP: 108/074 mmHG Max Work Load: 1.0 METS Pharmacological stress test with Lexiscan injection, while sitting and moving right arm, without anginal symptoms, with isolated PVC, with normotensive response to injection, with nondiagnostic EKG for ischemia due to baseline ST abnormality. In recovery she had sinus tachycardia rate in 120s that was treated with Aminophylline 75mg IVP to reverse Lexiscan with gradual improvement in heart rate back to baseline lower 100s. Nuclear images pending. Test reviewed with Dr Hess. Referred By: Viola Mejia Overread By: VIOLA MEJIA
== END ==
LOC: HO.CARD 08:32
PROVIDERS: Visit Provider Nurse Practitioner Family
DX: I42.9 Cardiomyopathy, unspecified (principal); I48.91 Unspecified atrial fibrillation; I48.92 Unspecified atrial flutter; I25.10 Atherosclerotic heart disease of native coronary artery without angina pectoris
CPT/HCPCS: 78452; 93016; 93017; 93018; A9500; J0280; J2785

== ENCOUNTER 2020-10-13 14:30 | Outpatient (RCR) | payer MEDICARE, SELFPAY ==
[2020-03-02 10:55] VITALS: BMI 31.0
[2020-03-02 10:56] VITALS: BP 133/65; PULSE 72; RESP 20; TEMP 36.8; O2SAT 96
[2020-03-02 12:09] LABS: MANUAL DIFF FLAG NO
[2020-03-02 12:16] LABS: Basophils Absolute Auto 0.1 X10*3/uL (0.0-0.2); Basophils Percent Auto 0.7 % (0-2); Eosinophils Absolute Auto 0.3 X10*3/uL (0.0-0.4); Eosinophils Percent Auto 3.7 % (0-4); Hematocrit 24.5 % (37-47); Hemoglobin 7.8 g/dl (12.0-16.0); Imm Gran Abs Auto 0.04 X10*3/uL (0.00-0.03); Imm Gran Pct Auto 0.5 % (0.0-0.4); Lymphocytes Absolute Auto 1.2 X10*3/uL (1.2-4.9); Mean Corpuscular HGB Conc 31.8 g/dl (31.0-35.0); Mean Corpuscular Hemoglobin 27.9 pg (27.0-33.0); Mean Corpuscular Volume 87.5 fL (80-98); Monocytes Absolute Auto 0.6 X10*3/uL (0.1-1.2); Monocytes Percent Auto 8.6 % (2-11); Neutrophils Absolute Auto 5.2 X10*3/uL (2.0-8.3); Neutrophils Percent Auto 70.5 % (45-73); Platelet Count 238 X10*3/uL (160-400); Red Cell Distribution Width 13.7 % (11.0-16.0); White Blood Count 7.4 X10*3/uL (4.8-10.8)
[2020-03-02] MEDS: Epoetin Alfa 40,000 UNIT/ML VIAL 40000 UNIT SUBCUT (12:27)
--- NOTE | 2020-03-02 12:31 | P.CNHO_ITS ---
Subjective - Subjective Chief complaint: For: Anemia of chronic disease related to stage 3 kidney disease Patient: new to practice Requesting Physician: Mayte. Primary Care Provider: Brigid Hu MD Medical Summary: DIAGNOSIS: ACD RELATED TO STAGE 3 KIDNEY DISEASE. HPI - Consult Narrative Reason for consult: ACD, from stage 3 kidney disease Narrative: Delmar Correa is a pleasant 79 year old lady, who has been noted to be anemic for few months. In March 2016, she had a rotator cuff tear. Underwent arthroscopy. Subsequently she had right shoulder hemiarthroplasty with trabecular metal with ferric occult head operation. She tells me she went to [place] in November on vacation. There she noted drainage from that shoulder. She was diagnosed with E coli infection in the shoulder and she was admitted to a hospital in [place], for 3 weeks received IV antibiotics. December 05 she was admitted here. Antibiotics were continued. She was then transferred to [facility] for removal of the prosthesis there. During her hospital stay here she was noted to be anemic and received blood transfusion. After the prosthesis was removed, spacer has been placed. She completed ache weeks of IV antibiotics after having a Port-A-Cath placed. Her serial hemoglobins: Dec 10, 06:50 7.4 Dec 09, 06:07 7.7 Dec 08, 05:51 7.7 Dec 07, 05:45 7.5 Dec 06, 06:06 6.7 May 14, 09:45 9.8 Feb 24, 12:22 10.7 Her creatinine from December 10 was 3. She tells me she has been rather fatigued for quite a while. she denies any fever nor chills. Her appetite has improved. She has lost some weight. Review of Systems - Constitutional Reports system reviewed and no additional complaints, except as documented, Reports fatigue, Denies body ache(s), Denies fever(s) - Eyes Reports system reviewed and no additional complaints, except as documented - ENT Reports system reviewed and no additional complaints, except as documented - Cardiovascular Reports system reviewed and no additional complaints, except as documented - Respiratory Reports no additional respiratory complaints - Gastrointestinal Reports system reviewed and no additional complaints, except as documented - Genitourinary Reports no additional female genitourinary complaints - Musculoskeletal Reports system reviewed and no additional complaints, except as documented, Reports joint pain - Integumentary/Breasts Skin/Breast: Reports no additional skin complaints - Neurologic Reports system reviewed and no additional complaints, except as documented - Psychiatric Reports system reviewed and no additional complaints, except as documented - Endocrine Reports no additional endocrine complaints - Hematologic/Lymphatic Reports system reviewed and no additional complaints, except as documented - Allergic/Immunologic Reports system reviewed and no additional complaints, except as documented PMF Medical History: Medical History (Last Reviewed 02/16/20 @ 23:29 by Brigid Hu MD) Acquired hypothyroidism Anemia in CKD (chronic kidney disease) Chronic kidney disease, stage 5 Coronary artery disease 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 Diabetic nephropathy Essential hypertension History of myocardial infarction Lumbosacral radiculopathy due to degenerative joint disease of spine Menopause Osteoarthritis involving multiple joints on both sides of body Secondary hyperparathyroidism Septic arthritis of shoulder, right Functional capacity: uses cane/walker Patient : No Family History: Family History (Last Reviewed 02/16/20 @ 23:29 by Brigid Hu MD) Father Medical history non-contributory Mother Medical history non-contributory Surgical History: Surgical History (Last Reviewed 02/16/20 @ 23:29 by Brigid Hu MD) History of laminectomy History of total left knee replacement (TKR) S/P CABG x 3 Status post right shoulder hemiarthroplasty Home Medications and Allergies Current Medications: Current Medications Generic Name Dose Route Start Last Admin Trade Name Freq PRN Reason Stop Dose Admin Epoetin Chris 40,000 unit 03/02/20 12:30 03/02/20 12:27 Epoetin Chris 40,000 Unit/Ml Vial SUBCUT 03/02/20 12:31 40,000 unit ONCE ONE Administration Home Medications Medication Instructions Recorded Confirmed Type amlodipine 10 mg tablet 10 mg PO DAILY 02/16/20 03/02/20 History furosemide 40 mg tablet See Rx Instructions PO .COMPLEX 02/16/20 03/02/20 History labetalol 300 mg tablet 300 mg PO BID 02/16/20 03/02/20 History levothyroxine 137 mcg tablet 137 mcg PO DAILY 02/16/20 03/02/20 History losartan 100 mg tablet 100 mg PO DAILY 02/16/20 03/02/20 History ropinirole 0.5 mg tablet 0.5 mg PO TID 02/16/20 03/02/20 History Allergies Allergy/AdvReac Type Severity Reaction Status Date / Time erythromycin base Allergy Mild RASH Verified 03/02/20 11:08 [Erythromycin Base] indomethacin [From Indocin] Allergy Mild RASH Verified 03/02/20 11:08 penicillin G [Penicillin G] Allergy Mild RASH Verified 03/02/20 11:08 Sulfa (Sulfonamide Allergy Mild RASH, Verified 03/02/20 11:08 Antibiotics) stomach [Sulfa (Sulfonamides)] upset flaxseed [FLAXSEED] Allergy Unknown SWELLING Verified 03/02/20 11:08 TONGUE AND LIPS Flexeril Allergy Unknown lg swelling Verified 03/02/20 11:08 Niacin Preparations Allergy Unknown RASH Verified 03/02/20 11:08 [NIACIN PREPARATIONS] penicillin V Allergy Unknown rash Verified 03/02/20 11:08 cocaine Allergy Seizure Verified 03/02/20 11:08 atorvastatin [From Lipitor] AdvReac Mild MUSCLE Verified 03/02/20 11:08 SOARNESS oxycodone AdvReac Unknown GI upset- Verified 03/02/20 11:08 sevree CAT GUT SUTURES Allergy Unknown rash Uncoded 12/06/19 00:00 niacin Allergy Unknown rash Uncoded 12/06/19 00:00 paper tape, sutures, cat gut, Allergy Unknown rash Uncoded 09/21/19 00:00 PLASTIC TAPE, BANDADES Allergy Unknown rash Uncoded 12/06/19 00:00 Adhesive Bandage AdvReac Mild BLISTERS Uncoded 01/13/20 14:36 Physical Exam Vital signs: Vital Signs Temp 98.2 F 03/02/20 10:56 Pulse 72 03/02/20 10:56 Resp 20 03/02/20 10:56 BP 133/65 03/02/20 10:56 Pulse Ox 96 03/02/20 10:56 Intake & Output 03/01/20 03/02/20 03/02/20 18:59 06:59 18:59 Other: Weight 87.2 kg Weight 87.2 kg - Constitutional Present: no acute distress - Routine HEENT Exam Head: Present: normal inspection ENT: Present: mucous membranes moist - Routine Neck Exam Present: supple - Routine Respiratory Exam Present: CTAB - Routine Cardiovascular Exam Cardiovascular: Present: RRR, S1 - Routine Abdominal Exam Present: soft, nontender - Routine Rectal Exam Patient deferred: digital exam - Routine Extremities Exam Present: normal inspection - Routine Skin Exam Present: intact - Routine Neurological Exam Present: alert, oriented X3 - Detailed Neurological Exam: Coma Scale Eye Opening: Spontaneous (4) Verbal Response: Oriented (5) Motor Response: Obeys commands (6) [place] Coma Scale Total: 15 - Routine Psychiatric Exam Present: normal affect Hem/Onc Consult Result - Labs CBC & Chem 7: 03/02/20 11:55 03/02/20 11:55 Labs: Short CBC 03/02/20 Range/Units 11:55 WBC 7.4 (4.8-10.8) X10*3/uL Hgb 7.8 L (12.0-16.0) g/dl Hct 24.5 L (37-47) % Plt Count 238 (160-400) X10*3/uL Assessment and Plan (1) Anemia in CKD (chronic kidney disease) Status: Acute This is a pleasant 79-year-old lady, here for a consult regarding anemia. most likely she has: 1. ANEMIA OF CHRONIC DISEASE: Related to stage 3 kidney disease. Her creatinine from today is 4.2. / recent infectious problems: E coli in her shoulder. 2. IRON DEFICIENCY ANEMIA: Could be super added. 3. HEMOLYTIC ANEMIA: could be related to medications/ antibiotics. LDH: 163. B12: 238. Folate: 5.5. K/L Light chains ratio: 1.42. PLAN: I will proceed with further evaluation. Check iron studies: 38/299/13/725. Check Erythropoetin level: 21.3. Will give a dose of Procrit for ACD related to stage III kidney Disease. She will return weekly for that, initially. Will adjust depending upon her response to Procrit. She will return in a month for a follow-up visit. Thanks, CC: Dr. Hu.
[2020-03-02 12:49] LABS: Alanine Aminotransferase 10 U/L (0-31); Albumin Level 3.9 g/dL (3.5-5.0); Alkaline Phosphatase 90 U/L (39-117); Anion Gap 19 (12-20); Aspartate Amino Transferase 8 U/L (5-31); Bilirubin Total 0.3 mg/dL (0.0-1.0); Blood Urea Nitrogen 79 mg/dL (9-16); Calcium 9.5 mg/dL (8.4-10.2); Carbon Dioxide 22 mmol/L (22-29); Chloride 100 mmol/L (96-108); Creatinine Clr Calc Pharmacy 12.1; Estimated Glomerular Filt Rate 10; Glucose Random 170 mg/dL (60-115); Iron 38 mcg/dL (30-160); Lactate Dehydrogenase 163 U/L (122-220); Percent Iron Saturation 13 % (15-50); Sodium 136 mmol/L (135-145); Total Iron Binding Capacity 299 mcg/dL (228-428); Total Protein 6.3 g/dL (6.5-8.0); Unsaturated Iron Binding 261 ug/dL
[2020-03-02 13:00] LABS: Ferritin 725 ng/mL (10-250)
[2020-03-02 14:06] LABS: Folate 5.5 ng/mL (> or = 4.0); Vitamin B12 238 pg/mL (200-900)
[2020-03-03 12:01] LABS: Erythropoietin (EPO) 21.3 mIU/mL (2.6-18.5)
[2020-03-09 10:51] VITALS: BP 124/58; PULSE 65; RESP 12; TEMP 36.6; O2SAT 99; BMI 29.2
[2020-03-09 11:28] LABS: MANUAL DIFF FLAG NO
[2020-03-09 11:34] LABS: Basophils Absolute Auto 0.1 X10*3/uL (0.0-0.2); Basophils Percent Auto 0.9 % (0-2); Eosinophils Absolute Auto 0.3 X10*3/uL (0.0-0.4); Eosinophils Percent Auto 4.8 % (0-4); Hematocrit 25.8 % (37-47); Hemoglobin 7.8 g/dl (12.0-16.0); Imm Gran Abs Auto 0.03 X10*3/uL (0.00-0.03); Imm Gran Pct Auto 0.5 % (0.0-0.4); Lymphocytes Absolute Auto 0.9 X10*3/uL (1.2-4.9); Lymphocytes Percent Auto 13.8 % (20-40); Mean Corpuscular HGB Conc 30.2 g/dl (31.0-35.0); Mean Corpuscular Hemoglobin 27.2 pg (27.0-33.0); Mean Corpuscular Volume 89.9 fL (80-98); Mean Platelet Volume 9.4 fL (9.4-12.3); Monocytes Absolute Auto 0.5 X10*3/uL (0.1-1.2); Monocytes Percent Auto 8.1 % (2-11); Neutrophils Absolute Auto 4.7 X10*3/uL (2.0-8.3); Neutrophils Percent Auto 71.9 % (45-73); Platelet Count 250 X10*3/uL (160-400); Red Blood Count 2.87 X10*6/uL (4.20-5.50); Red Cell Distribution Width 14.7 % (11.0-16.0); White Blood Count 6.5 X10*3/uL (4.8-10.8)
[2020-03-09] MEDS: Epoetin Alfa 40,000 UNIT/ML VIAL 40000 UNIT SUBCUT (11:52)
--- NOTE | 2020-03-09 12:08 | MHC.HEMONC ---
HGB 7.8, Dr. Dasilva made aware. Procrit given f/u 1 week for labs and ? of procrit or blood transfusion. Comment made in next appointment to make sure she is T&S.
[2020-03-16 11:12] VITALS: BMI 28.3
[2020-03-16 11:14] VITALS: BP 144/66; PULSE 90; RESP 18; TEMP 36.6; O2SAT 96
[2020-03-16 11:28] LABS: MANUAL DIFF FLAG NO
[2020-03-16 11:41] LABS: Basophils Absolute Auto 0.1 X10*3/uL (0.0-0.2); Eosinophils Absolute Auto 0.4 X10*3/uL (0.0-0.4); Eosinophils Percent Auto 5.9 % (0-4); Hematocrit 30.2 % (37-47); Hemoglobin 9.1 g/dl (12.0-16.0); Imm Gran Abs Auto 0.02 X10*3/uL (0.00-0.03); Imm Gran Pct Auto 0.3 % (0.0-0.4); Lymphocytes Absolute Auto 0.9 X10*3/uL (1.2-4.9); Lymphocytes Percent Auto 15.1 % (20-40); Mean Corpuscular HGB Conc 30.1 g/dl (31.0-35.0); Mean Corpuscular Hemoglobin 26.7 pg (27.0-33.0); Mean Corpuscular Volume 88.6 fL (80-98); Mean Platelet Volume 9.1 fL (9.4-12.3); Monocytes Absolute Auto 0.6 X10*3/uL (0.1-1.2); Neutrophils Percent Auto 67.7 % (45-73); Platelet Count 271 X10*3/uL (160-400); Red Blood Count 3.41 X10*6/uL (4.20-5.50); Red Cell Distribution Width 15.6 % (11.0-16.0); White Blood Count 5.9 X10*3/uL (4.8-10.8)
[2020-03-16] MEDS: Epoetin Alfa 40,000 UNIT/ML VIAL 40000 UNIT SUBCUT (11:56)
[2020-03-16 12:25] LABS: Alanine Aminotransferase 8 U/L (0-31); Albumin Level 3.9 g/dL (3.5-5.0); Alkaline Phosphatase 82 U/L (39-117); Anion Gap 18 (12-20); Aspartate Amino Transferase 8 U/L (5-31); Bilirubin Total 0.4 mg/dL (0.0-1.0); Blood Urea Nitrogen 75 mg/dL (9-16); Calcium 9.7 mg/dL (8.4-10.2); Carbon Dioxide 25 mmol/L (22-29); Chloride 99 mmol/L (96-108); Creatinine Clr Calc Pharmacy 11.9; Estimated Glomerular Filt Rate 10; Glucose Random 170 mg/dL (60-115); Potassium 4.4 mmol/l (3.3-5.1); Sodium 138 mmol/L (135-145); Total Protein 6.2 g/dL (6.5-8.0)
[2020-03-22 11:43] LABS: MANUAL DIFF FLAG NO
[2020-03-22 11:52] LABS: Basophils Absolute Auto 0.1 X10*3/uL (0.0-0.2); Basophils Percent Auto 1.4 % (0-2); Eosinophils Absolute Auto 0.4 X10*3/uL (0.0-0.4); Eosinophils Percent Auto 5.7 % (0-4); Hematocrit 34.2 % (37-47); Hemoglobin 10.4 g/dl (12.0-16.0); Imm Gran Abs Auto 0.02 X10*3/uL (0.00-0.03); Imm Gran Pct Auto 0.3 % (0.0-0.4); Lymphocytes Absolute Auto 1.2 X10*3/uL (1.2-4.9); Lymphocytes Percent Auto 16.8 % (20-40); Mean Corpuscular HGB Conc 30.4 g/dl (31.0-35.0); Mean Corpuscular Hemoglobin 26.7 pg (27.0-33.0); Mean Corpuscular Volume 87.9 fL (80-98); Mean Platelet Volume 9.3 fL (9.4-12.3); Monocytes Absolute Auto 0.7 X10*3/uL (0.1-1.2); Monocytes Percent Auto 9.7 % (2-11); Neutrophils Absolute Auto 4.6 X10*3/uL (2.0-8.3); Neutrophils Percent Auto 66.1 % (45-73); Platelet Count 313 X10*3/uL (160-400); Red Blood Count 3.89 X10*6/uL (4.20-5.50); Red Cell Distribution Width 15.9 % (11.0-16.0); White Blood Count 6.9 X10*3/uL (4.8-10.8)
--- NOTE | 2020-03-22 12:09 | PC.NURSE ---
HGB 10.4. No Procrit given. Returning next week on 03/31/2020 for follow-up and labs.
[2020-03-22 12:13] VITALS: BP 140/63; PULSE 70; RESP 18; TEMP 36.4; O2SAT 100
[2020-03-22 12:14] VITALS: BMI 29.5
[2020-03-31 11:03] LABS: MANUAL DIFF FLAG NO
[2020-03-31 11:08] VITALS: BMI 30.1
[2020-03-31 11:09] VITALS: BP 137/69; PULSE 72; RESP 18; TEMP 36.2; O2SAT 98
[2020-03-31 11:14] LABS: Basophils Absolute Auto 0.1 X10*3/uL (0.0-0.2); Basophils Percent Auto 1.9 % (0-2); Eosinophils Absolute Auto 0.3 X10*3/uL (0.0-0.4); Eosinophils Percent Auto 4.5 % (0-4); Hematocrit 32.9 % (37-47); Imm Gran Abs Auto 0.01 X10*3/uL (0.00-0.03); Imm Gran Pct Auto 0.2 % (0.0-0.4); Lymphocytes Absolute Auto 1.2 X10*3/uL (1.2-4.9); Lymphocytes Percent Auto 20.1 % (20-40); Mean Corpuscular HGB Conc 30.4 g/dl (31.0-35.0); Mean Corpuscular Hemoglobin 26.5 pg (27.0-33.0); Mean Corpuscular Volume 87.3 fL (80-98); Mean Platelet Volume 10.2 fL (9.4-12.3); Monocytes Absolute Auto 0.5 X10*3/uL (0.1-1.2); Monocytes Percent Auto 8.9 % (2-11); Neutrophils Absolute Auto 3.8 X10*3/uL (2.0-8.3); Neutrophils Percent Auto 64.4 % (45-73); Platelet Count 243 X10*3/uL (160-400); Red Blood Count 3.77 X10*6/uL (4.20-5.50); Red Cell Distribution Width 14.7 % (11.0-16.0); White Blood Count 5.8 X10*3/uL (4.8-10.8)
--- NOTE | 2020-03-31 11:25 | PM.HEMONCPN ---
Medical Summary - Medical Summary Date of Service: 03/31/20 Chief complaint: follow-up for ACD. 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 Interval History Interval history: Delmar Correa is a pleasant 79 year old lady, who has been noted to be anemic for few months. In March 2016, she had a rotator cuff tear. Underwent arthroscopy. Subsequently she had right shoulder hemiarthroplasty with trabecular metal with ferric occult head operation. She tells me she went to [place] in November on vacation. There she noted drainage from that shoulder. She was diagnosed with E coli infection in the shoulder and she was admitted to a hospital in [place], for 3 weeks received IV antibiotics. December 05 she was admitted here. Antibiotics were continued. She was then transferred to [facility] for removal of the prosthesis there. During her hospital stay here she was noted to be anemic and received blood transfusion. After the prosthesis was removed, spacer has been placed. She completed ache weeks of IV antibiotics after having a Port-A-Cath placed. Her serial hemoglobins: Dec 10 06:50 7.4 Dec 09, 06:07 7.7 Dec 08 05:51 7.7 Dec 07, 05:45 7.5 Dec 06, 06:06 6.7 May 14, 09:45 9.8 Feb 24, 12:22 10.7 Her creatinine from December 10 was 3. She is here for a follow-up visit and Procrit. She tells me she had been rather fatigued for quite a while. However she has more energy now since she started on the Procrit and her blood count has improved. She has been more active. She used to have to take a nap in the afternoon but she no longer needs it. She denies any fever nor chills. She denies headache no dizziness. She used to have vertigo but that has improved. She just tries to get up slowly. She denies any CP/SOB. No abdominal pain, nausea vomiting, heartburn nor indigestion. Bowels are working without any gross blood in it. Her appetite has improved. She has gained some weight. She is in good spirits. Rest of the review of systems is unremarkable. Review of Systems - Constitutional Reports anorexia, Reports weight gain, Denies body ache(s), Denies lack of energy, Denies malaise, Denies night sweats, Denies weakness - Eyes Denies blurry vision - ENT Reports system reviewed and no additional complaints, except as documented - Cardiovascular Denies chest pain at rest - Respiratory Denies cough - Gastrointestinal Denies abdominal pain, Denies change in bowel habits - Genitourinary Denies difficulty starting urination - Musculoskeletal Reports abnormal walking, Denies limited joint movement - Integumentary/Breasts Skin/Breast: Denies bleeding lesions - Neurologic Reports system reviewed and no additional complaints, except as documented - Psychiatric Denies abnormal sleep pattern - Endocrine Denies cold intolerance - Hematologic/Lymphatic Denies easy bruising - Allergic/Immunologic Denies GI upset with certain foods PMFSH Medical History: Medical History (Last Reviewed 02/16/20 @ 23:29 by Brigid Hu MD) Acquired hypothyroidism Anemia in CKD (chronic kidney disease) Chronic kidney disease, stage 5 Coronary artery disease 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 Diabetic nephropathy Essential hypertension History of myocardial infarction Lumbosacral radiculopathy due to degenerative joint disease of spine Menopause Osteoarthritis involving multiple joints on both sides of body Secondary hyperparathyroidism Septic arthritis of shoulder, right Functional capacity: uses cane/walker Patient : No Family History: Family History (Last Reviewed 02/16/20 @ 23:29 by Brigid Hu MD) Father Medical history non-contributory Mother Medical history non-contributory Surgical History: Surgical History (Last Reviewed 02/16/20 @ 23:29 by Brigid Hu MD) History of laminectomy History of total left knee replacement (TKR) S/P CABG x 3 Status post right shoulder hemiarthroplasty Smoking status: Never smoker Home Medications and Allergies Home Medications Medication Instructions Recorded Confirmed Type amlodipine 10 mg tablet 10 mg PO DAILY 02/16/20 03/02/20 History furosemide 40 mg tablet See Rx Instructions PO .COMPLEX 02/16/20 03/02/20 History labetalol 300 mg tablet 300 mg PO BID 02/16/20 03/02/20 History losartan 100 mg tablet 100 mg PO DAILY 02/16/20 03/02/20 History ketorolac 1 drp OPHTHALMIC-RIGHT QID 03/31/20 03/31/20 History Allergies Allergy/AdvReac Type Severity Reaction Status Date / Time erythromycin base Allergy Mild RASH Verified 03/31/20 11:11 [Erythromycin Base] indomethacin [From Indocin] Allergy Mild RASH Verified 03/31/20 11:11 penicillin G [Penicillin G] Allergy Mild RASH Verified 03/31/20 11:11 Sulfa (Sulfonamide Allergy Mild RASH, Verified 03/31/20 11:11 Antibiotics) stomach [Sulfa (Sulfonamides)] upset flaxseed [FLAXSEED] Allergy Unknown SWELLING Verified 03/31/20 11:11 TONGUE AND LIPS Flexeril Allergy Unknown lg swelling Verified 03/31/20 11:11 Niacin Preparations Allergy Unknown RASH Verified 03/31/20 11:11 [NIACIN PREPARATIONS] penicillin V Allergy Unknown rash Verified 03/31/20 11:11 cocaine Allergy Seizure Verified 03/31/20 11:11 atorvastatin [From Lipitor] AdvReac Mild MUSCLE Verified 03/31/20 11:11 SOARNESS oxycodone AdvReac Unknown GI upset- Verified 03/31/20 11:11 sevree CAT GUT SUTURES Allergy Unknown rash Uncoded 12/06/19 00:00 niacin Allergy Unknown rash Uncoded 12/06/19 00:00 paper tape, sutures, cat gut, Allergy Unknown rash Uncoded 09/21/19 00:00 PLASTIC TAPE, BANDADES Allergy Unknown rash Uncoded 12/06/19 00:00 Adhesive Bandage AdvReac Mild BLISTERS Uncoded 01/13/20 14:36 Exam Vital signs: Vital Signs Temp 97.1 F 03/31/20 11:09 Pulse 72 03/31/20 11:09 Resp 18 03/31/20 11:09 BP 137/69 03/31/20 11:09 Pulse Ox 98 03/31/20 11:09 Intake & Output 03/30/20 03/31/20 03/31/20 18:59 06:59 18:59 Other: Weight 84.7 kg Weight 84.7 kg Body Mass Index 30.1 - Constitutional Present: no acute distress - Routine HEENT Exam Head: Present: normal inspection ENT: Present: mucous membranes moist - Routine Neck Exam Present: full ROM - Routine Respiratory Exam Present: CTAB - Routine Cardiovascular Exam Cardiovascular: Present: RRR, S1 - Routine Abdominal Exam Present: soft, nontender - Routine Rectal Exam Patient deferred: digital exam - Routine Extremities Exam Present: normal inspection - Routine Skin Exam Present: intact - Routine Neurological Exam Present: alert, oriented X3 - Detailed Neurological Exam: Coma Scale Eye Opening: Spontaneous (4) Data - Labs CBC & Chem 7: 03/31/20 11:00 03/31/20 11:00 Labs: 03/02/20 11:55 Complete Blood Count Auto Diff Routine Comprehensive Met. Panel Routine Erythropoietin (EPO) Routine Ferritin Routine IRON PROFILE Routine Lactate Dehydrogenase Routine Vitamin B12 and Folate Routine 03/02/20 12:30 Epoetin Chris [Procrit] 40,000 unit SUBCUT ONCE ONE 03/09/20 11:21 CBC W/AUTO DIFF [Complete Blood Count Auto Diff] Routine 03/09/20 12:00 Epoetin Chris [Procrit] 40,000 unit SUBCUT ONCE ONE 03/16/20 11:20 Type and Screen Routine CMP [Comprehensive Met. Panel] Routine Complete Blood Count Auto Diff Routine 03/16/20 12:00 Epoetin Chris [Procrit] 40,000 unit SUBCUT ONCE ONE 03/22/20 11:36 CBC W/AUTO DIFF [Complete Blood Count Auto Diff] Routine 03/31/20 09:00 Epoetin Chris [Procrit] 40,000 unit SUBCUT ONCE ONE 03/31/20 11:00 Complete Blood Count Auto Diff Routine Laboratory Last Values WBC 5.8 X10*3/uL (4.8-10.8) 03/31/20 11:00 RBC 3.77 X10*6/uL (4.20-5.50) L 03/31/20 11:00 Hgb 10.0 g/dl (12.0-16.0) L 03/31/20 11:00 Hct 32.9 % (37-47) L 03/31/20 11:00 MCV 87.3 fL (80-98) 03/31/20 11:00 MCH 26.5 pg (27.0-33.0) L 03/31/20 11:00 MCHC 30.4 g/dl (31.0-35.0) L 03/31/20 11:00 RDW 14.7 % (11.0-16.0) 03/31/20 11:00 Plt Count 243 X10*3/uL (160-400) 03/31/20 11:00 MPV 10.2 fL (9.4-12.3) 03/31/20 11:00 Immature Gran % (Auto) 0.2 % (0.0-0.4) 03/31/20 11:00 Neut % (Auto) 64.4 % (45-73) 03/31/20 11:00 Lymph % (Auto) 20.1 % (20-40) 03/31/20 11:00 [place] % (Auto) 8.9 % (2-11) 03/31/20 11:00 Eos % (Auto) 4.5 % (0-4) H 03/31/20 11:00 Baso % (Auto) 1.9 % (0-2) 03/31/20 11:00 Lymph # (Auto) 1.2 X10*3/uL (1.2-4.9) 03/31/20 11:00 [place] # (Auto) 0.5 X10*3/uL (0.1-1.2) 03/31/20 11:00 Eos # (Auto) 0.3 X10*3/uL (0.0-0.4) 03/31/20 11:00 Baso # (Auto) 0.1 X10*3/uL (0.0-0.2) 03/31/20 11:00 Abs Immat Gran (auto) 0.01 X10*3/uL (0.00-0.03) 03/31/20 11:00 Absolute Neuts (auto) 3.8 X10*3/uL (2.0-8.3) 03/31/20 11:00 Absolute Nucleated RBC 0.000 X10*3/uL (0.0-0.012) 03/31/20 11:00 Nucleated RBC % (auto) 0.0 /100WBC (0.0-0.2) 03/31/20 11:00 Sodium 138 mmol/L (135-145) 03/16/20 11:20 Potassium 4.4 mmol/l (3.3-5.1) 03/16/20 11:20 Chloride 99 mmol/L (96-108) 03/16/20 11:20 Carbon Dioxide 25 mmol/L (22-29) 03/16/20 11:20 Anion Gap 18 (12-20) 03/16/20 11:20 BUN 75 mg/dL (9-16) H 03/16/20 11:20 Creatinine 4.15 mg/dL (0.5-1.4) H* 03/16/20 11:20 Estim Creat Clear Calc 11.9 03/16/20 11:20 Estimated GFR 10 03/16/20 11:20 Random Glucose 170 mg/dL (60-115) H 03/16/20 11:20 Calcium 9.7 mg/dL (8.4-10.2) 03/16/20 11:20 Iron 38 mcg/dL (30-160) 03/02/20 11:55 TIBC 299 mcg/dL (228-428) 03/02/20 11:55 % Saturation 13 % (15-50) L 03/02/20 11:55 Unsat Iron Binding 261 ug/dL 03/02/20 11:55 Erythropoietin 21.3 mIU/mL (2.6-18.5) H 03/02/20 11:55 Ferritin 725 ng/mL (10-250) H 03/02/20 11:55 Total Bilirubin 0.4 mg/dL (0.0-1.0) 03/16/20 11:20 AST 8 U/L (5-31) 03/16/20 11:20 ALT 8 U/L (0-31) 03/16/20 11:20 Alkaline Phosphatase 82 U/L (39-117) 03/16/20 11:20 Lactate Dehydrogenase 163 U/L (122-220) 03/02/20 11:55 Total Protein 6.2 g/dL (6.5-8.0) L 03/16/20 11:20 Albumin 3.9 g/dL (3.5-5.0) 03/16/20 11:20 Vitamin B12 238 pg/mL (200-900) 03/02/20 11:55 Folate 5.5 ng/mL (> or = 4.0) 03/02/20 11:55 Blood Type O Positive 03/16/20 11:20 Antibody Screen NEGATIVE 03/16/20 11:20 Progress Note: A/P (1) Anemia in CKD (chronic kidney disease) Status: Acute Assessment and plan: This is a pleasant 79-year-old lady, here for a consult regarding anemia. most likely she has: 1. ANEMIA OF CHRONIC DISEASE: Related to stage 3 kidney disease. Her creatinine from today is 4.2. / recent infectious problems: E coli in her shoulder. 2. IRON DEFICIENCY ANEMIA: Could be super added. 3. HEMOLYTIC ANEMIA: could be related to medications/ antibiotics. LDH: 163. B12: 238. Folate: 5.5. K/L Light chains ratio: 1.42. I proceeded with further evaluation. Checked iron studies: 38/299/13/725. Checked Erythropoetin level: 21.3. She was started on Procrit for ACD related to stage III kidney Disease. She has actually responded very well to that. She was able to avoid a blood transfusion. Hemoglobin today is 10 gms. PLAN: She will continue on the Procrit weekly, for now. Once it goes up above 10 will switch to every other week. Will adjust depending upon her response to Procrit. Will check iron studies and ferritin next time to check her iron stores and see if she needs any replacement. She will return in a month for a follow-up visit. Thanks, CC: Dr. Hu. - Time Spent With Patient Total time spent is greater than 50% in coordination of care (as documented) at patient's floor/unit and/or counseling patient: 25 - 35 minutes
[2020-03-31] MEDS: Epoetin Alfa 40,000 UNIT/ML VIAL 40000 UNIT SUBCUT (11:33)
[2020-03-31 11:38] LABS: Anion Gap 19 (12-20); Carbon Dioxide 20 mmol/L (22-29); Chloride 103 mmol/L (96-108); Potassium 4.9 mmol/l (3.3-5.1); Sodium 137 mmol/L (135-145)
[2020-03-31 11:39] LABS: Alanine Aminotransferase 24 U/L (0-31); Albumin Level 3.9 g/dL (3.5-5.0); Alkaline Phosphatase 116 U/L (39-117); Aspartate Amino Transferase 9 U/L (5-31); Bilirubin Total 0.6 mg/dL (0.0-1.0); Calcium 9.2 mg/dL (8.4-10.2); Creatinine Clr Calc Pharmacy 12.3; Estimated Glomerular Filt Rate 10; Glucose Random 188 mg/dL (60-115); Total Protein 6.1 g/dL (6.5-8.0)
--- NOTE | 2020-03-31 11:45 | MHC.HEMONC ---
Patient arrived for follow up and procrit injection. Procrit given as documented per provider. Schedule for procrit changed to every other week. Critical value for creatine recieved. Doctor Brown aware and no new orders received.
[2020-03-31 12:25] LABS: Blood Urea Nitrogen 94 mg/dL (9-16)
--- NOTE | 2020-03-31 12:43 | MHC.HEMONC ---
Critical BUN 94. Reported to provider. Doctor Brown wants labs forward to PCP. Results line called for results to be faxed.
[2020-04-07 14:37] VITALS: BP 138/65; PULSE 70; RESP 18; TEMP 36.8; O2SAT 98; BMI 29.9
[2020-04-07 15:13] LABS: MANUAL DIFF FLAG NO
[2020-04-07 15:24] LABS: Basophils Absolute Auto 0.1 X10*3/uL (0.0-0.2); Basophils Percent Auto 1.4 % (0-2); Eosinophils Absolute Auto 0.4 X10*3/uL (0.0-0.4); Eosinophils Percent Auto 6.6 % (0-4); Hematocrit 36.1 % (37-47); Hemoglobin 10.7 g/dl (12.0-16.0); Imm Gran Abs Auto 0.02 X10*3/uL (0.00-0.03); Imm Gran Pct Auto 0.3 % (0.0-0.4); Lymphocytes Absolute Auto 1.2 X10*3/uL (1.2-4.9); Lymphocytes Percent Auto 18.3 % (20-40); Mean Corpuscular HGB Conc 29.6 g/dl (31.0-35.0); Mean Corpuscular Hemoglobin 25.8 pg (27.0-33.0); Mean Platelet Volume 9.8 fL (9.4-12.3); Monocytes Absolute Auto 0.6 X10*3/uL (0.1-1.2); Monocytes Percent Auto 9.6 % (2-11); Neutrophils Absolute Auto 4.2 X10*3/uL (2.0-8.3); Neutrophils Percent Auto 63.8 % (45-73); Platelet Count 312 X10*3/uL (160-400); Red Blood Count 4.15 X10*6/uL (4.20-5.50); Red Cell Distribution Width 15.5 % (11.0-16.0); White Blood Count 6.6 X10*3/uL (4.8-10.8)
--- NOTE | 2020-04-07 15:36 | MHC.HEMONC ---
HGB 10.7. REPORTED TO DR. REEVES, PATIENT TO RETURN IN TWO WEEKS FOR LABS AND ?PROCRIT. NO COMPLAINTS AT THIS TIME.
[2020-04-20 13:25] VITALS: BP 115/57; PULSE 75; RESP 18; TEMP 36.9; O2SAT 95; BMI 30.6
[2020-04-20 13:34] LABS: MANUAL DIFF FLAG NO
[2020-04-20 13:35] LABS: Basophils Absolute Auto 0.1 X10*3/uL (0.0-0.2); Basophils Percent Auto 1.7 % (0-2); Eosinophils Absolute Auto 0.3 X10*3/uL (0.0-0.4); Eosinophils Percent Auto 4.4 % (0-4); Hematocrit 33.3 % (37-47); Hemoglobin 10.3 g/dl (12.0-16.0); Imm Gran Abs Auto 0.01 X10*3/uL (0.00-0.03); Imm Gran Pct Auto 0.2 % (0.0-0.4); Lymphocytes Absolute Auto 1.3 X10*3/uL (1.2-4.9); Lymphocytes Percent Auto 19.8 % (20-40); Mean Corpuscular HGB Conc 30.9 g/dl (31.0-35.0); Mean Corpuscular Hemoglobin 26.4 pg (27.0-33.0); Mean Corpuscular Volume 85.4 fL (80-98); Mean Platelet Volume 11.2 fL (9.4-12.3); Monocytes Absolute Auto 0.5 X10*3/uL (0.1-1.2); Monocytes Percent Auto 7.8 % (2-11); Neutrophils Absolute Auto 4.3 X10*3/uL (2.0-8.3); Neutrophils Percent Auto 66.1 % (45-73); Platelet Count 209 X10*3/uL (160-400); Red Cell Distribution Width 15.5 % (11.0-16.0); White Blood Count 6.5 X10*3/uL (4.8-10.8)
[2020-04-20] MEDS: Epoetin Alfa 40,000 UNIT/ML VIAL 40000 UNIT SUBCUT (13:50)
--- NOTE | 2020-04-20 13:57 | MHC.HEMONC ---
Patient here for injection. Injection given per protocol. (HGB below 11 for Procrit per Pharmacy) Follow-ups given.
[2020-04-20 14:06] LABS: Alanine Aminotransferase 11 U/L (0-31); Alkaline Phosphatase 93 U/L (39-117); Anion Gap 18 (12-20); Aspartate Amino Transferase 8 U/L (5-31); Bilirubin Total 0.5 mg/dL (0.0-1.0); Blood Urea Nitrogen 109 mg/dL (9-16); Calcium 9.2 mg/dL (8.4-10.2); Carbon Dioxide 20 mmol/L (22-29); Chloride 100 mmol/L (96-108); Creatinine Clr Calc Pharmacy 10.9; Estimated Glomerular Filt Rate 9; Glucose Random 183 mg/dL (60-115); Iron 68 mcg/dL (30-160); Percent Iron Saturation 24 % (15-50); Potassium 5.4 mmol/l (3.3-5.1); Sodium 133 mmol/L (135-145); Total Iron Binding Capacity 286 mcg/dL (228-428); Total Protein 6.2 g/dL (6.5-8.0); Unsaturated Iron Binding 218 ug/dL
[2020-04-20 14:25] LABS: Ferritin 452 ng/mL (10-250)
[2020-04-26 10:04] LABS: MANUAL DIFF FLAG NO
[2020-04-26 10:08] LABS: Basophils Absolute Auto 0.1 X10*3/uL (0.0-0.2); Basophils Percent Auto 1.2 % (0-2); Eosinophils Absolute Auto 0.4 X10*3/uL (0.0-0.4); Eosinophils Percent Auto 5.6 % (0-4); Hematocrit 36.8 % (37-47); Hemoglobin 11.2 g/dl (12.0-16.0); Imm Gran Abs Auto 0.03 X10*3/uL (0.00-0.03); Imm Gran Pct Auto 0.5 % (0.0-0.4); Lymphocytes Absolute Auto 1.1 X10*3/uL (1.2-4.9); Lymphocytes Percent Auto 17.4 % (20-40); Mean Corpuscular HGB Conc 30.4 g/dl (31.0-35.0); Mean Corpuscular Hemoglobin 26.2 pg (27.0-33.0); Mean Corpuscular Volume 86.2 fL (80-98); Mean Platelet Volume 10.1 fL (9.4-12.3); Monocytes Absolute Auto 0.5 X10*3/uL (0.1-1.2); Monocytes Percent Auto 6.9 % (2-11); Neutrophils Absolute Auto 4.4 X10*3/uL (2.0-8.3); Neutrophils Percent Auto 68.4 % (45-73); Platelet Count 286 X10*3/uL (160-400); Red Blood Count 4.27 X10*6/uL (4.20-5.50); Red Cell Distribution Width 16.4 % (11.0-16.0); White Blood Count 6.5 X10*3/uL (4.8-10.8)
[2020-04-26 10:43] LABS: Alanine Aminotransferase 14 U/L (0-31); Albumin Level 4.3 g/dL (3.5-5.0); Alkaline Phosphatase 76 U/L (39-117); Anion Gap 18 (12-20); Aspartate Amino Transferase 8 U/L (5-31); Bilirubin Total 0.4 mg/dL (0.0-1.0); Blood Urea Nitrogen 91 mg/dL (9-16); Calcium 10.2 mg/dL (8.4-10.2); Carbon Dioxide 23 mmol/L (22-29); Chloride 101 mmol/L (96-108); Creatinine Clr Calc Pharmacy 11.6; Estimated Glomerular Filt Rate 10; Glucose Random 194 mg/dL (60-115); Potassium 5.1 mmol/l (3.3-5.1); Sodium 137 mmol/L (135-145); Total Protein 6.3 g/dL (6.5-8.0)
[2020-04-26 10:55] LABS: Ferritin 363 ng/mL (10-250)
--- NOTE | 2020-04-26 11:01 | MHC.HEMONC ---
lab results faxed to Dr. Ferro at [facility] per Dr Dasilva.
--- NOTE | 2020-04-26 16:08 | MHC.HEMONC ---
pt here for labs and potassium has improved. She will return in a couple weeks for Procrit.
[2020-05-05 14:37] VITALS: BP 125/67; PULSE 76; RESP 18; TEMP 36.8; O2SAT 97; BMI 30.4
--- NOTE | 2020-05-05 15:52 | MHC.HEMONC ---
Patient here for follow-up and injections. Labs drawn. Injection not given due to lab results. Clinical summary updated. Provider seen patient. Follow-up booked.
--- NOTE | 2020-05-05 16:09 | P.PNHO_ITS ---
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 Interval History Interval history: This is a pleasant 74 year old lady, here for a follow-up visit and Procrit. She tells me she had been rather fatigued for quite a while. However she has more energy now since she started on the Procrit and her blood count has improved. She has been more active. Denies easy fatigueabilty. She used to have to take a nap in the afternoon but she no longer needs it. She denies any fever nor chills. She denies headache no dizziness. She used to have vertigo but that has impro annie. She just tries to get up slowly. She denies any CP/SOB. No abdominal pain, nausea vomiting, heartburn nor indigestion. Bowels are working without any gross blood in it. Her appetite has improved. She has gained some weight. She has pain due to arthritis, for which she takes Vicodin. She is in good spirits. Rest of the review of systems is unremarkable. Previous History: Delmar Correa is a pleasant 79 year old lady, who has been noted to be anemic for few months. In March 2016, she had a rotator cuff tear. Underwent arthroscopy. Subsequently she had right shoulder hemiarthroplasty with trabecular metal with ferric occult head operation. She tells me she went to [place] in November on vacation. There she noted drainage from that shoulder. She was diagnosed with E coli infection in the shoulder and she was admitted to a hospital in [place], for 3 weeks received IV antibiotics. December 05 she was admitted here. Antibiotics were continued. She was then transferred to [facility] for removal of the prosthesis there. During her hospital stay here she was noted to be anemic and received blood transfusion. After the prosthesis was removed, spacer has been placed. She completed ache weeks of IV antibiotics after having a Port-A-Cath placed. Her serial hemoglobins: Dec 10, 06:50 7.4 Dec 09, 06:07 7.7 Dec 08, 05:51 7.7 Dec 07, 05:45 7.5 Dec 06, 06:06 6.7 May 14, 09:45 9.8 Feb 24, 12:22 10.7 Her creatinine from December 10 was 3. Review of Systems - Constitutional Reports system reviewed and no additional complaints, except as documented, Denies body ache(s), Denies fatigue - Eyes Reports system reviewed and no additional complaints, except as documented, Denies blurry vision - ENT Reports system reviewed and no additional complaints, except as documented - Cardiovascular Reports system reviewed and no additional complaints, except as documented, Denies excessive sweating - Respiratory Reports no additional respiratory complaints, Denies chest congestion - Gastrointestinal Reports system reviewed and no additional complaints, except as documented, Denies abdominal pain, Denies bloating - Genitourinary Reports no additional female genitourinary complaints - Musculoskeletal Reports system reviewed and no additional complaints, except as documented, Reports joint pain - Integumentary/Breasts Skin/Breast: Reports no additional skin complaints, Denies acne - Neurologic Reports system reviewed and no additional complaints, except as documented, Reports abnormal gait, Denies weakness - Psychiatric Reports system reviewed and no additional complaints, except as documented, Denies depression - Endocrine Reports no additional endocrine complaints, Denies cold intolerance - Hematologic/Lymphatic Reports system reviewed and no additional complaints, except as documented, Denies easy bruising - Allergic/Immunologic Reports system reviewed and no additional complaints, except as documented, Denies GI upset with certain foods PMFSH Medical History: Medical History (Last Reviewed 05/05/20 @ 14:40 by Erum Beverly RN) Acquired hypothyroidism Anemia in CKD (chronic kidney disease) Chronic kidney disease, stage 5 Coronary artery disease 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 Diabetic nephropathy Essential hypertension History of myocardial infarction Lumbosacral radiculopathy due to degenerative joint disease of spine Menopause Osteoarthritis involving multiple joints on both sides of body Secondary hyperparathyroidism Septic arthritis of shoulder, right Functional capacity: uses cane/walker Patient : No Family History: Family History (Last Reviewed 05/05/20 @ 14:40 by Erum Beverly RN) Father Medical history non-contributory Mother Medical history non-contributory Surgical History: Surgical History (Last Reviewed 05/05/20 @ 14:40 by Erum Beverly RN) History of laminectomy History of total left knee replacement (TKR) S/P CABG x 3 Status post right shoulder hemiarthroplasty Smoking status: Never smoker Home Medications and Allergies Home Medications Medication Instructions Recorded Confirmed Type amlodipine 10 mg tablet 10 mg PO DAILY 02/16/20 05/05/20 History furosemide 40 mg tablet See Rx Instructions PO .COMPLEX 02/16/20 05/05/20 H istory labetalol 300 mg tablet 300 mg PO BID 02/16/20 05/05/20 History losartan 100 mg tablet 100 mg PO DAILY 02/16/20 05/05/20 History ketorolac 1 drp OPHTHALMIC-RIGHT QID 03/31/20 05/05/20 History sevelamer carbonate 800 mg PO TID 05/05/20 05/05/20 History Allergies Allergy/AdvReac Type Severity Reaction Status Date / Time erythromycin base Allergy Mild RASH Verified 05/05/20 14:40 [Erythromycin Base] indomethacin [From Indocin] Allergy Mild RASH Verified 05/05/20 14:40 penicillin G [Penicillin G] Allergy Mild RASH Verified 05/05/20 14:40 Sulfa (Sulfonamide Allergy Mild RASH, Verified 05/05/20 14:40 Antibiotics) stomach [Sulfa (Sulfonamides)] upset flaxseed [FLAXSEED] Allergy Unknown SWELLING Verified 05/05/20 14:40 TONGUE AND LIPS Flexeril Allergy Unknown lg swelling Verified 05/05/20 14:40 Niacin Preparations Allergy Unknown RASH Verified 05/05/20 14:40 [NIACIN PREPARATIONS] penicillin V Allergy Unknown rash Verified 05/05/20 14:40 cocaine Allergy Seizure Verified 05/05/20 14:40 atorvastatin [From Lipitor] AdvReac Mild MUSCLE Verified 05/05/20 14:40 SOARNESS oxycodone AdvReac Unknown GI upset- Verified 05/05/20 14:40 sevree CAT GUT SUTURES Allergy Unknown rash Uncoded 05/05/20 14:40 niacin Allergy Unknown rash Uncoded 05/05/20 14:40 paper tape, sutures, cat gut, Allergy Unknown rash Uncoded 05/05/20 14:40 PLASTIC TAPE, BANDADES Allergy Unknown rash Uncoded 05/05/20 14:40 Adhesive Bandage AdvReac Mild BLISTERS Uncoded 05/05/20 14:40 Exam Vital signs: Vital Signs Temp 98.2 F 05/05/20 14:37 Pulse 76 05/05/20 14:37 Resp 18 05/05/20 14:37 BP 125/67 05/05/20 14:37 Pulse Ox 97 05/05/20 14:37 Intake & Output 05/04/20 05/05/20 05/05/20 18:59 06:59 18:59 Other: Weight 85.6 kg Weight 85.6 kg Body Mass Index 30.4 - Constitutional Present: no acute distress - Routine HEENT Exam Head: Present: normal inspection Eye: Present: normal appearance ENT: Present: mucous membranes moist - Routine Neck Exam Present: full ROM - Routine Respiratory Exam Present: CTAB - Routine Cardiovascular Exam Cardiovascular: Present: RRR, S1 - Routine Abdominal Exam Present: soft, nontender - Routine Rectal Exam Patient deferred: digital exam - Routine Extremities Exam Present: normal inspection - Routine Back/Spine/Pelvis Exam Back/Spine: Present: full ROM - Routine Skin Exam Present: intact - Routine Neurological Exam Present: alert, oriented X3 - Detailed Neurological Exam: Coma Scale Eye Opening: Spontaneous (4) - Routine Psychiatric Exam Present: normal affect Data - Labs CBC & Chem 7: 04/26/20 10:00 04/26/20 10:00 Labs: 03/02/20 11:55 Complete Blood Count Auto Diff Routine Comprehensive Met. Panel Routine Erythropoietin (EPO) Routine Ferritin Routine IRON PROFILE Routine Lactate Dehydrogenase Routine Vitamin B12 and Folate Routine 03/02/20 12:30 Epoetin Chris [Procrit] 40,000 unit SUBCUT ONCE ONE 03/09/20 11:21 CBC W/AUTO DIFF [Complete Blood Count Auto Diff] Routine 03/09/20 12:00 Epoetin Chris [Procrit] 40,000 unit SUBCUT ONCE ONE 03/16/20 11:20 Type and Screen Routine CMP [Comprehensive Met. Panel] Routine Complete Blood Count Auto Diff Routine 03/16/20 12:00 Epoetin Chris [Procrit] 40,000 unit SUBCUT ONCE ONE 03/22/20 11:36 CBC W/AUTO DIFF [Complete Blood Count Auto Diff] Routine 03/31/20 09:00 Epoetin Chris [Procrit] 40,000 unit SUBCUT ONCE ONE 03/31/20 11:00 CMP [Comprehensive Met. Panel] Routine Complete Blood Count Auto Diff Routine 04/07/20 15:05 CBC W/AUTO DIFF [Complete Blood Count Auto Diff] Routine 04/20/20 13:30 Complete Blood Count Auto Diff Routine Comprehensive Met. Panel Routine Ferritin Routine IRON PROFILE Routine 04/20/20 14:00 Epoetin Chris [Procrit] 40,000 unit SUBCUT ONCE ONE 04/26/20 10:00 Complete Blood Count Auto Diff Routine Comprehensive Met. Panel Routine Ferritin Routine Laboratory Last Values WBC 6.5 X10*3/uL (4.8-10.8) 04/26/20 10:00 RBC 4.27 X10*6/uL (4.20-5.50) 04/26/20 10:00 Hgb 11.2 g/dl (12.0-16.0) L 04/26/20 10:00 Hct 36.8 % (37-47) L 04/26/20 10:00 MCV 86.2 fL (80-98) 04/26/20 10:00 MCH 26.2 pg (27.0-33.0) L 04/26/20 10:00 MCHC 30.4 g/dl (31.0-35.0) L 04/26/20 10:00 RDW 16.4 % (11.0-16.0) H 04/26/20 10:00 Plt Count 286 X10*3/uL (160-400) D 04/26/20 10:00 MPV 10.1 fL (9.4-12.3) 04/26/20 10:00 Immature Gran % (Auto) 0.5 % (0.0-0.4) H 04/26/20 10:00 Neut % (Auto) 68.4 % (45-73) 04/26/20 10:00 Lymph % (Auto) 17.4 % (20-40) L 04/26/20 10:00 Door % (Auto) 6.9 % (2-11) 04/26/20 10:00 Eos % (Auto) 5.6 % (0-4) H 04/26/20 10:00 Baso % (Auto) 1.2 % (0-2) 04/26/20 10:00 Lymph # (Auto) 1.1 X10*3/uL (1.2-4.9) L 04/26/20 10:00 Door # (Auto) 0.5 X10*3/uL (0.1-1.2) 04/26/20 10:00 Eos # (Auto) 0.4 X10*3/uL (0.0-0.4) 04/26/20 10:00 Baso # (Auto) 0.1 X10*3/uL (0.0-0.2) 04/26/20 10:00 Abs Immat Gran (auto) 0.03 X10*3/uL (0.00-0.03) 04/26/20 10:00 Absolute Neuts (auto) 4.4 X10*3/uL (2.0-8.3) 04/26/20 10:00 Absolute Nucleated RBC 0.000 X10*3/uL (0.0-0.012) 04/26/20 10:00 Nucleated RBC % (auto) 0.0 /100WBC (0.0-0.2) 04/26/20 10:00 Sodium 137 mmol/L (135-145) 04/26/20 10:00 Potassium 5.1 mmol/l (3.3-5.1) 04/26/20 10:00 Chloride 101 mmol/L (96-108) 04/26/20 10:00 Carbon Dioxide 23 mmol/L (22-29) 04/26/20 10:00 Anion Gap 18 (-20) 04/26/20 10:00 BUN 91 mg/dL (9-16) H* 04/26/20 10:00 Creatinine 4.40 mg/dL (0.5-1.4) H* 04/26/20 10:00 Estim Creat Clear Calc 11.6 04/26/20 10:00 Estimated GFR 10 04/26/20 10:00 Random Glucose 194 mg/dL (60-115) H 04/26/20 10:00 Calcium 10.2 mg/dL (8.4-10.2) D 04/26/20 10:00 Iron 68 mcg/dL (30-160) 04/20/20 13:30 TIBC 286 mcg/dL (228-428) 04/20/20 13:30 % Saturation 24 % (15-50) 04/20/20 13:30 Unsat Iron Binding 218 ug/dL 04/20/20 13:30 Erythropoietin 21.3 mIU/mL (2.6-18.5) H 03/02/20 11:55 Ferritin 363 ng/mL (10-250) H 04/26/20 10:00 Total Bilirubin 0.4 mg/dL (0.0-1.0) 04/26/20 10:00 AST 8 U/L (5-31) 04/26/20 10:00 ALT 14 U/L (0-31) 04/26/20 10:00 Alkaline Phosphatase 76 U/L (39-117) 04/26/20 10:00 Lactate Dehydrogenase 163 U/L (122-220) 03/02/20 11:55 Total Protein 6.3 g/dL (6.5-8.0) L 04/26/20 10:00 Albumin 4.3 g/dL (3.5-5.0) 04/26/20 10:00 Vitamin B12 238 pg/mL (200-900) 03/02/20 11:55 Folate 5.5 ng/mL (> or = 4.0) 03/02/20 11:55 Blood Type O Positive 03/16/20 11:20 Antibody Screen NEGATIVE 03/16/20 11:20 Progress Note: A/P (1) Anemia in CKD (chronic kidney disease) Status: Acute Assessment and plan: This is a pleasant 79-year-old lady, here for a consult regarding anemia. most likely she has: 1. ANEMIA OF CHRONIC DISEASE: Related to stage 3 kidney disease. Her creatinin e from today is 4.2. / recent infectious problems: E coli in her shoulder. 2. IRON DEFICIENCY ANEMIA: Could be super added. 3. HEMOLYTIC ANEMIA: could be related to medications/ antibiotics. LDH: 163. B12: 238. Folate: 5.5. K/L Light chains ratio: 1.42. I proceeded with further evaluation. Checked iron studies: 38/299/13/725. Checked Erythropoetin level: 21.3. She was started on Procrit for ACD related to stage III kidney Disease. She has actually responded very well to that. She was able to avoid a blood transfusion. Hemoglobin today is 11.2 gms. PLAN: She will continue on the Procrit weekly, for now. Her Hgb is up, does'nt need Procrit today. Will switch to every other week, therapy. Will check iron studies and ferritin next time to check her iron stores and see if she needs any replacement. She will return in a month for a follow-up visit. Thanks, CC: Dr. Hu. - Time Spent With Patient Total time spent is greater than 50% in coordination of care (as documented) at patient's floor/unit and/or counseling patient: 25 - 35 minutes
[2020-05-19 14:43] LABS: MANUAL DIFF FLAG NO
[2020-05-19 14:52] VITALS: BP 144/66; PULSE 70; RESP 18; TEMP 36.8; O2SAT 97; BMI 30.4
[2020-05-19 14:53] LABS: Basophils Absolute Auto 0.1 X10*3/uL (0.0-0.2); Basophils Percent Auto 1.3 % (0-2); Eosinophils Absolute Auto 0.3 X10*3/uL (0.0-0.4); Eosinophils Percent Auto 5.1 % (0-4); Hematocrit 32.9 % (37-47); Hemoglobin 10.4 g/dl (12.0-16.0); Imm Gran Abs Auto 0.02 X10*3/uL (0.00-0.03); Imm Gran Pct Auto 0.3 % (0.0-0.4); Lymphocytes Absolute Auto 0.9 X10*3/uL (1.2-4.9); Lymphocytes Percent Auto 15.4 % (20-40); Mean Corpuscular HGB Conc 31.6 g/dl (31.0-35.0); Mean Corpuscular Hemoglobin 26.3 pg (27.0-33.0); Mean Corpuscular Volume 83.1 fL (80-98); Mean Platelet Volume 10.9 fL (9.4-12.3); Monocytes Absolute Auto 0.5 X10*3/uL (0.1-1.2); Monocytes Percent Auto 8.8 % (2-11); Neutrophils Absolute Auto 4.2 X10*3/uL (2.0-8.3); Neutrophils Percent Auto 69.1 % (45-73); Platelet Count 213 X10*3/uL (160-400); Red Blood Count 3.96 X10*6/uL (4.20-5.50); Red Cell Distribution Width 16.3 % (11.0-16.0); White Blood Count 6.1 X10*3/uL (4.8-10.8)
[2020-05-19] MEDS: Epoetin Alfa 40,000 UNIT/ML VIAL 40000 UNIT SUBCUT (15:34)
[2020-06-02 14:40] LABS: MANUAL DIFF FLAG NO
[2020-06-02 14:43] VITALS: BP 138/83; PULSE 86; RESP 18; TEMP 36.2; O2SAT 96; BMI 31.7
[2020-06-02 14:46] LABS: Basophils Absolute Auto 0.1 X10*3/uL (0.0-0.2); Eosinophils Absolute Auto 0.4 X10*3/uL (0.0-0.4); Eosinophils Percent Auto 7.2 % (0-4); Hematocrit 34.5 % (37-47); Hemoglobin 10.6 g/dl (12.0-16.0); Imm Gran Abs Auto 0.01 X10*3/uL (0.00-0.03); Imm Gran Pct Auto 0.2 % (0.0-0.4); Lymphocytes Absolute Auto 0.9 X10*3/uL (1.2-4.9); Lymphocytes Percent Auto 14.6 % (20-40); Mean Corpuscular HGB Conc 30.7 g/dl (31.0-35.0); Mean Corpuscular Hemoglobin 26.2 pg (27.0-33.0); Mean Corpuscular Volume 85.2 fL (80-98); Monocytes Absolute Auto 0.6 X10*3/uL (0.1-1.2); Monocytes Percent Auto 10.1 % (2-11); Neutrophils Percent Auto 66.9 % (45-73); Platelet Count 166 X10*3/uL (160-400); Red Blood Count 4.05 X10*6/uL (4.20-5.50); Red Cell Distribution Width 19.2 % (11.0-16.0)
--- NOTE | 2020-06-02 14:57 | MHC.HEMONC ---
Addendum entered by Diana Raymond RN 06/02/20 14:59: Exam; hgb 10.6 no procrit given. follow up in 2 weeks ? procrit. Original Note: EX
--- NOTE | 2020-06-02 15:16 | PM.HEMONCPN ---
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 CURRENT THERAPY: PROCRIT EVERY 2 WEEKS NEEDED. Interval History Interval history: This is a pleasant 79 year old lady, here for a follow-up visit and Procrit. She tells me she had been rather fatigued for quite a while. However she has more energy now since she started on the Procrit and her blood count has improved. She has been more active. Denies easy fatigueability. She used to have to take a nap in the afternoon but she no longer needs it. She has some bruises on her hands. She tells me the bathroom is small and the sink is right there. She keeps bumping into it. She denies any fever nor chills. She denies headache no dizziness. She used to have vertigo but that has improved. She just tries to get up slowly. She denies any CP/SOB. No abdominal pain, nausea vomiting, heartburn nor indigestion. Bowels are working without any gross blood in it. Her appetite has improved. She has gained some weight. She has pain due to arthritis, for which she takes Vicodin. She is under the care of pain management. They did temporary electrodes trial which helped. Now she is scheduled for permanent on 07/28. She is in good spirits. Rest of the review of systems is unremarkable. Previous History: Delmar Correa is a pleasant 79 year old lady, who has been noted to be anemic for few months. In March 2016, she had a rotator cuff tear. Underwent arthroscopy. Subsequently she had right shoulder hemiarthroplasty with trabecular metal with ferric occult head operation. She tells me she went to [place] in November on vacation. There she noted drainage from that shoulder. She was diagnosed with E coli infection in the shoulder and she was admitted to a hospital in [place], for 3 weeks received IV antibiotics. December 05 she was admitted here. Antibiotics were continued. She was then transferred to [facility] for removal of the prosthesis there. During her hospital stay here she was noted to be anemic and received blood transfusion. After the prosthesis was removed, spacer has been placed. She completed ache weeks of IV antibiotics after having a Port-A-Cath placed. Her serial hemoglobins: Dec 10 06:50 7.4 Dec 09 06:07 7.7 Dec 08 05:51 7.7 Dec 07 05:45 7.5 Dec 06 06:06 6.7 May 14 09:45 9.8 Feb 24 12:22 10.7 Her creatinine from December 10 was 3. Review of Systems - Constitutional Reports no additional constitutional complaints - Eyes Reports no additional eye complaints - ENT Reports no additional ear, nose, mouth, and throat complaints - Cardiovascular Reports no additional cardiovascular complaints - Respiratory Reports no additional respiratory complaints - Gastrointestinal Reports no additional gastrointestinal complaints - Genitourinary Reports no additional female genitourinary complaints - Musculoskeletal Reports no additional musculoskeletal complaints - Integumentary/Breasts Skin/Breast: Reports no additional skin complaints - Neurologic Reports no additional neurologic complaints, Reports abnormal gait, Denies weakness - Psychiatric Reports no additional psychiatric complaints - Endocrine Reports no additional endocrine complaints - Hematologic/Lymphatic Reports no additional hematologic/lymphatic complaints - Allergic/Immunologic Reports no additional allergic/immunologic complaints [facility] Medical History: Medical History (Last Updated 05/19/20 @ 11:19 by Brigid Hu MD) Acquired hypothyroidism Anemia in CKD (chronic kidney disease) Chronic kidney disease, stage 5 Chronic pain syndrome Coronary artery disease 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 Diabetic nephropathy Essential hypertension History of myocardial infarction Lumbosacral radiculopathy due to degenerative joint disease of spine Menopause Osteoarthritis involving multiple joints on both sides of body Postlaminectomy syndrome Restless leg syndrome Secondary hyperparathyroidism Septic arthritis of shoulder, right Functional capacity: uses cane/walker Family History: Family History (Last Reviewed 05/12/20 @ 08:29 by Denny Alvarez) Father Medical history non-contributory Mother Medical history non-contributory Surgical History: Surgical History (Last Reviewed 05/12/20 @ 08:29 by Denny Alvarez) History of carpal tunnel release History of foot surgery History of laminectomy History of total left knee replacement (TKR) Hx of appendectomy Hx of bilateral cataract extraction Hx of cholecystectomy Hx of colonoscopy Hx of dilation and curettage Hx of umbilical hernia repair S/P CABG x 3 S/P trigger finger release Status post right shoulder hemiarthroplasty Social History: Social History (Last Reviewed 05/12/20 @ 08:29 by Denny Alvarez) Alcohol History: Alcohol intake: never Tobacco History: Smoking Status: Never smoker Nutrition Assessment: Patient : No Smoking status: Never smoker Home Medications and Allergies Home Medications Medication Instructions Recorded Confirmed Type furosemide 40 mg tablet See Rx Instructions PO .COMPLEX 02/16/20 05/08/20 History labetalol 300 mg tablet 300 mg PO BID 02/16/20 05/08/20 History losartan 100 mg tablet 100 mg PO DAILY 02/16/20 05/08/20 History ketorolac 1 drp OPHTHALMIC-RIGHT QID 03/31/20 05/08/20 History sevelamer carbonate 800 mg PO TID 05/05/20 05/08/20 History Allergies Allergy/AdvReac Type Severity Reaction Status Date / Time erythromycin base Allergy Mild RASH Verified 05/08/20 11:57 [Erythromycin Base] indomethacin [From Indocin] Allergy Mild RASH Verified 05/08/20 11:57 Sulfa (Sulfonamide Allergy Mild RASH, Verified 05/08/20 11:57 Antibiotics) stomach [Sulfa (Sulfonamides)] upset flaxseed [FLAXSEED] Allergy Unknown SWELLING Verified 05/08/20 11:57 TONGUE AND LIPS Flexeril Allergy Unknown lg swelling Verified 05/08/20 11:57 Niacin Preparations Allergy Unknown RASH Verified 05/08/20 11:57 [NIACIN PREPARATIONS] cocaine Allergy Seizure Verified 05/08/20 11:57 Penicillins Allergy Rash Verified 05/08/20 11:57 atorvastatin [From Lipitor] AdvReac Mild MUSCLE Verified 05/08/20 11:57 SOARNESS oxycodone AdvReac Unknown GI upset- Verified 05/08/20 11:57 sevree CAT GUT SUTURES Allergy Unknown rash Uncoded 05/08/20 11:57 niacin Allergy Unknown rash Uncoded 05/08/20 11:57 PLASTIC TAPE, BANDADES Allergy Unknown rash Uncoded 05/08/20 11:57 Adhesive Bandage AdvReac Mild BLISTERS Uncoded 05/08/20 11:57 Exam Vital signs: Vital Signs Temp 97.1 F 06/02/20 14:43 Pulse 86 06/02/20 14:43 Resp 18 06/02/20 14:43 BP 138/83 06/02/20 14:43 Pulse Ox 96 06/02/20 14:43 Intake & Output 06/01/20 06/02/20 06/02/20 18:59 06:59 18:59 Other: Weight 89.3 kg Muse Weight in Grams [id number] Weight 89.3 kg Body Mass Index 31.7 - Constitutional Present: no acute distress - Routine HEENT Exam Head: Present: normal inspection Eye: Present: normal appearance ENT: Present: mucous membranes moist - Routine Neck Exam Present: full ROM - Routine Respiratory Exam Present: CTAB - Routine Cardiovascular Exam Cardiovascular: Present: RRR, S1 - Routine Abdominal Exam Present: soft, nontender - Routine Rectal Exam Patient deferred: digital exam - Routine Extremities Exam Present: normal inspection - Routine Back/Spine/Pelvis Exam Back/Spine: Present: full ROM - Routine Skin Exam Present: intact - Routine Neurological Exam Present: alert, oriented X3 - Detailed Neurological Exam: Coma Scale Eye Opening: Spontaneous (4) - Routine Psychiatric Exam Present: normal affect Data - Labs CBC & Chem 7: 06/02/20 14:39 06/02/20 14:39 Labs: 03/02/20 11:55 Complete Blood Count Auto Diff Routine Comprehensive Met. Panel Routine Erythropoietin (EPO) Routine Ferritin Routine IRON PROFILE Routine Lactate Dehydrogenase Routine Vitamin B12 and Folate Routine 03/02/20 12:30 Epoetin Chris [Procrit] 40,000 unit SUBCUT ONCE ONE 03/09/20 11:21 CBC W/AUTO DIFF [Complete Blood Count Auto Diff] Routine 03/09/20 12:00 Epoetin Chris [Procrit] 40,000 unit SUBCUT ONCE ONE 03/16/20 11:20 Type and Screen Routine CMP [Comprehensive Met. Panel] Routine Complete Blood Count Auto Diff Routine 03/16/20 12:00 Epoetin Chris [Procrit] 40,000 unit SUBCUT ONCE ONE 03/22/20 11:36 CBC W/AUTO DIFF [Complete Blood Count Auto Diff] Routine 03/31/20 09:00 Epoetin Chris [Procrit] 40,000 unit SUBCUT ONCE ONE 03/31/20 11:00 CMP [Comprehensive Met. Panel] Routine Complete Blood Count Auto Diff Routine 04/07/20 15:05 CBC W/AUTO DIFF [Complete Blood Count Auto Diff] Routine 04/20/20 13:30 Complete Blood Count Auto Diff Routine Comprehensive Met. Panel Routine Ferritin Routine IRON PROFILE Routine 04/20/20 14:00 Epoetin Chris [Procrit] 40,000 unit SUBCUT ONCE ONE 04/26/20 10:00 Complete Blood Count Auto Diff Routine Comprehensive Met. Panel Routine Ferritin Routine Laboratory Last Values WBC 6.5 X10*3/uL (4.8-10.8) 04/26/20 10:00 RBC 4.27 X10*6/uL (4.20-5.50) 04/26/20 10:00 Hgb 11.2 g/dl (12.0-16.0) L 04/26/20 10:00 Hct 36.8 % (37-47) L 04/26/20 10:00 MCV 86.2 fL (80-98) 04/26/20 10:00 MCH 26.2 pg (27.0-33.0) L 04/26/20 10:00 MCHC 30.4 g/dl (31.0-35.0) L 04/26/20 10:00 RDW 16.4 % (11.0-16.0) H 04/26/20 10:00 Plt Count 286 X10*3/uL (160-400) D 04/26/20 10:00 MPV 10.1 fL (9.4-12.3) 04/26/20 10:00 Immature Gran % (Auto) 0.5 % (0.0-0.4) H 04/26/20 10:00 Neut % (Auto) 68.4 % (45-73) 04/26/20 10:00 Lymph % (Auto) 17.4 % (20-40) L 04/26/20 10:00 Coffee % (Auto) 6.9 % (2-11) 04/26/20 10:00 Eos % (Auto) 5.6 % (0-4) H 04/26/20 10:00 Baso % (Auto) 1.2 % (0-2) 04/26/20 10:00 Lymph # (Auto) 1.1 X10*3/uL (1.2-4.9) L 04/26/20 10:00 Coffee # (Auto) 0.5 X10*3/uL (0.1-1.2) 04/26/20 10:00 Eos # (Auto) 0.4 X10*3/uL (0.0-0.4) 04/26/20 10:00 Baso # (Auto) 0.1 X10*3/uL (0.0-0.2) 04/26/20 10:00 Abs Immat Gran (auto) 0.03 X10*3/uL (0.00-0.03) 04/26/20 10:00 Absolute Neuts (auto) 4.4 X10*3/uL (2.0-8.3) 04/26/20 10:00 Absolute Nucleated RBC 0.000 X10*3/uL (0.0-0.012) 04/26/20 10:00 Nucleated RBC % (auto) 0.0 /100WBC (0.0-0.2) 04/26/20 10:00 Sodium 137 mmol/L (135-145) 04/26/20 10:00 Potassium 5.1 mmol/l (3.3-5.1) 04/26/20 10:00 Chloride 101 mmol/L (96-108) 04/26/20 10:00 Carbon Dioxide 23 mmol/L (22-29) 04/26/20 10:00 Anion Gap 18 (-20) 04/26/20 10:00 BUN 91 mg/dL (9-16) H* 04/26/20 10:00 Creatinine 4.40 mg/dL (0.5-1.4) H* 04/26/20 10:00 Estim Creat Clear Calc 11.6 04/26/20 10:00 Estimated GFR 10 04/26/20 10:00 Random Glucose 194 mg/dL (60-115) H 04/26/20 10:00 Calcium 10.2 mg/dL (8.4-10.2) D 04/26/20 10:00 Iron 68 mcg/dL (30-160) 04/20/20 13:30 TIBC 286 mcg/dL (228-428) 04/20/20 13:30 % Saturation 24 % (15-50) 04/20/20 13:30 Unsat Iron Binding 218 ug/dL 04/20/20 13:30 Erythropoietin 21.3 mIU/mL (2.6-18.5) H 03/02/20 11:55 Ferritin 363 ng/mL (10-250) H 04/26/20 10:00 Total Bilirubin 0.4 mg/dL (0.0-1.0) 04/26/20 10:00 AST 8 U/L (5-31) 04/26/20 10:00 ALT 14 U/L (0-31) 04/26/20 10:00 Alkaline Phosphatase 76 U/L (39-117) 04/26/20 10:00 Lactate Dehydrogenase 163 U/L (122-220) 03/02/20 11:55 Total Protein 6.3 g/dL (6.5-8.0) L 04/26/20 10:00 Albumin 4.3 g/dL (3.5-5.0) 04/26/20 10:00 Vitamin B12 238 pg/mL (200-900) 03/02/20 11:55 Folate 5.5 ng/mL (> or = 4.0) 03/02/20 11:55 Blood Type O Positive 03/16/20 11:20 Antibody Screen NEGATIVE 03/16/20 11:20 Progress Note: A/P (1) Anemia in CKD (chronic kidney disease) Status: Acute Assessment and plan: This is a pleasant 79-year-old lady, here for a consult regarding anemia. Most likely she has: 1. ANEMIA OF CHRONIC DISEASE: Related to stage 3 kidney disease. Her creatinine from today is 4.2. / recent infectious problems: E coli in her shoulder. 2. IRON DEFICIENCY ANEMIA: Could be super added. 3. HEMOLYTIC ANEMIA: could be related to medications/ antibiotics. LDH: 163. B12: 238. Folate: 5.5. K/L Light chains ratio: 1.42. I proceeded with further evaluation. Checked iron studies: 38/299/13/725. Checked Erythropoetin level: 21.3. She was started on Procrit for ACD related to stage III kidney Disease. She has actually responded very well to that. She was able to avoid a blood transfusion. Hemoglobin today is 10.6 gms. She does not need Procrit today. PLAN: She will continue on the Procrit Q 2 weekly, now. Her Hgb is up, does'nt need Procrit today. Will check iron studies and ferritin next time to check her iron stores and see if she needs any replacement. She will return in a month for a follow-up visit. Thanks, CC: Dr. Hu. - Time Spent With Patient Total time spent is greater than 50% in coordination of care (as documented) at patient's floor/unit and/or counseling patient: 15 - 24 minutes
[2020-06-02 15:33] LABS: Alanine Aminotransferase 23 U/L (0-31); Alkaline Phosphatase 82 U/L (39-117); Anion Gap 19 (12-20); Aspartate Amino Transferase 11 U/L (5-31); Bilirubin Total 0.6 mg/dL (0.0-1.0); Blood Urea Nitrogen 89 mg/dL (9-16); Carbon Dioxide 25 mmol/L (22-29); Chloride 100 mmol/L (96-108); Creatinine Clr Calc Pharmacy 11.6; Estimated Glomerular Filt Rate 10; Glucose Random 137 mg/dL (60-115); Iron 42 mcg/dL (30-160); Percent Iron Saturation 13 % (15-50); Potassium 5.1 mmol/L (3.3-5.1); Sodium 139 mmol/L (135-145); Total Iron Binding Capacity 314 mcg/dL (228-428); Unsaturated Iron Binding 272 ug/dL
[2020-06-02 16:04] LABS: Ferritin 341 ng/mL (10-250)
[2020-06-20 14:56] VITALS: BP 115/67; PULSE 91; RESP 18; TEMP 36.9; O2SAT 96; BMI 32.5
[2020-06-20 15:06] LABS: MANUAL DIFF FLAG NO
[2020-06-20 15:12] LABS: Basophils Absolute Auto 0.1 X10*3/uL (0.0-0.2); Basophils Percent Auto 1.1 % (0-2); Eosinophils Absolute Auto 0.4 X10*3/uL (0.0-0.4); Eosinophils Percent Auto 6.6 % (0-4); Hematocrit 33.6 % (37-47); Hemoglobin 10.6 g/dl (12.0-16.0); Imm Gran Abs Auto 0.02 X10*3/uL (0.00-0.03); Imm Gran Pct Auto 0.4 % (0.0-0.4); Lymphocytes Percent Auto 18.4 % (20-40); Mean Corpuscular HGB Conc 31.5 g/dl (31.0-35.0); Mean Corpuscular Hemoglobin 26.6 pg (27.0-33.0); Mean Corpuscular Volume 84.2 fL (80-98); Mean Platelet Volume 10.6 fL (9.4-12.3); Monocytes Absolute Auto 0.5 X10*3/uL (0.1-1.2); Neutrophils Absolute Auto 3.6 X10*3/uL (2.0-8.3); Neutrophils Percent Auto 64.5 % (45-73); Platelet Count 175 X10*3/uL (160-400); Red Blood Count 3.99 X10*6/uL (4.20-5.50); Red Cell Distribution Width 18.4 % (11.0-16.0); White Blood Count 5.6 X10*3/uL (4.8-10.8)
--- NOTE | 2020-06-20 15:39 | MHC.HEMONC ---
Pt here for labs. Hemoglobin 10.6, no procrit given. Pt has next appointment scheduled for 06/30.
[2020-06-20 15:49] LABS: Alanine Aminotransferase 11 U/L (0-31); Albumin Level 3.9 g/dL (3.5-5.0); Alkaline Phosphatase 77 U/L (39-117); Anion Gap 19 (12-20); Aspartate Amino Transferase 8 U/L (5-31); Bilirubin Total 0.4 mg/dL (0.0-1.0); Calcium 9.7 mg/dL (8.4-10.2); Carbon Dioxide 25 mmol/L (22-29); Chloride 102 mmol/L (96-108); Glucose Random 164 mg/dL (60-115); Potassium 5.5 mmol/L (3.3-5.1); Sodium 140 mmol/L (135-145); Total Protein 5.9 g/dL (6.5-8.0)
[2020-06-20 15:56] LABS: Blood Urea Nitrogen 101 mg/dL (9-16); Creatinine Clr Calc Pharmacy 10.8; Estimated Glomerular Filt Rate 9
--- NOTE | 2020-06-20 16:40 | MHC.HEMONC ---
Critical lab values BUN 101, Creatinine 4.[address] Dasilva. Labs to be faxed to Dr Hu
[2020-06-30 14:30] LABS: MANUAL DIFF FLAG NO
[2020-06-30 14:33] VITALS: BP 129/62; PULSE 65; RESP 18; TEMP 36.3; O2SAT 97; BMI 32.1
[2020-06-30 14:43] LABS: Basophils Percent Auto 0.7 % (0-2); Eosinophils Absolute Auto 0.3 X10*3/uL (0.0-0.4); Eosinophils Percent Auto 5.7 % (0-4); Hematocrit 31.6 % (37-47); Hemoglobin 10.1 g/dl (12.0-16.0); Imm Gran Abs Auto 0.02 X10*3/uL (0.00-0.03); Imm Gran Pct Auto 0.3 % (0.0-0.4); Mean Corpuscular Hemoglobin 27.1 pg (27.0-33.0); Mean Corpuscular Volume 84.7 fL (80-98); Mean Platelet Volume 10.6 fL (9.4-12.3); Monocytes Absolute Auto 0.4 X10*3/uL (0.1-1.2); Monocytes Percent Auto 7.1 % (2-11); Neutrophils Absolute Auto 3.9 X10*3/uL (2.0-8.3); Neutrophils Percent Auto 68.2 % (45-73); Platelet Count 145 X10*3/uL (160-400); Red Blood Count 3.73 X10*6/uL (4.20-5.50); Red Cell Distribution Width 18.4 % (11.0-16.0); White Blood Count 5.8 X10*3/uL (4.8-10.8)
--- NOTE | 2020-06-30 15:01 | MHC.HEMONC ---
Pt here for injection. No injection due to HGB level and no symptoms. Follow-up given.
[2020-06-30 15:13] LABS: Alanine Aminotransferase 8 U/L (0-31); Albumin Level 3.9 g/dL (3.5-5.0); Alkaline Phosphatase 87 U/L (39-117); Anion Gap 18 (12-20); Aspartate Amino Transferase 7 U/L (5-31); Bilirubin Total 0.5 mg/dL (0.0-1.0); Blood Urea Nitrogen 91 mg/dL (9-16); Calcium 9.2 mg/dL (8.4-10.2); Carbon Dioxide 28 mmol/L (22-29); Chloride 96 mmol/L (96-108); Creatinine Clr Calc Pharmacy 10.1; Estimated Glomerular Filt Rate 8; Glucose Random 142 mg/dL (60-115); Potassium 4.7 mmol/L (3.3-5.1); Sodium 137 mmol/L (135-145)
--- NOTE | 2020-06-30 15:32 | MHC.HEMONC ---
Chemistry faxing results to Dr Ferro's office.
[2020-07-14 15:42] VITALS: BP 106/61; PULSE 82; RESP 18; TEMP 36.6; O2SAT 97; BMI 33.4
[2020-07-14 16:07] LABS: MANUAL DIFF FLAG NO
[2020-07-14 16:12] LABS: Basophils Absolute Auto 0.1 X10*3/uL (0.0-0.2); Basophils Percent Auto 0.9 % (0-2); Eosinophils Absolute Auto 0.2 X10*3/uL (0.0-0.4); Eosinophils Percent Auto 4.2 % (0-4); Hematocrit 29.5 % (37-47); Hemoglobin 9.3 g/dl (12.0-16.0); Imm Gran Abs Auto 0.02 X10*3/uL (0.00-0.03); Imm Gran Pct Auto 0.4 % (0.0-0.4); Lymphocytes Percent Auto 17.9 % (20-40); Mean Corpuscular HGB Conc 31.5 g/dl (31.0-35.0); Mean Corpuscular Hemoglobin 26.7 pg (27.0-33.0); Mean Corpuscular Volume 84.8 fL (80-98); Mean Platelet Volume 10.8 fL (9.4-12.3); Monocytes Absolute Auto 0.6 X10*3/uL (0.1-1.2); Monocytes Percent Auto 10.3 % (2-11); Neutrophils Absolute Auto 3.7 X10*3/uL (2.0-8.3); Neutrophils Percent Auto 66.3 % (45-73); Platelet Count 163 X10*3/uL (160-400); Red Blood Count 3.48 X10*6/uL (4.20-5.50); Red Cell Distribution Width 18.5 % (11.0-16.0); White Blood Count 5.5 X10*3/uL (4.8-10.8)
[2020-07-14] MEDS: Epoetin Alfa 40,000 UNIT/ML VIAL 40000 UNIT SUBCUT (16:21)
--- NOTE | 2020-07-14 16:25 | MHC.HEMONC ---
Pt here for injectoin and follow-up. Injection given as ordered. Clinical summary updated with nurse. Provider seen patient.
--- NOTE | 2020-07-14 16:26 | PM.HEMONCPN ---
Medical Summary - Medical Summary Date of Service: 07/14/20 Chief complaint: Follow-up for: Anemia. 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 CURRENT THERAPY: PROCRIT EVERY 2 WEEKS NEEDED. Interval History Interval history: This is a pleasant 79 year old lady, here for a follow-up visit and Procrit. She tells me she had been rather fatigued for quite a while. However she has more energy now since she started on the Procrit and her blood count has improved. She has been more active. Denies easy fatigueability. She used to have to take a nap in the afternoon but she no longer needs it. She is under the care of pain management. They did temporary electrodes trial which helped. Now she is scheduled for permanent on 07/28, by Dr. Franco. She denies any fever nor chills. She denies headache no dizziness. She used to have vertigo but that has improved. She just tries to get up slowly. She denies any CP/SOB. No abdominal pain, nausea vomiting, heartburn nor indigestion. Bowels are working without any gross blood in it. Her appetite has improved. She has gained some weight. She has pain due to arthritis, for which she takes Vicodin. She has noted lower extremity edema. 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 Ferro has recently started her on a new pills a couple of days ago. She is in good spirits. Rest of the review of systems is unremarkable. Previous History: Delmar Correa is a pleasant 79 year old lady, who has been noted to be anemic for few months. In March 2016, she had a rotator cuff tear. Underwent arthroscopy. Subsequently she had right shoulder hemiarthroplasty with trabecular metal with ferric occult head operation. She tells me she went to [place] in November on vacation. There she noted drainage from that shoulder. She was diagnosed with E coli infection in the shoulder and she was admitted to a hospital in [place], for 3 weeks received IV antibiotics. December 05 she was admitted here. Antibiotics were continued. She was then transferred to [facility] for removal of the prosthesis there. During her hospital stay here she was noted to be anemic and received blood transfusion. After the prosthesis was removed, spacer has been placed. She completed ache weeks of IV antibiotics after having a Port-A-Cath placed. Her serial hemoglobins: Dec 10, 20 06:50 7.4 Dec 09, 06:07 7.7 Dec 08, 05:51 7.7 Dec 07, 05:45 7.5 Dec 06, 06:06 6.7 May 14, 09:45 9.8 Feb 24, 12:22 10.7 Her creatinine from December 10 was 3. Review of Systems - Constitutional Reports system reviewed and no additional complaints, except as documented, Reports lack of energy, Reports malaise - Eyes Reports system reviewed and no additional complaints, except as documented - ENT Reports system reviewed and no additional complaints, except as documented - Cardiovascular Reports system reviewed and no additional complaints, except as documented - Respiratory Reports no additional respiratory complaints - Gastrointestinal Reports system reviewed and no additional complaints, except as documented - Genitourinary Reports no additional female genitourinary complaints - Musculoskeletal Reports system reviewed and no additional complaints, except as documented - Integumentary/Breasts Skin/Breast: Reports no additional skin complaints - Neurologic Reports system reviewed and no additional complaints, except as documented, Reports abnormal gait, Denies weakness - Psychiatric Reports system reviewed and no additional complaints, except as documented - Endocrine Reports no additional endocrine complaints - Hematologic/Lymphatic Reports system reviewed and no additional complaints, except as documented - Allergic/Immunologic Reports system reviewed and no additional complaints, except as documented PMFSH Medical History: Medical History (Last Reviewed 07/18/20 @ 08:52 by Teri Jo, PT) Acquired hypothyroidism Anemia in CKD (chronic kidney disease) Bilateral calf pain Chronic kidney disease, stage 5 Chronic pain syndrome Coronary artery disease 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 Diabetic nephropathy Essential hypertension History of myocardial infarction Lumbosacral radiculopathy due to degenerative joint disease of spine Menopause Osteoarthritis involving multiple joints on both sides of body Pain and swelling of lower leg Postlaminectomy syndrome Restless leg syndrome Secondary hyperparathyroidism Septic arthritis of shoulder, right Functional capacity: uses cane/walker Patient : No Family History: Family History (Last Reviewed 07/14/20 @ 15:45 by Erum Beverly RN) Father Medical history non-contributory Mother Medical history non-contributory Surgical History: Surgical History (Last Reviewed 07/18/20 @ 08:52 by Teri Jo, PT) History of carpal tunnel release History of foot surgery History of laminectomy History of total left knee replacement (TKR) Hx of appendectomy Hx of bilateral cataract extraction Hx of cholecystectomy Hx of colonoscopy Hx of dilation and curettage Hx of umbilical hernia repair S/P CABG x 3 S/P trigger finger release Status post right shoulder hemiarthroplasty Social History: Social History (Last Reviewed 07/14/20 @ 15:45 by Erum Beverly RN) Alcohol History: Alcohol intake: never Alcohol History Details: Alcohol intake frequency: does not drink Tobacco History: Smoking Status: Never smoker Substance Use History: Use of substances other than those prescribed or required for medical reasons: No Advance Directives: Advance Directives: No Advance Directives Information Provided: Yes Smoking status: Never smoker Oncology Screenings - ECOG Performance Status ECOG Performance Status: 0 Home Medications and Allergies Current Medications: Current Medications Generic Name Dose Route Start Last Admin Trade Name Freq PRN Reason Stop Dose Admin Epoetin Chris 40,000 unit 07/14/20 16:30 07/14/20 16:21 Epoetin Chris 40,000 Unit/Ml Vial SUBCUT 07/14/20 16:31 40,000 unit ONCE ONE Administration Home Medications Medication Instructions Recorded Confirmed Type labetalol 300 mg tablet 300 mg PO BID 02/16/20 07/18/20 History losartan 100 mg tablet 100 mg PO DAILY 02/16/20 07/18/20 History ketorolac 1 drp OPHTHALMIC-RIGHT QID 03/31/20 07/18/20 History sevelamer carbonate 800 mg PO TID 05/05/20 07/18/20 History acetaminophen 500 mg tablet 500 mg PO Q6H PRN 06/21/20 07/18/20 History aspirin 81 mg tablet,delayed 81 mg PO DAILY 06/21/20 07/18/20 History release coenzyme Q10 100 mg capsule 100 mg PO TID cap 06/21/20 07/18/20 History ferrous sulfate 325 mg (65 mg 325 mg PO TID tab 06/21/20 07/18/20 History iron) tablet metolazone 5 mg tablet 5 mg PO DAILY 06/21/20 07/18/20 History ropinirole 0.5 mg tablet 0.5 mg PO QID tab 06/21/20 07/18/20 History sodium bicarbonate-sodium chloride 1 ea MISCELLANEOUS BID 06/21/20 07/18/20 History powder torsemide 1 tab PO DAILY 07/14/20 07/18/20 History vit C,E,Zn,Io--mbp-zeax 1 cap PO BID 07/18/20 07/18/20 History [PreserVision AREDS-2 (omega-3)] Allergies Allergy/AdvReac Type Severity Reaction Status Date / Time erythromycin base Allergy Mild RASH Verified 07/17/20 20:59 [Erythromycin Base] indomethacin [From Indocin] Allergy Mild RASH Verified 07/17/20 20:59 Sulfa (Sulfonamide Allergy Mild RASH, Verified 07/17/20 20:59 Antibiotics) stomach [Sulfa (Sulfonamides)] upset ezetimibe [From Zetia] Allergy Unknown unknown Verified 07/17/20 20:59 flaxseed [FLAXSEED] Allergy Unknown SWELLING Verified 07/17/20 20:59 TONGUE AND LIPS Flexeril Allergy Unknown lg swelling Verified 07/17/20 20:59 gabapentin [From Neurontin] Allergy Unknown UNknown Verified 07/17/20 20:59 glipizide Allergy Unknown UNknown Verified 07/17/20 20:59 Niacin Preparations Allergy Unknown RASH Verified 07/17/20 20:59 [NIACIN PREPARATIONS] Penicillins Allergy Unknown Rash Verified 07/17/20 20:59 cocaine Allergy Seizure Verified 07/17/20 20:59 atorvastatin [From Lipitor] AdvReac Mild MUSCLE Verified 07/17/20 20:59 SOARNESS oxycodone AdvReac Unknown GI upset- Verified 07/17/20 20:59 sevree CAT GUT SUTURES Allergy Unknown rash Uncoded 07/17/20 20:59 PLASTIC TAPE, BANDADES Allergy Unknown rash Uncoded 07/17/20 20:59 Adhesive Bandage AdvReac Mild BLISTERS Uncoded 07/17/20 20:59 Exam Vital signs: Vital Signs Temp 97.8 F 07/14/20 15:42 Pulse 82 07/14/20 15:42 Resp 18 07/14/20 15:42 BP 106/61 07/14/20 15:42 Pulse Ox 97 07/14/20 15:42 Intake & Output 07/13/20 07/14/20 07/14/20 18:59 06:59 18:59 Other: Weight 93.9 kg [place] Weight in Grams [id number] Weight 93.9 kg Body Mass Index 33.4 - Constitutional Present: no acute distress - Routine HEENT Exam Head: Present: normal inspection Eye: Present: normal appearance ENT: Present: mucous membranes moist - Routine Neck Exam Present: full ROM - Routine Respiratory Exam Present: CTAB - Routine Cardiovascular Exam Cardiovascular: Present: RRR, S1 - Routine Abdominal Exam Present: soft, nontender - Routine Rectal Exam Patient deferred: digital exam - Routine Extremities Exam Present: normal inspection - Routine Back/Spine/Pelvis Exam Back/Spine: Present: full ROM - Routine Skin Exam Present: intact - Routine Neurological Exam Present: alert, oriented X3 - Detailed Neurological Exam: Coma Scale Eye Opening: Spontaneous (4) - Routine Psychiatric Exam Present: normal affect Data - Labs CBC & Chem 7: 07/14/20 15:41 07/14/20 15:41 Labs: 03/02/20 11:55 Complete Blood Count Auto Diff Routine Comprehensive Met. Panel Routine Erythropoietin (EPO) Routine Ferritin Routine IRON PROFILE Routine Lactate Dehydrogenase Routine Vitamin B12 and Folate Routine 03/02/20 12:30 Epoetin Chris [Procrit] 40,000 unit SUBCUT ONCE ONE 03/09/20 11:21 CBC W/AUTO DIFF [Complete Blood Count Auto Diff] Routine 03/09/20 12:00 Epoetin Chris [Procrit] 40,000 unit SUBCUT ONCE ONE 03/16/20 11:20 Type and Screen Routine CMP [Comprehensive Met. Panel] Routine Complete Blood Count Auto Diff Routine 03/16/20 12:00 Epoetin Chris [Procrit] 40,000 unit SUBCUT ONCE ONE 03/22/20 11:36 CBC W/AUTO DIFF [Complete Blood Count Auto Diff] Routine 03/31/20 09:00 Epoetin Chris [Procrit] 40,000 unit SUBCUT ONCE ONE 03/31/20 11:00 CMP [Comprehensive Met. Panel] Routine Complete Blood Count Auto Diff Routine 04/07/20 15:05 CBC W/AUTO DIFF [Complete Blood Count Auto Diff] Routine 04/20/20 13:30 Complete Blood Count Auto Diff Routine Comprehensive Met. Panel Routine Ferritin Routine IRON PROFILE Routine 04/20/20 14:00 Epoetin Chris [Procrit] 40,000 unit SUBCUT ONCE ONE 04/26/20 10:00 Complete Blood Count Auto Diff Routine Comprehensive Met. Panel Routine Ferritin Routine Laboratory Last Values WBC 6.5 X10*3/uL (4.8-10.8) 04/26/20 10:00 RBC 4.27 X10*6/uL (4.20-5.50) 04/26/20 10:00 Hgb 11.2 g/dl (12.0-16.0) L 04/26/20 10:00 Hct 36.8 % (37-47) L 04/26/20 10:00 MCV 86.2 fL (80-98) 04/26/20 10:00 MCH 26.2 pg (27.0-33.0) L 04/26/20 10:00 MCHC 30.4 g/dl (31.0-35.0) L 04/26/20 10:00 RDW 16.4 % (11.0-16.0) H 04/26/20 10:00 Plt Count 286 X10*3/uL (160-400) D 04/26/20 10:00 MPV 10.1 fL (9.4-12.3) 04/26/20 10:00 Immature Gran % (Auto) 0.5 % (0.0-0.4) H 04/26/20 10:00 Neut % (Auto) 68.4 % (45-73) 04/26/20 10:00 Lymph % (Auto) 17.4 % (20-40) L 04/26/20 10:00 [place] % (Auto) 6.9 % (2-11) 04/26/20 10:00 Eos % (Auto) 5.6 % (0-4) H 04/26/20 10:00 Baso % (Auto) 1.2 % (0-2) 04/26/20 10:00 Lymph # (Auto) 1.1 X10*3/uL (1.2-4.9) L 04/26/20 10:00 [place] # (Auto) 0.5 X10*3/uL (0.1-1.2) 04/26/20 10:00 Eos # (Auto) 0.4 X10*3/uL (0.0-0.4) 04/26/20 10:00 Baso # (Auto) 0.1 X10*3/uL (0.0-0.2) 04/26/20 10:00 Abs Immat Gran (auto) 0.03 X10*3/uL (0.00-0.03) 04/26/20 10:00 Absolute Neuts (auto) 4.4 X10*3/uL (2.0-8.3) 04/26/20 10:00 Absolute Nucleated RBC 0.000 X10*3/uL (0.0-0.012) 04/26/20 10:00 Nucleated RBC % (auto) 0.0 /100WBC (0.0-0.2) 04/26/20 10:00 Sodium 137 mmol/L (135-145) 04/26/20 10:00 Potassium 5.1 mmol/l (3.3-5.1) 04/26/20 10:00 Chloride 101 mmol/L (96-108) 04/26/20 10:00 Carbon Dioxide 23 mmol/L (22-29) 04/26/20 10:00 Anion Gap 18 (-20) 04/26/20 10:00 BUN 91 mg/dL (9-16) H* 04/26/20 10:00 Creatinine 4.40 mg/dL (0.5-1.4) H* 04/26/20 10:00 Estim Creat Clear Calc 11.6 04/26/20 10:00 Estimated GFR 10 04/26/20 10:00 Random Glucose 194 mg/dL (60-115) H 04/26/20 10:00 Calcium 10.2 mg/dL (8.4-10.2) D 04/26/20 10:00 Iron 68 mcg/dL (30-160) 04/20/20 13:30 TIBC 286 mcg/dL (228-428) 04/20/20 13:30 % Saturation 24 % (15-50) 04/20/20 13:30 Unsat Iron Binding 218 ug/dL 04/20/20 13:30 Erythropoietin 21.3 mIU/mL (2.6-18.5) H 03/02/20 11:55 Ferritin 363 ng/mL (10-250) H 04/26/20 10:00 Total Bilirubin 0.4 mg/dL (0.0-1.0) 04/26/20 10:00 AST 8 U/L (5-31) 04/26/20 10:00 ALT 14 U/L (0-31) 04/26/20 10:00 Alkaline Phosphatase 76 U/L (39-117) 04/26/20 10:00 Lactate Dehydrogenase 163 U/L (122-220) 03/02/20 11:55 Total Protein 6.3 g/dL (6.5-8.0) L 04/26/20 10:00 Albumin 4.3 g/dL (3.5-5.0) 04/26/20 10:00 Vitamin B12 238 pg/mL (200-900) 03/02/20 11:55 Folate 5.5 ng/mL (> or = 4.0) 03/02/20 11:55 Blood Type O Positive 03/16/20 11:20 Antibody Screen NEGATIVE 03/16/20 11:20 Progress Note: A/P (1) Anemia in CKD (chronic kidney disease) Status: Acute Assessment and plan: This is a pleasant 79-year-old lady, here for a follow-up regarding normochromic normocytic Anemia. Most likely she has: 1. ANEMIA OF CHRONIC DISEASE: Related to stage 3 kidney disease. Her creatinine from today is 4.2. / recent infectious problems: E coli in her shoulder. 2. IRON DEFICIENCY ANEMIA: Could be super added. 3. HEMOLYTIC ANEMIA: could be related to medications/ antibiotics. LDH: 163. B12: 238. Folate: 5.5. K/L Light chains ratio: 1.42. I proceeded with further evaluation. Checked iron studies: 38/299/13/725. Checked Erythropoetin level: 21.3. She was started on Procrit for ACD related to stage III kidney Disease. She has actually responded very well to that. She was able to avoid a blood transfusion. Hemoglobin today is 9.3 gms. She does need Procrit today. PLAN: She will continue on the Procrit Q 2 weekly, now. She will receive a dose of Procrit today. Will check iron studies and ferritin, today to check her iron stores and see if she needs any replacement therapy. She will return in 3 months for a follow-up visit. Thanks, CC: Dr. Hu. - Time Spent With Patient Total time spent is greater than 50% in coordination of care (as documented) at patient's floor/unit and/or counseling patient: 25 - 35 minutes
[2020-07-14 17:08] LABS: Alanine Aminotransferase < 6 U/L (0-31); Albumin Level 3.9 g/dL (3.5-5.0); Alkaline Phosphatase 71 U/L (39-117); Anion Gap 20 (12-20); Aspartate Amino Transferase 7 U/L (5-31); Bilirubin Total 0.4 mg/dL (0.0-1.0); Blood Urea Nitrogen 112 mg/dL (9-16); Calcium 9.2 mg/dL (8.4-10.2); Carbon Dioxide 25 mmol/L (22-29); Chloride 94 mmol/L (96-108); Creatinine Clr Calc Pharmacy 8.7; Estimated Glomerular Filt Rate 7; Glucose Random 138 mg/dL (60-115); Iron 72 mcg/dL (30-160); Percent Iron Saturation 23 % (15-50); Potassium 5.3 mmol/L (3.3-5.1); Sodium 134 mmol/L (135-145); Total Iron Binding Capacity 308 mcg/dL (228-428); Total Protein 5.9 g/dL (6.5-8.0); Unsaturated Iron Binding 236 ug/dL
[2020-07-14 17:15] LABS: Ferritin 420 ng/mL (10-250)
--- NOTE | 2020-07-26 14:15 | HO.HEMONCPA ---
Patient has Medicare as primary insurance, PA is not required.
[2020-07-27 14:51] LABS: Basophils Percent Auto 0.5 % (0-2); Eosinophils Absolute Auto 0.2 X10*3/uL (0.0-0.4); Hematocrit 28.5 % (37-47); Hemoglobin 9.2 g/dl (12.0-16.0); Imm Gran Abs Auto 0.02 X10*3/uL (0.00-0.03); Imm Gran Pct Auto 0.4 % (0.0-0.4); Lymphocytes Absolute Auto 0.6 X10*3/uL (1.2-4.9); Lymphocytes Percent Auto 11.5 % (20-40); MANUAL DIFF FLAG SCAN; Mean Corpuscular HGB Conc 32.3 g/dl (31.0-35.0); Mean Corpuscular Volume 86.6 fL (80-98); Mean Platelet Volume 10.5 fL (9.4-12.3); Monocytes Absolute Auto 0.5 X10*3/uL (0.1-1.2); Monocytes Percent Auto 8.8 % (2-11); Neutrophils Absolute Auto 4.1 X10*3/uL (2.0-8.3); Neutrophils Percent Auto 74.8 % (45-73); Platelet Count 166 X10*3/uL (160-400); Red Blood Count 3.29 X10*6/uL (4.20-5.50); Red Cell Distribution Width 20.2 % (11.0-16.0); SCAN SMEAR FLAG 1; White Blood Count 5.5 X10*3/uL (4.8-10.8)
[2020-07-27 14:54] VITALS: BP 118/59; PULSE 58; RESP 18; TEMP 36.3; O2SAT 98; BMI 32.2
[2020-07-27] MEDS: Epoetin Alfa 40,000 UNIT/ML VIAL 40000 UNIT SUBCUT (15:24)
--- NOTE | 2020-07-27 15:28 | MHC.HEMONC ---
Pt here for injection. Labs drawn. Injection given as ordered/documented for lab values. Follow-up given.
[2020-07-27 15:42] LABS: Alanine Aminotransferase 50 U/L (0-31); Albumin Level 3.6 g/dL (3.5-5.0); Alkaline Phosphatase 81 U/L (39-117); Anion Gap 21 (12-20); Aspartate Amino Transferase 10 U/L (5-31); Bilirubin Total 0.5 mg/dL (0.0-1.0); Blood Urea Nitrogen 123 mg/dL (9-16); Calcium 8.5 mg/dL (8.4-10.2); Carbon Dioxide 22 mmol/L (22-29); Chloride 92 mmol/L (96-108); Estimated Glomerular Filt Rate 6; Glucose Random 110 mg/dL (60-115); Potassium 5.6 mmol/L (3.3-5.1); Sodium 129 mmol/L (135-145); Total Protein 5.6 g/dL (6.5-8.0)
--- NOTE | 2020-07-27 15:50 | MHC.HEMONC ---
Recieved call from Rashmi from Lab with critical results of BUN 123, CREAT 6.57. Results reported to [facility]. Dr Roach office called per Dr Dasilva request-results given to nurse VECC at Dr Roach office.
[2020-07-27 16:15] LABS: SLIDE REVIEW VERIFIED
[2020-10-13 14:30] VITALS: BP 105/73; PULSE 99; RESP 18; TEMP 36.7; O2SAT 98; BMI 32.2
--- NOTE | 2020-10-13 14:35 | P.PNHO_ITS ---
Medical Summary - Medical Summary Date of Service: 10/13/20 Chief complaint: Follow-up for ACD. 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 CURRENT THERAPY: PROCRIT EVERY 2 WEEKS NEEDED. Interval History Interval history: This is a pleasant 79 year old lady, here for a follow-up visit. She was in the hospital towards the end of July. Discharge summary: Past medical history of hypertension, hyperlipidemia, CAD status post CABG x3, chronic pain syndrome, sciatica, restless leg syndrome, anemia, CKD stage 5, diabetes, diabetic neuropathy, osteoarthritis status post right shoulder hemiart hroplasty, chronic back pain/sciatica-patient due for pain pump installation presented to the hospital with a chief complaint of worsening bilateral lower extremity swelling; She was noted to have worsened renal function. She denies any chest pain palpitations lightheadedness or dizziness. Complains of dyspnea on exertion. Denies any urinary symptoms. Mentioned that she has been on diuretics at home. Denies any numbness tingling in the lower extremities. Denies any focal weakness. The patient mentions he has been having chronic back pain unchanged in character. Denies any falls. Per ER team patient noted to have bilateral lower extremity swelling; on the labs noted to have acute on chronic kidney injury with worsening creatinine and hyperkalemia. Nephrology recommended starting on sodium bicarbonate drip, given Kayexalate and calcium gluconate. ProBNP elevated to 3900 concern for CHF. End-stage renal disease on dialysis. New to dialysis around August 01 due to hyperkalemia and worsening renal failure. She was admitted this time with shortness of breath and dyspnea. She was initially treated with IV lasix drip. She received urgent dialysis on 08/20. She continue with sodium bicarbonate and phosphate binders. She had repeat dialysis and was discharged to short-term rehab to continue dialysis Friday, and Friday. She will need more aggressive dialysis as an outpatient to reach her ideal dry weight. She was to follow renal diet. Ischemic cardiomyopathy with heart failure with reduced ejection fraction.Severe. Last echocardiogram showed EF of 15-20%, patient is currently on carvedilol, however unable to maximize to to her heart rate being on lower size. She was seen by Cardiology with recommendation to increase Hydralazine to 25 mg twice daily and isosorbide mg twice daily was added. Paroxysmal atrial fibrillation: Has been in normal rhythm. Continue carvedilol and Eliquis for anticoagulation. Urinary tract infection: gram-negative rods on urine culture. She was started on IV Rocephin. Was sent home on ceftin BID for 5 days. She is going to [facility] on Friday and . Since she started dialysis she is feeling better. She tells me she has always felt fatigued. However she has more energy now. Sometimes she takes a nap around 07:00 o'clock in the even a. She denies any fever nor chills. She denies headache no dizziness. She used to have vertigo but that has improved. She just tries to get up slowly. She denies any CP/SOB. No abdominal pain, nausea vomiting, heartburn nor indigestion. Bowels are working without any gross blood in it. Her appetite has improved. She has gained some weight. She has pain due to arthritis, for which she takes Vicodin. She has noted lower extremity edema. Her sales promotion manager Dr. Underwood has started her on a new pill to help bring up her blood pressure. She is in good spirits. Rest of the review of systems is unremarkable. She is under the care of pain management. They did temporary electrodes trial which helped. Now she is scheduled for permanent on 07/28, by Dr. Franco. Previous History: Delmar Correa is a pleasant 79 year old lady, who has been noted to be anemic for few months. In March 2016, she had a rotator cuff tear. Underwent arthroscopy. Subseq uently she had right shoulder hemiarthroplasty with trabecular metal with ferric occult head operation. She tells me she went to [place] in November on vacation. There she noted drainage from that shoulder. She was diagnosed with E coli infection in the shoulder and she was admitted to a hospital in [place], for 3 weeks received IV antibiotics. December 05 she was admitted here. Antibiotics were continued. She was then transferred to [facility] for removal of the prosthesis there. During her h ospital stay here she was noted to be anemic and received blood transfusion. After the prosthesis was removed, spacer has been placed. She completed ache weeks of IV antibiotics after having a Port-A-Cath placed. Her serial hemoglobins: Dec 10, 06:50 7.4 Dec 09, 06:07 7.7 Dec 08 05:51 7.7 Dec 07 05:45 7.5 Dec 06 06:06 6.7 May 14, 09:45 9.8 Feb 24 12:22 10.7 Her creatinine from December 10 was 3. Review of Systems - Constitutional Reports no additional constitutional complaints, Reports lack of energy, Reports weight loss - Eyes Reports no additional eye complaints - ENT Reports no additional ear, nose, mouth, and throat complaints, Denies tinnitus - Cardiovascular Reports no additional cardiovascular complaints - Respiratory Reports no additional respiratory complaints - Gastrointestinal Reports no additional gastrointestinal complaints - Genitourinary Reports no additional female genitourinary complaints - Musculoskeletal Reports no additional musculoskeletal complaints - Integumentary/Breasts Skin/Breast: Reports no additional skin complaints - Neurologic Reports no additional neurologic complaints, Reports abnormal gait, Denies weakness - Psychiatric Reports no additional psychiatric complaints - Endocrine Reports no additional endocrine complaints - Hematologic/Lymphatic Reports no additional hematologic/lymphatic complaints - Allergic/Immunologic Reports no additional allergic/immunologic complaints [facility] Medical History: Medical History (Last Reviewed 10/12/20 @ 01:40 by Brigid Hu MD) Acquired hypothyroidism Anemia in CKD (chronic kidney disease) Bilateral calf pain Chronic kidney disease, stage 5 Chronic pain syndrome Coronary artery disease COVID-19 vaccine administered Dependent on hemodialysis 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 Essential hypertension Heart failure with reduced ejection fraction History of myocardial infarction Lumbosacral radiculopathy due to degenerative joint disease of spine Menopause Osteoarthritis involving multiple joints on both sides of body Pain and swelling of lower leg Postlaminectomy syndrome Restless leg syndrome Secondary hyperparathyroidism Septic arthritis of shoulder, right Functional capacity: uses cane/walker Patient : No Family History: Family History (Last Reviewed 10/12/20 @ 01:40 by Brigid Hu MD) Father Medical history non-contributory Mother Medical history non-contributory Surgical History: Surgical History (Last Reviewed 10/12/20 @ 01:40 by Brigid Hu MD) History of carpal tunnel release History of foot surgery History of laminectomy History of surgery History of total left knee replacement (TKR) Hx of appendectomy Hx of bilateral cataract extraction Hx of cholecystectomy Hx of colonoscopy Hx of dilation and curettage Hx of umbilical hernia repair S/P CABG x 3 S/P trigger finger release Status post right shoulder hemiarthroplasty Social History: Social History (Last Reviewed 10/12/20 @ 01:40 by Brigid Hu MD) Living Situation History: Household Members: Spouse Housing: House Housing Other:: Came from [facility], for rehab Are you a primary critical care physician to a significant other at home: No Do you presently have visiting nurse or other home services: No Alcohol History: Alcohol intake: never Alcohol History Details: Alcohol intake frequency: does not drink Nutrition Assessment: Patient : No Occupation Assessmet: service: No Current occupational status: retired Oncology Screenings - ECOG Performance Status ECOG Performance Status: 1 Home Medications and Allergies Home Medications Medication Instructions Recorded Confirmed Type ketorolac 1 drp OPHTHALMIC-RIGHT QID 03/31/20 10/13/20 History sevelamer carbonate 800 mg PO TID 05/05/20 10/13/20 History coenzyme Q10 100 mg capsule 100 mg PO TID cap 06/21/20 10/13/20 History ferrous sulfate 325 mg (65 mg 325 mg PO TID tab 06/21/20 10/13/20 History iron) tablet ropinirole 0.5 mg tablet 0.5 mg PO QID tab 06/21/20 10/13/20 History sodium bicarbonate-sodium chloride 1 ea MISCELLANEOUS BID 06/21/20 10/13/20 History powder vit C,E,Zn,Qo--utz-zeax 1 cap PO BID 07/18/20 10/13/20 History rosuvastatin 10 mg PO DAILY 07/31/20 10/13/20 History docusate sodium 100 mg capsule 100 mg PO .PRN PRN cap 09/13/20 10/13/20 History furosemide 20 mg tablet 20 mg PO DAILY 10/04/20 10/13/20 History lidocaine 4 % topical patch 1 patch TOPICAL DAILY PRN 10/04/20 10/13/20 History midodrine 2.5 mg PO 3XW 10/13/20 10/13/20 History Allergies Allergy/AdvReac Type Severity Reaction Status Date / Time erythromycin base Allergy Mild RASH Verified 10/13/20 14:42 [Erythromycin Base] indomethacin [From Indocin] Allergy Mild RASH Verified 10/13/20 14:42 Sulfa (Sulfonamide Allergy Mild RASH, Verified 10/13/20 14:42 Antibiotics) stomach [Sulfa (Sulfonamides)] upset ezetimibe [From Zetia] Allergy Unknown unknown Verified 10/13/20 14:42 flaxseed [FLAXSEED] Allergy Unknown SWELLING Verified 10/13/20 14:42 TONGUE AND LIPS Flexeril Allergy Unknown lg swelling Verified 10/13/20 14:42 gabapentin [From Neurontin] Allergy Unknown UNknown Verified 10/13/20 14:42 glipizide Allergy Unknown UNknown Verified 10/13/20 14:42 Niacin Preparations Allergy Unknown RASH Verified 10/13/20 14:42 [NIACIN PREPARATIONS] Penicillins Allergy Unknown Rash Verified 10/13/20 14:42 cocaine Allergy Seizure Verified 10/13/20 14:42 atorvastatin [From Lipitor] AdvReac Mild MUSCLE Verified 10/13/20 14:42 SOARNESS oxycodone AdvReac Unknown GI upset- Verified 10/13/20 14:42 sevree CAT GUT SUTURES Allergy Unknown rash Uncoded 10/13/20 14:42 PLASTIC TAPE, BANDADES Allergy Unknown rash Uncoded 10/13/20 14:42 Adhesive Bandage AdvReac Mild BLISTERS Uncoded 10/13/20 14:42 Exam Vital signs: Vital Signs Temp 98.0 F 10/13/20 14:30 Pulse 99 10/13/20 14:30 Resp 18 10/13/20 14:30 BP 105/73 10/13/20 14:30 Pulse Ox 98 10/13/20 14:30 Intake & Output 10/12/20 10/13/20 10/13/20 18:59 06:59 18:59 Other: Weight 90.5 kg [place] Weight in Grams [address]77 Weight 90.5 kg Body Mass Index 32.2 - Constitutional Present: no acute distress - Routine HEENT Exam Head: Present: normal inspection Eye: Present: normal appearance ENT: Present: mucous membranes moist - Routine Neck Exam Present: full ROM - Routine Respiratory Exam Present: CTAB - Routine Cardiovascular Exam Cardiovascular: Present: RRR, S1 - Routine Abdominal Exam Present: soft, nontender - Routine Rectal Exam Patient deferred: digital exam - Routine Extremities Exam Present: normal inspection - Routine Back/Spine/Pelvis Exam Back/Spine: Present: full ROM - Routine Skin Exam Present: intact - Routine Neurological Exam Present: alert, oriented X3 - Detailed Neurological Exam: Coma Scale Eye Opening: Spontaneous (4) - Routine Psychiatric Exam Present: normal affect Data - Labs CBC & Chem 7: 07/27/20 14:33 10/13/20 14:54 Labs: 03/02/20 11:55 Complete Blood Count Auto Diff Routine Comprehensive Met. Panel Routine Erythropoietin (EPO) Routine Ferritin Routine IRON PROFILE Routine Lactate Dehydrogenase Routine Vitamin B12 and Folate Routine 03/02/20 12:30 Epoetin Chris [Procrit] 40,000 unit SUBCUT ONCE ONE 03/09/20 11:21 CBC W/AUTO DIFF [Complete Blood Count Auto Diff] Routine 03/09/20 12:00 Epoetin Chris [Procrit] 40,000 unit SUBCUT ONCE ONE 03/16/20 11:20 Type and Screen Routine CMP [Comprehensive Met. Panel] Routine Complete Blood Count Auto Diff Routine 03/16/20 12:00 Epoetin Chris [Procrit] 40,000 unit SUBCUT ONCE ONE 03/22/20 11:36 CBC W/AUTO DIFF [Complete Blood Count Auto Diff] Routine 03/31/20 09:00 Epoetin Chris [Procrit] 40,000 unit SUBCUT ONCE ONE 03/31/20 11:00 CMP [Comprehensive Met. Panel] Routine Complete Blood Count Auto Diff Routine 04/07/20 15:05 CBC W/AUTO DIFF [Complete Blood Count Auto Diff] Routine 04/20/20 13:30 Complete Blood Count Auto Diff Routine Comprehensive Met. Panel Routine Ferritin Routine IRON PROFILE Routine 04/20/20 14:00 Epoetin Chris [Procrit] 40,000 unit SUBCUT ONCE ONE 04/26/20 10:00 Complete Blood Count Auto Diff Routine Comprehensive Met. Panel Routine Ferritin Routine Laboratory Last Values WBC 6.5 X10*3/uL (4.8-10.8) 04/26/20 10:00 RBC 4.27 X10*6/uL (4.20-5.50) 04/26/20 10:00 Hgb 11.2 g/dl (12.0-16.0) L 04/26/20 10:00 Hct 36.8 % (37-47) L 04/26/20 10:00 MCV 86.2 fL (80-98) 04/26/20 10:00 MCH 26.2 pg (27.0-33.0) L 04/26/20 10:00 MCHC 30.4 g/dl (31.0-35.0) L 04/26/20 10:00 RDW 16.4 % (11.0-16.0) H 04/26/20 10:00 Plt Count 286 X10*3/uL (160-400) D 04/26/20 10:00 MPV 10.1 fL (9.4-12.3) 04/26/20 10:00 Immature Gran % (Auto) 0.5 % (0.0-0.4) H 04/26/20 10:00 Neut % (Auto) 68.4 % (45-73) 04/26/20 10:00 Lymph % (Auto) 17.4 % (20-40) L 04/26/20 10:00 [place] % (Auto) 6.9 % (2-11) 04/26/20 10:00 Eos % (Auto) 5.6 % (0-4) H 04/26/20 10:00 Baso % (Auto) 1.2 % (0-2) 04/26/20 10:00 Lymph # (Auto) 1.1 X10*3/uL (1.2-4.9) L 04/26/20 10:00 [place] # (Auto) 0.5 X10*3/uL (0.1-1.2) 04/26/20 10:00 Eos # (Auto) 0.4 X10*3/uL (0.0-0.4) 04/26/20 10:00 Baso # (Auto) 0.1 X10*3/uL (0.0-0.2) 04/26/20 10:00 Abs Immat Gran (auto) 0.03 X10*3/uL (0.00-0.03) 04/26/20 10:00 Absolute Neuts (auto) 4.4 X10*3/uL (2.0-8.3) 04/26/20 10:00 Absolute Nucleated RBC 0.000 X10*3/uL (0.0-0.012) 04/26/20 10:00 Nucleated RBC % (auto) 0.0 /100WBC (0.0-0.2) 04/26/20 10:00 Sodium 137 mmol/L (135-145) 04/26/20 10:00 Potassium 5.1 mmol/l (3.3-5.1) 04/26/20 10:00 Chloride 101 mmol/L (96-108) 04/26/20 10:00 Carbon Dioxide 23 mmol/L (22-29) 04/26/20 10:00 Anion Gap 18 (12-20) 04/26/20 10:00 BUN 91 mg/dL (9-16) H* 04/26/20 10:00 Creatinine 4.40 mg/dL (0.5-1.4) H* 04/26/20 10:00 Estim Creat Clear Calc 11.6 04/26/20 10:00 Estimated GFR 10 04/26/20 10:00 Random Glucose 194 mg/dL (60-115) H 04/26/20 10:00 Calcium 10.2 mg/dL (8.4-10.2) D 04/26/20 10:00 Iron 68 mcg/dL (30-160) 04/20/20 13:30 TIBC 286 mcg/dL (228-428) 04/20/20 13:30 % Saturation 24 % (15-50) 04/20/20 13:30 Unsat Iron Binding 218 ug/dL 04/20/20 13:30 Erythropoietin 21.3 mIU/mL (2.6-18.5) H 03/02/20 11:55 Ferritin 363 ng/mL (10-250) H 04/26/20 10:00 Total Bilirubin 0.4 mg/dL (0.0-1.0) 04/26/20 10:00 AST 8 U/L (5-31) 04/26/20 10:00 ALT 14 U/L (0-31) 04/26/20 10:00 Alkaline Phosphatase 76 U/L (39-117) 04/26/20 10:00 Lactate Dehydrogenase 163 U/L (122-220) 03/02/20 11:55 Total Protein 6.3 g/dL (6.5-8.0) L 04/26/20 10:00 Albumin 4.3 g/dL (3.5-5.0) 04/26/20 10:00 Vitamin B12 238 pg/mL (200-900) 03/02/20 11:55 Folate 5.5 ng/mL (> or = 4.0) 03/02/20 11:55 Blood Type O Positive 03/16/20 11:20 Antibody Screen NEGATIVE 03/16/20 11:20 Progress Note: A/P (1) Anemia in CKD (chronic kidney disease) Status: Acute Assessment and plan: This is a pleasant 80 year-old lady, here for a follow-up regarding normochromic normocytic Anemia. Most likely she has: 1. ANEMIA OF CHRONIC DISEASE: Related to stage 3 kidney disease. Her creatinine from today is 4.2. / recent infectious problems: E coli in her shoulder. 2. IRON DEFICIENCY ANEMIA: Could be super added. 3. HEMOLYTIC ANEMIA: could be related to medications/ antibiotics. LDH: 163. B12: 238. Folate: 5.5. K/L Light chains ratio: 1.42. I proceeded with further evaluation. Checked iron studies: 38/299/13/725. Checked Erythropoetin level: 21.3. She was started on Procrit for ACD related to stage III kidney Disease. She has actually responded very well to that. She was able to avoid a blood transfusion. CBC: WBC 7.3, HGB 10.1, HCT 31.6, PLT 241. BUN 3 0. STOCK WORKER 2.95. Ferritin 706. Hemoglobin today is 10.1 gms. I called the dialysis center. I was told that she is on Marcera, Procrit bio- equivalent. She has not received it in a month or so, since her numbers were above the cutoff. PLAN: She will be going to the dialysis center tomorrow for dialysis. They will recheck CBC, give it if the hemoglobin is below 10.5. That they she does not need to come here, for the erythropoietin, now that she is on the dialysis. Will check iron studies and ferritin, today to check her iron stores and see if she needs any replacement therapy. She will return in 3 months for a follow-up visit. Thanks, CC: Dr. Hu. Dr. Zeng. - Time Spent With Patient 25 - 35 minutes
[2020-10-13 15:02] LABS: Basophils Absolute Auto 0.1 X10*3/uL (0.0-0.2); Eosinophils Absolute Auto 0.3 X10*3/uL (0.0-0.4); Eosinophils Percent Auto 4.2 % (0-4); Hematocrit 31.6 % (37-47); Hemoglobin 10.1 g/dl (12.0-16.0); Imm Gran Abs Auto 0.03 X10*3/uL (0.00-0.03); Imm Gran Pct Auto 0.4 % (0.0-0.4); Lymphocytes Absolute Auto 1.8 X10*3/uL (1.2-4.9); Lymphocytes Percent Auto 24.1 % (20-40); MANUAL DIFF FLAG NO; Mean Corpuscular Hemoglobin 28.4 pg (27.0-33.0); Mean Corpuscular Volume 88.8 fL (80-98); Mean Platelet Volume 10.3 fL (9.4-12.3); Monocytes Absolute Auto 0.6 X10*3/uL (0.1-1.2); Monocytes Percent Auto 8.2 % (2-11); Neutrophils Absolute Auto 4.5 X10*3/uL (2.0-8.3); Neutrophils Percent Auto 62.1 % (45-73); Platelet Count 241 X10*3/uL (160-400); Red Blood Count 3.56 X10*6/uL (4.20-5.50); Red Cell Distribution Width 16.2 % (11.0-16.0); White Blood Count 7.3 X10*3/uL (4.8-10.8)
--- NOTE | 2020-10-13 15:11 | MHC.HEMONC ---
Pt here for Hem follow up with Dr Dasilva. Labs drawn by wrap yarn sorter and sent to lab. Clincial summary updated by nurse. Pt states she is going to dialysis [address] Dasilva into see pt. Follow up appointment scheduled and given to pt. Discharged home
[2020-10-13 15:45] LABS: Alanine Aminotransferase 10 U/L (0-31); Albumin Level 3.6 g/dL (3.5-5.0); Alkaline Phosphatase 134 U/L (39-117); Anion Gap 18 (12-20); Aspartate Amino Transferase 12 U/L (5-31); Bilirubin Total 0.5 mg/dL (0.0-1.0); Blood Urea Nitrogen 30 mg/dL (9-16); Calcium 10.1 mg/dL (8.4-10.2); Carbon Dioxide 29 mmol/L (22-29); Chloride 99 mmol/L (96-108); Creatinine Clr Calc Pharmacy 17.5; Estimated Glomerular Filt Rate 15; Glucose Random 160 mg/dL (60-115); Iron 49 mcg/dL (30-160); Percent Iron Saturation 17 % (15-50); Potassium 4.8 mmol/L (3.3-5.1); Sodium 141 mmol/L (135-145); Total Iron Binding Capacity 283 mcg/dL (228-428); Total Protein 5.9 g/dL (6.5-8.0); Unsaturated Iron Binding 234 ug/dL
[2020-10-13 16:06] LABS: Ferritin 706 ng/mL (10-250)
== END 2021-02-22 | disposition home or self-care (01) ==
LOC: HO.ONC 14:30
PROVIDERS: Internal Medicine; PCP Internal Medicine; Referring Provider Internal Medicine; Visit Provider Internal Medicine Medical Oncology
DX: N18.5 Chronic kidney disease, stage 5 (principal); D63.1 Anemia in chronic kidney disease; I48.0 Paroxysmal atrial fibrillation; Z79.01 Long term (current) use of anticoagulants; Z79.899 Other long term (current) drug therapy; Z99.2 Dependence on renal dialysis
CPT/HCPCS: 36415; 80053; 82607; 82668; 82728; 82746; 83540; 83615; 85025; 86850; 86900; 86901; 96372; 99204; 99214; J0885

== ENCOUNTER 2020-10-23 08:09 | Outpatient (REF) | payer MEDICARE, SELFPAY ==
[2020-10-23 09:45] LABS: Cholesterol 95 mg/dL; HDL Cholesterol 32 mg/dL; LDL Cholesterol Calculated 47 mg/dl; Triglycerides 84 mg/dL
[2020-10-23 10:02] LABS: B Type Natriuretic Peptide 6277 pg/mL (<100)
[2020-10-23 10:03] LABS: Free T4 (Free Thyroxine) 1.27 ng/dL (0.71-1.85); Thyroid Stimulating Hormone 3.35 uIU/mL (0.32-4.0)
== END 2020-10-23 08:10 | disposition home or self-care (01) ==
LOC: HO.LAB 08:09
PROVIDERS: PCP Internal Medicine; Visit Provider Internal Medicine
DX: I11.0 Hypertensive heart disease with heart failure (principal); I50.20 Unspecified systolic (congestive) heart failure; E03.9 Hypothyroidism, unspecified; E11.21 Type 2 diabetes mellitus with diabetic nephropathy; I25.10 Atherosclerotic heart disease of native coronary artery without angina pectoris; I42.9 Cardiomyopathy, unspecified; I48.91 Unspecified atrial fibrillation; I48.92 Unspecified atrial flutter
CPT/HCPCS: 36415; 80061; 83880; 84439; 84443

== ENCOUNTER 2020-11-01 13:34 | Outpatient (REF) | payer MEDICARE, SELFPAY ==
[2020-11-01 15:17] LABS: Baso%MD 1.2 %; Eos%MD 4.2 %; Hematocrit 30.8 % (37-47); Hemoglobin 9.7 g/dl (12.0-16.0); IG%MD 0.9 %; Lymph%MD 19.8 %; Mean Corpuscular HGB Conc 31.5 g/dl (31.0-35.0); Mean Corpuscular Hemoglobin 28.4 pg (27.0-33.0); Mean Corpuscular Volume 90.1 fL (80-98); Mean Platelet Volume 11.1 fL (9.4-12.3); Mono%MD 7.6 %; Neut%MD 66.3 %; Platelet Count 212 X10*3/uL (160-400); Red Blood Count 3.42 X10*6/uL (4.20-5.50); Red Cell Distribution Width 16.8 % (11.0-16.0); White Blood Count 7.5 X10*3/uL (4.8-10.8)
[2020-11-01 15:20] LABS: INTERNATIONAL NORM RATIO 1.3 (0.9-1.1); Prothrombin Time 15.1 SEC (9.9-13.0)
[2020-11-01 15:34] LABS: Band Neutrophils Percent 2 % (3-5); Eosinophils Absolute Manual 0.3 X10*3/UL (0.0-0.8); Eosinophils Percent Manual 4 % (0-4); Lymphocytes Absolute Manual 1.6 X10*3/uL (0.6-4.8); Lymphocytes Percent Manual 21 % (20-40); Monocytes Absolute Manual 0.6 X10*3/uL (0.0-1.2); Monocytes Percent Manual 8 % (2-11); Neutrophils Percent Manual 65 % (45-73); RBC Morphology NORMAL
[2020-11-01 15:35] LABS: Anion Gap 17 (12-20); Blood Urea Nitrogen 40 mg/dL (9-16); Carbon Dioxide 27 mmol/L (22-29); Chloride 99 mmol/L (96-108); Estimated Glomerular Filt Rate 13; Glucose Random 186 mg/dL (60-115); Platelet Estimate NORMAL (NORMAL); Platelet Morphology Comment NORMAL; Potassium 5.4 mmol/L (3.3-5.1); Sodium 138 mmol/L (135-145)
== END 2020-11-01 13:35 | disposition home or self-care (01) ==
LOC: HO.LAB 13:34
PROVIDERS: PCP Internal Medicine; Referring Provider Internal Medicine; Visit Provider Nurse Practitioner Family
DX: Z01.810 Encounter for preprocedural cardiovascular examination (principal); I42.9 Cardiomyopathy, unspecified; I13.2 Hypertensive heart and chronic kidney disease with heart failure and with stage 5 chronic kidney disease, or end stage renal disease; N18.5 Chronic kidney disease, stage 5; I50.20 Unspecified systolic (congestive) heart failure; I48.91 Unspecified atrial fibrillation; I48.92 Unspecified atrial flutter; I25.10 Atherosclerotic heart disease of native coronary artery without angina pectoris; Z79.899 Other long term (current) drug therapy
CPT/HCPCS: 36415; 80048; 85007; 85027; 85610; 99212

== ENCOUNTER → 2020-11-02 08:00 | Outpatient (BNVA) | payer MEDICARE, SELFPAY | PROVIDERS: PCP Internal Medicine; Visit Provider Anesthesiology | DX: M47.27 Other spondylosis with radiculopathy, lumbosacral region (principal); M96.1 Postlaminectomy syndrome, not elsewhere classified; G89.4 Chronic pain syndrome | CPT/HCPCS: 99212 ==

== ENCOUNTER → 2020-11-15 08:37 | Outpatient (BNVA) | payer MEDICARE, SELFPAY | PROVIDERS: PCP Internal Medicine; Visit Provider Nurse Practitioner Family | DX: M96.1 Postlaminectomy syndrome, not elsewhere classified (principal); M47.27 Other spondylosis with radiculopathy, lumbosacral region; G89.4 Chronic pain syndrome; Z79.899 Other long term (current) drug therapy | CPT/HCPCS: 99212 ==

== ENCOUNTER → 2020-11-22 13:05 | Outpatient (BNVA) | payer MEDICARE, SELFPAY | PROVIDERS: PCP Internal Medicine; Referring Provider Internal Medicine; Visit Provider Nurse Practitioner Family | DX: I42.9 Cardiomyopathy, unspecified (principal); I12.9 Hypertensive chronic kidney disease with stage 1 through stage 4 chronic kidney disease, or unspecified chronic kidney disease; N18.5 Chronic kidney disease, stage 5; I50.20 Unspecified systolic (congestive) heart failure; I25.10 Atherosclerotic heart disease of native coronary artery without angina pectoris; I48.91 Unspecified atrial fibrillation; I48.92 Unspecified atrial flutter; Z98.890 Other specified postprocedural states | CPT/HCPCS: 99212 ==

== ENCOUNTER → 2020-12-01 08:10 | Outpatient (BNVA) | payer MEDICARE, SELFPAY | PROVIDERS: PCP Internal Medicine; Visit Provider Nurse Practitioner Family | DX: Z51.81 Encounter for therapeutic drug level monitoring (principal); G89.4 Chronic pain syndrome; M96.1 Postlaminectomy syndrome, not elsewhere classified; M47.27 Other spondylosis with radiculopathy, lumbosacral region | CPT/HCPCS: 99212 ==

== ENCOUNTER 2020-12-08 18:19 | Inpatient (IN) | payer MEDICARE, SELFPAY ==
--- NOTE | ~2020-12-08 | XR_ITS ---
EXAMINATION: XR CHEST CLINICAL INFORMATION: Shortness of breath. Dialysis patient. COMPARISON: None TECHNIQUE: Frontal view of the chest was obtained. FINDINGS: Cardiac leads overlie the chest. Dialysis catheter terminates near the cavoatrial junction. Median sternotomy wires appear intact. Lungs are well expanded. Mild interstitial prominence with Starr B-lines. Small left pleural effusion. No pneumothorax. The cardiomediastinal silhouette is unchanged, with a calcified aorta. Antibiotic spacer at the right humeral head. XR/XR chest 1V IMPRESSION: Mild interstitial edema. Small left pleural effusion.
[2020-12-08 18:30] VITALS: BP 125/75; BP 148/88; PULSE 88; PULSE 90; RESP 16; TEMP 36.7; O2SAT 100; O2SAT 94; BMI 25.8
--- NOTE | 2020-12-08 18:39 | ECG_ITS ---
Test Reason : DYSPNEA Blood Pressure : / mmHG Vent. Rate : 090 BPM Atrial Rate : 090 BPM P-R Int : 178 ms QRS Dur : 158 ms QT Int : 430 ms P-R-T Axes : 038 -43 124 degrees QTc Int : 526 ms Normal sinus rhythm Premature atrial complexes Non-specific intra-ventricular conduction block Abnormal ECG When compared with ECG of 20-AUG-2020 13:42, No significant changes seen Referred By: Vi Mora Electronically Signed By:KAYLEN HAMMER
--- NOTE | 2020-12-08 18:42 | ED_ITS ---
HPI - SOB/Dyspnea General Chief Complaint: Dyspnea Stated Complaint: SOB Time Seen by Provider: 12/08/20 18:30 Source: patient and EMS Mode of arrival: EMS Limitations: no limitations History of Present Illness HPI Narrative: Patient comes to the emergency room complaining of shortness of breath. Patient states the shortness of breath started approximately 1 week ago, intermittently at 1st, but today the shortness of breath has been constant. Patient states that at this moment she feels well, no shortness of breath Related Data Home Medications Medication Instructions Recorded Confirmed ketorolac 0.5 % eye drops 1 drp OPHTHALMIC-RIGHT QID 03/31/20 12/08/20 sevelamer carbonate 800 mg tablet 800 mg PO TID 05/05/20 12/08/20 coenzyme Q10 100 mg capsule (Co 100 mg PO TUTHSA@0900 cap 06/21/20 12/08/20 Q-10) ferrous sulfate 325 mg (65 mg 325 mg PO TID tab 06/21/20 12/08/20 iron) tablet rosuvastatin 10 mg tablet 10 mg PO DAILY 07/31/20 12/08/20 furosemide 20 mg tablet 20 mg PO DAILY 10/04/20 12/08/20 midodrine 2.5 mg tablet 2.5 mg PO TUTHSA 10/13/20 12/08/20 coenzyme Q10 100 mg capsule 200 mg PO TUTHSA@2100 12/08/20 12/08/20 isosorbide dinitrate 5 mg tablet 5 mg PO BID 12/08/20 12/08/20 vit C 250 mg-vit E 90 mg-zinc 40 1 tab PO BID 12/08/20 12/08/20 mg-copper 1 [id number] capsule (PreserVision AREDS-2) Previous Rx's Medication Instructions Recorded levothyroxine 137 mcg tablet 137 mcg PO QAM #90 tab 03/15/20 apixaban 2.5 mg tablet (Eliquis) 2.5 mg PO BID 90 Days #180 tab 11/06/20 carvedilol 6.25 mg tablet 6.25 mg PO BID 90 Days #180 tab 11/06/20 hydralazine 25 mg tablet 25 mg PO BID 90 Days #180 tab 11/06/20 hydrocodone 5 mg-acetaminophen 325 1 tab PO Q8H PRN #90 tab 12/05/20 mg tablet Allergies Allergy/AdvReac Type Severity Reaction Status Date / Time erythromycin base Allergy Mild RASH Verified 12/08/20 18:29 [Erythromycin Base] indomethacin [From Indocin] Allergy Mild RASH Verified 12/08/20 18:29 Sulfa (Sulfonamide Allergy Mild RASH, Verified 12/08/20 18:29 Antibiotics) stomach [Sulfa (Sulfonamides)] upset ezetimibe [From Zetia] Allergy Unknown unknown Verified 12/08/20 18:29 flaxseed [FLAXSEED] Allergy Unknown SWELLING Verified 12/08/20 18:29 TONGUE AND LIPS Flexeril Allergy Unknown lg swelling Verified 12/08/20 18:29 gabapentin [From Neurontin] Allergy Unknown UNknown Verified 12/08/20 18:29 glipizide Allergy Unknown UNknown Verified 12/08/20 18:29 Niacin Preparations Allergy Unknown RASH Verified 12/08/20 18:29 [NIACIN PREPARATIONS] Penicillins Allergy Unknown Rash Verified 12/08/20 18:29 cocaine Allergy Seizure Verified 12/08/20 18:29 atorvastatin [From Lipitor] AdvReac Mild MUSCLE Verified 12/08/20 18:29 SOARNESS oxycodone AdvReac Unknown GI upset- Verified 12/08/20 18:29 sevree CAT GUT SUTURES Allergy Unknown rash Uncoded 11/22/20 13:13 PLASTIC TAPE, BANDADES Allergy Unknown rash Uncoded 11/22/20 13:13 Adhesive Bandage AdvReac Mild BLISTERS Uncoded 11/22/20 13:13 Review of Systems Review of Systems: Constitutional : No Weight loss, No Fever, No Chills, No Night Sweats, No Fatigue, No Malaise ENT/Mouth : No Hearing loss, No Ear Pain, No Nasal Congestion, No Sinus Pain, No Hoarseness, No sore throat, No Rhinorrhea, No Swallowing Difficulty Eyes: No Eye Pain, No Swelling, No Redness, No Foreign Body, No Discharge, No Vision Changes Cardiovascular : No Chest Pain, complaining of chronic bilateral pitting edema, worsening orthopnea, shortness of breath with exertion is worse now Respiratory : No Cough, No Sputum, No Wheezing, No Smoke Exposure Gastrointestinal : No Nausea, No Vomiting, No Diarrhea, No Constipation, No abdominal Pain, No Hematochezia, No Melena Genitourinary : no irregular bleeding, No Dysuria, No Urinary Frequency, No Hematuria, No Urinary Incontinence, No Urgency, No Flank Pain, No Urinary Flow Changes, No Hesitancy Musculoskeletal : No joint pain, No Myalgias, No Joint Swelling Skin : No Skin Lesions, No rash Neuro : No Weakness, No Numbness, No Paresthesias, No Loss of Consciousness, No Dizziness, No Headache Psych : No Anxiety/Panic, No Depression, No SI/HI/AH/VH, No Social Issues, Heme/Lymph: No Bruising, No Bleeding,No Lymphadenopathy Endocrine : No Polyuria, No Polydipsia, No Temperature Intolerance [facility] Past Medical History Medical History (Updated 12/08/20 @ 21:33 by Vi Mora MD) Acquired hypothyroidism Anemia in CKD (chronic kidney disease) Bilateral calf pain Chronic kidney disease, stage 5 Chronic pain syndrome Coronary artery disease COVID-19 vaccine administered Dependent on hemodialysis 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 Essential hypertension Heart failure with reduced ejection fraction History of myocardial infarction Lumbosacral radiculopathy due to degenerative joint disease of spine Menopause Osteoarthritis involving multiple joints on both sides of body Pain and swelling of lower leg Postlaminectomy syndrome Restless leg syndrome Secondary hyperparathyroidism Septic arthritis of shoulder, right Surgical History History of carpal tunnel release History of foot surgery History of laminectomy History of surgery History of total left knee replacement (TKR) Hx of appendectomy Hx of bilateral cataract extraction Hx of cholecystectomy Hx of colonoscopy Hx of dilation and curettage Hx of umbilical hernia repair S/P CABG x 3 S/P trigger finger release Status post cardiac catheterization Status post right shoulder hemiarthroplasty Family History Family History Father Medical history non-contributory Mother Medical history non-contributory Social History Social History Household Members: Spouse Housing: House Housing Other:: Came from [facility], for rehab Are you a primary wound care technician to a significant other at home: No Do you presently have visiting nurse or other home services: No Alcohol intake: never Advance Directives: No Advance Directives Information Provided: Yes service: No Current occupational status: retired Physical Exam Vital Signs: Vital Signs: Last Vital Signs Temp 98.5 F 12/08/20 19:53 Pulse 88 12/08/20 19:53 Resp 17 12/08/20 19:53 BP 118/70 12/08/20 19:53 Pulse Ox 99 12/08/20 19:53 Oxygen Flow Rate 3 12/08/20 18:30 Body Mass Index 25.8 Const: Other: Appearance: Alert. Oriented X3. No acute distress. Eyes: Pupils equal, round and reactive to light. ENT: Pharynx normal. Neck: Normal inspection. Neck supple. No lymph nodes noted. No crepitus CVS: Normal heart rate and rhythm. Pulses normal. Normal S1 and S2 Respiratory: Using accessory muscles, no wheezing, good air movement, bilateral crackles present, requiring O2 Abdomen: Soft and nontender. No rigidity. No distention. good BS x4 Skin: Skin warm and dry. Normal skin color. Normal skin turgor. Extremities: +2 bilateral pitting edema, No Lacerations. No Rash Neuro: Oriented X 3. No motor deficit. No sensory deficit. Moving all extermities. No slurred speech. Course Course Course Narrative: Patient received 40 mg of IV Lasix Patient does not require oxygen at home. Here she needs 2 L, at rest her oxygen ranges between 90 and 92%, feels short of breath. Patient has worsening shortness of breath whenever she tries to transfer from her bed to the commode. Patient is due for dialysis tomorrow, patient's labs are at baseline, troponin is elevated likely secondary to the elevated BNP. Patient has no chest pain. I discussed the patient with Dr. Alfaro. Patient will be admitted for CHF. MDM - SOB/Dyspnea Lab Data Result diagrams: 12/08/20 19:06 12/08/20 19:06 Labs: Lab Results 12/08/20 12/08/20 12/08/20 Range/Units 19:06 19:06 19:06 WBC 9.8 (4.8-10.8) X10*3/uL RBC 2.99 L (4.20-5.50) X10*6/uL Hgb 8.9 L (12.0-16.0) g/dl Hct 27.2 L (37-47) % MCV 91.0 (80-98) fL MCH 29.8 (27.0-33.0) pg MCHC 32.7 (31.0-35.0) g/dl RDW 14.2 (11.0-16.0) % Plt Count 204 (160-400) X10*3/uL MPV 9.8 (9.4-12.3) fL Immature Gran % (Auto) 0.5 H (0.0-0.4) % Neut % (Auto) 73.0 (45-73) % Lymph % (Auto) 15.6 L (20-40) % Woodson % (Auto) 8.2 (2-11) % Eos % (Auto) 2.0 (0-4) % Baso % (Auto) 0.7 (0-2) % Lymph # (Auto) 1.5 (1.2-4.9) X10*3/uL Woodson # (Auto) 0.8 (0.1-1.2) X10*3/uL Eos # (Auto) 0.2 (0.0-0.4) X10*3/uL Baso # (Auto) 0.1 (0.0-0.2) X10*3/uL Abs Immat Gran (auto) 0.05 H (0.00-0.03) X10*3/uL Absolute Neuts (auto) 7.2 (2.0-8.3) X10*3/uL Absolute Nucleated RBC 0.000 (0.0-0.012) X10*3/uL Nucleated RBC % (auto) 0.0 (0.0-0.2) /100WBC PT (9.9-13.0) SEC INR (0.9-1.1) APTT (24.1-38.0) SEC Sodium 137 (135-145) mmol/L Potassium 4.0 D (3.3-5.1) mmol/L Chloride 94 L (96-108) mmol/L Carbon Dioxide 29 (22-29) mmol/L Anion Gap 18 (12-20) BUN 35 H (9-16) mg/dL Creatinine 3.96 H (0.5-1.4) mg/dL Estim Creat Clear Calc 11.7 Estimated GFR 11 Random Glucose 122 H (60-115) mg/dL Lactic Acid 1.3 (0.5-2.0) mmol/L Calcium 10.5 H (8.4-10.2) mg/dL Total Bilirubin 0.6 (0.0-1.0) mg/dL Direct Bilirubin 0.4 (0.0-0.5) mg/dL AST 11 (5-31) U/L ALT 10 (0-31) U/L Alkaline Phosphatase 98 D (39-117) U/L Troponin I High Sens (<3.5-17.0) ng/L B-Natriuretic Peptide (<100) pg/mL Total Protein 6.3 L (6.5-8.0) g/dL Albumin 3.9 (3.5-5.0) g/dL Urine Color Urine Appearance Urine pH (5.0-8.0) Ur Specific Holcomb (1.005-1.025) Urine Protein (NEG-TRACE) MG/DL Urine Glucose (UA) (NEG) MG/DL Urine Ketones (NEG) MG/DL Urine Blood (NEG) Urine Nitrite (NEG) Ur Leukocyte Esterase (NEG) Urine RBC (0) /HPF Urine WBC (0-4) /HPF Ur Squamous Epith Cells /LPF Urine Bacteria /LPF COVID-19 ([facility]) (Negative) COVID-19 Clin Com 12/08/20 12/08/20 12/08/20 Range/Units 19:06 19:06 19:15 WBC (4.8-10.8) X10*3/uL RBC (4.20-5.50) X10*6/uL Hgb (12.0-16.0) g/dl Hct (37-47) % MCV (80-98) fL MCH (27.0-33.0) pg MCHC (31.0-35.0) g/dl RDW (11.0-16.0) % Plt Count (160-400) X10*3/uL MPV (9.4-12.3) fL Immature Gran % (Auto) (0.0-0.4) % Neut % (Auto) (45-73) % Lymph % (Auto) (20-40) % Woodson % (Auto) (2-11) % Eos % (Auto) (0-4) % Baso % (Auto) (0-2) % Lymph # (Auto) (1.2-4.9) X10*3/uL Woodson # (Auto) (0.1-1.2) X10*3/uL Eos # (Auto) (0.0-0.4) X10*3/uL Baso # (Auto) (0.0-0.2) X10*3/uL Abs Immat Gran (auto) (0.00-0.03) X10*3/uL Absolute Neuts (auto) (2.0-8.3) X10*3/uL Absolute Nucleated RBC (0.0-0.012) X10*3/uL Nucleated RBC % (auto) (0.0-0.2) /100WBC PT 17.0 H (9.9-13.0) SEC INR 1.5 H (0.9-1.1) APTT 42.4 H (24.1-38.0) SEC Sodium (135-145) mmol/L Potassium (3.3-5.1) mmol/L Chloride (96-108) mmol/L Carbon Dioxide (22-29) mmol/L Anion Gap (12-20) BUN (9-16) mg/dL Creatinine (0.5-1.4) mg/dL Estim Creat Clear Calc Estimated GFR Random Glucose (60-115) mg/dL Lactic Acid (0.5-2.0) mmol/L Calcium (8.4-10.2) mg/dL Total Bilirubin (0.0-1.0) mg/dL Direct Bilirubin (0.0-0.5) mg/dL AST (5-31) U/L ALT (0-31) U/L Alkaline Phosphatase (39-117) U/L Troponin I High Sens 138.6 H* (<3.5-17.0) ng/L B-Natriuretic Peptide 05045 H (<100) pg/mL Total Protein (6.5-8.0) g/dL Albumin (3.5-5.0) g/dL Urine Color Urine Appearance Urine pH (5.0-8.0) Ur Specific Holcomb (1.005-1.025) Urine Protein (NEG-TRACE) MG/DL Urine Glucose (UA) (NEG) MG/DL Urine Ketones (NEG) MG/DL Urine Blood (NEG) Urine Nitrite (NEG) Ur Leukocyte Esterase (NEG) Urine RBC (0) /HPF Urine WBC (0-4) /HPF Ur Squamous Epith Cells /LPF Urine Bacteria /LPF COVID-19 ([facility]) Negative (Negative) COVID-19 Clin Com See Note 12/08/20 Range/Units 19:47 WBC (4.8-10.8) X10*3/uL RBC (4.20-5.50) X10*6/uL Hgb (12.0-16.0) g/dl Hct (37-47) % MCV (80-98) fL MCH (27.0-33.0) pg MCHC (31.0-35.0) g/dl RDW (11.0-16.0) % Plt Count (160-400) X10*3/uL MPV (9.4-12.3) fL Immature Gran % (Auto) (0.0-0.4) % Neut % (Auto) (45-73) % Lymph % (Auto) (20-40) % Woodson % (Auto) (2-11) % Eos % (Auto) (0-4) % Baso % (Auto) (0-2) % Lymph # (Auto) (1.2-4.9) X10*3/uL Woodson # (Auto) (0.1-1.2) X10*3/uL Eos # (Auto) (0.0-0.4) X10*3/uL Baso # (Auto) (0.0-0.2) X10*3/uL Abs Immat Gran (auto) (0.00-0.03) X10*3/uL Absolute Neuts (auto) (2.0-8.3) X10*3/uL Absolute Nucleated RBC (0.0-0.012) X10*3/uL Nucleated RBC % (auto) (0.0-0.2) /100WBC PT (9.9-13.0) SEC INR (0.9-1.1) APTT (24.1-38.0) SEC Sodium (135-145) mmol/L Potassium (3.3-5.1) mmol/L Chloride (96-108) mmol/L Carbon Dioxide (22-29) mmol/L Anion Gap (12-20) BUN (9-16) mg/dL Creatinine (0.5-1.4) mg/dL Estim Creat Clear Calc Estimated GFR Random Glucose (60-115) mg/dL Lactic Acid (0.5-2.0) mmol/L Calcium (8.4-10.2) mg/dL Total Bilirubin (0.0-1.0) mg/dL Direct Bilirubin (0.0-0.5) mg/dL AST (5-31) U/L ALT (0-31) U/L Alkaline Phosphatase (39-117) U/L Troponin I High Sens (<3.5-17.0) ng/L B-Natriuretic Peptide (<100) pg/mL Total Protein (6.5-8.0) g/dL Albumin (3.5-5.0) g/dL Urine Color YELLOW Urine Appearance CLOUDY Urine pH 7.5 (5.0-8.0) Ur Specific Holcomb 1.015 (1.005-1.025) Urine Protein 2+ H (NEG-TRACE) MG/DL Urine Glucose (UA) NEG (NEG) MG/DL Urine Ketones NEG (NEG) MG/DL Urine Blood NEG (NEG) Urine Nitrite NEG (NEG) Ur Leukocyte Esterase 3+ H (NEG) Urine RBC 1-4 (0) /HPF Urine WBC 15-29 H (0-4) /HPF Ur Squamous Epith Cells 1+ /LPF Urine Bacteria 3+ /LPF COVID-19 ([facility]) (Negative) COVID-19 Clin Com Imaging Data Chest x-ray: Radiologist's impression: FINDINGS: Cardiac leads overlie the chest. Dialysis catheter terminates near the cavoatrial junction. Median sternotomy wires appear intact. Lungs are well expanded. Mild interstitial prominence with Starr B-lines. Small left pleural effusion. No pneumothorax. The cardiomediastinal silhouette is unchanged, with a calcified aorta. Antibiotic spacer at the right humeral head. XR/XR chest 1V IMPRESSION: Mild interstitial edema. Small left pleural effusion. ? Discharge Plan Discharge Clinical Impression: CHF (congestive heart failure) Patient Disposition: Admitted As Inpatient Prescriptions: No Action levothyroxine 137 mcg tablet 137 mcg PO QAM Qty: 90 RF: 3 carvedilol 6.25 mg tablet 6.25 mg PO BID 90 Days Qty: 180 RF: 2 Eliquis 2.5 mg tablet 2.5 mg PO BID 90 Days Qty: 180 RF: 2 hydralazine 25 mg tablet 25 mg PO BID 90 Days Qty: 180 RF: 2 ketorolac 0.5 % drops 1 drp ophthalmic-Right QID RF: 0 sevelamer carbonate 800 mg Tablet 800 mg PO TID RF: 0 midodrine 2.5 mg Tablet 2.5 mg PO TUTHSA RF: 0 rosuvastatin 10 mg Tablet 10 mg PO DAILY RF: 0 coenzyme Q10 100 mg Capsule 200 mg PO TUTHSA@2100 RF: 0 PreserVision AREDS-2 250-90-40-1 mg Capsule 1 tab PO BID RF: 0 isosorbide dinitrate 5 mg tablet 5 mg PO BID RF: 0 furosemide 20 mg tablet 20 mg PO DAILY RF: 0 coenzyme Q10 [Co Q-10] 100 mg capsule 100 mg PO TUTHSA@0900 RF: 0 ferrous sulfate 325 mg (65 mg iron) tablet 325 mg PO TID RF: 0 hydrocodone-acetaminophen 5-325 mg tablet 1 tab PO Q8H PRN (Reason: pain (scale score 7-10)) Qty: 90 RF: 0
[2020-12-08 19:17] LABS: MANUAL DIFF FLAG NO
[2020-12-08 19:18] LABS: Basophils Absolute Auto 0.1 X10*3/uL (0.0-0.2); Basophils Percent Auto 0.7 % (0-2); Eosinophils Absolute Auto 0.2 X10*3/uL (0.0-0.4); Hematocrit 27.2 % (37-47); Hemoglobin 8.9 g/dl (12.0-16.0); Imm Gran Abs Auto 0.05 X10*3/uL (0.00-0.03); Imm Gran Pct Auto 0.5 % (0.0-0.4); Lymphocytes Absolute Auto 1.5 X10*3/uL (1.2-4.9); Lymphocytes Percent Auto 15.6 % (20-40); Mean Corpuscular HGB Conc 32.7 g/dl (31.0-35.0); Mean Corpuscular Hemoglobin 29.8 pg (27.0-33.0); Mean Platelet Volume 9.8 fL (9.4-12.3); Monocytes Absolute Auto 0.8 X10*3/uL (0.1-1.2); Monocytes Percent Auto 8.2 % (2-11); Neutrophils Absolute Auto 7.2 X10*3/uL (2.0-8.3); Platelet Count 204 X10*3/uL (160-400); Red Blood Count 2.99 X10*6/uL (4.20-5.50); Red Cell Distribution Width 14.2 % (11.0-16.0); White Blood Count 9.8 X10*3/uL (4.8-10.8)
[2020-12-08 19:33] LABS: COVID-19 Test Negative (Negative); IDNOW Serial# 9DD0AD1C
[2020-12-08 19:42] LABS: INTERNATIONAL NORM RATIO 1.5 (0.9-1.1)
[2020-12-08 19:44] LABS: Lactic Acid 1.3 mmol/L (0.5-2.0)
[2020-12-08 19:44] LABS: Partial Thromboplastin Time 42.4 SEC (24.1-38.0)
[2020-12-08 19:53] VITALS: BP 118/70; PULSE 88; RESP 17; TEMP 36.9; O2SAT 99
[2020-12-08 19:54] LABS: Alanine Aminotransferase 10 U/L (0-31); Albumin Level 3.9 g/dL (3.5-5.0); Alkaline Phosphatase 98 U/L (39-117); Anion Gap 18 (12-20); Aspartate Amino Transferase 11 U/L (5-31); Bilirubin Direct 0.4 mg/dL (0.0-0.5); Bilirubin Total 0.6 mg/dL (0.0-1.0); Blood Urea Nitrogen 35 mg/dL (9-16); Calcium 10.5 mg/dL (8.4-10.2); Carbon Dioxide 29 mmol/L (22-29); Chloride 94 mmol/L (96-108); Creatinine Clr Calc Pharmacy 11.7; Estimated Glomerular Filt Rate 11; Glucose Random 122 mg/dL (60-115); Sodium 137 mmol/L (135-145); Total Protein 6.3 g/dL (6.5-8.0)
[2020-12-08 19:58] LABS: Troponin-I High Sensitivity 138.6 ng/L (<3.5-17.0)
[2020-12-08 20:04] LABS: Glucose Urine UA NEG (NEG); Leukocyte Esterase Urine 3+ (NEG); Nitrite Urine NEG (NEG); PH 7.5 (5.0-8.0); Specific Gravity - Urine 1.015 (1.005-1.025); UACC Culture Trigger YES; Urine Blood NEG (NEG); Urine Ketones NEG (NEG); Urine Protein 2+ MG/DL (NEG-TRACE)
[2020-12-08 20:08] LABS: Appearance Urine CLOUDY; Color Urine YELLOW
[2020-12-08 20:13] LABS: Bacteria Urine 3+ /LPF; Squamous Epithelial Cell Urine 1+ /LPF
[2020-12-08 20:15] LABS: B Type Natriuretic Peptide 15217 pg/mL (<100)
--- NOTE | 2020-12-08 20:46 | PHA.MEDREC ---
Pharmacy Consult ? Medication Reconciliation Pharmacy has completed the medication reconciliation.
--- NOTE | 2020-12-08 21:56 | PC.NURSE ---
pt aaox4, lao speaking only. pt medicated per orders, labs obtained and sent for processing. pt tearful c/o 20/ pain. Pt stretcher low locked, rails raised, call enriquez within reach.
[2020-12-08 22:22] VITALS: BP 111/75; PULSE 69; RESP 18; TEMP 37; O2SAT 100
[2020-12-08] MEDS: Furosemide 40 MG/4 ML VIAL IVPUSH (22:26)
[2020-12-09] VITALS (12 sets, daily range): BP systolic 91–124; BP diastolic 58–73; PULSE 66–87; RESP 15–20; TEMP 36.4–36.9; O2SAT 95–99; BMI 25.5
[2020-12-09] MEDS: carvediloL 6.25 MG TABLET PO ×2 (00:26→20:10)
[2020-12-09] MEDS: Apixaban 2.5 MG TABLET PO ×3 (00:26→20:09)
--- NOTE | 2020-12-09 00:33 | PC.NURSE ---
This RN to bedside to medicate pt. Pt asleep. Pt difficult to wake up. Once pt awake, pt with slurred speech but remained aaox4 with questioning. Pt with equal hand grasps bilaterally, no facial droop noted. This RN attempted to medicate pt with PO meds and pt unable to grasp medicine cup as she repeatedly reached onto her gown searching for pill cup instead of grabbing pill cup before her. This RN exited room, made Dr Mora aware. This RN noted Dr Alfaro in dept, this RN notified Dr Alfaro of changes noted by this RN. Dr Alfaro, Dr Mora and this RN to bedside. Dr Alfaro performed neuro assessment and states she is not concerned with changes as she believes pt was awoken and slightly confused 2/2 to that. Pt speech is clear with increased effort from previous. Pt stretcher low locked, rails raised, call enriquez within reach. Per Dr Alfaro, ok for pt to receive PO meds. Pt remains NSR on rn cardiac cath, awaiting bed assignment.
[2020-12-09] MEDS: Heparin Sodium,Porcine 5,000 UNIT/ML VIAL 5000 UNIT SUBCUT (03:11)
[2020-12-09] MEDS: HYDROcodone Bit/Acetam 5/325 TABLET 1 TAB PO ×3 (03:11→20:08)
[2020-12-09 06:10] LABS: MANUAL DIFF FLAG NO
[2020-12-09] MEDS: Levothyroxine Sodium 25 MCG TABLET PO (06:20)
[2020-12-09] MEDS: Levothyroxine Sodium 112 MCG TABLET PO (06:20)
[2020-12-09 06:47] LABS: Anion Gap 21 (12-20); Blood Urea Nitrogen 39 mg/dL (9-16); Carbon Dioxide 26 mmol/L (22-29); Chloride 94 mmol/L (96-108); Creatinine Clr Calc Pharmacy 11.1; Estimated Glomerular Filt Rate 10; Glucose Random 97 mg/dL (60-115); Sodium 137 mmol/L (135-145)
[2020-12-09 06:53] LABS: Basophils Absolute Auto 0.1 X10*3/uL (0.0-0.2); Basophils Percent Auto 0.9 % (0-2); Eosinophils Absolute Auto 0.2 X10*3/uL (0.0-0.4); Eosinophils Percent Auto 2.6 % (0-4); Hemoglobin 8.4 g/dl (12.0-16.0); Imm Gran Abs Auto 0.03 X10*3/uL (0.00-0.03); Imm Gran Pct Auto 0.4 % (0.0-0.4); Lymphocytes Absolute Auto 1.3 X10*3/uL (1.2-4.9); Lymphocytes Percent Auto 15.6 % (20-40); Mean Corpuscular HGB Conc 32.3 g/dl (31.0-35.0); Mean Corpuscular Hemoglobin 29.3 pg (27.0-33.0); Mean Corpuscular Volume 90.6 fL (80-98); Mean Platelet Volume 10.5 fL (9.4-12.3); Monocytes Absolute Auto 0.8 X10*3/uL (0.1-1.2); Monocytes Percent Auto 9.1 % (2-11); Neutrophils Absolute Auto 6.1 X10*3/uL (2.0-8.3); Neutrophils Percent Auto 71.4 % (45-73); Platelet Count 185 X10*3/uL (160-400); Red Blood Count 2.87 X10*6/uL (4.20-5.50); Red Cell Distribution Width 14.2 % (11.0-16.0); White Blood Count 8.5 X10*3/uL (4.8-10.8)
--- NOTE | 2020-12-09 06:59 | PM.IMHP ---
History of Present Illness Date of Service: 12/08/20 Chief Complaint: Shortness of breath This is a present 80-year-old female with past medical history of ESRD on dialysis, CAD, CHF with reduced ejection fraction of about 15%, hypothyroidism who presents to the hospital with complaints of shortness of breath. Patient complains of shortness of breath, for the past 1 week, mostly with exertion, patient is fully assisted with her ADLs, but reports that even walking to the bathroom causes her significant dyspnea. She sleeps upright and therefore cannot tell me if she has orthopnea or PND. She has significant swelling of her legs, denies any cough or sputum production. No fever or chills, no abdominal pain nausea or vomiting, no diarrhea constipation, no urinary symptoms and no numbness weakness and tingling. On arrival to ED hemodynamically stable. Found to be 90% on room air, placed on 3 L of nasal cannula satting 100% on room air. Vitals otherwise normal Labs are significant for WBC count of 8.5, hemoglobin of 8.4 which dropped from October 9.7, PT of 17, INR of 1.5, troponin of 138, BNP of 15,000 which is significantly higher than her previous admission, UA that is positive for leukocyte Estrace and WBC. Patient will be admitted for further management Review of Systems Review of Systems: Yes all other systems are reviewed and are negative [facility] Medical History Acquired hypothyroidism Anemia in CKD (chronic kidney disease) Bilateral calf pain Chronic kidney disease, stage 5 Chronic pain syndrome Coronary artery disease COVID-19 vaccine administered Dependent on hemodialysis 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 Essential hypertension Heart failure with reduced ejection fraction History of myocardial infarction Lumbosacral radiculopathy due to degenerative joint disease of spine Menopause Osteoarthritis involving multiple joints on both sides of body Pain and swelling of lower leg Postlaminectomy syndrome Restless leg syndrome Secondary hyperparathyroidism Septic arthritis of shoulder, right Family History Father Medical history non-contributory Mother Medical history non-contributory Surgical History History of carpal tunnel release History of foot surgery History of laminectomy History of surgery History of total left knee replacement (TKR) Hx of appendectomy Hx of bilateral cataract extraction Hx of cholecystectomy Hx of colonoscopy Hx of dilation and curettage Hx of umbilical hernia repair S/P CABG x 3 S/P trigger finger release Status post cardiac catheterization Status post right shoulder hemiarthroplasty Social History Household Members: Spouse Housing: House Housing Other:: Came from [facility], for rehab Are you a primary child day care provider to a significant other at home: No Do you presently have visiting nurse or other home services: Yes (Visiting nurse 1x/week) Alcohol intake: never Patient Tobacco Use Status: Never used Tobacco Use of substances other than those prescribed or required for medical reasons: No Have you been hit, kicked, punched, or otherwise hurt by someone within the past year? If so, by whom?: No Do you feel safe in your current relationship?: Yes Is there a partner from a previous relationship who is making you feel unsafe now?: No Are you made to feel afraid or neglected: No Advance Directives: No Advance Directives Information Provided: Yes Advance Directives on File: No Do you have thoughts of harming others: None Do you have a plan to hurt others: No Plan Recently lost weight without trying: No Eating poorly because of decreased appetite: No Nutrition Risks: No Nutritional Risk Patient : No : No Poor oral hygiene: No service: No Current occupational status: retired Meds Allergies Allergy/AdvReac Type Severity Reaction Status Date / Time erythromycin base Allergy Mild RASH Verified 12/08/20 18:29 [Erythromycin Base] indomethacin [From Indocin] Allergy Mild RASH Verified 12/08/20 18:29 Sulfa (Sulfonamide Allergy Mild RASH, Verified 12/08/20 18:29 Antibiotics) stomach [Sulfa (Sulfonamides)] upset ezetimibe [From Zetia] Allergy Unknown unknown Verified 12/08/20 18:29 flaxseed [FLAXSEED] Allergy Unknown SWELLING Verified 12/08/20 18:29 TONGUE AND LIPS Flexeril Allergy Unknown lg swelling Verified 12/08/20 18:29 gabapentin [From Neurontin] Allergy Unknown UNknown Verified 12/08/20 18:29 glipizide Allergy Unknown UNknown Verified 12/08/20 18:29 Niacin Preparations Allergy Unknown RASH Verified 12/08/20 18:29 [NIACIN PREPARATIONS] Penicillins Allergy Unknown Rash Verified 12/08/20 18:29 cocaine Allergy Seizure Verified 12/08/20 18:29 atorvastatin [From Lipitor] AdvReac Mild MUSCLE Verified 12/08/20 18:29 SOARNESS oxycodone AdvReac Unknown GI upset- Verified 12/08/20 18:29 sevree CAT GUT SUTURES Allergy Unknown rash Uncoded 11/22/20 13:13 PLASTIC TAPE, BANDADES Allergy Unknown rash Uncoded 11/22/20 13:13 Adhesive Bandage AdvReac Mild BLISTERS Uncoded 11/22/20 13:13 Active Medications: Current Medications Generic Name Dose Route Start Last Admin Trade Name Freq PRN Reason Stop Dose Admin Acetaminophen 650 mg 12/09/20 02:33 Acetaminophen 325 Mg Tablet PO Q6H PRN Pain, Mild (Pain Scale 1-3) Hydrocodone Bitart/Acetaminophen 1 tab 12/08/20 23:23 12/09/20 03:11 Hydrocodone Bit/Acetam 5/325 Tablet PO 1 tab Q8H PRN Administration pain (scale score 7-10) Apixaban 2.5 mg 12/08/20 23:23 12/09/20 00:26 Apixaban 2.5 Mg Tablet PO 2.5 mg BID OMI Administration Atorvastatin Calcium 40 mg 12/09/20 09:00 Atorvastatin Calcium 40 Mg Tablet PO DAILY OMI Carvedilol 6.25 mg 12/08/20 23:23 12/09/20 00:26 Carvedilol 6.25 Mg Tablet PO 6.25 mg BID OMI Administration Protocol Furosemide 40 mg 12/09/20 09:00 Furosemide 40 Mg/4 Ml Vial IVPUSH BID@0900,1800 [facility] Protocol Heparin Sodium (Porcine) 5,000 unit 12/09/20 03:00 12/09/20 03:11 Heparin Sodium,Porcine 5,000 Unit/Ml Vial SUBCUT 5,000 unit Q8H OMI Administration Hydralazine HCl 25 mg 12/09/20 09:00 Hydralazine Hcl 25 Mg Tablet PO BID [facility] Protocol Isosorbide Dinitrate 5 mg 12/09/20 09:00 Isosorbide Dinitrate 5 Mg Tablet PO BID [facility] Protocol Levothyroxine Sodium 112 mcg 12/09/20 06:00 12/09/20 06:20 Levothyroxine Sodium 112 Mcg Tablet PO 112 mcg DAILY@0600 [facility] Administration Levothyroxine Sodium 25 mcg 12/09/20 06:00 12/09/20 06:20 Levothyroxine Sodium 25 Mcg Tablet PO 25 mcg DAILY@0600 [facility] Administration Midodrine 2.5 mg 12/09/20 22:05 Midodrine Hcl 2.5 Mg Tablet PO TUTA [facility] Non-Formulary Medication 200 mg 12/09/20 21:00 Coenzyme Q10 PO TUTHSA@2100 [facility] Ondansetron HCl 4 mg 12/09/20 02:33 Ondansetron Hcl 4 Mg/2 Ml Vial IVPUSH Q8H PRN Nausea and Vomiting Pharmacy Consult 1 each 12/08/20 19:57 Consult Rx Perform Med Rec MISCELLANE ONCE PRN Consult order Sevelamer Carbonate 800 mg 12/09/20 09:00 Sevelamer Carbonate Tablet 800 Mg Tablet PO TID [facility] Sodium Chloride 3 ml 12/09/20 08:00 0.9 % Sodium Chloride Flush 3 Ml [facility] Medications Medication Instructions Recorded Confirmed Last Taken Type ketorolac 0.5 % eye drops 1 drp OPHTHALMIC-RIGHT QID 03/31/20 12/08/20 12/08/20 History sevelamer carbonate 800 mg tablet 800 mg PO TID 05/05/20 12/08/20 12/08/20 History coenzyme Q10 100 mg capsule (Co 100 mg PO TUTHSA@0900 cap 06/21/20 12/08/20 07/30/20 08:00 History Q-10) ferrous sulfate 325 mg (65 mg 325 mg PO TID tab 06/21/20 12/08/20 12/08/20 History iron) tablet rosuvastatin 10 mg tablet 10 mg PO DAILY 07/31/20 12/08/20 12/08/20 History furosemide 20 mg tablet 20 mg PO DAILY 10/04/20 12/08/20 12/08/20 History midodrine 2.5 mg tablet 2.5 mg PO TUTHSA 10/13/20 12/08/20 Unknown History coenzyme Q10 100 mg capsule 200 mg PO TUTHSA@2100 12/08/20 12/08/20 Unknown History isosorbide dinitrate 5 mg tablet 5 mg PO BID 12/08/20 12/08/20 12/08/20 History vit C 250 mg-vit E 90 mg-zinc 40 1 tab PO BID 12/08/20 12/08/20 12/08/20 History mg-copper 1 [id number] capsule (PreserVision AREDS-2) Physical Exam Vital Signs and Narrative: Vital Signs: Last Vital Signs Temp 97.6 F 12/09/20 03:38 Pulse 85 12/09/20 03:38 Resp 18 12/09/20 03:38 BP 124/58 L 12/09/20 03:38 Pulse Ox 98 12/09/20 03:38 Oxygen Flow Rate 3 12/08/20 18:30 Body Mass Index 25.8 Const: General: cooperative and no acute distress Orientation/consciousness: patient oriented x3 Eyes: General: appearance normal, both eyes and all related structures Pupils: Equal, round and reactive pupils present Resp: Effort & Inspection: normal respiratory effort and able to speak in complete sentences Auscultation: clear to auscultation bilaterally Cardio: Rate: regular rate Rhythm: regular rhythm GI: Palpation (GI): Soft to palpation Auscultation: normal bowel sounds Skin: General skin exam: no rashes or lesions noted Neuro: General: patient oriented x3 Cranial nerves: Yes Equal, round and reactive pupils present Cognition (Neuro): normal cognition Extrem: Other: 3+ lower extremity edema bilaterally General: Yes normal to inspection Results Labs CBC and Chem 7: 12/08/20 19:06 12/09/20 05:14 Labs: Laboratory Results - last 24 hr 12/08/20 12/08/20 12/08/20 19:06 19:06 19:06 MCV 91.0 MCH 29.8 MCHC 32.7 RDW 14.2 Plt Count 204 MPV 9.8 Immature Gran % (Auto) 0.5 H Neut % (Auto) 73.0 Lymph % (Auto) 15.6 L [place] % (Auto) 8.2 Eos % (Auto) 2.0 Baso % (Auto) 0.7 Lymph # (Auto) 1.5 [place] # (Auto) 0.8 Eos # (Auto) 0.2 Baso # (Auto) 0.1 Abs Immat Gran (auto) 0.05 H Absolute Neuts (auto) 7.2 Absolute Nucleated RBC 0.000 Nucleated RBC % (auto) 0.0 PT INR APTT Anion Gap 18 Estim Creat Clear Calc 11.7 Estimated GFR 11 Random Glucose 122 H Lactic Acid 1.3 Calcium 10.5 H Total Bilirubin 0.6 Direct Bilirubin 0.4 AST 11 ALT 10 Alkaline Phosphatase 98 D Troponin I High Sens B-Natriuretic Peptide Total Protein 6.3 L Albumin 3.9 Urine Color Urine Appearance Urine pH Ur Specific [place] Urine Protein Urine Glucose (UA) Urine Ketones Urine Blood Urine Nitrite Ur Leukocyte Esterase Urine RBC Urine WBC Ur Squamous Epith Cells Urine Bacteria COVID-19 ([facility]) COVID-19 Clin Com 12/08/20 12/08/20 12/08/20 19:06 19:06 19:15 MCV MCH MCHC RDW Plt Count MPV Immature Gran % (Auto) Neut % (Auto) Lymph % (Auto) [place] % (Auto) Eos % (Auto) Baso % (Auto) Lymph # (Auto) [place] # (Auto) Eos # (Auto) Baso # (Auto) Abs Immat Gran (auto) Absolute Neuts (auto) Absolute Nucleated RBC Nucleated RBC % (auto) PT 17.0 H INR 1.5 H APTT 42.4 H Anion Gap Estim Creat Clear Calc Estimated GFR Random Glucose Lactic Acid Calcium Total Bilirubin Direct Bilirubin AST ALT Alkaline Phosphatase Troponin I High Sens 138.6 H* B-Natriuretic Peptide 72986 H Total Protein Albumin Urine Color Urine Appearance Urine pH Ur Specific [place] Urine Protein Urine Glucose (UA) Urine Ketones Urine Blood Urine Nitrite Ur Leukocyte Esterase Urine RBC Urine WBC Ur Squamous Epith Cells Urine Bacteria COVID-19 ([facility]) Negative COVID-19 Clin Com See Note 12/08/20 12/09/20 19:47 05:14 MCV MCH MCHC RDW Plt Count MPV Immature Gran % (Auto) Neut % (Auto) Lymph % (Auto) [place] % (Auto) Eos % (Auto) Baso % (Auto) Lymph # (Auto) [place] # (Auto) Eos # (Auto) Baso # (Auto) Abs Immat Gran (auto) Absolute Neuts (auto) Absolute Nucleated RBC Nucleated RBC % (auto) PT INR APTT Anion Gap 21 H Estim Creat Clear Calc 11.1 Estimated GFR 10 Random Glucose 97 Lactic Acid Calcium 10.0 Total Bilirubin Direct Bilirubin AST ALT Alkaline Phosphatase Troponin I High Sens B-Natriuretic Peptide Total Protein Albumin Urine Color YELLOW Urine Appearance CLOUDY Urine pH 7.5 Ur Specific [place] 1.015 Urine Protein 2+ H Urine Glucose (UA) NEG Urine Ketones NEG Urine Blood NEG Urine Nitrite NEG Ur Leukocyte Esterase 3+ H Urine RBC 1-4 Urine WBC 15-29 H Ur Squamous Epith Cells 1+ Urine Bacteria 3+ COVID-19 ([facility]) COVID-19 Clin Com ECG Interpretation: EKG shows normal sinus rhythm with sinus arrhythmia Imaging Radiologist's Impressions: Impressions Chest X-Ray 12/08/20 18:39 IMPRESSION: Mild interstitial edema. Small left pleural effusion. Assessment and Plan (1) CHF (congestive heart failure): Status: Acute (2) UTI (urinary tract infection): Status: Acute (3) Elevated troponin: Status: Acute This is a 80-year-old female with past medical history of ESRD on dialysis on Friday presents the hospital with complaints of shortness of breath found to be in volume overload # acute CHF exacerbation - possibly secondary to acute UTI - patient has significantly high BNP, dyspnea, and lower extremity edema - she does produce urine and is at home on furosemide which she reports compliance with - will start on Lasix 40 IV b.i.d. - echocardiogram - cardiology consult - troponin elevated but patient denies any chest pain # UTI - positive UA - will treat with IV antibiotics - follow cultures # elevated troponin - has no chest pain, EKG showing left bundle-branch block - will trend troponin - admit to telemetry - cardiology consulted # AFib - continue carvedilol and apixaban # hypertension - stable - continue hydralazine, carvedilol, Imdur # hypothyroidism - continue levothyroxine DVT prophylaxis: Apixaban Quality Stroke Does the patient have a stroke diagnosis?: No VTE Prior VTE?: No VTE Risk Level:: Medical - moderate - high VTE Device Contraindication: Treatment Not Indicated VTE Drug Contraindication: N/A - Med Ordered
--- NOTE | 2020-12-09 07:34 | PM.CNNEP ---
History of Present Illness Reason for Consult Consult date: 12/09/20 Reason for consult: esrd Chief Complaint Chief complaint: CHF Review of Systems Review of Systems Constitutional : No Weight loss, No Fever, No Chills, No Night Sweats, No Fatigue, No Malaise ENT/Mouth : No Hearing loss, No Ear Pain, No Nasal Congestion, No Sinus Pain, No Hoarseness, No sore throat, No Rhinorrhea, No Swallowing Difficulty Eyes: No Eye Pain, No Swelling, No Redness, No Foreign Body, No Discharge, No Vision Changes Cardiovascular : No Chest Pain, complaining of chronic bilateral pitting edema, worsening orthopnea, shortness of breath with exertion is worse now Respiratory : No Cough, No Sputum, No Wheezing, No Smoke Exposure Gastrointestinal : No Nausea, No Vomiting, No Diarrhea, No Constipation, No abdominal Pain, No Hematochezia, No Melena Genitourinary : no irregular bleeding, No Dysuria, No Urinary Frequency, No Hematuria, No Urinary Incontinence, No Urgency, No Flank Pain, No Urinary Flow Changes, No Hesitancy Musculoskeletal : No joint pain, No Myalgias, No Joint Swelling Skin : No Skin Lesions, No rash Neuro : No Weakness, No Numbness, No Paresthesias, No Loss of Consciousness, No Dizziness, No Headache Psych : No Anxiety/Panic, No Depression, No SI/HI/AH/VH, No Social Issues, Heme/Lymph: No Bruising, No Bleeding,No Lymphadenopathy Endocrine : No Polyuria, No Polydipsia, No Temperature Intolerance Yes all other systems are reviewed and are negative [facility] Past Medical History Medical History Acquired hypothyroidism Anemia in CKD (chronic kidney disease) Bilateral calf pain Chronic kidney disease, stage 5 Chronic pain syndrome Coronary artery disease COVID-19 vaccine administered Dependent on hemodialysis 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 Essential hypertension Heart failure with reduced ejection fraction History of myocardial infarction Lumbosacral radiculopathy due to degenerative joint disease of spine Menopause Osteoarthritis involving multiple joints on both sides of body Pain and swelling of lower leg Postlaminectomy syndrome Restless leg syndrome Secondary hyperparathyroidism Septic arthritis of shoulder, right Family History Family History Father Medical history non-contributory Mother Medical history non-contributory Surgical History Surgical History History of carpal tunnel release History of foot surgery History of laminectomy History of surgery History of total left knee replacement (TKR) Hx of appendectomy Hx of bilateral cataract extraction Hx of cholecystectomy Hx of colonoscopy Hx of dilation and curettage Hx of umbilical hernia repair S/P CABG x 3 S/P trigger finger release Status post cardiac catheterization Status post right shoulder hemiarthroplasty Social History Social History Household Members: Spouse Housing: House Housing Other:: Came from [facility], for rehab Are you a primary healthcare representative to a significant other at home: No Do you presently have visiting nurse or other home services: Yes (Visiting nurse 1x/week) Alcohol intake: never Patient Tobacco Use Status: Never used Tobacco Use of substances other than those prescribed or required for medical reasons: No Have you been hit, kicked, punched, or otherwise hurt by someone within the past year? If so, by whom?: No Do you feel safe in your current relationship?: Yes Is there a partner from a previous relationship who is making you feel unsafe now?: No Are you made to feel afraid or neglected: No Advance Directives: No Advance Directives Information Provided: Yes Advance Directives on File: No Do you have thoughts of harming others: None Do you have a plan to hurt others: No Plan Recently lost weight without trying: No Eating poorly because of decreased appetite: No Nutrition Risks: No Nutritional Risk Patient : No : No Poor oral hygiene: No service: No Current occupational status: retired [employer] Allergies Allergy/AdvReac Type Severity Reaction Status Date / Time erythromycin base Allergy Mild RASH Verified 12/08/20 18:29 [Erythromycin Base] indomethacin [From Indocin] Allergy Mild RASH Verified 12/08/20 18:29 Sulfa (Sulfonamide Allergy Mild RASH, Verified 12/08/20 18:29 Antibiotics) stomach [Sulfa (Sulfonamides)] upset ezetimibe [From Zetia] Allergy Unknown unknown Verified 12/08/20 18:29 flaxseed [FLAXSEED] Allergy Unknown SWELLING Verified 12/08/20 18:29 TONGUE AND LIPS Flexeril Allergy Unknown lg swelling Verified 12/08/20 18:29 gabapentin [From Neurontin] Allergy Unknown UNknown Verified 12/08/20 18:29 glipizide Allergy Unknown UNknown Verified 12/08/20 18:29 Niacin Preparations Allergy Unknown RASH Verified 12/08/20 18:29 [NIACIN PREPARATIONS] Penicillins Allergy Unknown Rash Verified 12/08/20 18:29 cocaine Allergy Seizure Verified 12/08/20 18:29 atorvastatin [From Lipitor] AdvReac Mild MUSCLE Verified 12/08/20 18:29 SOARNESS oxycodone AdvReac Unknown GI upset- Verified 12/08/20 18:29 sevree CAT GUT SUTURES Allergy Unknown rash Uncoded 11/22/20 13:13 PLASTIC TAPE, BANDADES Allergy Unknown rash Uncoded 11/22/20 13:13 Adhesive Bandage AdvReac Mild BLISTERS Uncoded 11/22/20 13:13 Active Medications: Current Medications Generic Name Dose Route Start Last Admin Trade Name Freq PRN Reason Stop Dose Admin Acetaminophen 650 mg 12/09/20 02:33 Acetaminophen 325 Mg Tablet PO Q6H PRN Pain, Mild (Pain Scale 1-3) Hydrocodone Bitart/Acetaminophen 1 tab 12/08/20 23:23 12/09/20 03:11 Hydrocodone Bit/Acetam 5/325 Tablet PO 1 tab Q8H PRN Administration pain (scale score 7-10) Apixaban 2.5 mg 12/08/20 23:23 12/09/20 00:26 Apixaban 2.5 Mg Tablet PO 2.5 mg BID OMI Administration Atorvastatin Calcium 40 mg 12/09/20 09:00 Atorvastatin Calcium 40 Mg Tablet PO DAILY OMI Carvedilol 6.25 mg 12/08/20 23:23 12/09/20 00:26 Carvedilol 6.25 Mg Tablet PO 6.25 mg BID OMI Administration Protocol Furosemide 40 mg 12/09/20 09:00 Furosemide 40 Mg/4 Ml Vial IVPUSH BID@0900,1800 [facility] Protocol Hydralazine HCl 25 mg 12/09/20 09:00 Hydralazine Hcl 25 Mg Tablet PO BID OMI Protocol Ceftriaxone Sodium 1 gm/ 50 mls @ 100 mls/hr 12/09/20 07:15 Sodium Chloride IV Q24H OMI Isosorbide Dinitrate 5 mg 12/09/20 09:00 Isosorbide Dinitrate 5 Mg Tablet PO BID [facility] Protocol Levothyroxine Sodium 112 mcg 12/09/20 06:00 12/09/20 06:20 Levothyroxine Sodium 112 Mcg Tablet PO 112 mcg DAILY@0600 [facility] Administration Levothyroxine Sodium 25 mcg 12/09/20 06:00 12/09/20 06:20 Levothyroxine Sodium 25 Mcg Tablet PO 25 mcg DAILY@0600 [facility] Administration Midodrine 2.5 mg 12/09/20 22:05 Midodrine Hcl 2.5 Mg Tablet PO TUTA [facility] Non-Formulary Medication 200 mg 12/09/20 21:00 Coenzyme Q10 PO TUTHSA@2100 [facility] Ondansetron HCl 4 mg 12/09/20 02:33 Ondansetron Hcl 4 Mg/2 Ml Vial IVPUSH Q8H PRN Nausea and Vomiting Pharmacy Consult 1 each 12/08/20 19:57 Consult Rx Perform Med Rec MISCELLANE ONCE PRN Consult order Sevelamer Carbonate 800 mg 12/09/20 09:00 Sevelamer Carbonate Tablet 800 Mg Tablet PO TID [facility] Sodium Chloride 3 ml 12/09/20 08:00 0.9 % Sodium Chloride Flush 3 Ml Syringe IVFLUSH QSHIFT [facility] Home Medications Medication Instructions Recorded Confirmed Last Taken Type ketorolac 0.5 % eye drops 1 drp OPHTHALMIC-RIGHT QID 03/31/20 12/08/20 12/08/20 History sevelamer carbonate 800 mg tablet 800 mg PO TID 05/05/20 12/08/20 12/08/20 History coenzyme Q10 100 mg capsule (Co 100 mg PO TUTHSA@0900 cap 06/21/20 12/08/20 07/30/20 08:00 History Q-10) ferrous sulfate 325 mg (65 mg 325 mg PO TID tab 06/21/20 12/08/20 12/08/20 History iron) tablet rosuvastatin 10 mg tablet 10 mg PO DAILY 07/31/20 12/08/20 12/08/20 History furosemide 20 mg tablet 20 mg PO DAILY 10/04/20 12/08/20 12/08/20 History midodrine 2.5 mg tablet 2.5 mg PO TUTA 10/13/20 12/08/20 Unknown History coenzyme Q10 100 mg capsule 200 mg PO TUTHSA@2100 12/08/20 12/08/20 Unknown History isosorbide dinitrate 5 mg tablet 5 mg PO BID 12/08/20 12/08/20 12/08/20 History vit C 250 mg-vit E 90 mg-zinc 40 1 tab PO BID 12/08/20 12/08/20 12/08/20 History mg-copper 1 [id number] capsule (PreserVision AREDS-2) Physical Exam Vital Signs: Last Vital Signs Temp 97.6 F 12/09/20 03:38 Pulse 85 12/09/20 03:38 Resp 18 12/09/20 03:38 BP 124/58 L 12/09/20 03:38 Pulse Ox 98 12/09/20 03:38 Oxygen Flow Rate 3 12/08/20 18:30 Body Mass Index 25.5 Const Other: Appearance: Alert. Oriented X3. No acute distress. Eyes: Pupils equal, round and reactive to light. ENT: Pharynx normal. Neck: Normal inspection. Neck supple. No lymph nodes noted. No crepitus CVS: Normal heart rate and rhythm. Pulses normal. Normal S1 and S2 Respiratory: Using accessory muscles, no wheezing, good air movement, bilateral crackles present, requiring O2 Abdomen: Soft and nontender. No rigidity. No distention. good BS x4 Skin: Skin warm and dry. Normal skin color. Normal skin turgor. Extremities: +2 bilateral pitting edema, No Lacerations. No Rash Neuro: Oriented X 3. No motor deficit. No sensory deficit. Moving all extermities. No slurred speech. General: cooperative and no acute distress Orientation/consciousness: patient oriented x3 Eyes General: appearance normal, both eyes and all related structures Pupils: Equal, round and reactive pupils present Resp Effort & Inspection: normal respiratory effort and able to speak in complete sentences Auscultation: clear to auscultation bilaterally Cardio Rate: regular rate Rhythm: regular rhythm GI Palpation (GI): Soft to palpation Auscultation: normal bowel sounds Skin General skin exam: no rashes or lesions noted Neuro General: patient oriented x3 Cranial nerves: Yes Equal, round and reactive pupils present Cognition (Neuro): normal cognition Extrem Other: 3+ lower extremity edema bilaterally General: Yes normal to inspection Results Lab Results Result Diagrams: 12/09/20 05:14 12/09/20 05:14 Lab results: Chemistry 12/08/20 12/09/20 19:06 05:14 Sodium 137 137 Potassium 4.0 D 4.0 Carbon Dioxide 29 26 BUN 35 H 39 H Creatinine 3.96 H 4.21 H* Calcium 10.5 H 10.0 Hematology 12/08/20 12/09/20 19:06 05:14 WBC 9.8 8.5 Hgb 8.9 L 8.4 L Plt Count 204 185 Urinalysis 12/08/20 19:47 Urine Color YELLOW Urine Appearance CLOUDY Urine pH 7.5 Ur Specific [place] 1.015 Urine Protein 2+ H Urine Glucose (UA) NEG Urine Ketones NEG Urine Blood NEG Urine Nitrite NEG Ur Leukocyte Esterase 3+ H Urine RBC 1-4 Urine WBC 15-29 H Ur Squamous Epith Cells 1+ Assessment and Plan (1) CHF (congestive heart failure): Status: Acute (2) UTI (urinary tract infection): Status: Acute (3) Elevated troponin: Status: Acute (4) ESRD (end stage renal disease): Status: Acute This is a 80-year-old female with past medical history of ESRD on dialysis on Friday presents the hospital with complaints of shortness of breath found to be in volume overload I willarrange her HD Procedures Date of Service Date of Service: 12/09/20
[2020-12-09 08:24] LABS: Troponin-I High Sensitivity 139.8 ng/L (<3.5-17.0)
--- NOTE | 2020-12-09 08:52 | MHC.CM.PN ---
CM met with Patient at bedside and addressed IMM with her, providing her with the original and placing a copy on the chart. Patient is active with [facility] and [facility], TH, [facility]. Patient uses a w/c to assist with mobility and her goal for dc is to return home and resume these services; CM has initiated and will follow for dc planning. Patient lives in a house with her /HCP/[facility], who will transport Patient back home and to HD. PCP is Dr. Brigid Hu. Patient does not use O2 at home.
[2020-12-09] MEDS: Acetaminophen 325 MG TABLET 650 MG PO (09:28)
[2020-12-09] MEDS: Sevelamer Carbonate Tablet 800 MG TABLET PO ×3 (09:33→20:09)
[2020-12-09] MEDS: Isosorbide Dinitrate 5 MG TABLET PO ×2 (09:33→20:09)
[2020-12-09] MEDS: Atorvastatin Calcium 40 MG TABLET PO (09:34)
--- NOTE | 2020-12-09 10:53 | P.CONCA_ITS ---
History of Present Illness History of Present Illness Date of Service: 12/09/20 Consult reason: congestive heart failure Chief complaint: CHF Narrative: This is a cardiology consultation regarding congestive heart failure. Patient has multiple vascular risk factors and established coronary disease and remote bypass surgery in 2002. She was last seen by our nurse practitioner in October. Echocardiogram from July this year had shown severe LV dysfunction with LV ejection fraction of 50-20%. Subsequently, it appears that she underwent cardiac catheterization as an outpatient. She was doing okay till few days ago. She states that she went for a vacation in [place] and then when she returned, she has not been feeling good. She states that she is having more shortness of breath than in the past. Even walking short distances making short of breath. No anginal-type symptoms. She has been admitted with heart failure diagnosis. Review of Systems Review of Systems: Yes all other systems are reviewed and are negative Cardiovascular: Cardiovascular: Reports as per HPI, Reports no additional cardiovascular complaints, Denies acrocyanosis, Denies cool extremities, Denies painful fingertips, Denies chest pain, Denies chest pain at rest, Denies diaphoresis, Denies syncope, Denies irregular heart rhythm, Denies claudication, Denies leg edema, Denies lightheadedness, Denies palpitations and Reports dyspnea Respiratory: Respiratory: Reports dyspnea Neurologic: Denies syncope Endocrine: Endocrine: Denies palpitations [facility] Past Medical History Medical History (Updated 12/09/20 @ 11:06 by Issa Gr MD) Acquired hypothyroidism Anemia in CKD (chronic kidney disease) Atherosclerotic cardiovascular disease Bilateral calf pain Chronic kidney disease, stage 5 Chronic pain syndrome Coronary artery disease COVID-19 vaccine administered Dependent on hemodialysis 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 Essential hypertension Heart failure with reduced ejection fraction History of myocardial infarction Lumbosacral radiculopathy due to degenerative joint disease of spine Menopause Osteoarthritis involving multiple joints on both sides of body Pain and swelling of lower leg Postlaminectomy syndrome Restless leg syndrome Secondary hyperparathyroidism Septic arthritis of shoulder, right Family History Family History Father Medical history non-contributory Mother Medical history non-contributory Surgical History Surgical History History of carpal tunnel release History of foot surgery History of laminectomy History of surgery History of total left knee replacement (TKR) Hx of appendectomy Hx of bilateral cataract extraction Hx of cholecystectomy Hx of colonoscopy Hx of dilation and curettage Hx of umbilical hernia repair S/P CABG x 3 S/P trigger finger release Status post cardiac catheterization Status post right shoulder hemiarthroplasty Social History Social History Household Members: Spouse Housing: House Housing Other:: Came from [facility] for rehab Are you a primary managed care nurse to a significant other at home: No Do you presently have visiting nurse or other home services: Yes (Visiting nurse 1x/week) Alcohol intake: never Patient Tobacco Use Status: Never used Tobacco Use of substances other than those prescribed or required for medical reasons: No Have you been hit, kicked, punched, or otherwise hurt by someone within the past year? If so, by whom?: No Do you feel safe in your current relationship?: Yes Is there a partner from a previous relationship who is making you feel unsafe now?: No Are you made to feel afraid or neglected: No Advance Directives: No Advance Directives Information Provided: Yes Advance Directives on File: No Do you have thoughts of harming others: None Do you have a plan to hurt others: No Plan Recently lost weight without trying: No Eating poorly because of decreased appetite: No Nutrition Risks: No Nutritional Risk Patient : No : No Poor oral hygiene: No service: No Current occupational status: retired Meds Allergies Allergy/AdvReac Type Severity Reaction Status Date / Time erythromycin base Allergy Mild RASH Verified 12/08/20 18:29 [Erythromycin Base] indomethacin [From Indocin] Allergy Mild RASH Verified 12/08/20 18:29 Sulfa (Sulfonamide Allergy Mild RASH, Verified 12/08/20 18:29 Antibiotics) stomach [Sulfa (Sulfonamides)] upset ezetimibe [From Zetia] Allergy Unknown unknown Verified 12/08/20 18:29 flaxseed [FLAXSEED] Allergy Unknown SWELLING Verified 12/08/20 18:29 TONGUE AND LIPS Flexeril Allergy Unknown lg swelling Verified 12/08/20 18:29 gabapentin [From Neurontin] Allergy Unknown UNknown Verified 12/08/20 18:29 glipizide Allergy Unknown UNknown Verified 12/08/20 18:29 Niacin Preparations Allergy Unknown RASH Verified 12/08/20 18:29 [NIACIN PREPARATIONS] Penicillins Allergy Unknown Rash Verified 12/08/20 18:29 cocaine Allergy Seizure Verified 12/08/20 18:29 atorvastatin [From Lipitor] AdvReac Mild MUSCLE Verified 12/08/20 18:29 SOARNESS oxycodone AdvReac Unknown GI upset- Verified 12/08/20 18:29 sevree CAT GUT SUTURES Allergy Unknown rash Uncoded 11/22/20 13:13 PLASTIC TAPE, BANDADES Allergy Unknown rash Uncoded 11/22/20 13:13 Adhesive Bandage AdvReac Mild BLISTERS Uncoded 11/22/20 13:13 Active Medications: Current Medications Generic Name Dose Route Start Last Admin Trade Name Freq PRN Reason Stop Dose Admin Acetaminophen 650 mg 12/09/20 02:33 12/09/20 09:28 Acetaminophen 325 Mg Tablet PO 650 mg Q6H PRN Administration Pain, Mild (Pain Scale 1-3) Hydrocodone Bitart/Acetaminophen 1 tab 12/08/20 23:23 12/09/20 03:11 Hydrocodone Bit/Acetam 5/325 Tablet PO 1 tab Q8H PRN Administration pain (scale score 7-10) Apixaban 2.5 mg 12/08/20 23:23 12/09/20 09:34 Apixaban 2.5 Mg Tablet PO 2.5 mg BID OMI Administration Atorvastatin Calcium 40 mg 12/09/20 09:00 12/09/20 09:34 Atorvastatin Calcium 40 Mg Tablet PO 40 mg DAILY OMI Administration Carvedilol 6.25 mg 12/08/20 23:23 12/09/20 09:37 Carvedilol 6.25 Mg Tablet PO Not Given BID OMI Protocol Furosemide 40 mg 12/09/20 09:00 Furosemide 40 Mg/4 Ml Vial IVPUSH BID@0900,1800 OMI Protocol Hydralazine HCl 25 mg 12/09/20 09:00 12/09/20 09:38 Hydralazine Hcl 25 Mg Tablet PO Not Given BID OMI Protocol Ceftriaxone Sodium 1 gm/ 50 mls @ 100 mls/hr 12/09/20 07:15 Sodium Chloride IV Q24H OMI Isosorbide Dinitrate 5 mg 12/09/20 09:00 12/09/20 09:33 Isosorbide Dinitrate 5 Mg Tablet PO 5 mg BID [facility] Administration Protocol Levothyroxine Sodium 112 mcg 12/09/20 06:00 12/09/20 06:20 Levothyroxine Sodium 112 Mcg Tablet PO 112 mcg DAILY@0600 [facility] Administration Levothyroxine Sodium 25 mcg 12/09/20 06:00 12/09/20 06:20 Levothyroxine Sodium 25 Mcg Tablet PO 25 mcg DAILY@0600 [facility] Administration Midodrine 2.5 mg 12/09/20 22:05 Midodrine Hcl 2.5 Mg Tablet PO TUTHSA [facility] Ondansetron HCl 4 mg 12/09/20 02:33 Ondansetron Hcl 4 Mg/2 Ml Vial IVPUSH Q8H PRN Nausea and Vomiting Pharmacy Consult 1 each 12/08/20 19:57 Consult Rx Perform Med Rec MISCELLANE ONCE PRN Consult order Sevelamer Carbonate 800 mg 12/09/20 09:00 12/09/20 09:33 Sevelamer Carbonate Tablet 800 Mg Tablet PO 800 mg TID [facility] Administration Sodium Chloride 3 ml 12/09/20 08:00 12/09/20 09:38 0.9 % Sodium Chloride Flush 3 Ml Syringe IVFLUSH Not Given QSHIFT [facility] Home Medications Medication Instructions Recorded Confirmed Last Taken Type ketorolac 0.5 % eye drops 1 drp OPHTHALMIC-RIGHT QID 03/31/20 12/08/20 12/08/20 History sevelamer carbonate 800 mg tablet 800 mg PO TID 05/05/20 12/08/20 12/08/20 History coenzyme Q10 100 mg capsule (Co 100 mg PO TUTA@0900 cap 06/21/20 12/08/20 07/30/20 08:00 History Q-10) ferrous sulfate 325 mg (65 mg 325 mg PO TID tab 06/21/20 12/08/20 12/08/20 History iron) tablet rosuvastatin 10 mg tablet 10 mg PO DAILY 07/31/20 12/08/20 12/08/20 History furosemide 20 mg tablet 20 mg PO DAILY 10/04/20 12/08/20 12/08/20 History midodrine 2.5 mg tablet 2.5 mg PO TUTA 10/13/20 12/08/20 Unknown History coenzyme Q10 100 mg capsule 200 mg PO TUTHSA@2100 12/08/20 12/08/20 Unknown History isosorbide dinitrate 5 mg tablet 5 mg PO BID 12/08/20 12/08/20 12/08/20 History vit C 250 mg-vit E 90 mg-zinc 40 1 tab PO BID 12/08/20 12/08/20 12/08/20 History mg-copper 1 [id number] capsule (PreserVision AREDS-2) Physical Exam Vital Signs: Vital Signs: Last Vital Signs Temp 98.3 F 12/09/20 08:00 Pulse 86 12/09/20 09:38 Resp 20 12/09/20 08:00 BP 117/73 12/09/20 09:38 Pulse Ox 97 12/09/20 08:00 Oxygen Flow Rate 3 12/08/20 18:30 Body Mass Index 25.5 Const: General: cooperative and no acute distress HENMT: Other: Unremarkable Neck: Neck: Yes normal visual inspection Chest: Chest palpation & inspection: normal inspection of the chest Resp: Other: bilateral basal crackles. Cardio: Jugular venous distension: no JVD Palpation: normal PMI Heart sounds: S1 normal heart sound present, S2 normal heart sound present, no gallops, no murmurs and no rubs GI: Palpation (GI): Soft to palpation Back/Spine/Pelvis: Other: unremarkable Skin: General skin exam: no rashes or lesions noted Neuro: Cranial nerves: Yes Other cranial nerve findings present Extrem: General: Yes edema (1+) Psych: Mental Status: other Results Labs and Meds Result diagrams: 12/09/20 05:14 12/09/20 05:14 Lab results: Laboratory Results - last 24 hr 12/08/20 12/08/20 12/08/20 19:06 19:06 19:06 WBC 9.8 RBC 2.99 L Hgb 8.9 L Hct 27.2 L MCV 91.0 MCH 29.8 MCHC 32.7 RDW 14.2 Plt Count 204 MPV 9.8 Immature Gran % (Auto) 0.5 H Neut % (Auto) 73.0 Lymph % (Auto) 15.6 L [place] % (Auto) 8.2 Eos % (Auto) 2.0 Baso % (Auto) 0.7 Lymph # (Auto) 1.5 [place] # (Auto) 0.8 Eos # (Auto) 0.2 Baso # (Auto) 0.1 Abs Immat Gran (auto) 0.05 H Absolute Neuts (auto) 7.2 Absolute Nucleated RBC 0.000 Nucleated RBC % (auto) 0.0 PT INR APTT Sodium 137 Potassium 4.0 D Chloride 94 L Carbon Dioxide 29 Anion Gap 18 BUN 35 H Creatinine 3.96 H Estim Creat Clear Calc 11.7 Estimated GFR 11 Random Glucose 122 H Lactic Acid 1.3 Calcium 10.5 H Total Bilirubin 0.6 Direct Bilirubin 0.4 AST 11 ALT 10 Alkaline Phosphatase 98 D Troponin I High Sens B-Natriuretic Peptide Total Protein 6.3 L Albumin 3.9 Urine Color Urine Appearance Urine pH Ur Specific [place] Urine Protein Urine Glucose (UA) Urine Ketones Urine Blood Urine Nitrite Ur Leukocyte Esterase Urine RBC Urine WBC Ur Squamous Epith Cells Urine Bacteria COVID-19 (BENJAMIN) COVID-19 [employer] Com 12/08/20 12/08/20 12/08/20 19:06 19:06 19:15 WBC RBC Hgb Hct MCV MCH MCHC RDW Plt Count MPV Immature Gran % (Auto) Neut % (Auto) Lymph % (Auto) [place] % (Auto) Eos % (Auto) Baso % (Auto) Lymph # (Auto) [place] # (Auto) Eos # (Auto) Baso # (Auto) Abs Immat Gran (auto) Absolute Neuts (auto) Absolute Nucleated RBC Nucleated RBC % (auto) PT 17.0 H INR 1.5 H APTT 42.4 H Sodium Potassium Chloride Carbon Dioxide Anion Gap BUN Creatinine Estim Creat Clear Calc Estimated GFR Random Glucose Lactic Acid Calcium Total Bilirubin Direct Bilirubin AST ALT Alkaline Phosphatase Troponin I High Sens 138.6 H* B-Natriuretic Peptide 55358 H Total Protein Albumin Urine Color Urine Appearance Urine pH Ur Specific [place] Urine Protein Urine Glucose (UA) Urine Ketones Urine Blood Urine Nitrite Ur Leukocyte Esterase Urine RBC Urine WBC Ur Squamous Epith Cells Urine Bacteria COVID-19 (BENJAMIN) Negative COVID-19 Clin Com See Note 12/08/20 12/09/20 12/09/20 19:47 05:14 05:14 WBC 8.5 RBC 2.87 L Hgb 8.4 L Hct 26.0 L MCV 90.6 MCH 29.3 MCHC 32.3 RDW 14.2 Plt Count 185 MPV 10.5 Immature Gran % (Auto) 0.4 Neut % (Auto) 71.4 Lymph % (Auto) 15.6 L [place] % (Auto) 9.1 Eos % (Auto) 2.6 Baso % (Auto) 0.9 Lymph # (Auto) 1.3 [place] # (Auto) 0.8 Eos # (Auto) 0.2 Baso # (Auto) 0.1 Abs Immat Gran (auto) 0.03 Absolute Neuts (auto) 6.1 Absolute Nucleated RBC 0.000 Nucleated RBC % (auto) 0.0 PT INR APTT Sodium 137 Potassium 4.0 Chloride 94 L Carbon Dioxide 26 Anion Gap 21 H BUN 39 H Creatinine 4.21 H* Estim Creat Clear Calc 11.1 Estimated GFR 10 Random Glucose 97 Lactic Acid Calcium 10.0 Total Bilirubin Direct Bilirubin AST ALT Alkaline Phosphatase Troponin I High Sens B-Natriuretic Peptide Total Protein Albumin Urine Color YELLOW Urine Appearance CLOUDY Urine pH 7.5 Ur Specific [place] 1.015 Urine Protein 2+ H Urine Glucose (UA) NEG Urine Ketones NEG Urine Blood NEG Urine Nitrite NEG Ur Leukocyte Esterase 3+ H Urine RBC 1-4 Urine WBC 15-29 H Ur Squamous Epith Cells 1+ Urine Bacteria 3+ COVID-19 (BENJAMIN) COVID-19 Clin Com 12/09/20 07:25 WBC RBC Hgb Hct MCV MCH MCHC RDW Plt Count MPV Immature Gran % (Auto) Neut % (Auto) Lymph % (Auto) [place] % (Auto) Eos % (Auto) Baso % (Auto) Lymph # (Auto) [place] # (Auto) Eos # (Auto) Baso # (Auto) Abs Immat Gran (auto) Absolute Neuts (auto) Absolute Nucleated RBC Nucleated RBC % (auto) PT INR APTT Sodium Potassium Chloride Carbon Dioxide Anion Gap BUN Creatinine Estim Creat Clear Calc Estimated GFR Random Glucose Lactic Acid Calcium Total Bilirubin Direct Bilirubin AST ALT Alkaline Phosphatase Troponin I High Sens 139.8 H* B-Natriuretic Peptide Total Protein Albumin Urine Color Urine Appearance Urine pH Ur Specific [place] Urine Protein Urine Glucose (UA) Urine Ketones Urine Blood Urine Nitrite Ur Leukocyte Esterase Urine RBC Urine WBC Ur Squamous Epith Cells Urine Bacteria COVID-19 (BENJAMIN) COVID-19 Clin Com ECG Interpretation: EKG on admission with sinus rhythm and PACs; nonspecific interventricular conduction defect. Imaging Radiologist's impression: Impressions Chest X-Ray 12/08/20 18:39 IMPRESSION: Mild interstitial edema. Small left pleural effusion. Assessment and Plan (1) Acute on chronic combined systolic and diastolic CHF (congestive heart failure): Status: Acute (2) ESRD (end stage renal disease): Status: Acute (3) Atherosclerotic cardiovascular disease: Status: Acute Cardiac studies reviewed. Last echocardiogram with LVEF 50-20% and moderate diastolic dysfunction as well as wall motion abnormalities from underlying coronary disease. There was mild aortic stenosis and mild mitral regurgitation and mild pulmonary hypertension with increased right atrial pressures. Coronary anatomy reviewed from recent catheterization. She had occluded mid LAD; patent MOREJON to LAD; occluded mid RCA with patent SVG to RCA with 60% stenosis; severe [place] circumflex stenosis; occluded OM 2 with patent SVG to OM 2 and 60% proximal stenosis. Overall, thought to be rather nonischemic etiology for cardiomyopathy as the coronary disease seen was out of proportion to the cardiomyopathy. In the current labs, slight anemia at 8.4. BUN is 39. Potassium is 4. Creatinine is 4.2. High sensitivity troponins are 138 [place] 139[place] [address]. In September it was 6277. In July, as high as 24,000. Overall, will treat this as acute on chronic systolic and diastolic heart failure. IV diuretics. Dialysis schedule. Possibly repeat echocardiogram Friday. Will follow with you. Procedures Date of Service Date of Service: 12/09/20
[2020-12-09] MEDS: Midodrine HCl 2.5 MG TABLET PO (11:25)
[2020-12-09] MEDS: Furosemide 40 MG/4 ML VIAL IVPUSH ×2 (11:30→18:13)
--- NOTE | 2020-12-09 12:25 | P.PNIM_ITS ---
Subjective Subjective Date of Service: 12/09/20 Interval History: the patient was seen and evaluated this morning Laying in bed, feels little better On oxygen supplement Denies any fever, chills but reports shortness of breath No reported other overnight events. Systemic review: No fever, chills or weakness No chest pain, palpitation Reporting shortness of breath and dyspnea with exertion No abdominal pain, nausea or vomiting No urinary symptoms No any rash or wounds Physical Exam Vital Signs: Vital Signs: Last Vital Signs Temp 98.3 F 12/09/20 08:00 Pulse 86 12/09/20 11:25 Resp 20 12/09/20 08:00 BP 91/69 12/09/20 11:25 Pulse Ox 97 12/09/20 08:00 Oxygen Flow Rate 3 12/08/20 18:30 Body Mass Index 25.5 Const: Other: Constitutional : Alert, oriented, not in distress Neck : Normal inspection, Supple Cardiovascular : RRR, S1 S2, +1 bilateral lower extremity edema Respiratory : Decreased bilateral air entry, basal bilateral crackles, on 2 L of oxygen Gastrointestinal: soft, lax, Normal bowel sounds, Non tender Skin : Warm, Dry Neurological : Alert & oriented x3, No focal deficit Objective Data Current Medications Generic Name Dose Route Start Last Admin Trade Name Freq PRN Reason Stop Dose Admin Acetaminophen 650 mg 12/09/20 02:33 12/09/20 09:28 Acetaminophen 325 Mg Tablet PO 650 mg Q6H PRN Administration Pain, Mild (Pain Scale 1-3) Hydrocodone Bitart/Acetaminophen 1 tab 12/08/20 23:23 12/09/20 11:25 Hydrocodone Bit/Acetam 5/325 Tablet PO 1 tab Q8H PRN Administration pain (scale score 7-10) Apixaban 2.5 mg 12/08/20 23:23 12/09/20 09:34 Apixaban 2.5 Mg Tablet PO 2.5 mg BID OMI Administration Atorvastatin Calcium 40 mg 12/09/20 09:00 12/09/20 09:34 Atorvastatin Calcium 40 Mg Tablet PO 40 mg DAILY OMI Administration Carvedilol 6.25 mg 12/08/20 23:23 12/09/20 09:37 Carvedilol 6.25 Mg Tablet PO Not Given BID OMI Protocol Furosemide 40 mg 12/09/20 09:00 12/09/20 11:30 Furosemide 40 Mg/4 Ml Vial IVPUSH 40 mg BID@0900,1800 [facility] Administration Protocol Hydralazine HCl 25 mg 12/09/20 09:00 12/09/20 09:38 Hydralazine Hcl 25 Mg Tablet PO Not Given BID [facility] Protocol Ceftriaxone Sodium 1 gm/ 50 mls @ 100 mls/hr 12/09/20 07:15 Sodium Chloride IV Q24H [facility] Isosorbide Dinitrate 5 mg 12/09/20 09:00 12/09/20 09:33 Isosorbide Dinitrate 5 Mg Tablet PO 5 mg BID [facility] Administration Protocol Levothyroxine Sodium 112 mcg 12/09/20 06:00 12/09/20 06:20 Levothyroxine Sodium 112 Mcg Tablet PO 112 mcg DAILY@0600 [facility] Administration Levothyroxine Sodium 25 mcg 12/09/20 06:00 12/09/20 06:20 Levothyroxine Sodium 25 Mcg Tablet PO 25 mcg DAILY@0600 [facility] Administration Midodrine 2.5 mg 12/09/20 22:05 12/09/20 11:25 Midodrine Hcl 2.5 Mg Tablet PO 2.5 mg TUTHSA [facility] Administration Ondansetron HCl 4 mg 12/09/20 02:33 Ondansetron Hcl 4 Mg/2 Ml Vial IVPUSH Q8H PRN Nausea and Vomiting Pharmacy Consult 1 each 12/08/20 19:57 Consult Rx Perform Med Rec MISCELLANE ONCE PRN Consult order Sevelamer Carbonate 800 mg 12/09/20 09:00 12/09/20 09:33 Sevelamer Carbonate Tablet 800 Mg Tablet PO 800 mg TID [facility] Administration Sodium Chloride 3 ml 12/09/20 08:00 12/09/20 09:38 0.9 % Sodium Chloride Flush 3 Ml Syringe IVFLUSH Not Given QSHIFT [facility] Labs CBC & Chem 7: 12/09/20 05:14 12/09/20 05:14 Labs: Laboratory Results - last 24 hr 12/08/20 12/08/20 12/08/20 19:06 19:06 19:06 MCV 91.0 MCH 29.8 MCHC 32.7 RDW 14.2 Plt Count 204 MPV 9.8 Immature Gran % (Auto) 0.5 H Neut % (Auto) 73.0 Lymph % (Auto) 15.6 L [place] % (Auto) 8.2 Eos % (Auto) 2.0 Baso % (Auto) 0.7 Lymph # (Auto) 1.5 [place] # (Auto) 0.8 Eos # (Auto) 0.2 Baso # (Auto) 0.1 Abs Immat Gran (auto) 0.05 H Absolute Neuts (auto) 7.2 Absolute Nucleated RBC 0.000 Nucleated RBC % (auto) 0.0 PT INR APTT Anion Gap 18 Estim Creat Clear Calc 11.7 Estimated GFR 11 Random Glucose 122 H Lactic Acid 1.3 Calcium 10.5 H Total Bilirubin 0.6 Direct Bilirubin 0.4 AST 11 ALT 10 Alkaline Phosphatase 98 D Troponin I High Sens B-Natriuretic Peptide Total Protein 6.3 L Albumin 3.9 Urine Color Urine Appearance Urine pH Ur Specific [place] Urine Protein Urine Glucose (UA) Urine Ketones Urine Blood Urine Nitrite Ur Leukocyte Esterase Urine RBC Urine WBC Ur Squamous Epith Cells Urine Bacteria COVID-19 (BENJAMIN) COVID-19 [employer] 12/08/20 12/08/20 12/08/20 19:06 19:06 19:15 MCV MCH MCHC RDW Plt Count MPV Immature Gran % (Auto) Neut % (Auto) Lymph % (Auto) [place] % (Auto) Eos % (Auto) Baso % (Auto) Lymph # (Auto) [place] # (Auto) Eos # (Auto) Baso # (Auto) Abs Immat Gran (auto) Absolute Neuts (auto) Absolute Nucleated RBC Nucleated RBC % (auto) PT 17.0 H INR 1.5 H APTT 42.4 H Anion Gap Estim Creat Clear Calc Estimated GFR Random Glucose Lactic Acid Calcium Total Bilirubin Direct Bilirubin AST ALT Alkaline Phosphatase Troponin I High Sens 138.6 H* B-Natriuretic Peptide 84670 H Total Protein Albumin Urine Color Urine Appearance Urine pH Ur Specific [place] Urine Protein Urine Glucose (UA) Urine Ketones Urine Blood Urine Nitrite Ur Leukocyte Esterase Urine RBC Urine WBC Ur Squamous Epith Cells Urine Bacteria COVID-19 (BENJAMIN) Negative COVID-19 Clin Com See Note 12/08/20 12/09/20 12/09/20 19:47 05:14 05:14 MCV 90.6 MCH 29.3 MCHC 32.3 RDW 14.2 Plt Count 185 MPV 10.5 Immature Gran % (Auto) 0.4 Neut % (Auto) 71.4 Lymph % (Auto) 15.6 L [place] % (Auto) 9.1 Eos % (Auto) 2.6 Baso % (Auto) 0.9 Lymph # (Auto) 1.3 [place] # (Auto) 0.8 Eos # (Auto) 0.2 Baso # (Auto) 0.1 Abs Immat Gran (auto) 0.03 Absolute Neuts (auto) 6.1 Absolute Nucleated RBC 0.000 Nucleated RBC % (auto) 0.0 PT INR APTT Anion Gap 21 H Estim Creat Clear Calc 11.1 Estimated GFR 10 Random Glucose 97 Lactic Acid Calcium 10.0 Total Bilirubin Direct Bilirubin AST ALT Alkaline Phosphatase Troponin I High Sens B-Natriuretic Peptide Total Protein Albumin Urine Color YELLOW Urine Appearance CLOUDY Urine pH 7.5 Ur Specific [place] 1.015 Urine Protein 2+ H Urine Glucose (UA) NEG Urine Ketones NEG Urine Blood NEG Urine Nitrite NEG Ur Leukocyte Esterase 3+ H Urine RBC 1-4 Urine WBC 15-29 H Ur Squamous Epith Cells 1+ Urine Bacteria 3+ COVID-19 (BENJAMIN) COVID-19 [employer] Com 12/09/20 07:25 MCV MCH MCHC RDW Plt Count MPV Immature Gran % (Auto) Neut % (Auto) Lymph % (Auto) [place] % (Auto) Eos % (Auto) Baso % (Auto) Lymph # (Auto) [place] # (Auto) Eos # (Auto) Baso # (Auto) Abs Immat Gran (auto) Absolute Neuts (auto) Absolute Nucleated RBC Nucleated RBC % (auto) PT INR APTT Anion Gap Estim Creat Clear Calc Estimated GFR Random Glucose Lactic Acid Calcium Total Bilirubin Direct Bilirubin AST ALT Alkaline Phosphatase Troponin I High Sens 139.8 H* B-Natriuretic Peptide Total Protein Albumin Urine Color Urine Appearance Urine pH Ur Specific [place] Urine Protein Urine Glucose (UA) Urine Ketones Urine Blood Urine Nitrite Ur Leukocyte Esterase Urine RBC Urine WBC Ur Squamous Epith Cells Urine Bacteria COVID-19 (BENJAMIN) COVID-19 Clin Com Microbiology Microbiology Results: Microbiology 12/08/20 Unknown Urine Culture - Preliminary Urine clean catch - Urine fisher top No growth to date. Assessment and Plan (1) Acute on chronic combined systolic and diastolic CHF (congestive heart failure): Status: Acute (2) ESRD (end stage renal disease): Status: Acute (3) CHF (congestive heart failure): Status: Acute Assessment and Plan: This is a 80-year-old female with past medical history of ESRD on dialysis on Friday presents the hospital with complaints of shortness of breath found to be in volume overload # acute CHF exacerbation Patient on dialysis, last session high BNP, dyspnea, and lower extremity edema Continue Lasix 40 IV b.i.d. To arrange for dialysis Pending echocardiogram cardiology consult # UTI positive UA Continue IV antibiotics follow cultures # ESRD on HD To get Nephrology consult for dialysis # elevated troponin has no chest pain, EKG showing left bundle-branch block Troponin trended flat # AFib continue carvedilol and apixaban # hypertension continue hydralazine, carvedilol, Imdur # hypothyroidism continue levothyroxine DVT prophylaxis Apixaban Quality Stroke Does the patient have a stroke diagnosis?: No VTE Prior VTE?: No VTE Risk Level:: Medical - moderate - high VTE Device Contraindication: Treatment Not Indicated VTE Drug Contraindication: N/A - Med Ordered
[2020-12-09] MEDS: 0.9 % Sodium Chloride Flush 3 ML SYRINGE IVFLUSH ×2 (18:13→20:10)
[2020-12-09] MEDS: cefTRIAXone sodium 1 GM in 0.9 % Sodium Chloride 50 ML IV (18:13)
[2020-12-09] MEDS: hydrALAZINE HCl 25 MG TABLET PO (20:09)
[2020-12-10] VITALS: BP 109/63; PULSE 92; RESP 18; TEMP 36.8; O2SAT 98
[2020-12-10 04:00] VITALS: BP 123/77; PULSE 90; RESP 18; TEMP 36.9; O2SAT 99
[2020-12-10 04:56] VITALS: BMI 27.0
[2020-12-10 06:37] LABS: B Type Natriuretic Peptide 10465 pg/mL (<100)
[2020-12-10] MEDS: Levothyroxine Sodium 112 MCG TABLET PO (06:50)
[2020-12-10] MEDS: Levothyroxine Sodium 25 MCG TABLET PO (06:50)
[2020-12-10] MEDS: HYDROcodone Bit/Acetam 5/325 TABLET 1 TAB PO (06:50)
[2020-12-10 08:00] VITALS: BP 115/74; PULSE 98; RESP 20; TEMP 36.7; O2SAT 98
--- NOTE | 2020-12-10 08:29 | P.PNNPD_ITS ---
Subjective Subjective dialysis yesterday with fluid removal next rx Interval history: the patient was seen and evaluated this morning Laying in bed, feels little better On oxygen supplement Denies any fever, chills but reports shortness of breath No reported other overnight events. Systemic review: No fever, chills or weakness No chest pain, palpitation Reporting shortness of breath and dyspnea with exertion No abdominal pain, nausea or vomiting No urinary symptoms No any rash or wounds Physical Exam Vital Signs: Vital Signs: Last Vital Signs Temp 98.0 F 12/10/20 08:00 Pulse 98 12/10/20 08:00 Resp 20 12/10/20 08:00 BP 115/74 12/10/20 08:00 Pulse Ox 98 12/10/20 08:00 Oxygen Flow Rate 3 12/08/20 18:30 Body Mass Index 27.0 Const: Other: Constitutional : Alert, oriented, not in distress Neck : Normal inspection, Supple Cardiovascular : RRR, S1 S2, +1 bilateral lower extremity edema Respiratory : Decreased bilateral air entry, basal bilateral crackles, on 2 L of oxygen Gastrointestinal: soft, lax, Normal bowel sounds, Non tender Skin : Warm, Dry Neurological : Alert & oriented x3, No focal deficit General: cooperative and no acute distress Orientation/consciousness: patient oriented x3 HENMT: Other: Unremarkable Eyes: General: appearance normal, both eyes and all related structures Pupils: Equal, round and reactive pupils present Neck: Neck: Yes normal visual inspection Chest: Chest palpation & inspection: normal inspection of the chest Resp: Other: bilateral basal crackles. Effort & Inspection: normal respiratory effort and able to speak in complete sentences Auscultation: clear to auscultation bilaterally Cardio: Jugular venous distension: no JVD Palpation: normal PMI Rate: regular rate Rhythm: regular rhythm Heart sounds: S1 normal heart sound present, S2 normal heart sound present, no gallops, no murmurs and no rubs GI: Palpation (GI): Soft to palpation Auscultation: normal bowel sounds Back/Spine/Pelvis: Other: unremarkable Skin: General skin exam: no rashes or lesions noted Neuro: General: patient oriented x3 Cranial nerves: Yes Equal, round and reactive pupils present and Yes Other cranial nerve findings present Cogniti on (Neuro): normal cognition Extrem: Other: 3+ lower extremity edema bilaterally General: Yes normal to inspection and Yes edema (1+) Psych: Mental Status: other Assessment & Plan Assessment and plan (1) Acute on chronic combined systolic and diastolic CHF (congestive heart failure): Status: Acute (2) ESRD (end stage renal disease): Status: Acute (3) CHF (congestive heart failure): Status: Acute Assessment and Plan: This is a 80-year-old female with past medical history of ESRD on dialysis on Friday presents the hospital with complaints of shortness of breath found to be in volume overload # acute CHF exacerbation Patient on dialysis, last session high BNP, dyspnea, and lower extremity edema Pending echocardiogram cardiology consult # UTI positive UA Continue IV antibiotics follow cultures # ESRD on HD MWF will attempt increased fluid removal with dialysis Time Spent With Patient Time: Total time spent is greater than 50% in coordination of care (as documented) at patient's floor/unit and/or counseling patient: Procedures Date of Service Date of Service: 12/10/20
[2020-12-10] MEDS: Acetaminophen 325 MG TABLET 650 MG PO (09:12)
[2020-12-10 09:13] VITALS: BP 115/74; PULSE 98
[2020-12-10] MEDS: carvediloL 6.25 MG TABLET PO (09:13)
[2020-12-10] MEDS: Isosorbide Dinitrate 5 MG TABLET PO (09:13)
[2020-12-10] MEDS: Atorvastatin Calcium 40 MG TABLET PO (09:13)
[2020-12-10] MEDS: hydrALAZINE HCl 25 MG TABLET PO (09:13)
[2020-12-10] MEDS: Apixaban 2.5 MG TABLET PO (09:14)
[2020-12-10] MEDS: Furosemide 40 MG/4 ML VIAL IVPUSH (09:14)
[2020-12-10] MEDS: Sevelamer Carbonate Tablet 800 MG TABLET PO (09:14)
[2020-12-10] MEDS: 0.9 % Sodium Chloride Flush 3 ML SYRINGE IVFLUSH (09:15)
--- NOTE | 2020-12-10 11:36 | MHC.CM.PN ---
Patient has been medically cleared for dc to home today, with services. Patient was active with Alivia PATEL, who has been notified of today's dc. Last IMM addressed yesterday.
--- NOTE | 2020-12-10 11:39 | P.DS_ITS ---
DS: Providers Provider Date of Service: 12/10/20 Date of admission: 12/09/20 01:29 Primary care physician: Unknown Physician Consults: 12/08/20 23:23 Consult to Nephrology Routine Consulting Provider: [facility] Reason for consultation: ESRD on dialysis Has provider been notified: No 12/08/20 23:36 Consult to Cardiology Routine Consulting Provider: Solomon Hess Reason for consultation: chf Has provider been notified: Yes DS: Diagnosis Discharge Diagnosis (1) Acute on chronic combined systolic and diastolic CHF (congestive heart failure): Status: Acute (2) ESRD (end stage renal disease): Status: Acute (3) CHF (congestive heart failure): Status: Acute DS: Medications Discharge Medications Home Medications: Home Medications Medication Instructions Recorded Confirmed ketorolac 0.5 % eye drops 1 drp OPHTHALMIC-RIGHT QID 03/31/20 12/08/20 sevelamer carbonate 800 mg tablet 800 mg PO TID 05/05/20 12/08/20 coenzyme Q10 100 mg capsule (Co 100 mg PO TUTHSA@0900 cap 06/21/20 12/08/20 Q-10) ferrous sulfate 325 mg (65 mg 325 mg PO TID tab 06/21/20 12/08/20 iron) tablet rosuvastatin 10 mg tablet 10 mg PO DAILY 07/31/20 12/08/20 furosemide 20 mg tablet 20 mg PO DAILY 10/04/20 12/08/20 midodrine 2.5 mg tablet 2.5 mg PO TUTHSA 10/13/20 12/08/20 coenzyme Q10 100 mg capsule 200 mg PO TUTHSA@2100 12/08/20 12/08/20 isosorbide dinitrate 5 mg tablet 5 mg PO BID 12/08/20 12/08/20 vit C 250 mg-vit E 90 mg-zinc 40 1 tab PO BID 12/08/20 12/08/20 mg-copper 1 [id number] capsule (PreserVision AREDS-2) Previous Rx's Medication Instructions Recorded levothyroxine 137 mcg tablet 137 mcg PO QAM #90 tab 03/15/20 apixaban 2.5 mg tablet (Eliquis) 2.5 mg PO BID 90 Days #180 tab 11/06/20 carvedilol 6.25 mg tablet 6.25 mg PO BID 90 Days #180 tab 11/06/20 hydralazine 25 mg tablet 25 mg PO BID 90 Days #180 tab 11/06/20 hydrocodone 5 mg-acetaminophen 325 1 tab PO Q8H PRN #90 tab 12/05/20 mg tablet DS: Summary Hospital Course Hospital Course: Admission note HPI This is a present 80-year-old female with past medical history of ESRD on dialysis, CAD, CHF with reduced ejection fraction of about 15%, hypothyroidism who presents to the hospital with complaints of shortness of breath.? Patient complains of shortness of breath, for the past 1 week, mostly with exertion, patient is fully assisted with her ADLs, but reports that even walking to the bathroom causes her significant dyspnea.? She sleeps upright and therefore cannot tell me if she has orthopnea or PND.? She has significant swelling of her legs, denies any cough or sputum production.? No fever or chills, no abdominal pain nausea or vomiting, no diarrhea constipation, no urinary symptoms and no numbness weakness and tingling. On arrival to ED hemodynamically stable.? Found to be 90% on room air, placed on 3 L of nasal cannula satting 100% on room air.? Vitals otherwise normal Labs are significant for WBC count of 8.5, hemoglobin of 8.4 which dropped from October 9.7, PT of 17, INR of 1.5, troponin of 138, BNP of 15,000 which is significantly higher than her previous admission, UA that is positive for leukocyte Estrace and WBC. Patient will be admitted for further management Hospital course Patient was admitted for evidence or CHF. Likely a result of during dialysis and a different center without removing enough fluids. Treated with IV Lasix and dialysis session with good response as the edema decreased and she felt comfortable on room air as she was weaned off the oxygen. Evaluated by Cardiology team who recommended outpatient follow-up. Evaluated by Nephrology who recommended removal of more fluids with dialysis sessions. Urine cultures remained negative. To be discharged on Ceftin to finish total of 3 days of antibiotics. Time Spent with Patient Time attestation: Total time spent providing and/or coordinating discharge servi harsh: Discharge coordination time: Greater than 30 minutes Quality: Stroke Does the patient have a stroke diagnosis?: No Physical Exam Vital Signs: Vital Signs: Last Vital Signs Temp 98.0 F 12/10/20 08:00 Pulse 98 12/10/20 09:13 Resp 20 12/10/20 08:00 BP 115/74 12/10/20 09:13 Pulse Ox 98 12/10/20 08:00 Oxygen Flow Rate 3 12/08/20 18:30 Body Mass Index 27.0 Const: Other: Constitutional : Alert, oriented, not in distress Neck : Normal inspection, Supple Cardiovascular : RRR, S1 S2, no lower extremity edema Respiratory : Fair bilateral air entry, no crackles, wheezes or rhonchi Gastrointestinal: soft, lax, Normal bowel sounds, Non tender Skin : Warm, Dry, dialysis line in place Neurological : Alert & oriented x3, No focal deficit DS: Data Data Completed and Pending Completed studies during hospitalization [Text1]: Procedures Insertion of Infusion Device into Right Atrium, Percutaneous Approach (07/31/20) Insertion of Infusion Device into Superior Vena Cava, Percutaneous Approach (07/31/20) Insertion of Tunneled Vascular Access Device into Chest Subcutaneous Tissue and Fascia, Percutaneous Approach (07/31/20) Performance of Urinary Filtration, Intermittent, Less than 6 Hours Per Day (08/20/20) Ultrasonography of Superior Vena Cava, Guidance (07/31/20) Labs on day of discharge: Laboratory Results - last 24 hr 12/10/20 04:54 B-Natriuretic Peptide 08718 H Preliminary micro results at discharge 12/08/20 19:15 Blood Culture - Preliminary Blood - Venous No growth after 24 hours. 12/08/20 19:06 Blood Culture - Preliminary Blood - Venous No growth after 24 hours. Discharge Plan Discharge Patient Disposition: Home Health Service Discharge Diagnosis: CHF exacerbation Referrals: [facility] [Outside] - 1 Week Physician,Unknown [Primary Care Provider] - 1 Week Discharge Medications: Continued levothyroxine 137 mcg tablet 137 mcg PO QAM Qty: 90 RF: 3 carvedilol 6.25 mg tablet 6.25 mg PO BID 90 Days Qty: 180 RF: 2 Eliquis 2.5 mg tablet 2.5 mg PO BID 90 Days Qty: 180 RF: 2 hydralazine 25 mg tablet 25 mg PO BID 90 Days Qty: 180 RF: 2 ketorolac 0.5 % drops 1 drp ophthalmic-Right QID RF: 0 sevelamer carbonate 800 mg Tablet 800 mg PO TID RF: 0 midodrine 2.5 mg Tablet 2.5 mg PO TUTHSA RF: 0 rosuvastatin 10 mg Tablet 10 mg PO DAILY RF: 0 coenzyme Q10 100 mg Capsule 200 mg PO TUTHSA@2100 RF: 0 PreserVision AREDS-2 250-90-40-1 mg Capsule 1 tab PO BID RF: 0 isosorbide dinitrate 5 mg tablet 5 mg PO BID RF: 0 furosemide 20 mg tablet 20 mg PO DAILY RF: 0 coenzyme Q10 [Co Q-10] 100 mg capsule 100 mg PO TUTHSA@0900 RF: 0 ferrous sulfate 325 mg (65 mg iron) tablet 325 mg PO TID RF: 0 hydrocodone-acetaminophen 5-325 mg tablet 1 tab PO Q8H PRN (Reason: pain (scale score 7-10)) Qty: 90 RF: 0 Discharge Orders: Discharge Order (Routine); Ordered 12/10/20 Ordered By: Linnette Chapa Diet: low salt diet Activity on Discharge: As tolerated Stand Alone Forms: Patient Portal Discharge page Care Plan Goals: Read below Health Concerns: Read below Plan of Treatment: admitted to the hospital for evaluation of difficulty breathing from fluids overload. Treated with IV lasix and dialysis with good response. Assessment: Continue home medications To remove more fluids with dialysis targeting your dry weight Follow up with cardiology as outpatient
--- NOTE | 2020-12-10 12:44 | P.PNCA_ITS ---
Subjective Subjective Date of Service: 12/10/20 Interval history: Feels better. Shortness of breath improved. Review of Systems Review of Systems Yes all other systems are reviewed and are negative Cardiovascular: Reports as per HPI, Reports no additional cardiovascular complaints, Denies acrocyanosis, Denies cool extremities, Denies painful fingertips, Denies chest pain, Denies chest pain at rest, Denies diaphoresis, Denies syncope, Denies irregular heart rhythm, Denies claudication, Denies leg e claudia, Denies lightheadedness, Denies palpitations and Reports dyspnea Respiratory: Reports dyspnea Denies syncope Endocrine: Denies palpitations Physical Exam Vital Signs: Last Vital Signs Temp 98.0 F 12/10/20 08:00 Pulse 98 12/10/20 09:13 Resp 20 12/10/20 08:00 BP 115/74 12/10/20 09:13 Pulse Ox 98 12/10/20 08:00 Oxygen Flow Rate 3 12/08/20 18:30 Body Mass Index 27.0 Const General: cooperative and no acute distress [facility] Other: Unremarkable Neck Neck: Yes normal visual inspection Chest Chest palpation & inspection: normal inspection of the chest Resp Other: bilateral basal crackles. Cardio Jugular venous distension: no JVD Palpation: normal PMI Heart sounds: S1 normal heart sound present, S2 normal heart sound present, no gallops, no murmurs and no rubs GI Palpation (GI): Soft to palpation Back/Spine/Pelvis Other: unremarkable Skin General skin exam: no rashes or lesions noted Neuro Cranial nerves: Yes Other cranial nerve findings present Extrem General: Yes edema (1+) Psych Mental Status: other Results Labs and Meds Result diagrams: 12/09/20 05:14 12/09/20 05:14 Lab results: Laboratory Results - last 24 hr 12/10/20 04:54 B-Natriuretic Peptide 12563 H Progress Note: A&P Assessment and plan (1) Acute on chronic combined systolic and diastolic CHF (congestive heart failure): Status: Acute (2) ESRD (end stage renal disease): Status: Acute (3) Atherosclerotic cardiovascular disease: Status: Acute Assessment and Plan: Cardiac studies reviewed. Last echocardiogram with LVEF 50-20% and moderate diastolic dysfunction as well as wall motion abnormalities from underlying coronary disease. There was mild aortic stenosis and mild mitral regurgitation and mild pulmonary hypertension with increased right atrial pressures. Coronary anatomy reviewed from recent catheterization. She had occluded mid LAD; patent MOREJON to LAD; occluded mid RCA with patent SVG to RCA with 60% stenosis; severe citizen [place] circumflex stenosis; occluded OM 2 with patent SVG to OM 2 and 60% proximal stenosis. Overall, thought to be rather nonischemic etiology for cardiomyopathy as the coronary disease seen was out of proportion to the cardiomyopathy. In the current labs, slight anemia at 8.4. BUN is 39. Potassium is 4. Creatinine is 4.2. High sensitivity troponins are 138 [place] 139[place] [address]. In September it was 6277. In July, as high as 24,000. Overall, will treat this as acute on chronic systolic and diastolic heart failure. It seems that she was dialysed and already feeling better and much less short of breath. Discharge planning. Will arrange FU in office. Fall Risk Details Current Medications: Current Medications Generic Name Dose Route Start Last Admin Trade Name Freq PRN Reason Stop Dose Admin Acetaminophen 650 mg 12/09/20 02:33 12/10/20 09:12 Acetaminophen 325 Mg Tablet PO 650 mg Q6H PRN Administration Pain, Mild (Pain Scale 1-3) Hydrocodone Bitart/Acetaminophen 1 tab 12/08/20 23:23 12/10/20 06:50 Hydrocodone Bit/Acetam 5/325 Tablet PO 1 tab Q8H PRN Administration pain (scale score 7-10) Apixaban 2.5 mg 12/08/20 23:23 12/10/20 09:14 Apixaban 2.5 Mg Tablet PO 2.5 mg BID OMI Administration Atorvastatin Calcium 40 mg 12/09/20 09:00 12/10/20 09:13 Atorvastatin Calcium 40 Mg Tablet PO 40 mg DAILY OMI Administration Carvedilol 6.25 mg 12/08/20 23:23 12/10/20 09:13 Carvedilol 6.25 Mg Tablet PO 6.25 mg BID OMI Administration Protocol Furosemide 40 mg 12/09/20 09:00 12/10/20 09:14 Furosemide 40 Mg/4 Ml Vial IVPUSH 40 mg BID@0900,1800 OMI Administration Protocol Hydralazine HCl 25 mg 12/09/20 09:00 12/10/20 09:13 Hydralazine Hcl 25 Mg Tablet PO 25 mg BID OMI Administration Protocol Ceftriaxone Sodium 1 gm/ 50 mls @ 100 mls/hr 12/10/20 18:00 Sodium Chloride IV Q24H [facility] Isosorbide Dinitrate 5 mg 12/09/20 09:00 12/10/20 09:13 Isosorbide Dinitrate 5 Mg Tablet PO 5 mg BID OMI Administration Protocol Levothyroxine Sodium 112 mcg 12/09/20 06:00 12/10/20 06:50 Levothyroxine Sodium 112 Mcg Tablet PO 112 mcg DAILY@0600 OMI Administration Levothyroxine Sodium 25 mcg 12/09/20 06:00 12/10/20 06:50 Levothyroxine Sodium 25 Mcg Tablet PO 25 mcg DAILY@0600 [facility] Administration Midodrine 2.5 mg 12/09/20 22:05 12/09/20 22:47 Midodrine Hcl 2.5 Mg Tablet PO Not Given [facility] Ondansetron HCl 4 mg 12/09/20 02:33 Ondansetron Hcl 4 Mg/2 Ml Vial IVPUSH Q8H PRN Nausea and Vomiting Pharmacy Consult 1 each 12/08/20 19:57 Consult Rx Perform Med Rec MISCELLANE ONCE PRN Consult order Sevelamer Carbonate 800 mg 12/09/20 09:00 12/10/20 09:14 Sevelamer Carbonate Tablet 800 Mg Tablet PO 800 mg TID OMI Administration Sodium Chloride 3 ml 12/09/20 08:00 12/10/20 09:15 0.9 % Sodium Chloride Flush 3 Ml Syringe IVFLUSH 3 ml QSHIFT OMI Administration Time Spent With Patient Time: Total time spent is greater than 50% in coordination of care (as documented) at patient's floor/unit and/or counseling patient: Time with patient: less than 15 minutes Progress Note: Quality Stroke Does the patient have a stroke diagnosis?: No Procedures Date of Service Date of Service: 12/10/20
== END 2020-12-10 13:27 | disposition home health service (06) | DRG 291 ==
LOC: HO.ED 21:33 → HO.EDOVER 12-09 01:36 → HO.IMC 12-09 02:04
PROVIDERS: Admitting Provider Internal Medicine; Emergency Provider Emergency Medicine; Visit Provider Student in an Organized Health Care Education/Training Program
DX: I13.2 Hypertensive heart and chronic kidney disease with heart failure and with stage 5 chronic kidney disease, or end stage renal disease (principal); I50.43 Acute on chronic combined systolic (congestive) and diastolic (congestive) heart failure; N18.6 End stage renal disease; N39.0 Urinary tract infection, site not specified; E03.9 Hypothyroidism, unspecified; I25.10 Atherosclerotic heart disease of native coronary artery without angina pectoris; Z88.2 Allergy status to sulfonamides; Z20.822 Contact with and (suspected) exposure to COVID-19; Z99.2 Dependence on renal dialysis; Z79.01 Long term (current) use of anticoagulants; Z79.890 Hormone replacement therapy; Z79.899 Other long term (current) drug therapy
CPT/HCPCS: 36415; 71045; 80048; 80076; 81001; 83605; 83880; 84484; 85025; 85610; 85730; 87040; 87086; 87635; 90999; 93005; 96374; 99285; J0696; J1940

== ENCOUNTER → 2020-12-14 07:28 | Outpatient (REF) | payer MEDICARE, SELFPAY ==
--- NOTE | 2020-12-14 07:31 | CA_ITS ---
Transthoracic Echocardiogram Patient (Last, First, Middle): Delmar Correa M Gender: Female Date of : 1940 Age: 80 Procedure Date: 12/14/2020 Procedure Type: Transthoracic Echocardiogram Location: OP Height: 167.64 cm Weight: 72.58 kg BSA: 1.82 m2 Heart Rate: bpm BP: 116 / 54 mmHg Vascular Sonographer: EM Referring MD: Viola BROWN Training Analyst: Solomon Hess MD Symptoms: I42.9 - Cardiomyopathy, unspecified Study Quality: Good ECG Rhythm: Sinus Conclusions: - Severely dilated left ventricle with LVEF of 10-15% with elevated filling pressures with regionality in the inferior and inferoseptal gilbert Findings Left Ventricle Severely increased left ventricular cavity size. There is normal left ventricular wall thickness. The left ventricular systolic function is severely decreased. The visually estimated ejection fraction is between 10 15%. Spectral Doppler is indicative of an impaired relaxation filling pattern. Elevated filling pressures. Wall Motion Rest Echo Findings The anterior wall, entire lateral wall, the apex, basal anteroseptal, and mid anteroseptal segments are hypokinetic. The inferoseptal wall, inferior wall, and apical septum segment are akinetic. Pericardium/Pleural There is no evidence of pericardial effusion. Prior Study Comparison Changes noted compared to prior study dated: 07/31/2020. LV systolic function is marginally reduced Measurements 2D Linear Measurements LVIDd: 7.09 3.9-5.3/4.2-5.9 cm LVIDd Index: 3.90 2.4-3.2/2.2-3.1 cm/m2 LVIDs: 6.61 2.0-3.6 cm LVPWd: 0.75 0.7-1.1 cm 2D Systolic Function EF 4C: 19.10 >55% EF 2C: 11.20 >55% EF BiP: 15.90 >55% Mitral Valve MV Pk E: 0.90 MV PK A: 0.93 MV Decel Time: 107.00 E/A: 1.00 E'Lateral: 9.03 E'Medial: 4.35 E/E' Med: 20.70 E/E' Lat: 10.00 Decel Ward: 8.40 Diastolic Function MV Pk E: 0.90 MV Pk A: 0.93 E/A: 1.00 E'Medial: 4.35 E/E' Med: 20.70 E' Laterial: 9.03 E/E' Lat: 10.00 Updated in Other Vendor System with Status of Final Solomon Hess MD electronically signed on 12/15/2020 3:57:54 PM with status of Final
== END ==
LOC: HO.CARD 07:28
PROVIDERS: PCP Internal Medicine; Visit Provider Nurse Practitioner Family
DX: I42.9 Cardiomyopathy, unspecified (principal); I50.20 Unspecified systolic (congestive) heart failure
CPT/HCPCS: 93308

== ENCOUNTER → 2020-12-20 12:48 | Outpatient (BNVA) | payer MEDICARE, SELFPAY | PROVIDERS: PCP Internal Medicine; Visit Provider Nurse Practitioner Family | DX: Z01.810 Encounter for preprocedural cardiovascular examination (principal); I42.9 Cardiomyopathy, unspecified; I48.91 Unspecified atrial fibrillation; I48.92 Unspecified atrial flutter; I25.10 Atherosclerotic heart disease of native coronary artery without angina pectoris; I13.2 Hypertensive heart and chronic kidney disease with heart failure and with stage 5 chronic kidney disease, or end stage renal disease; I50.20 Unspecified systolic (congestive) heart failure; N18.5 Chronic kidney disease, stage 5; Z98.890 Other specified postprocedural states | CPT/HCPCS: 99212; Q3014 ==

== ENCOUNTER → 2020-12-27 08:23 | Outpatient (BNVA) | payer MEDICARE, SELFPAY | PROVIDERS: PCP Internal Medicine; Visit Provider Anesthesiology | DX: M96.1 Postlaminectomy syndrome, not elsewhere classified (principal); M47.27 Other spondylosis with radiculopathy, lumbosacral region; G89.4 Chronic pain syndrome; Z79.899 Other long term (current) drug therapy | CPT/HCPCS: 99212 ==

== ENCOUNTER → 2021-01-17 09:28 | Outpatient (BNVA) | payer MEDICARE, SELFPAY | PROVIDERS: PCP Internal Medicine; Visit Provider Anesthesiology | DX: Z51.81 Encounter for therapeutic drug level monitoring (principal); M47.27 Other spondylosis with radiculopathy, lumbosacral region; G89.4 Chronic pain syndrome | CPT/HCPCS: 99212 ==

== ENCOUNTER 2021-01-26 06:00 | Day surgery (SDC) | payer MEDICARE, SELFPAY ==
[2021-01-26] VITALS (14 sets, daily range): BP systolic 99–119; BP diastolic 53–77; PULSE 65–97; RESP 12–20; TEMP 36.1–36.8; O2SAT 95–100; BMI 25.2
--- NOTE | ~2021-01-26 | FL_ITS ---
EXAMINATION: XR FLUOROSCOPY WITH IMAGES CLINICAL INFORMATION: Spinal implant. COMPARISON: Previous exam April 2020. TECHNIQUE: Fluoroscopy performed by Dr. Ranjith Franco. Fluoroscopy time: 2.2 minutes DAP: 13 mGycm2 Images: 5 FINDINGS: Images demonstrate 2 leads in the lower thoracic spinal canal. FL/FL guidance in OR IMPRESSION: Fluoroscopy guidance for spinal implant procedure.
[2021-01-26 06:47] LABS: Anion Gap 18 (12-20); Carbon Dioxide 21 mmol/L (22-29); Chloride 96 mmol/L (96-108); Potassium 4.4 mmol/L (3.3-5.1); Sodium 131 mmol/L (135-145)
--- NOTE | 2021-01-26 06:58 | MHC.SHP ---
Pre-Procedural Eval Section A Date of Service: 01/26/21 The patient is an INPATIENT: No Changes since office visit: Yes Patient answered all questions The History & Physical has been completed within 30 days and I have reviewed it.: No Section B Chief Complaint: Post-Laminectomy Syndrome Details of Present Illness: as above Relevant Family History (Specify if Yes): No Relevant Social History: None Present Medications: see Short Stay Collaborative assessment Medical History: No relevant PMH History of Previous Operations: Relevant previous surgery/procedure and date(s) Allergies: Allergies Allergy/AdvReac Type Severity Reaction Status Date / Time erythromycin base Allergy Mild RASH Verified 12/27/20 08:35 [Erythromycin Base] indomethacin [From Indocin] Allergy Mild RASH Verified 12/27/20 08:35 Sulfa (Sulfonamide Allergy Mild RASH, Verified 12/27/20 08:35 Antibiotics) stomach [Sulfa (Sulfonamides)] upset ezetimibe [From Zetia] Allergy Unknown unknown Verified 12/27/20 08:35 flaxseed [FLAXSEED] Allergy Unknown SWELLING Verified 12/27/20 08:35 TONGUE AND LIPS Flexeril Allergy Unknown lg swelling Verified 12/27/20 08:35 gabapentin [From Neurontin] Allergy Unknown UNknown Verified 12/27/20 08:35 glipizide Allergy Unknown UNknown Verified 12/27/20 08:35 Niacin Preparations Allergy Unknown RASH Verified 12/27/20 08:35 [NIACIN PREPARATIONS] Penicillins Allergy Unknown Rash Verified 12/27/20 08:35 cocaine Allergy Seizure Verified 12/27/20 08:35 atorvastatin [From Lipitor] AdvReac Mild MUSCLE Verified 12/27/20 08:35 SOARNESS oxycodone AdvReac Unknown GI upset- Verified 12/27/20 08:35 sevree CAT GUT SUTURES Allergy Unknown rash Uncoded 12/20/20 14:10 PLASTIC TAPE, BANDADES Allergy Unknown rash Uncoded 12/20/20 14:10 Adhesive Bandage AdvReac Mild BLISTERS Uncoded 12/20/20 14:10 Review of Systems Sugical H&P ROS: Negative: Constitution, Respiratory, Neurological, Psychiatric, Hem-Onc, Allergic/Immunologic, Gastrointestinal, Genitourinary, Integumentary, Endocrine and Eyes/Ears/Nose/Throat and Yes, Specify: Cardiovascular (pacemaker ) and Musculoskeletal (osteoarthritis) Exam Surgical H&P Exam: Normal: HEENT, Normal: Heart, Normal: Lungs, Normal: Extremities, Normal: Abdomen, Normal: Skin and Normal: Neurological Plan Diagnosis/Plan: Unchanged I have reviewed the history and physical and performed a pertinent physical examination on my patient. No changes have occurred unless specified.
--- NOTE | 2021-01-26 07:00 | P.BOP_ITS ---
Brief Operative Note Date of Service: 01/26/21 Pre-op diagnosis: Postlaminectomy syndrome, chronic pain syndrome Post-op diagnosis: same Procedure: Implantation of Nevro spinal cord stimulator and epidural leads. Implants: Nevro spinal cord stimulator and epidural leads. Surgeon: Ranjith Franco MD Anesthesia: GETA Was an Group Insurance Special Agent used for this Procedure?: No Estimated blood loss (mL): 20 Pathology: none sent Condition: stable Disposition: PACU
--- NOTE | 2021-01-26 07:00 | P.OP_ITS ---
Operative Note Operative Note Date of Service: 01/26/21 Narrative: Delmar is very pleasant 80 y.o. lady who came today into the operating room for implantation of spinal cord stimulator for the treatment of pain related to postlaminectomy syndrome.?She had successful trial of spinal cord st imulation. ? Preoperatively patient received antibiotic? 2g approximately 30 minutes before the procedure. After obtaining informed consent patient was brought to the operating room, she was positioned supine on the stretcher, [employer] monitors were applied and patient was induced with GETA. After that the patient was transferred to the OR table prone, all pressure points were protected. ?? Time-out was performed delineating correct site, side, the nature of the procedure, patient's allergy, preoperative antibiotic.? All operating room staff was participating in OR time-out procedure. Patient's entire back was prepped with DuraPrep twice and draped with full body drape including Ioban film.? Sterilely draped C-arm was brought over operating field and square picture of T12, L1, L2?vertebrae? were demonstrated on the screen.? THE PROJECTION OF L2-L3? SPINAL PROCESSES TO THE SKIN WERE INFILTRATED WITH LIDOCAINE 2% MIXED WITH BUPIVACAINE 0.5%.? 7 CM LONG VERTICAL INCISION using a 10 blade scalpel WAS PERFORMED IN STRICT MIDLINE VERTICAL FASHION.? THOROUGH HEMOSTASIS WAS PERFORMED using electrocautery. ?Thorough tissue dissections was performed until prevertebral fascia was freed from overlying tissues.? Attention FIRST? was concentrated on the RIGHT T12-L1 epidural interspace.? The location of the projection of the right pedicle center of the?L2 vertebra was found on the prevertebral fascia using C-arm.? This location was injected with mixture of lidocaine 2% and Marcaine 0.5% 5 cc in approximate direction of needle advancement.? After that ? 10 cm 14 gauge straight introducer epidural needle was inserted through the fascia and advanced toward?T12-L1 epidural interspace.? The advancement of the needle was performed on anterior posterior and lateral views.? Guitar wire and loss of resistance technique were used to locate epidural space.? When guitar wire was spread in the epidural fashion, epidural lead was inserted through the skin and it was advanced to the position in the POSTERIOR EPIDURAL SPACE slightly?left?TO THE MIDLINE at the posterior T8 needle body epidural space. After that location of the projection of the LEFT pedicle center of the L2 vertebra was found -using C-arm.? This location was injected with mixture of lidocaine 2% and Marcaine 0.5% 5 cc.. .? 10 cm 14 gauge curved introducer epidural needle was inserted through the fascia and advanced to T12-L1 epidural interspace.? The advancement of the needle was performed on anterior posterior and lateral views.? Guitar wire and loss of resistance technique were used to locate epidural space.? When guitar wire was spread in the epidural fashion, epidural lead was inserted through the needle and advanced to the T9 POSTERIOR EPIDURAL SPACE SLIGHTLY?right to the existing LEAD.? THE LOCATION OF BOTH LEADS WAS VERIFIED ON ANTERIOR POSTERIOR AND LATERAL VIEWS. IMPEDANCE WAS VERIFIED. After satisfactory position of the leads were established the needles were withdrawn, the stylette wires were removed from the epidural leads.? The anchoring devices were dislodged on the leads and advanced to the level of the skin.? The anchoring devices were advanced along the epidural leads and dislodged and epidural leads at the level of prevertebral fascia.? They were sutured to prevertebral fascia with 2 separate etibone sutures per each anchoring device.? The fixating screws was fixed until 3 clicks were heard on each anchoring device.? After that the wound was irrigated with copious amount of Vancomycin containing normal saline and packed with Vancomycin soaked 4 x 4. ?After that attention was concentrated on the left upper buttock? of the patient?where her battery would be implanted.? 6 cm long horizontal incision was performed 3 cm below the projection to the skin of the top left illiac crest. tunneling device was used to connect midline incision and the left upper buttock incision. Thorough hemostasis was performed. ? The impedance was satisfactory.? After that tunneling device was used to connect both wounds.? Cervical leads fr om the thoracic wound were dislodged into the loin wound.? They were connected to the battery. After that both wounds were thoroughly irrigated with normal saline containing vancomycin.? Sutures were applied to the most superior lateral and most superior medial corners of the wound.? Those sutures were tied after the battery was inserted into the pocket with the epidural leads collected behind the body of the battery.. After that 0 Vicryl sutures were used to close both wounds.? 2-0 Vicryl was used to approximate the level of the skin.? [place] were applied to skin level.? Bacitracin ointment was smear done the staple line.? Sterile dressing was applied.? Abdominal binder was applied.? The patient was transferred to the stretcher, awaken, extubated and in stable condition transferred to PACU.? She recovered uneventfully.? She went home without immediate complications. ?
[2021-01-26] MEDS: 0.9 % Sodium Chloride 500 ML 20 ML IVCONT (07:14)
[2021-01-26 07:19] LABS: Glucose, Whole Blood 87 mg/dL (60-115)
--- NOTE | 2021-01-26 07:27 | P.CONAN_ITS ---
[facility] Active Problems Active Problems: All Active Problems (Updated 12/20/20 @ 16:13 by Viola see, LOAN DOCUMENTS CLOSER-C) Preop cardiovascular exam (Acute) Status post cardiac catheterization (Acute) Abnormal nuclear stress test (Acute) Preop cardiovascular exam (Acute) Dependent on hemodialysis (Acute) Atrial fibrillation and flutter (Acute) Cardiomyopathy (Acute) Heart failure with reduced ejection fraction (Acute) Vertigo (Acute) Rotator cuff tear arthropathy of left shoulder (Acute) Acute hyperkalemia (Acute) Pain and swelling of lower leg (Acute) Bilateral calf pain (Acute) Septic arthritis of shoulder, right (Acute) Chronic pain syndrome (Acute) Postlaminectomy syndrome (Acute) Menopause (Acute) Osteoarthritis involving multiple joints on both sides of body (Acute) Lumbosacral radiculopathy due to degenerative joint disease of spine (Acute) 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 (Acute) Acquired hypothyroidism (Acute) Coronary artery disease (Acute) Essential hypertension (Acute) Anemia in CKD (chronic kidney disease) (Acute) Chronic kidney disease, stage 5 (Acute) Secondary hyperparathyroidism (Acute)o Past Medical History Medical History Acquired hypothyroidism Anemia in CKD (chronic kidney disease) Atherosclerotic cardiovascular disease Bilateral calf pain CHF (congestive heart failure) Chronic kidney disease, stage 5 Chronic pain syndrome Coronary artery disease COVID-19 vaccine administered Dependent on hemodialysis 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 ESRD (end stage renal disease) Essential hypertension Heart failure with reduced ejection fraction History of myocardial infarction Lumbosacral radiculopathy due to degenerative joint disease of spine Menopause Osteoarthritis involving multiple joints on both sides of body Pain and swelling of lower leg Postlaminectomy syndrome Restless leg syndrome Secondary hyperparathyroidism Septic arthritis of shoulder, right Family History Family History Father Medical history non-contributory Mother Medical history non-contributory Surgical History Surgical History History of carpal tunnel release History of foot surgery History of laminectomy History of surgery History of total left knee replacement (TKR) Hx of appendectomy Hx of bilateral cataract extraction Hx of cholecystectomy Hx of colonoscopy Hx of dilation and curettage Hx of umbilical hernia repair S/P CABG x 3 S/P trigger finger release Status post cardiac catheterization Status post right shoulder hemiarthroplasty History of Problems with Anesthesia: Yes (PONV) Social History Social History Household Members: Spouse Housing: House Housing Other:: Came from [facility], for rehab Are you a primary home care attendant to a significant other at home: No Do you presently have visiting nurse or other home services: Yes (Visiting nurse 1x/week) Alcohol intake: never Patient Tobacco Use Status: Never used Tobacco Use of substances other than those prescribed or required for medical reasons: No Are you DNR?: No Advance Directives: Yes Advance Directives Information Provided: Yes Advance Directives on File: Yes Advance Directives Date on File: 01/26/21 Recently lost weight without trying: Yes How much weight loss: 14-23 pounds Nutrition Risks: No Nutritional Risk Patient : No service: No Current occupational status: retired Meds Allergies Allergy/AdvReac Type Severity Reaction Status Date / Time erythromycin base Allergy Mild RASH Verified 12/27/20 08:35 [Erythromycin Base] indomethacin [From Indocin] Allergy Mild RASH Verified 12/27/20 08:35 Sulfa (Sulfonamide Allergy Mild RASH, Verified 12/27/20 08:35 Antibiotics) stomach [Sulfa (Sulfonamides)] upset ezetimibe [From Zetia] Allergy Unknown unknown Verified 12/27/20 08:35 flaxseed [FLAXSEED] Allergy Unknown SWELLING Verified 12/27/20 08:35 TONGUE AND LIPS Flexeril Allergy Unknown lg swelling Verified 12/27/20 08:35 gabapentin [From Neurontin] Allergy Unknown UNknown Verified 12/27/20 08:35 glipizide Allergy Unknown UNknown Verified 12/27/20 08:35 Niacin Preparations Allergy Unknown RASH Verified 12/27/20 08:35 [NIACIN PREPARATIONS] Penicillins Allergy Unknown Rash Verified 12/27/20 08:35 cocaine Allergy Seizure Verified 12/27/20 08:35 atorvastatin [From Lipitor] AdvReac Mild MUSCLE Verified 12/27/20 08:35 SOARNESS oxycodone AdvReac Unknown GI upset- Verified 12/27/20 08:35 sevree CAT GUT SUTURES Allergy Unknown rash Uncoded 12/20/20 14:10 PLASTIC TAPE, BANDADES Allergy Unknown rash Uncoded 12/20/20 14:10 Adhesive Bandage AdvReac Mild BLISTERS Uncoded 12/20/20 14:10 Home Medications Medication Instructions Recorded Confirmed Last Taken Type ketorolac 0.5 % eye drops 1 drp OPHTHALMIC-RIGHT QID 03/31/20 01/17/21 12/08/20 History sevelamer carbonate 800 mg tablet 800 mg PO TID 05/05/20 01/17/21 12/08/20 History coenzyme Q10 100 mg capsule (Co 100 mg PO TUTHSA@0900 cap 06/21/20 01/17/21 07/30/20 08:00 History Q-10) ferrous sulfate 325 mg (65 mg 325 mg PO TID tab 06/21/20 01/17/21 12/08/20 History iron) tablet rosuvastatin 10 mg tablet 10 mg PO DAILY 07/31/20 01/17/21 12/08/20 History furosemide 20 mg tablet 20 mg PO DAILY 10/04/20 01/17/21 12/08/20 History midodrine 2.5 mg tablet 2.5 mg PO TUTHSA 10/13/20 01/17/21 Unknown History coenzyme Q10 100 mg capsule 200 mg PO TUTHSA@2100 12/08/20 01/17/21 Unknown History isosorbide dinitrate 5 mg tablet 5 mg PO BID 12/08/20 01/17/21 01/26/21 History vit C 250 mg-vit E 90 mg-zinc 40 1 tab PO BID 12/08/20 01/17/21 12/08/20 History mg-copper 1 [id number] capsule (PreserVision AREDS-2) Exam Exam Date and Time: January 26, 2021 0727 Height,Weight and Vital Signs: Height 5 ft 6 in Weight 70.76 kg Last Vital Signs Temp 98.3 F 01/26/21 07:03 Pulse 97 01/26/21 07:03 Resp 16 01/26/21 07:03 BP 111/77 01/26/21 07:03 Pulse Ox 99 01/26/21 07:03 Pertinent Lab Results Pertinent Lab Results: Laboratory Tests 01/26/21 01/26/21 06:17 07:16 Sodium 131 L Potassium 4.4 Chloride 96 Carbon Dioxide 21 L Anion Gap 18 POC Glucose 87 Narrative Narrative: extensive health history reviewed. Pt is ASA 4. Airway Mallampati Class: II TM Dist: >3cm Neck ROM: Full Loose/Missing/Broken Teeth: No Heart: RRR Lungs: CTA Assessment and Plan Assessment Anesthesia Assessment: Anesthesia Plan Discussed and Chart Reviewed Final Anesthetic Review History of Problems with Anesthesia: Yes (PONV) NPO: Yes ASA Class: IV Final Preanesthetic Review: Meds/Allgs Chart Reviewed, Consent Obtained/Reviewed and Anes Risks/Benef Reviewed Patient Risk: High Procedure Risk: Low Anesthetic Plan Anesthetic Plan: GA Disposition: Standard PACU
[2021-01-26] MEDS: fentaNYL citrate/PF 100 MCG/2 ML VIAL 25 MCG IVPUSH ×4 (10:30→10:55)
[2021-01-26] MEDS: HYDROcodone Bit/Acetam 5/325 TABLET 1 TAB PO (10:54)
[2021-01-26] MEDS: ondansetron HCL 4 MG/2 ML VIAL IVPUSH (11:40)
== END 2021-01-26 13:11 | disposition home or self-care (01) ==
LOC: HO.SSS 06:01
PROVIDERS: Anesthesiology; Visit Provider Anesthesiology
PROC: (CPT 63685; principal; 2021-01-26 07:30)
DX: M96.1 Postlaminectomy syndrome, not elsewhere classified (principal); G89.4 Chronic pain syndrome; M54.50 Low back pain, unspecified; M47.27 Other spondylosis with radiculopathy, lumbosacral region; M15.9 Polyosteoarthritis, unspecified; E11.22 Type 2 diabetes mellitus with diabetic chronic kidney disease; E11.21 Type 2 diabetes mellitus with diabetic nephropathy; I13.2 Hypertensive heart and chronic kidney disease with heart failure and with stage 5 chronic kidney disease, or end stage renal disease; I50.20 Unspecified systolic (congestive) heart failure; N18.5 Chronic kidney disease, stage 5; D63.1 Anemia in chronic kidney disease; I12.0 Hypertensive chronic kidney disease with stage 5 chronic kidney disease or end stage renal disease; Z99.2 Dependence on renal dialysis; I25.10 Atherosclerotic heart disease of native coronary artery without angina pectoris; Z95.1 Presence of aortocoronary bypass graft; Z79.01 Long term (current) use of anticoagulants; Z79.899 Other long term (current) drug therapy; Z88.1 Allergy status to other antibiotic agents; Z88.0 Allergy status to penicillin; Z88.2 Allergy status to sulfonamides; Z88.8 Allergy status to other drugs, medicaments and biological substances; Z91.040 Latex allergy status
CPT/HCPCS: 63685; 63650 ×2; 36415; 80051; 82947; C1713; C1778; C1787; C1816; J1100; J2370; J2405; J3010; J3370

== ENCOUNTER → 2021-02-01 09:20 | Outpatient (BNVA) | payer MEDICARE, SELFPAY | PROVIDERS: PCP Internal Medicine; Visit Provider Anesthesiology | DX: M96.1 Postlaminectomy syndrome, not elsewhere classified (principal); M47.27 Other spondylosis with radiculopathy, lumbosacral region; G89.4 Chronic pain syndrome | CPT/HCPCS: 99212 ==

== ENCOUNTER → 2021-02-08 09:03 | Outpatient (BNVA) | payer MEDICARE, SELFPAY | PROVIDERS: PCP Internal Medicine; Visit Provider Anesthesiology | DX: M96.1 Postlaminectomy syndrome, not elsewhere classified (principal); M47.27 Other spondylosis with radiculopathy, lumbosacral region; G89.4 Chronic pain syndrome | CPT/HCPCS: 99212 ==